=== PATIENT | female | born 2000 | race Caucasian/White ===

== ENCOUNTER 2020-09-04 01:13 | Emergency (ER) | payer OTHER, SELFPAY ==
--- NOTE | ~2020-09-04 | CT_ITS ---
EXAMINATION: CT abdomen pelvis w con DATE: 09/04/2020 02:52 INDICATION: Abdominal pain. TECHNIQUE: Computed tomography (CT) of the abdomen and pelvis was performed with 100 mL Omnipaque 350 intravenous contrast. Automated exposure control and iterative reconstruction technique were employe d. The dose-length product was 316.65 mGy-cm. COMPARISON: CT abdomen and pelvis 12/02/2018 FINDINGS: The visualized portions of the lung bases are clear without pneumonia or pleural effusion. The heart size is normal. No pericardial effusion. The liver, gallbladder, spleen, pancreas, adrenal glands, and kidneys are normal. There are no dilated loops of bowel. There are changes of appendectom y. There are no pathologically enlarged lymph nodes. There is no free intraperitoneal fluid. There is thoracolumbar levoscoliosis. IMPRESSION: 1. No etiology for the patient's symptoms. Reviewed, dictated and finalized at location A.
[2020-09-04 01:22] VITALS: BP 154/103; PULSE 104; RESP 16; TEMP 37; O2SAT 100
[2020-09-04 01:38] VITALS: BP 120/82; PULSE 100; RESP 16; O2SAT 100
[2020-09-04] MEDS: ONDANSETRON INJ 4 MG/2 ML VIAL IV PUSH (01:58)
[2020-09-04 01:59] LABS: Basophils Absolute Auto 0.1 K/mm3 (0.0-0.1); Basophils Percent Auto 0.6 % (0.2-1.2); Eosinophils Absolute Auto 0.1 K/mm3 (0-0.3); Hematocrit 38.8 % (37.0-47.0); Immature Granulocyte Absolute 0.03 K/mm3 (0.00-0.031); Immature Granulocyte Percent A 0.4 % (0-0.5); Lymphocytes Absolute Auto 2.35 K/mm3 (0.9-3.2); Lymphocytes Percent Auto 30.3 % (18.3-44.2); Mean Corpuscular HGB Conc 33.5 g/dl (32-36); Mean Corpuscular Hemoglobin 30.9 pg (26-34); Mean Corpuscular Volume 92.2 fl (80-100); Mean Platelet Volume 11.9 fl (7.4-10.4); Monocytes Absolute Auto 0.5 K/mm3 (0.1-0.6); Monocytes Percent Auto 6.3 % (2.6-8.5); Neutrophils Absolute Auto 4.8 K/mm3 (1.3-6.7); Neutrophils Percent Auto 61.4 % (45.5-73.1); Platelet Count Result 260 k/mm3 (150-375); Red Blood Count 4.21 M/mm3 (4.2-5.4); Red Cell Distribution Width 12.1 % (11.5-14.5); White Blood Count 7.8 K/mm3 (4.5-10.0)
[2020-09-04] MEDS: SODIUM CHLORIDE 0.9% IV 1,000 ML 999 ML IV CONT (01:59)
[2020-09-04 02:00] LABS: Alanine Aminotransferase 8 U/L (4-35); Albumin Level 4.6 g/dL (3.5-5.1); Alkaline Phosphatase 54 U/L (38-126); Anion Gap 7 mmol/L (8-16); Aspartate Amino Transferase 21 U/L (14-36); Bilirubin,Total 0.4 mg/dL (0.2-1.3); Blood Urea Nitrogen 9 mg/dL (7-17); Carbon Dioxide 27 mmol/L (22-30); Chloride 104 mmol/L (98-107); Estimated CRCL calculation 94 ml/min; Estimated Glomerular Filt Rate > 60; Glucose 83 mg/dL (65-105); Lipase 82 U/L (23-300); Potassium 4.2 mmol/L (3.4-5.0); Sodium 138 mmol/L (137-145)
[2020-09-04 02:15] LABS: Add Urine Microscopic? YES; Appearance Urine Cloudy (Clear); Bacteria Urine 2+ /hpf; Bilirubin Urine Negative (Negative); Blood Urine Negative (Negative); Color Urine Yellow (Yellow); Glucose Urine UA Negative (Negative); Ketones Urine 1+ mg/dL (Negative); Leukocyte Esterase Ur 1+ LEU/UL (Negative); Mucus Urine Few /lpf; Nitrate Urine Negative (Negative); Protein Urine 1+ mg/dL (Negative); Specific Grav Ur 1.025 (1.001-1.035); Squamous Epithelial Cell Urine Moderate /hpf (Few); Urobilinogen Urine Negative mg/dL (<2.0)
--- NOTE | 2020-09-04 02:44 | ED.GENADULT ---
HPI - General Adult General Chief complaint: Abdominal Pain Stated complaint: abd pain/vomiting Time Seen by Provider: 09/04/20 01:19 History of Present Illness HPI narrative: Patient a 20-year-old female who presents the emergency department chief complaint of abdominal pain. The patient reports that she recently was on a trip to [place] and drank a lot of alcohol and ate some food which she said was not the most sanitary. Patient states that she has discomfort in her epigastric region and throughout the abdomen. The patient reports she has had some nausea and vomiting. The patient reports that she has had diarrhea with this and reports that her diarrhea has been orange in color. The patient denies blood in the vomitus or diarrhea. Patient denies fever with this as well Related Data Allergies Allergy/AdvReac Type Severity Reaction Status Date / Time clindamycin Allergy Unknown Vomiting Verified 12/02/18 00:35 doxycycline Allergy Unknown Vomiting Verified 12/02/18 00:35 Review of Systems Review of Systems: Narrative: A 10 system review of systems was completed on the patient and is negative except for what is stated in the HPI. Nursing and ancillary documentation was reviewed. Exam Narrative: Exam Narrative: GENERAL: Well-appearing, well-nourished, and in no acute distress. HEAD: Normocephalic, atraumatic. EYES: PERRLA and EOMI. ENT: Nares clear, no rhinorrhea or epistaxis. Mucous membranes moist. NECK: Supple. CHEST: Clear to auscultation. No respiratory distress. HEART: Regular rate and rhythm. No murmur heard. Normal peripheral pulses. ABDOMEN: Soft, tenderness to palpation throughout the abdomen, nondistended, normal active bowel sounds. EXTREMITIES: Normal range of motion. No edema. SKIN: Warm, dry, no rash. NEURO: No focal deficits. Alert and oriented x3. PSYCH: Normal mood and affect. Course Vital Signs Vital signs: Vital Signs Temperature 37.0 C 09/04/20 01:22 Pulse Rate 104 H 09/04/20 01:22 Respiratory Rate 16 09/04/20 01:22 Blood Pressure 154/103 H 09/04/20 01:22 Pulse Oximetry 100 09/04/20 01:22 Temperature 37.0 C 09/04/20 01:22 Pulse Rate 97 09/04/20 03:12 Respiratory Rate 16 09/04/20 03:12 Blood Pressure 126/93 H 09/04/20 03:12 Pulse Oximetry 100 09/04/20 03:12 Medical Decision Making Vital Signs Vital Signs: Vital Signs Temperature 37.0 C 09/04/20 01:22 Pulse Rate 104 H 09/04/20 01:22 Respiratory Rate 16 09/04/20 01:22 Blood Pressure 154/103 H 09/04/20 01:22 Pulse Oximetry 100 09/04/20 01:22 Temperature 37.0 C 09/04/20 01:22 Pulse Rate 97 09/04/20 03:12 Respiratory Rate 16 09/04/20 03:12 Blood Pressure 126/93 H 09/04/20 03:12 Pulse Oximetry 100 09/04/20 03:12 Lab Data Result diagrams: 09/04/20 01:41 09/04/20 01:41 Labs: Lab Results 09/04/20 09/04/20 09/04/20 Range/Units 01:41 01:41 01:41 WBC 7.8 (4.5-10.0) K/mm3 RBC 4.21 (4.2-5.4) M/mm3 Hgb 13.0 (12.0-15.0) g/dL Hct 38.8 (37.0-47.0) % MCV 92.2 (80-100) fl MCH 30.9 (26-34) pg MCHC 33.5 (32-36) g/dl RDW 12.1 (11.5-14.5) % Plt Count 260 (150-375) k/mm3 MPV 11.9 H (7.4-10.4) fl Immature Gran % (Auto) 0.4 (0-0.5) % Neut % (Auto) 61.4 (45.5-73.1) % Lymph % (Auto) 30.3 (18.3-44.2) % Schley % (Auto) 6.3 (2.6-8.5) % Eos % (Auto) 1.0 (0-4.4) % Baso % (Auto) 0.6 (0.2-1.2) % Lymph # (Auto) 2.35 (0.9-3.2) K/mm3 Schley # (Auto) 0.5 (0.1-0.6) K/mm3 Eos # (Auto) 0.1 (0-0.3) K/mm3 Baso # (Auto) 0.1 (0.0-0.1) K/mm3 Abs Immat Gran (auto) 0.03 (0.00-0.031) K/mm3 Absolute Neuts (auto) 4.8 (1.3-6.7) K/mm3 Absolute Nucleated RBC 0.0 (0.0-0.012) K/mm3 Nucleated RBC % 0.0 (0.0-0.2) % Sodium 138 (137-145) mmol/L Potassium 4.2 (3.4-5.0) mmol/L Chloride 104 (98-107) mmol/L Carbon Dioxide 27 (22-30) mmol/L Ani
[2020-09-04 03:12] VITALS: BP 126/93; PULSE 97; RESP 16; O2SAT 100
[2020-09-04 04:23] VITALS: BP 110/65; PULSE 80; RESP 16; O2SAT 99
== END 2020-09-04 04:25 | disposition home or self-care (01) ==
PROVIDERS: Emergency Provider Emergency Medicine; PCP Internal Medicine
DX: K52.9 Noninfective gastroenteritis and colitis, unspecified (principal)
CPT/HCPCS: 36415; 74177; 80053; 81001; 81025; 83605; 83690; 85025; 96361; 96374; 99284; J2405; J7030; Q9967

== ENCOUNTER 2022-12-04 03:45 | Emergency (ER) | payer OTHER, SELFPAY ==
--- NOTE | ~2022-12-04 | CT_ITS ---
Clinical Indication: Abdominal pain, dissection CT Scan of the Chest, Abdomen, and Pelvis with Contrast: Technique: Contiguous sections were acquired throughout the chest, abdomen, and pelvis after intraven ous administration of 100 cc of Omnipaque 350. Dose reduction technique was used on this scan by [employer] emilying automated exposure control and iterative reconstruction technique. The dose-length product (DL P) was 567.82 mGy-cm. COMPARISON: 09/04/2020 Findings: There is no evidence of any significant mediastinal, hilar or axillary lymphadenopathy. The mediastin al soft tissues appear normal. No pulmonary embolus seen. No aortic aneurysm or dissection. There is no evidence of pleural or pericardial effusion. The lungs are clear. No pulmonary nodules or infiltrates are noted. The liver, spleen, pancreas, gallbladder, adrenals and kidneys are within normal limits. No evidence of aortic aneurysm or dissection. No lymphadenopathy. No bowel obstruction or bowel wall thickening. There is no evidence to suggest acute appendicitis. Urinary bladder is unremarkable. No adnexal mass seen. No ascites. Impression: No significant abnormalities seen. No aortic dissection. Reviewed, dictated and finalized at [facility]. Impression: No significant abnormalities seen. No aortic dissection.
[2022-12-04 03:46] VITALS: PULSE 105; RESP 15; TEMP 37.1; O2SAT 100
--- NOTE | 2022-12-04 04:06 | ED.GENADULT ---
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 Per patient, she was in her usual state of health until 6 hours prior to presentation. At this time, she began having sudden sharp abdominal pain, going to her left side. This has also been associated with frequent watery stool, seeing black. Denied fevers/chills, nausea/vomiting, chest pain, shortness of breath, dysuria, sick contacts. Past Medical History: Nanda-Danlos, anemia Past Surgical History: appendectomy Medications: iron Allergies: no known drug allergies Related Data Allergies Allergy/AdvReac Type Severity Reaction Status Date / Time clindamycin Allergy Unknown Vomiting Verified 12/02/18 00:35 doxycycline Allergy Unknown Vomiting Verified 12/02/18 00:35 Review of Systems Review of Systems: See HPI Exam Narrative: General: Alert, calm and cooperative, no acute distress, phonating, sitting comfortably during visit HEENT: Pupils equal round and reactive to light, extra ocular movements intact, no conjunctival injection, head atraumatic, neck supple without meningismus Cardiovascular: Regular rate and rhythm, no visible jugular venous distension Respiratory: Lungs clear to auscultation bilaterally, no wheezing/rales/rhonchi Abdominal: Epigastric tenderness to palpation, soft, non-distended, no guarding, no rebound/peritoneal signs, no costovertebral tenderness to palpation Back: no midline tenderness to palpation, no step offs Extremities: No edema, palpable peripheral pulses, warm, well perfused, no tenderness to bilateral calves Neurological: Alert, moving all extremities symmetrically, ambulating without deficit Course Vital Signs Vital signs: Vital Signs Temperature 98.8 F 12/04/22 03:46 Pulse Rate 105 H 12/04/22 03:46 Respiratory Rate 15 12/04/22 03:46 Pulse Oximetry 100 12/04/22 03:46 Oxygen Delivery Room Air 12/04/22 03:46 Temperature 98.8 F 12/04/22 03:46 Pulse Rate 96 12/04/22 05:33 Respiratory Rate 15 12/04/22 05:33 Blood Pressure 126/74 12/04/22 05:33 Pulse Oximetry 100 12/04/22 05:33 Oxygen Delivery Room Air 12/04/22 03:46 Medical Decision Making [facility] Narrative Medical decision making narrative: 22 year old female history of connective tissue disease presented with one day of diarrhea, also reporting epigastric abdominal pain. Physical exam benign, abdomen with epigastric tenderness to palpation, vitals stable. Differential diagnosis includes but not limited to: aortic dissection vs cholecystitis vs pancreatitis vs viral gastroenteritis. Patient given GI cocktail and IV fluids with improvement. CTA chest abd/pelv without acute findings. EKG non ischemic. Blood work reviewed, noted to be unremarkable. Physical exam benign, repeat abdominal exam soft and non tender, vitals stable. The patient tolerated oral intake, is alert and oriented, speaking with clear speech, ambulated with steady gait, and has remained hemodynamically stable throughout the ED visit. Findings on imaging communicated to patient and counseled to follow up with primary care provider. Has close follow up with primary care provider. Areas of diagnostic uncertainty discussed and strict return precautions shared with patient; encouraged to return to the emergency department if symptoms returned or worsened. The patient is safe to be discharged with follow up, provided she abide by the verbalized and written instructions, to which the patient has expressed understanding. Vital Signs Vital Signs: Vital Signs Temperature 98.8 F 12/04/22 03:46 Pulse Rate 105 H 12/04/22 03:46 Respiratory Rate 15 12/04/22 03:46 Pulse Oximetry 100 12/04/22 03:46 Oxygen Delivery Room Air 12/04/22 03:46 Temperature 98.8 F 07
[2022-12-04 04:12] LABS: Alanine Aminotransferase 16 U/L (6-35); Albumin Level 4.1 g/dL (3.5-5.1); Alkaline Phosphatase 51 U/L (38-126); Anion Gap 8 mmol/L (8-16); Aspartate Amino Transferase 27 U/L (14-36); Bilirubin,Total 0.3 mg/dL (0.2-1.3); Blood Urea Nitrogen 10 mg/dL (7-17); Calcium 8.5 mg/dL (8.4-10.2); Carbon Dioxide 23 mmol/L (22-30); Chloride 105 mmol/L (98-107); Estimated CRCL calculation 106 ml/min; Estimated Glomerular Filt Rate > 60; Glucose 114 mg/dL (65-110); Potassium 3.7 mmol/L (3.4-5.0); Sodium 136 mmol/L (137-145)
[2022-12-04] MEDS: MAG HYDROX/AL HYDROX/SIMETH 30 ML UDC PO (04:27)
[2022-12-04] MEDS: ONDANSETRON INJ 4 MG/2 ML VIAL IV PUSH (04:28)
[2022-12-04] MEDS: ACETAMINOPHEN 500 MG TABLET 1000 MG PO (04:29)
--- NOTE | 2022-12-04 04:30 | PC.NURSE ---
Patient refused famotidine. Patient states it gives her terrible heart burn.
[2022-12-04 04:50] LABS: SPREG INTERNAL CONTROL Positive; Serum Qual hCG Negative
[2022-12-04 05:03] LABS: Appearance Urine Clear (Clear); Bacteria Urine None Seen /hpf; Bilirubin Urine Negative (Negative); Blood Urine Negative (Negative); Color Urine Yellow (Yellow); Glucose Urine UA Negative (Negative); Ketones Urine Negative (Negative); Leukocyte Esterase Ur Trace LEU/UL (Negative); Nitrate Urine Negative (Negative); Non Pathogenic Casts 0-2; Protein Urine Negative (Negative); RBC Urine 0-2 /hpf (0-2); Specific Grav Ur 1.008 (1.001-1.035); Squamous Epithelial Cell Urine None seen /hpf (Few); Urobilinogen Urine 0.2 mg/dL (<2.0); WBC Urine 0-5 /hpf
[2022-12-04 05:09] LABS: Add Urine Microscopic? YES
[2022-12-04 05:11] LABS: Basophils Percent Auto 0.3 % (0.2-1.2); Eosinophils Percent Auto 0.4 % (0-4.4); Hematocrit 31.3 % (37.0-47.0); Hemoglobin 10.3 g/dL (12.0-15.0); Immature Granulocyte Absolute 0.04 K/mm3 (0.00-0.031); Immature Granulocyte Percent A 0.4 % (0-0.5); Lymphocytes Absolute Auto 0.81 K/mm3 (0.9-3.2); Lymphocytes Percent Auto 8.3 % (18.3-44.2); Mean Corpuscular HGB Conc 32.9 g/dl (32-36); Mean Corpuscular Hemoglobin 30.8 pg (26-34); Mean Corpuscular Volume 93.7 fl (80-100); Monocytes Absolute Auto 0.4 K/mm3 (0.1-0.6); Monocytes Percent Auto 4.2 % (2.6-8.5); Neutrophils Absolute Auto 8.4 K/mm3 (1.3-6.7); Neutrophils Percent Auto 86.4 % (45.5-73.1); Platelet Count Result 185 k/mm3 (150-375); Red Blood Count 3.34 M/mm3 (4.2-5.4); Red Cell Distribution Width 12.2 % (11.5-14.5); White Blood Count 9.7 K/mm3 (4.5-10.0)
[2022-12-04 05:13] LABS: Alanine Aminotransferase 16 U/L (6-35); Alkaline Phosphatase 51 U/L (38-126); Anion Gap 9 mmol/L (8-16); Aspartate Amino Transferase 27 U/L (14-36); Bilirubin,Total 0.3 mg/dL (0.2-1.3); Blood Urea Nitrogen 11 mg/dL (7-17); Calcium 8.8 mg/dL (8.4-10.2); Carbon Dioxide 22 mmol/L (22-30); Chloride 105 mmol/L (98-107); Estimated CRCL calculation 106 ml/min; Estimated Glomerular Filt Rate > 60; Glucose 112 mg/dL (65-110); Lipase 75 U/L (23-300); Potassium 3.8 mmol/L (3.4-5.0); Sodium 136 mmol/L (137-145)
[2022-12-04] MEDS: MORPHINE SULFATE (*CRX) 4 MG/ML INJ IV PUSH (05:19)
[2022-12-04 05:33] VITALS: BP 126/74; PULSE 96; RESP 15; O2SAT 100
--- NOTE | 2022-12-04 05:40 | ECG_ITS ---
Measurements Intervals [place] Rate: 98 P: 68 CO: 140 QRS: 64 QRSD: 81 T: 39 QT: 354 QTc: 452 Interpretive Statements SINUS RHYTHM BASELINE ARTIFACT- III, V6 NORMAL ECG NO PREVIOUS ECG AVAILABLE FOR COMPARISON Electronically Signed On 12-04-2022 7:02:49 CDT by Melchor Mendoza D.O.
[2022-12-04 06:25] LABS: Troponin I < 0.012 ng/mL (0.000-0.034)
[2022-12-04 06:54] VITALS: BP 117/80; PULSE 93; RESP 15; TEMP 36.7; O2SAT 100
== END 2022-12-04 06:55 | disposition home or self-care (01) ==
PROVIDERS: Emergency Provider Emergency Medicine; PCP Internal Medicine
DX: R19.7 Diarrhea, unspecified (principal); Q79.60 Ehlers-Danlos syndrome, unspecified; D64.9 Anemia, unspecified
CPT/HCPCS: 36415; 71275; 74174; 80048; 80053; 80076; 81001; 81025; 83690; 84484; 84703; 85025; 93005; 96374; 96375; 99284; A9270; J2270; J2405; Q9967

== ENCOUNTER 2023-05-06 18:28 | Emergency (ER) | payer OTHER, SELFPAY ==
--- NOTE | ~2023-05-06 | CT_ITS ---
EXAMINATION: CT abdomen pelvis w con DATE: 05/07/2023 00:30 INDICATION: Upper abdominal pain. Nausea. TECHNIQUE: Computed tomography (CT) of the abdomen and pelvis was performed with 100 mL Omnipaque 350 intravenous contrast. Automated exposure control and iterative reconstruction technique were employe d. The dose-length product was 461.67 mGy-cm. COMPARISON: CT abdomen and pelvis 12/04/2022 FINDINGS: The visualized portions of the lung bases are clear without pneumonia or pleural effusion. The heart size is normal. No pericardial effusion. The liver, gallbladder, spleen, pancreas, adrenal glands, and kidneys are normal. There are no dilated loops of bowel. There are changes of appendectom y. There are no pathologically enlarged lymph nodes. There is no free intraperitoneal fluid. There is thoracolumbar levoscoliosis. There is mild lumbar spondylosis. IMPRESSION: 1. No etiology for the patient's symptoms. Reviewed, dictated and finalized at location E. [employer]
--- NOTE | ~2023-05-06 | XR_ITS ---
EXAMINATION: XR chest 1V portable DATE: 05/07/2023 01:40 INDICATION: Upper respiratory infection. Cough, congestion, and fever. TECHNIQUE: A single frontal view of the chest was obtained. COMPARISON: Chest 2 views 11/10/2018, CT abdomen and pelvis 05/07/2023 FINDINGS: There is no pneumonia, pleural effusion, or pneumothorax. The heart size is normal. IMPRESSION: 1. No acute cardiopulmonary disease. Reviewed, dictated and finalized at location E. HUSKER
[2023-05-06 18:45] VITALS: BP 142/95; PULSE 98; RESP 16; TEMP 37.1; O2SAT 98
[2023-05-06 21:06] VITALS: TEMP 37.2
--- NOTE | 2023-05-06 22:04 | ED.GENADULT ---
HPI - General Adult General Chief complaint: Fever Stated complaint: fever Time Seen by Provider: 05/06/23 21:43 Source: patient Mode of arrival: ambulatory Limitations: no limitations History of Present Illness HPI narrative: Patient is a 22-year-old female who presents the ED with multiple complaints. Patient reports having intermittent fevers for the past 1 week, Tmax 101.9F on Nabila Christine. She also reports having URI symptoms, including headaches, myalgias, cough, congestion, rhinorrhea, upper abdominal pain, nausea. Denies vomiting, diarrhea, constipation. Denies known sick contacts. She has been taking Tylenol and ibuprofen for her symptoms without significant improvement. States she was concerned that symptoms have been ongoing for so long. Patient is not vaccinated for covid or influenza. Related Data Allergies Allergy/AdvReac Type Severity Reaction Status Date / Time clindamycin Allergy Unknown Vomiting Verified 05/06/23 21:06 doxycycline Allergy Unknown Vomiting Verified 05/06/23 21:06 Review of Systems Review of Systems: CONSTITUTIONAL: See HPI. ENT: See HPI. CARDIOVASCULAR: Denies chest pain. RESPIRATORY: See HPI. GASTROINTESTINAL: See HPI. GENITOURINARY: Denies dysuria or hematuria. MUSCULOSKELETAL: Reports myalgia. NEUROLOGIC: see HPI. All systems reviewed & are unremarkable except as noted in HPI and below Exam Narrative: GENERAL: Well appearing, well-nourished, non-toxic, in no acute distress. HEAD: Normocephalic, atraumatic. RESPIRATORY: Airway patent, respirations nonlabored. Clear to auscultation bilaterally, no rales, rhonchi, wheezing. No focal lung sounds. CARDIOVASCULAR: Regular rate and rhythm without murmurs, rubs, or gallops. ABDOMINAL: Soft, mild tenderness in epigastric region, nondistended. Normoactive BS. MUSCULOSKELETAL: Moves all extremities. No gross deformities. SKIN: Warm, dry, normal color. NEURO: A&O X3. Speech clear. Cranial nerves II-XII grossly intact. Steady gait. No ataxic movements. PSYCHIATRIC: Appropriate mood and affect. Normal interaction. Course Vital Signs Vital signs: Vital Signs Temperature 98.8 F 05/06/23 18:45 Pulse Rate 98 05/06/23 18:45 Respiratory Rate 16 05/06/23 18:45 Blood Pressure 142/95 H 05/06/23 18:45 Pulse Oximetry 98 05/06/23 18:45 Oxygen Delivery Room Air 05/06/23 18:45 Temperature 98.9 F 05/06/23 21:06 Pulse Rate 85 05/06/23 23:25 Respiratory Rate 22 H 05/06/23 23:25 Blood Pressure 134/69 05/06/23 23:25 Pulse Oximetry 99 05/06/23 23:25 Oxygen Delivery Room Air 05/06/23 18:45 Medical Decision Making MDM Narrative Medical decision making narrative: patient presented to ED with multiple complaints, upper abdominal pain, nausea, fevers, URI symptoms. Vital stable upon arrival. Patient afebrile. In no acute distress. Basic laboratory studies unremarkable. No leukocytosis. No significant electrolyte abnormality. Stable kidney function. Normal LFTs and lipase. Urinalysis with possible infection, trace leuk esterase, 6-10 wbc's. Will send for culture. Patient does admit to recent dysuria. Will treat as UTI. Viral swabs negative. CT abdomen pelvis obtained and without acute findings. Did show a left ovarian cyst. CXR interpreted by myself w/o evidence of focal consolidation. Patient updated on lab and imaging results, reassuring workup. Patient without any lower abdominal tenderness on exam to suggest need for further imaging of cyst. Discussed finding of ovarian cyst advised patient to follow with OBGYN for further evaluation. Recommended to continue Tylenol and ibuprofen as needed for pain and fevers, discussed likelihood of viral syndrome/ URI. Feel patient is stable for discharge home with continued outpatient management. Given strict return precautions. Patient in agreement with plan and feels comfortable with discharge home. D/C in stable condition. Medical Re
[2023-05-06] MEDS: SODIUM CHLORIDE 0.9% IV 1,000 ML 999 ML IV CONT (22:33)
[2023-05-06 22:44] LABS: Basophils Absolute Auto 0.1 K/mm3 (0.0-0.1); Basophils Percent Auto 0.7 % (0.2-1.2); Eosinophils Absolute Auto 0.2 K/mm3 (0-0.3); Hematocrit 36.2 % (37.0-47.0); Hemoglobin 11.8 g/dL (12.0-15.0); Immature Granulocyte Absolute 0.02 K/mm3 (0.00-0.031); Immature Granulocyte Percent A 0.3 % (0-0.5); Lymphocytes Absolute Auto 2.78 K/mm3 (0.9-3.2); Lymphocytes Percent Auto 36.3 % (18.3-44.2); Mean Corpuscular HGB Conc 32.6 g/dl (32-36); Mean Corpuscular Hemoglobin 30.3 pg (26-34); Mean Corpuscular Volume 93.1 fl (80-100); Mean Platelet Volume 11.9 fl (7.4-10.4); Monocytes Absolute Auto 0.4 K/mm3 (0.1-0.6); Monocytes Percent Auto 4.6 % (2.6-8.5); Neutrophils Absolute Auto 4.3 K/mm3 (1.3-6.7); Neutrophils Percent Auto 56.1 % (45.5-73.1); Platelet Count Result 216 k/mm3 (150-375); Red Blood Count 3.89 M/mm3 (4.2-5.4); Red Cell Distribution Width 12.1 % (11.5-14.5); White Blood Count 7.7 K/mm3 (4.5-10.0)
[2023-05-06 22:57] LABS: Alanine Aminotransferase 12 U/L (6-35); Albumin Level 4.4 g/dL (3.5-5.1); Alkaline Phosphatase 54 U/L (38-126); Anion Gap 8 mmol/L (8-16); Aspartate Amino Transferase 20 U/L (14-36); Bilirubin,Total 0.3 mg/dL (0.2-1.3); Blood Urea Nitrogen 10 mg/dL (7-17); Calcium 9.3 mg/dL (8.4-10.2); Carbon Dioxide 25 mmol/L (22-30); Chloride 103 mmol/L (98-107); Estimated CRCL calculation 106 ml/min; Estimated Glomerular Filt Rate > 60; Glucose 87 mg/dL (65-110); Hypochromasia 1+ (NORMAL); Large Platelets Present; Lipase 94 U/L (23-300); Ovalocytes 1+ (NORMAL); Platelet Estimate Adequate (Adequate); Schistocytes None Seen (NORMAL); Sodium 136 mmol/L (137-145); Stomatocytes 1+ (NORMAL)
[2023-05-06 23:19] LABS: Influenza A QL RT-PCR Negative (Negative); Influenza B QL RT-PCR Negative (Negative); RSV RNA, RT-PCR Negative (Negative); SARS-CoV-2 RNA PCR Negative (Negative)
[2023-05-06 23:25] VITALS: BP 134/69; PULSE 85; RESP 22; O2SAT 99
[2023-05-07 00:16] LABS: Appearance Urine Clear (Clear); Bacteria Urine None Seen /hpf; Bilirubin Urine Negative (Negative); Blood Urine Negative (Negative); Color Urine Yellow (Yellow); Glucose Urine UA Negative (Negative); Ketones Urine 1+ mg/dL (Negative); Leukocyte Esterase Ur Trace LEU/UL (Negative); Nitrate Urine Negative (Negative); Non Pathogenic Casts 0-2; Protein Urine Negative (Negative); RBC Urine 0-2 /hpf (0-2); Specific Grav Ur 1.015 (1.001-1.035); Squamous Epithelial Cell Urine Occasional /hpf (Few); Urobilinogen Urine 0.2 mg/dL (<2.0)
[2023-05-07 00:20] LABS: Add Urine Microscopic? YES
[2023-05-07 03:40] VITALS: BP 114/74; PULSE 83; RESP 16; O2SAT 99
== END 2023-05-07 03:50 | disposition home or self-care (01) ==
PROVIDERS: Emergency Provider Physician Assistant; PCP Family Medicine
DX: B34.9 Viral infection, unspecified (principal); N39.0 Urinary tract infection, site not specified; J06.9 Acute upper respiratory infection, unspecified; N83.202 Unspecified ovarian cyst, left side; Z20.822 Contact with and (suspected) exposure to COVID-19
CPT/HCPCS: 36415; 71045; 74177; 80053; 81001; 81025; 83690; 85025; 87086; 87088; 87637; 96360; 99284; J7030; Q9967

== ENCOUNTER 2023-10-15 23:46 | Emergency (ER) | payer OTHER, SELFPAY ==
[2023-10-15 23:46] VITALS: BP 136/77; PULSE 114; RESP 20; TEMP 36.6; O2SAT 100
[2023-10-16] VITALS: BP 139/85; PULSE 108; PULSE 113; RESP 23; O2SAT 100
[2023-10-16] MEDS: FAMOTIDINE 20 MG/2 ML VIAL IV PUSH (00:01)
[2023-10-16] MEDS: methylPREDNISolone SOD SUCC 125 MG VIAL IV PUSH (00:01)
[2023-10-16] MEDS: SODIUM CHLORIDE 0.9% IV 1,000 ML 999 ML IV CONT (00:01)
[2023-10-16 00:15] VITALS: BP 128/81; PULSE 98; RESP 14; O2SAT 100
[2023-10-16 00:30] VITALS: BP 128/79; PULSE 105; RESP 16; O2SAT 100
--- NOTE | 2023-10-16 01:04 | ED.ALLEREA ---
HPI - Allergic Reaction General Chief complaint: Allergic Reaction Stated complaint: allergic reaction Time Seen by Provider: 10/15/23 23:58 Source: patient Mode of arrival: ambulatory Limitations: no limitations History of Present Illness HPI narrative: This is a 23-year-old female who presents to the ED for chief complaint of possible allergic reaction tonight. Reports that she tried a new lip gloss and felt that it was causing swelling in her throat. She reports sore throat and feels scratchy when she tries to talk. she also states that she became short of breath And had lip swelling. Also reports hives diffusely.. Per EMS she was given 25 mg of Benadryl IV after taking 25 mg oral at home. She declined epi IM from EMS. Denies chest pain, wheezes cough recent illness. Related Data Allergies Allergy/AdvReac Type Severity Reaction Status Date / Time clindamycin Allergy Unknown Vomiting Verified 05/06/23 21:06 doxycycline Allergy Unknown Vomiting Verified 05/06/23 21:06 Review of Systems Review of Systems: All systems as dictated in HPI Exam Narrative: GENERAL: Well-appearing, well-nourished, and in no acute distress. Typing out history answers on cellphone while also answering out out intermittently. HEAD: Normocephalic, atraumatic. EYES: PERRLA and EOMI. ENT: Airway intact. No tonsillar hypertrophy. Uvula normal. Tongue normal. No lip swelling. No facial swelling. Nares clear, no rhinorrhea or epistaxis. Mucous membranes moist. Oropharynx without tonsillar hypertrophy exudate or other lesions. NECK: Supple. No adenopathy or masses. CHEST: No respiratory distress. Clear to auscultation. No wheezes rales or rhonchi. 100% room air. HEART: Regular rate and rhythm. No murmur heard. Normal peripheral pulses. ABDOMEN: Soft, nontender, nondistended, normal active bowel sounds. MSK: Normal range of motion. No edema. SKIN: Warm, dry, no rash. No hives NEURO: Alert and oriented x3. No focal deficits. PSYCH: Normal mood and affect. Course Vital Signs Vital signs: Vital Signs Temperature 98 F 10/15/23 23:46 Pulse Rate 114 H 10/15/23 23:46 Respiratory Rate 20 10/15/23 23:46 Blood Pressure 136/77 10/15/23 23:46 Pulse Oximetry 100 10/15/23 23:46 Oxygen Delivery Room Air 10/15/23 23:46 Temperature 98 F 10/15/23 23:46 Pulse Rate 93 10/16/23 01:15 Respiratory Rate 20 10/16/23 01:15 Blood Pressure 126/81 10/16/23 01:15 Pulse Oximetry 100 10/16/23 01:15 Oxygen Delivery Room Air 10/15/23 23:51 MDM - Allergic Reaction MDM Narrative Medical decision making narrative: this is a 23-year-old female who presents to the ED via EMS for possible allergic reaction To a new lip gloss. vitals are normal. Exam is benign. No hives. Airway intact. No respiratory distress. Patient was given Benadryl EN route and also to Benadryl home. She was given fluids, Solu-Medrol and famotidine here. On serial re-examination she is stable and symptomatically improved. Suspect more of a component of anxiety today, however she did report diffuse hives and dyspnea. Medrol Dosepak prescription given. Pt will be discharged in stable condition. Return precautions given and supportive measures discussed. Pt is understanding and agreeable with plan for discharge and follow-up with PCP. Discharge Plan Discharge Clinical Impression: Allergic reaction Patient Disposition: Home, Self-Care Condition: Stable Instructions: Antibiotic Form Additional Instructions: Your exam today is reassuring overall. Please take steroids over the next several days for possible allergic reaction. If you have any new or worsening symptoms please return to the ER for further evaluation. Prescriptions: New methylprednisolone [Medrol (George)] 4 mg tablets,dose pack See Rx Instructions .ROUTE .COMPLEX Qty: 21 0RF Rx Instructions: for 6 days No Action ondansetron 4 mg t
[2023-10-16 01:07] VITALS: BP 121/82; PULSE 94; RESP 18; O2SAT 100
[2023-10-16 01:15] VITALS: BP 126/81; PULSE 93; RESP 20; O2SAT 100
[2023-10-16 02:09] VITALS: BP 125/83; PULSE 94; RESP 15; O2SAT 99
== END 2023-10-16 02:13 | disposition home or self-care (01) ==
PROVIDERS: Emergency Provider Physician Assistant; PCP Family Medicine
DX: T78.49XA Other allergy, initial encounter (principal)
CPT/HCPCS: 96361; 96374; 96375; 99284; J2919; J7030

== ENCOUNTER 2024-06-17 19:15 | Emergency (ER) | payer OTHER, SELFPAY ==
--- OUTSIDE RECORDS SUMMARY | 2024-06-17 19:18 | XMS_ITS | Encounter Summary ---
Author Organization [facility] Address [address] [place] [address] Care Team Providers Care Guidance Consultant Name Role Phone Farzaneh Briscoe MD Primary Care Provider [phone] Encounter Details Date Type Department Care Team (Late st Contact Info) Description 11/06/2022 [employer] Message Enc [facility] Medical [facility] [address] [place] [address] [employer], [facility] Provider Air Quality Message Social History Tobacco Use Types Packs/Day Years Used Date Smoking Tobacco: Never Smokeless Tobacco: Never Alcohol Use Standard Drinks/Week Comments Not Currently 0 (1 standard drink = 0.6 oz pur e alcohol) AUDIT-C Answer Date Recorded Q1: How often do you have a drink containing alc ohol? Monthly or less 09/15/2020 Average Number of Drinks Not on file 021 Frequency of Binge Drinking Not on file 11/2020 PHQ-2 Answer Date Recorded Patient Health Questionnaire-2 Score 3 07/01/2022 Comments No Sex and Gender Information Value Date Recorded Sex Assigned at Female 06/14/2024 9:24 PM DIE CASTING SUPERVISOR Legal Sex Female 5:01 PM CDT Gender Identity Female 06/14/2024 9:20 PM DIE CASTING SUPERVISOR Sexual Orientation Straight 06/14/2024 9: 20 PM DIE CASTING SUPERVISOR COVID-19 Exposure Response Date Recorded In the last 10 days, have yo u been in contact with someone who was confirmed or suspected to have Coronavirus/COVID-19? No / Unsure 10/17/2022 11:11 AM CDT documented as of this encounter Functional Status * RETIRED Are you deaf or do you have serious difficulty hearing Answer Date of Assessment Author Status No 02/02/2020 1:57 PM CDT Activ e * RETIRED Are you blind or do you have serious difficulty seeing, even when wearing glasses? Answer Date of Assessment Author Status No 02/02/2020 1:57 PM CDT Activ e * Do you have serious difficulty walking or climbing stairs? Answer Date of Assessment Author Status No 02/02/2020 1:57 PM CDT Joseline Escamilla RN Active * Do you have difficulty dressing or bathing? Answer Date of Assessment Author Status No 02/02/2020 1:57 PM CDT Joseline Escamilla RN Active * Because of a physical, mental, or emotional condition, do you have difficulty doing errands alone such as visiting a doctor's office or shopping? Answer Date of Assessment Author Status No 02/02/2020 1:57 PM CDT Joseline Escamilla RN Active documented as of this encounter Mental Status * Because of a physical, mental, or emotional condition, do you have serious difficulty concentrating, remembering, or making decisions? Answer Entry Date Author Status No 02/02/2020 1:57 PM CDT Joseline Escamilla RN Active documented in this encounter Plan of Treatment Upcoming Encounters Date Type Department Care Team (Late st Contact Info) Description 01/21/2025 10:45 AM CDT Office Visit [facility] [id number] [place] [phone] Doyle Curry MD [address] [address] documented as of this encounter Goals Goal Patient Goal Type Associated Problems Recent Progress Patient-Stated? Author Return home with mother Diet No Mayte Camacho MSW documented as of this encounter Visit Diagnoses Not on filedocumented in this encounter Additional Health Concerns Infection Onset Date Last Indicated Resolved Time COVID-19 Rule Out 12/02/2022 12/02/2022 12/02/2022 1:15 PM CDT COVID-19 Rule Out 02/14/2023 02/14/2023 02/14/2023 2:15 PM CDT COVID-19 Rule Out 03/20/2023 03/20/2023 03/20/2023 10:27 AM DIE CASTING SUPERVISOR COVID-19 Rule Out 03/20/2023 03/20/2023 03/20/2023 2:10 PM DIE CASTING SUPERVISOR COVID-19 Rule Out 03/26/2023 03/26/2023 03/26/2023 12:11 PM DIE CASTING SUPERVISOR COVID-19 Rule Out 03/26/2023 03/26/2023 03/26/2023 1:39 PM DIE CASTING SUPERVISOR COVID-19 Rule Out 04/01/2023 04/01/2023 04/01/2023 10:22 PM DIE CASTING SUPERVISOR COVID-19 Rule Out 07/02/2023 07/02/2023 07/02/2023 1:03 PM DIE CASTING SUPERVISOR COVID-19 Rule Out 07/09/2023 07/09/2023 07/09/2023 7:57 PM DIE CASTING SUPERVISOR COVID-19 Rule Out 07/29/2023 07/29/2023 07/29/2023 7:23 PM CDT COVID-19 Rule Out 09/05/2023 09/05/2023 09/05/2023 1:30 PM CDT COVID-19 Rule Out 11/03/2023 11/03/2023 11/03/2023 3:34 PM CDT COVID-19 Rule Out 04/14/2024 04/14/2024 04/14/2024 1:53 PM DIE CASTING SUPERVISOR Assessment Noted Time PHQ-9 Depression Total Score: 023 3:00 PM DIE CASTING SUPERVISOR documented as of this encounter Care Teams Guidance Consultant Relationship Specialty Start [place] [address] [facility]. [address] [place] [address] PCP - General FAMILY PRACTICE 09/19/22 documented as of this encounter
--- OUTSIDE RECORDS SUMMARY | 2024-06-17 19:18 | XMS_ITS | Encounter Summary ---
Author Organization [facility] Address [address] [place] [address] Care Team Providers Care Automatic Gluing Machine Operator Name Role Phone Annette Kirkland MD Primary Care Provider + Brinda Ascencio [facility] Primary Care Provider [phone] Nuvia Prasad MD Primary Care Provider [phone] None, Provider Primary Care Provider Unavaila Farzaneh Lancaster MD Primary Care Provider [phone] Encounter Details Date Type Department Care Team (Late st Contact Info) Description 06/05/2002 Abstract [facility] Conversion , Generic Conversion, Social History Tobacco Use Types Packs/Day Years Used Date Smoking Tobacco: Never Assessed Comments Unknown Sex and Gender Information Value Date Recorded Sex Assigned at Female 06/14/2024 9:24 PM AEROSOL SUPERVISOR Legal Sex Female 5:01 PM CDT Gender Identity Female 06/14/2024 9:20 PM AEROSOL SUPERVISOR Sexual Orientation Straight 06/14/2024 9: 20 PM AEROSOL SUPERVISOR documented as of this encounter Plan of Treatment Upcoming Encounters Date Type Department Care Team (Late st Contact Info) Description 01/21/2025 10:45 AM CDT [facility] [address] [place] [phone] Doyle Curry MD [facility] [address] [place] [address] documented as of this encounter Visit Diagnoses Not on filedocumented in this encounter Additional Health Concerns Infection Onset Date Last Indicated Resolved Time COVID-19 Rule Out 08/14/2020 08/15/2020 08/15/2020 2:03 PM CDT COVID-19 Rule Out 08/15/2020 08/15/2020 08/16/2020 5:22 PM CDT COVID-19 Rule Out 10/15/2021 10/15/2021 10/15/2021 1:34 PM CDT COVID-19 Rule Out 10/15/2021 10/15/2021 10/16/2021 7:02 PM CDT COVID-19 Rule Out 01/30/2022 01/30/2022 01/30/2022 9:59 AM CDT COVID-19 Rule Out 04/24/2022 04/24/2022 04/24/2022 3:01 PM AEROSOL SUPERVISOR COVID-19 Rule Out 05/09/2022 05/09/2022 05/09/2022 7:47 PM AEROSOL SUPERVISOR COVID-19 Rule Out 05/29/2022 05/29/2022 05/29/2022 1:46 PM AEROSOL SUPERVISOR COVID-19 Rule Out 05/29/2022 05/29/2022 05/30/2022 6:46 PM AEROSOL SUPERVISOR COVID-19 Rule Out 07/05/2022 07/05/2022 07/05/2022 7:45 PM AEROSOL SUPERVISOR COVID-19 Rule Out 08/30/2022 08/30/2022 08/30/2022 2:37 PM CDT COVID-19 Rule Out 09/26/2022 09/26/2022 09/26/2022 11:47 AM CDT COVID-19 Rule Out 12/02/2022 12/02/2022 12/02/2022 1:15 PM CDT COVID-19 Rule Out 02/14/2023 02/14/2023 02/14/2023 2:15 PM CDT COVID-19 Rule Out 03/20/2023 03/20/2023 03/20/2023 10:27 AM AEROSOL SUPERVISOR COVID-19 Rule Out 03/20/2023 03/20/2023 03/20/2023 2:10 PM AEROSOL SUPERVISOR COVID-19 Rule Out 03/26/2023 03/26/2023 03/26/2023 12:11 PM AEROSOL SUPERVISOR COVID-19 Rule Out 03/26/2023 03/26/2023 03/26/2023 1:39 PM AEROSOL SUPERVISOR COVID-19 Rule Out 04/01/2023 04/01/2023 04/01/2023 10:22 PM AEROSOL SUPERVISOR COVID-19 Rule Out 07/02/2023 07/02/2023 07/02/2023 1:03 PM AEROSOL SUPERVISOR COVID-19 Rule Out 07/09/2023 07/09/2023 07/09/2023 7:57 PM AEROSOL SUPERVISOR COVID-19 Rule Out 07/29/2023 07/29/2023 07/29/2023 7:23 PM CDT COVID-19 Rule Out 09/05/2023 09/05/2023 09/05/2023 1:30 PM CDT COVID-19 Rule Out 11/03/2023 11/03/2023 11/03/2023 3:34 PM CDT COVID-19 Rule Out 04/14/2024 04/14/2024 04/14/2024 1:53 PM AEROSOL SUPERVISOR documented as of this encounter Care Teams Automatic Gluing Machine Operator Relationship Specialty Start Date End Date Annette Kirkland MD [address] [place] [address] PCP - General 08/31/14 06/07/19 Brinda Ascencio, DEVELOPMENT ENGINEER-BC [address] [place] [address] PCP - General NURSE PRACTITIONER 07/07/19 07/29/19 Nuvia Prasad MD [address] [place] [address] PCP - General INTERNAL MEDICINE 07/30/19 08/27/22 None, MD Yas PCP - General UNKNOWN PHYSICIAN SPECIALTY 08/28/22 [place] [address] [facility]. [address] [place] [address] PCP - General FAMILY PRACTICE 09/19/22 documented as of this encounter
--- OUTSIDE RECORDS SUMMARY | 2024-06-17 19:18 | XMS_ITS | Encounter Summary ---
Author Organization [facility] Address [address] [place] [address] Care Team Providers Care Scraper Operator Name Role Phone Farzaneh Briscoe MD Primary Care Provider [phone] Encounter Details Date Type Department Care Team (Late st Contact Info) Description 11/06/2022 [employer] Message Enc [facility] Medical Group Family & Internal Medicine [facility] [id number] [place] [phone] [place] [address] [place] [address]. [address] [place] [address] Grass card Social History Tobacco Use Types Packs/Day Years [...] Sex Assigned at Female 06/14/2024 9:24 PM PERL DEVELOPER Legal Sex Female 5:01 PM CDT Gender Identity Female 06/14/2024 9:20 PM PERL DEVELOPER Sexual Orientation Straight 06/14/2024 9: 20 PM PERL DEVELOPER COVID-19 Exposure Response Date Recorded In the last 10 days, have glenn munoz been in contact with someone who was [...] Escamilla RN Active documented in this encounter Progress Notes * Evelin Nicole RN - 11/07/2022 10:12 AM CDT Please advise documented in this encounter Plan of Treatment Upcoming Encounters Date Type Department Care Team (Late st Contact Info) Description 01/21/2025 10:45 AM CDT [facility] [address] [place] [phone] Doyle Curry MD [facility]. [facility] [address] [place] [address] [phone] (work) documented as of this encounter Goals Goal Patient Goal Type Associated Problems Recent Progress Patient-Stated? Author Return home with mother Mayte Brady, SOCIAL WORK THERAPIST documented as of this encounter Visit Diagnoses Not on filedocumented in this encounter Additional Health Concerns Infection Onset Date Last Indicated Resolved Time COVID-19 Rule Out 12/02/2022 12/02/2022 12/02/2022 1:15 PM CDT COVID-19 Rule Out 02/14/2023 02/14/2023 02/14/2023 2:15 PM CDT COVID-19 Rule Out 03/20/2023 03/20/2023 03/20/2023 10:27 AM PERL DEVELOPER COVID-19 Rule Out 03/20/2023 03/20/2023 03/20/2023 2:10 PM PERL DEVELOPER COVID-19 Rule Out 03/26/2023 03/26/2023 03/26/2023 12:11 PM PERL DEVELOPER COVID-19 Rule Out 03/26/2023 03/26/2023 03/26/2023 1:39 PM PERL DEVELOPER COVID-19 Rule Out 04/01/2023 04/01/2023 04/01/2023 10:22 PM PERL DEVELOPER COVID-19 Rule Out 07/02/2023 07/02/2023 07/02/2023 1:03 PM PERL DEVELOPER COVID-19 Rule Out 07/09/2023 07/09/2023 07/09/2023 7:57 PM PERL DEVELOPER COVID-19 Rule Out 07/29/2023 07/29/2023 07/29/2023 7:23 PM CDT COVID-19 Rule Out 09/05/2023 09/05/2023 09/05/2023 1:30 PM CDT COVID-19 Rule Out 11/03/2023 11/03/2023 11/03/2023 3:34 PM CDT COVID-19 Rule Out 04/14/2024 04/14/2024 04/14/2024 1:53 PM PERL DEVELOPER Assessment Noted Time PHQ-9 Depression Total Score: 12 07/01/2 023 3:00 PM PERL DEVELOPER documented as of this encounter Care Teams Scraper Operator Relationship Specialty [place] [address] [address] [place] [address] PCP - General FAMILY PRACTICE 09/19/22 documented as of this encounter
--- OUTSIDE RECORDS SUMMARY | 2024-06-17 19:18 | XMS_ITS | Encounter Summary ---
Author Organization [facility] Address [address] [place] [address] Care Team Providers Care Superintendent Terminal Name Role Phone Annette Kirkland MD Primary Care Provider + Brinda Ascencio [facility] Primary Care Provider [phone] Nuvia Prasad MD Primary Care Provider [phone] None, Provider Primary Care Provider Unavaila Farzaneh Lancaster MD Primary Care Provider [phone] Encounter Details Date Type Department Care Team (Late st Contact Info) Description 09/11/2012 Abstract [facility] Conversion , Generic Conversion, Social History Tobacco Use Types Packs/Day Years Used Date Smoking Tobacco: Never Assessed Comments Unknown Sex and Gender Information Value Date Recorded Sex Assigned at Female 06/14/2024 9:24 PM BOARD MACHINE SET UP OPERATOR Legal Sex Female 5:01 PM CDT Gender Identity Female 06/14/2024 9:20 PM BOARD MACHINE SET UP OPERATOR Sexual Orientation Straight 06/14/2024 9: 20 PM BOARD MACHINE SET UP OPERATOR documented as of this encounter Plan of Treatment Upcoming Encounters Date Type Department Care Team (Late st Contact Info) Description 01/21/2025 10:45 AM CDT [facility] [address] [place] [phone] Doyle Curry MD [facility] [address] [place] [address] documented as of this encounter [...] Rule Out 04/24/2022 04/24/2022 04/24/2022 3:01 PM BOARD MACHINE SET UP OPERATOR COVID-19 Rule Out 05/09/2022 05/09/2022 05/09/2022 7:47 PM BOARD MACHINE SET UP OPERATOR COVID-19 Rule Out 05/29/2022 05/29/2022 05/29/2022 1:46 PM BOARD MACHINE SET UP OPERATOR COVID-19 Rule Out 05/29/2022 05/29/2022 05/30/2022 6:46 PM BOARD MACHINE SET UP OPERATOR COVID-19 Rule Out 07/05/2022 07/05/2022 07/05/2022 7:45 PM BOARD MACHINE SET UP OPERATOR COVID-19 Rule Out 08/30/2022 08/30/2022 08/30/2022 2:37 PM CDT COVID-19 Rule Out 09/26/2022 09/26/2022 09/26/2022 11:47 AM CDT COVID-19 Rule Out 12/02/2022 12/02/2022 12/02/2022 1:15 PM CDT COVID-19 Rule Out 02/14/2023 02/14/2023 02/14/2023 2:15 PM CDT COVID-19 Rule Out 03/20/2023 03/20/2023 03/20/2023 10:27 AM BOARD MACHINE SET UP OPERATOR COVID-19 Rule Out 03/20/2023 03/20/2023 03/20/2023 2:10 PM BOARD MACHINE SET UP OPERATOR COVID-19 Rule Out 03/26/2023 03/26/2023 03/26/2023 12:11 PM BOARD MACHINE SET UP OPERATOR COVID-19 Rule Out 03/26/2023 03/26/2023 03/26/2023 1:39 PM BOARD MACHINE SET UP OPERATOR COVID-19 Rule Out 04/01/2023 04/01/2023 04/01/2023 10:22 PM BOARD MACHINE SET UP OPERATOR COVID-19 Rule Out 07/02/2023 07/02/2023 07/02/2023 1:03 PM BOARD MACHINE SET UP OPERATOR COVID-19 Rule Out 07/09/2023 07/09/2023 07/09/2023 7:57 PM BOARD MACHINE SET UP OPERATOR COVID-19 Rule Out 07/29/2023 07/29/2023 07/29/2023 7:23 PM CDT COVID-19 Rule Out 09/05/2023 09/05/2023 09/05/2023 1:30 PM CDT COVID-19 Rule Out 11/03/2023 11/03/2023 11/03/2023 3:34 PM CDT COVID-19 Rule Out 04/14/2024 04/14/2024 04/14/2024 1:53 PM BOARD MACHINE SET UP OPERATOR documented as of this encounter Care Teams Superintendent Terminal Relationship Specialty Start Date End Date Annette Kirkland MD [address] [place] [address] PCP - General 08/31/14 06/07/19 Brinda Ascencio, MUSIC ADAPTER-BC [address] [place] [address] PCP - General NURSE PRACTITIONER 07/07/19 07/29/19 Nuvia Prasad MD [address] [place] [address] PCP - General INTERNAL MEDICINE 07/30/19 08/27/22 None, MD Yas PCP - General UNKNOWN PHYSICIAN SPECIALTY 08/28/22 [place] [address] [facility]. [address] [place] [address] PCP - General FAMILY PRACTICE 09/19/22 documented as of this encounter
--- OUTSIDE RECORDS SUMMARY | 2024-06-17 19:18 | XMS_ITS | Encounter Summary ---
Author Organization [facility] Address [facility] [place] [address] Care Team Providers Care Flat Lock Machine Operator Name Role Phone Annette Kirkland MD Primary Care Provider + Brinda Ascencio [facility] Primary Care Provider [phone] Nuvia Prasad MD Primary Care Provider [phone] None, Provider Primary Care Provider Unavaila Farzaneh Lancaster MD Primary Care Provider [phone] Encounter Details Date Type Department Care Team (Late st Contact Info) Description 02/07/2014 Abstract [facility] CONVERSION [address] [place] [address] , Generic Conversion, Social History Tobacco Use Types Packs/Day Years Used Date Smoking Tobacco: Never Assessed Comments Unknown Sex and Gender Information Value Date Recorded Sex Assigned at Female 06/14/2024 9:24 PM GOVERNMENT MINISTER Legal Sex Female 5:01 PM CDT Gender Identity Female 06/14/2024 9:20 PM GOVERNMENT MINISTER Sexual Orientation Straight 06/14/2024 9: 20 PM GOVERNMENT MINISTER documented as of this encounter Plan of Treatment Upcoming Encounters Date Type Department Care Team (Late st Contact Info) Description 01/21/2025 10:45 AM CDT [facility] [address] [place] [phone] Doyle Curry MD [facility] [address] [place] [address] documented as of this encounter Visit Diagnoses [...] Rule Out 04/24/2022 04/24/2022 04/24/2022 3:01 PM GOVERNMENT MINISTER COVID-19 Rule Out 05/09/2022 05/09/2022 05/09/2022 7:47 PM GOVERNMENT MINISTER COVID-19 Rule Out 05/29/2022 05/29/2022 05/29/2022 1:46 PM GOVERNMENT MINISTER COVID-19 Rule Out 05/29/2022 05/29/2022 05/30/2022 6:46 PM GOVERNMENT MINISTER COVID-19 Rule Out 07/05/2022 07/05/2022 07/05/2022 7:45 PM GOVERNMENT MINISTER COVID-19 Rule Out 08/30/2022 08/30/2022 08/30/2022 2:37 PM CDT COVID-19 Rule Out 09/26/2022 09/26/2022 09/26/2022 11:47 AM CDT COVID-19 Rule Out 12/02/2022 12/02/2022 12/02/2022 1:15 PM CDT COVID-19 Rule Out 02/14/2023 02/14/2023 02/14/2023 2:15 PM CDT COVID-19 Rule Out 03/20/2023 03/20/2023 03/20/2023 10:27 AM GOVERNMENT MINISTER COVID-19 Rule Out 03/20/2023 03/20/2023 03/20/2023 2:10 PM GOVERNMENT MINISTER COVID-19 Rule Out 03/26/2023 03/26/2023 03/26/2023 12:11 PM GOVERNMENT MINISTER COVID-19 Rule Out 03/26/2023 03/26/2023 03/26/2023 1:39 PM GOVERNMENT MINISTER COVID-19 Rule Out 04/01/2023 04/01/2023 04/01/2023 10:22 PM GOVERNMENT MINISTER COVID-19 Rule Out 07/02/2023 07/02/2023 07/02/2023 1:03 PM GOVERNMENT MINISTER COVID-19 Rule Out 07/09/2023 07/09/2023 07/09/2023 7:57 PM GOVERNMENT MINISTER COVID-19 Rule Out 07/29/2023 07/29/2023 07/29/2023 7:23 PM CDT COVID-19 Rule Out 09/05/2023 09/05/2023 09/05/2023 1:30 PM CDT COVID-19 Rule Out 11/03/2023 11/03/2023 11/03/2023 3:34 PM CDT COVID-19 Rule Out 04/14/2024 04/14/2024 04/14/2024 1:53 PM GOVERNMENT MINISTER documented as of this encounter Care Teams Flat Lock Machine Operator Relationship Specialty Start Date End Date Annette Kirkland MD [address] [place] [address] PCP - General 08/31/14 06/07/19 Brinda Ascencio, BIOLOGICAL LAB TECHNICIAN- [address] [place] [address] PCP - General NURSE PRACTITIONER 07/07/19 07/29/19 Nuvia Prasad MD [address] [place] [address] PCP - General INTERNAL MEDICINE 07/30/19 08/27/22 None, Provider, PCP - General UNKNOWN PHYSICIAN SPECIALTY 08/28/22 [place] [address] [facility]. [address] [place] [address] PCP - General FAMILY PRACTICE 09/19/22 documented as of this encounter
--- OUTSIDE RECORDS SUMMARY | 2024-06-17 19:18 | XMS_ITS | Encounter Summary ---
Author Organization [facility] Address [facility] [place] [address] Care Team Providers Care Entertainment & Media Correspondent Name Role Phone Annette Kirkland MD Primary Care Provider + Brinda Ascencio [facility] Primary Care Provider [phone] Nuvia Prasad MD Primary Care Provider [phone] None, Provider Primary Care Provider Unavaila Farzaneh Lancaster MD Primary Care Provider [phone] Encounter Details Date Type Department Care Team (Late st Contact Info) Description 02/15/2014 Abstract [facility] [address] [place] [address] , Generic Conversion, Social History Tobacco Use Types Packs/Day Years Used Date Smoking Tobacco: Never Assessed Comments Unknown Sex and Gender Information Value Date Recorded Sex Assigned at Female 06/14/2024 9:24 PM DELIVERY AGENT Legal Sex Female 5:01 PM CDT Gender Identity Female 06/14/2024 9:20 PM DELIVERY AGENT Sexual Orientation Straight 06/14/2024 9: 20 PM DELIVERY AGENT documented as of this encounter Plan of Treatment Upcoming Encounters Date Type Department Care Team (Late st Contact Info) Description 01/21/2025 10:45 AM CDT [facility] [address] [place] [phone] Doyle Curry MD [facility] [address] [place] [address] documented as of this encounter Visit Diagnoses [...] Rule Out 04/24/2022 04/24/2022 04/24/2022 3:01 PM DELIVERY AGENT COVID-19 Rule Out 05/09/2022 05/09/2022 05/09/2022 7:47 PM DELIVERY AGENT COVID-19 Rule Out 05/29/2022 05/29/2022 05/29/2022 1:46 PM DELIVERY AGENT COVID-19 Rule Out 05/29/2022 05/29/2022 05/30/2022 6:46 PM DELIVERY AGENT COVID-19 Rule Out 07/05/2022 07/05/2022 07/05/2022 7:45 PM DELIVERY AGENT COVID-19 Rule Out 08/30/2022 08/30/2022 08/30/2022 2:37 PM CDT COVID-19 Rule Out 09/26/2022 09/26/2022 09/26/2022 11:47 AM CDT COVID-19 Rule Out 12/02/2022 12/02/2022 12/02/2022 1:15 PM CDT COVID-19 Rule Out 02/14/2023 02/14/2023 02/14/2023 2:15 PM CDT COVID-19 Rule Out 03/20/2023 03/20/2023 03/20/2023 10:27 AM DELIVERY AGENT COVID-19 Rule Out 03/20/2023 03/20/2023 03/20/2023 2:10 PM DELIVERY AGENT COVID-19 Rule Out 03/26/2023 03/26/2023 03/26/2023 12:11 PM DELIVERY AGENT COVID-19 Rule Out 03/26/2023 03/26/2023 03/26/2023 1:39 PM DELIVERY AGENT COVID-19 Rule Out 04/01/2023 04/01/2023 04/01/2023 10:22 PM DELIVERY AGENT COVID-19 Rule Out 07/02/2023 07/02/2023 07/02/2023 1:03 PM DELIVERY AGENT COVID-19 Rule Out 07/09/2023 07/09/2023 07/09/2023 7:57 PM DELIVERY AGENT COVID-19 Rule Out 07/29/2023 07/29/2023 07/29/2023 7:23 PM CDT COVID-19 Rule Out 09/05/2023 09/05/2023 09/05/2023 1:30 PM CDT COVID-19 Rule Out 11/03/2023 11/03/2023 11/03/2023 3:34 PM CDT COVID-19 Rule Out 04/14/2024 04/14/2024 04/14/2024 1:53 PM DELIVERY AGENT documented as of this encounter Care Teams Entertainment & Media Correspondent Relationship Specialty Start Date End Date Annette Kirkland MD [address] [place] [address] PCP - General 08/31/14 06/07/19 Brinda Ascencio, NURSE REVIEWER- [address] [place] [address] PCP - General NURSE PRACTITIONER 07/07/19 07/29/19 Nuvia Prasad MD [address] [place] [address] PCP - General INTERNAL MEDICINE 07/30/19 08/27/22 None, Provider, PCP - General UNKNOWN PHYSICIAN SPECIALTY 08/28/22 [place] [address] [facility]. [address] [place] [address] PCP - General FAMILY PRACTICE 09/19/22 documented as of this encounter
--- OUTSIDE RECORDS SUMMARY | 2024-06-17 19:18 | XMS_ITS | Encounter Summary ---
Author Organization [facility] Address [address] [place] [address] Care Team Providers Care Brand Development Manager Name Role Phone Farzaneh Briscoe MD Primary Care Provider [phone] Encounter Details Date Type Department Care Team (Late st Contact Info) Description 12/05/2022 MyWish[employer] Message Enc [facility] Medical Group Family & Internal Medicine [facility] [id number] [place] [address] [place]iscoe [place] [address] [place] [address]. [address] [place] [phone] Should i just give up eating n drink water and juice n stuff Social History Tobacco Use Types Packs/Day Years [...] Sex Assigned at Female 06/14/2024 9:24 PM GAS ENGINE OPERATOR Legal Sex Female 5:01 PM CDT Gender Identity Female 06/14/2024 9:20 PM GAS ENGINE OPERATOR Sexual Orientation Straight 06/14/2024 9: 20 PM GAS ENGINE OPERATOR documented as of this encounter Functional Status [...] Date Author Status No 02/02/2020 1:57 PM FRANKIET Joseline Escamilla RN Active documented in this encounter Progress Notes * Jovany Bailey RN - 12/10/2022 10:58 AM CDT See recent my chart message. * Ludmila Buckley RN - 12/09/2022 10:27 AM CDT Patient went to the ER on 12/03/2022 Message left for patient to return call for an update. * Ludmila Buckley RN - 12/05/2022 12:34 PM CDT Please advise. documented in this encounter Plan of Treatment Upcoming Encounters Date Type Department Care Team (Late st Contact Info) Description 01/21/2025 10:45 AM CDT Office Visit [place] [facility] [address] [place] [phone] Doyle Curry MD Three [facility]. [facility] [address] [place] [address] documented as of this encounter Goals Goal Patient Goal Type Associated Problems Recent Progress Patient-Stated? Author Return home with mother Diet No Mayte Camacho SENIOR MAJOR GIFTS OFFICER documented as of this encounter Visit Diagnoses Not on filedocumented in this encounter Additional Health Concerns Infection Onset Date Last Indicated Resolved Time COVID-19 Rule Out 02/14/2023 02/14/2023 02/14/2023 2:15 PM CDT COVID-19 Rule Out 03/20/2023 03/20/2023 03/20/2023 10:27 AM GAS ENGINE OPERATOR COVID-19 Rule Out 03/20/2023 03/20/2023 03/20/2023 2:10 PM GAS ENGINE OPERATOR COVID-19 Rule Out 03/26/2023 03/26/2023 03/26/2023 12:11 PM GAS ENGINE OPERATOR COVID-19 Rule Out 03/26/2023 03/26/2023 03/26/2023 1:39 PM GAS ENGINE OPERATOR COVID-19 Rule Out 04/01/2023 04/01/2023 04/01/2023 10:22 PM GAS ENGINE OPERATOR COVID-19 Rule Out 07/02/2023 07/02/2023 07/02/2023 1:03 PM GAS ENGINE OPERATOR COVID-19 Rule Out 07/09/2023 07/09/2023 07/09/2023 7:57 PM GAS ENGINE OPERATOR COVID-19 Rule Out 07/29/2023 07/29/2023 07/29/2023 7:23 PM CDT COVID-19 Rule Out 09/05/2023 09/05/2023 09/05/2023 1:30 PM CDT COVID-19 Rule Out 11/03/2023 11/03/2023 11/03/2023 3:34 PM CDT COVID-19 Rule Out 04/14/2024 04/14/2024 04/14/2024 1:53 PM GAS ENGINE OPERATOR Assessment Noted Time PHQ-9 Depression Total Score: 12 023 3:00 PM GAS ENGINE OPERATOR documented as of this encounter Care Teams Brand Development Manager Relationship Specialty Start [place] [address] [facility] [place] [address] PCP - General FAMILY PRACTICE 09/19/22 documented as of this encounter
--- OUTSIDE RECORDS SUMMARY | 2024-06-17 19:18 | XMS_ITS | Encounter Summary ---
Author Organization [facility] Address [address] [place] [address] Care Team Providers Care Heavy Equipment Plumbing Supervisor Name Role Phone Farzaneh Briscoe MD Primary Care Provider [phone] Encounter Details Date Type Department Care Team (Late st Contact Info) Description 10/18/2022 [employer] Message Enc [facility] Medical Group Family & Internal Medicine - [place] [id number] [place] [address] [place]zaneh Briscoe [place] [phone] [place] [address]. [address] [place] [phone] Period clot its huge and I'm passing alot of them Social History Tobacco Use Types Packs/Day Years [...] Sex Assigned at Female 06/14/2024 9:24 PM CARDIOLOGY PHYSICIAN Legal Sex Female 5:01 PM CDT Gender Identity Female 06/14/2024 9:20 PM CARDIOLOGY PHYSICIAN Sexual Orientation Straight 06/14/2024 9: 20 PM CARDIOLOGY PHYSICIAN COVID-19 Exposure Response Date Recorded In the [...] Description 01/21/2025 10:45 AM CDT [facility] [place] [facility] [address] [place] [phone] Doyle Curry MD [facility] [address] [place] [address] documented as of this encounter Goals Goal Patient Goal Type Associated Problems Recent Progress Patient-Stated? Author Return home with mother Diet No Mayte Camacho HEALTHCARE INSURANCE SALES AGENT documented as of this encounter Visit Diagnoses Not on filedocumented in this encounter Additional Health Concerns Infection Onset Date Last Indicated Resolved Time COVID-19 Rule Out 12/02/2022 12/02/2022 12/02/2022 1:15 PM CDT COVID-19 Rule Out 02/14/2023 02/14/2023 02/14/2023 2:15 PM CDT COVID-19 Rule Out 03/20/2023 03/20/2023 03/20/2023 10:27 AM CARDIOLOGY PHYSICIAN COVID-19 Rule Out 03/20/2023 03/20/2023 03/20/2023 2:10 PM CARDIOLOGY PHYSICIAN COVID-19 Rule Out 03/26/2023 03/26/2023 03/26/2023 12:11 PM CARDIOLOGY PHYSICIAN COVID-19 Rule Out 03/26/2023 03/26/2023 03/26/2023 1:39 PM CARDIOLOGY PHYSICIAN COVID-19 Rule Out 04/01/2023 04/01/2023 04/01/2023 10:22 PM CARDIOLOGY PHYSICIAN COVID-19 Rule Out 07/02/2023 07/02/2023 07/02/2023 1:03 PM CARDIOLOGY PHYSICIAN COVID-19 Rule Out 07/09/2023 07/09/2023 07/09/2023 7:57 PM CARDIOLOGY PHYSICIAN COVID-19 Rule Out 07/29/2023 07/29/2023 07/29/2023 7:23 PM CDT COVID-19 Rule Out 09/05/2023 09/05/2023 09/05/2023 1:30 PM CDT COVID-19 Rule Out 11/03/2023 11/03/2023 11/03/2023 3:34 PM CDT COVID-19 Rule Out 04/14/2024 04/14/2024 04/14/2024 1:53 PM CARDIOLOGY PHYSICIAN Assessment Noted Time PHQ-9 Depression Total Score: 12 07/01/2 023 3:00 PM CARDIOLOGY PHYSICIAN documented as of this encounter Care Teams Heavy Equipment Plumbing Supervisor Relationship Specialty [place] [address] [address] [place] [address] PCP - General FAMILY PRACTICE 09/19/22 documented as of this encounter
--- OUTSIDE RECORDS SUMMARY | 2024-06-17 19:18 | XMS_ITS | Encounter Summary ---
Author Organization [facility] Address [facility] [place] [address] Care Team Providers Care Leasing Director Name Role Phone None, Provider Primary Care Provider Farzaneh Chavez MD Primary Care Provider [phone] Encounter Details Date Type Department Care Team (Latest Contact Info) Description 08/31/2022 Consult A Doctort Message [facility] [address] [place] [phone] Esmer Joseph NP Chest pain?? I dont really message you but this hurts pretty bad Social History Tobacco Use Types Packs/Day Years Used Date Smoking Tobacco: Never Smokeless Tobacco: Never Alcohol Use Standard Drinks/Week Comments Yes 0 (1 standard drink = 0.6 oz pur e alcohol) rare AUDIT-C Answer Date Recorded Q1: How often do you have a drink containing alc ohol? Monthly or less 09/15/2020 Average Number of Drinks Not on file 021 Frequency of Binge Drinking Not on file 11/2020 PHQ-2 Answer Date Recorded Patient Health Questionnaire-2 Score 3 07/01/2022 Comments No Sex and Gender Information Value Date Recorded Sex Assigned at Female 06/14/2024 9:24 PM AIRWORTHINESS INSPECTOR Legal Sex Female 5:01 PM CDT Gender Identity Female 06/14/2024 9:20 PM AIRWORTHINESS INSPECTOR Sexual Orientation Straight 06/14/2024 9: 20 PM AIRWORTHINESS INSPECTOR COVID-19 Exposure Response Date Recorded In the last 10 days, have yo u been in contact with someone who was confirmed or suspected to have Coronavirus/COVID-19? No / Unsure 09/03/2022 1:50 PM CDT documented as of this encounter Functional [...] Description 01/21/2025 10:45 AM CDT [facility] [place] [facility] [address] [place] [phone] Doyle Curry MD [place] [address] [place] [address] documented as of this encounter Goals Goal Patient Goal Type Associated Problems Recent Progress Patient-Stated? Author Return home with mother Diet No Mayte Camacho DEMAND GENERATION MANAGER documented as of this encounter Visit Diagnoses Not on filedocumented in this encounter Additional Health Concerns Infection Onset Date Last Indicated Resolved Time COVID-19 Rule Out 09/26/2022 09/26/2022 09/26/2022 11:47 AM CDT COVID-19 Rule Out 12/02/2022 12/02/2022 12/02/2022 1:15 PM CDT COVID-19 Rule Out 02/14/2023 02/14/2023 02/14/2023 2:15 PM CDT COVID-19 Rule Out 03/20/2023 03/20/2023 03/20/2023 10:27 AM AIRWORTHINESS INSPECTOR COVID-19 Rule Out 03/20/2023 03/20/2023 03/20/2023 2:10 PM AIRWORTHINESS INSPECTOR COVID-19 Rule Out 03/26/2023 03/26/2023 03/26/2023 12:11 PM AIRWORTHINESS INSPECTOR COVID-19 Rule Out 03/26/2023 03/26/2023 03/26/2023 1:39 PM AIRWORTHINESS INSPECTOR COVID-19 Rule Out 04/01/2023 04/01/2023 04/01/2023 10:22 PM AIRWORTHINESS INSPECTOR COVID-19 Rule Out 07/02/2023 07/02/2023 07/02/2023 1:03 PM AIRWORTHINESS INSPECTOR COVID-19 Rule Out 07/09/2023 07/09/2023 07/09/2023 7:57 PM AIRWORTHINESS INSPECTOR COVID-19 Rule Out 07/29/2023 07/29/2023 07/29/2023 7:23 PM CDT COVID-19 Rule Out 09/05/2023 09/05/2023 09/05/2023 1:30 PM CDT COVID-19 Rule Out 11/03/2023 11/03/2023 11/03/2023 3:34 PM CDT COVID-19 Rule Out 04/14/2024 04/14/2024 04/14/2024 1:53 PM AIRWORTHINESS INSPECTOR Assessment Noted Time PHQ-9 Depression Total Score: 023 3:00 PM AIRWORTHINESS INSPECTOR documented as of this encounter Care Teams Leasing Director Relationship Specialty Start Date End Date None, Provider, PCP - General UNKNOWN PHYSICIAN SPECIALTY 08/28/22 09/18/22 [place] [address] [facility] [place] [address] PCP - General FAMILY PRACTICE 09/19/22 documented as of this encounter
--- OUTSIDE RECORDS SUMMARY | 2024-06-17 19:18 | XMS_ITS | Encounter Summary ---
Author Organization [facility] Address [address] [place] [address] Care Team Providers Care Lab Scientist Name Role Phone Farzaneh Briscoe MD Primary Care Provider [phone] Encounter Details Date Type Department Care Team (Late st Contact Info) Description 09/26/2022 Telinet Message Enc [facility] Medical Group Family & Internal Medicine [facility] [address] [place] [address] Vicki Goodman PA [address] [place] [address] Blood Social History Tobacco Use Types Packs/Day Years [...] Sex Assigned at Female 06/14/2024 9:24 PM TEMPLATE INSPECTOR Legal Sex Female 5:01 PM CDT Gender Identity Female 06/14/2024 9:20 PM TEMPLATE INSPECTOR Sexual Orientation Straight 06/14/2024 9: 20 PM TEMPLATE INSPECTOR COVID-19 Exposure Response Date Recorded In the last 10 days, have glenn munoz been in contact with someone who was confirmed or suspected to have Coronavirus/COVID-19? No / Unsure 09/26/2022 10:02 AM CDT documented as of this encounter [...] Description 01/21/2025 10:45 AM CDT [facility] [place] [facility] [address] [place] [phone] Doyle Curry MD [address] [address] documented as of this encounter Goals Goal [...] Rule Out 03/20/2023 03/20/2023 03/20/2023 10:27 AM TEMPLATE INSPECTOR COVID-19 Rule Out 03/20/2023 03/20/2023 03/20/2023 2:10 PM TEMPLATE INSPECTOR COVID-19 Rule Out 03/26/2023 03/26/2023 03/26/2023 12:11 PM TEMPLATE INSPECTOR COVID-19 Rule Out 03/26/2023 03/26/2023 03/26/2023 1:39 PM TEMPLATE INSPECTOR COVID-19 Rule Out 04/01/2023 04/01/2023 04/01/2023 10:22 PM TEMPLATE INSPECTOR COVID-19 Rule Out 07/02/2023 07/02/2023 07/02/2023 1:03 PM TEMPLATE INSPECTOR COVID-19 Rule Out 07/09/2023 07/09/2023 07/09/2023 7:57 PM TEMPLATE INSPECTOR COVID-19 Rule Out 07/29/2023 07/29/2023 07/29/2023 7:23 PM CDT COVID-19 Rule Out 09/05/2023 09/05/2023 09/05/2023 1:30 PM CDT COVID-19 Rule Out 11/03/2023 11/03/2023 11/03/2023 3:34 PM CDT COVID-19 Rule Out 04/14/2024 04/14/2024 04/14/2024 1:53 PM TEMPLATE INSPECTOR Assessment Noted Time PHQ-9 Depression Total Score: 12 023 3:00 PM TEMPLATE INSPECTOR documented as of this encounter Care Teams Lab Scientist Relationship Specialty [place] [address] [facility]. [address] [place] [address] PCP - General FAMILY PRACTICE 09/19/22 documented as of this encounter
--- OUTSIDE RECORDS SUMMARY | 2024-06-17 19:18 | XMS_ITS | Encounter Summary ---
Author Organization [facility] Address [facility] [place] [address] Care Team Providers Care Rubber Splicer Name Role Phone Annette Kirkland MD Primary Care Provider + Brinda Ascencio [facility] Primary Care Provider [phone] Nuvia Prasad MD Primary Care Provider [phone] None, Provider Primary Care Provider Unavaila Farzaneh Lancaster MD Primary Care Provider [phone] Encounter Details Date Type Department Care Team (Late st Contact Info) Description 11/23/2013 Abstract [facility] CONVERSION [address] [place] [address] , Generic Conversion, Social History Tobacco Use Types Packs/Day Years Used Date Smoking Tobacco: Never Assessed Comments Unknown Sex and Gender Information Value Date Recorded Sex Assigned at Female 06/14/2024 9:24 PM MATE RELIEF Legal Sex Female 5:01 PM CDT Gender Identity Female 06/14/2024 9:20 PM MATE RELIEF Sexual Orientation Straight 06/14/2024 9: 20 PM MATE RELIEF documented as of this encounter Plan of Treatment Upcoming Encounters Date Type Department Care Team (Late st Contact Info) Description 01/21/2025 10:45 AM CDT [facility] [place] [facility] [address] [place] [phone] Doyle Curry MD [facility] [address] [place] [address] documented as of this encounter Visit Diagnoses [...] Rule Out 04/24/2022 04/24/2022 04/24/2022 3:01 PM MATE RELIEF COVID-19 Rule Out 05/09/2022 05/09/2022 05/09/2022 7:47 PM MATE RELIEF COVID-19 Rule Out 05/29/2022 05/29/2022 05/29/2022 1:46 PM MATE RELIEF COVID-19 Rule Out 05/29/2022 05/29/2022 05/30/2022 6:46 PM MATE RELIEF COVID-19 Rule Out 07/05/2022 07/05/2022 07/05/2022 7:45 PM MATE RELIEF COVID-19 Rule Out 08/30/2022 08/30/2022 08/30/2022 2:37 PM CDT COVID-19 Rule Out 09/26/2022 09/26/2022 09/26/2022 11:47 AM CDT COVID-19 Rule Out 12/02/2022 12/02/2022 12/02/2022 1:15 PM CDT COVID-19 Rule Out 02/14/2023 02/14/2023 02/14/2023 2:15 PM CDT COVID-19 Rule Out 03/20/2023 03/20/2023 03/20/2023 10:27 AM MATE RELIEF COVID-19 Rule Out 03/20/2023 03/20/2023 03/20/2023 2:10 PM MATE RELIEF COVID-19 Rule Out 03/26/2023 03/26/2023 03/26/2023 12:11 PM MATE RELIEF COVID-19 Rule Out 03/26/2023 03/26/2023 03/26/2023 1:39 PM MATE RELIEF COVID-19 Rule Out 04/01/2023 04/01/2023 04/01/2023 10:22 PM MATE RELIEF COVID-19 Rule Out 07/02/2023 07/02/2023 07/02/2023 1:03 PM MATE RELIEF COVID-19 Rule Out 07/09/2023 07/09/2023 07/09/2023 7:57 PM MATE RELIEF COVID-19 Rule Out 07/29/2023 07/29/2023 07/29/2023 7:23 PM CDT COVID-19 Rule Out 09/05/2023 09/05/2023 09/05/2023 1:30 PM CDT COVID-19 Rule Out 11/03/2023 11/03/2023 11/03/2023 3:34 PM CDT COVID-19 Rule Out 04/14/2024 04/14/2024 04/14/2024 1:53 PM MATE RELIEF documented as of this encounter Care Teams Rubber Splicer Relationship Specialty Start Date End Date Annette Kirkland MD [address] [place] [address] PCP - General 08/31/14 06/07/19 Brinda Ascencio, DEAN OF FACULTY- [address] [place] [address] PCP - General NURSE PRACTITIONER 07/07/19 07/29/19 Nuvia Prasad MD [address] [place] [address] PCP - General INTERNAL MEDICINE 07/30/19 08/27/22 None, Provider, PCP - General UNKNOWN PHYSICIAN SPECIALTY 08/28/22 [place] [address] [facility] [place]. [address] [place] [address] PCP - General FAMILY PRACTICE 09/19/22 documented as of this encounter
--- OUTSIDE RECORDS SUMMARY | 2024-06-17 19:18 | XMS_ITS | Encounter Summary ---
Author Organization [facility] Address [address] [place] [address] Care Team Providers Care Paper Bag Machine Operator Name Role Phone Farzaneh Briscoe MD Primary Care Provider [phone] Encounter Details Date Type Department Care Team (Late st Contact Info) Description 12/07/2022 [employer] Message Enc [facility] Medical Group Family & Internal Medicine [address] [address] Farzaneh [place]iscoe [place] [id number] [place] [address]. [address] [place] [address] Haematologist/Immuno logist Social History Tobacco Use Types Packs/Day Years [...] Sex Assigned at Female 06/14/2024 9:24 PM CONCRETE GRINDER OPERATOR Legal Sex Female 5:01 PM CDT Gender Identity Female 06/14/2024 9:20 PM CONCRETE GRINDER OPERATOR Sexual Orientation Straight 06/14/2024 9: 20 PM CONCRETE GRINDER OPERATOR documented as of this encounter Functional [...] documented in this encounter Progress Notes * Ludmila Buckley RN - 12/09/2022 3:48 PM CDT Please advise documented in this encounter Plan of Treatment Upcoming Encounters Date Type Department Care Team (Late st Contact Info) Description 01/21/2025 10:45 AM CDT Office [facility] [place] [facility] [address] [place] [phone] Doyle Curry MD [facility] [address] [place] [address] documented as of this encounter Goals Goal Patient Goal Type Associated Problems Recent Progress Patient-Stated? Author Return home with mother Diet No Mayte Camacho ROLL TESTER documented as of this encounter Visit Diagnoses Not on filedocumented in this encounter Additional Health Concerns Infection Onset Date Last Indicated Resolved Time COVID-19 Rule Out 02/14/2023 02/14/2023 02/14/2023 2:15 PM CDT COVID-19 Rule Out 03/20/2023 03/20/2023 03/20/2023 10:27 AM CONCRETE GRINDER OPERATOR COVID-19 Rule Out 03/20/2023 03/20/2023 03/20/2023 2:10 PM CONCRETE GRINDER OPERATOR COVID-19 Rule Out 03/26/2023 03/26/2023 03/26/2023 12:11 PM CONCRETE GRINDER OPERATOR COVID-19 Rule Out 03/26/2023 03/26/2023 03/26/2023 1:39 PM CONCRETE GRINDER OPERATOR COVID-19 Rule Out 04/01/2023 04/01/2023 04/01/2023 10:22 PM CONCRETE GRINDER OPERATOR COVID-19 Rule Out 07/02/2023 07/02/2023 07/02/2023 1:03 PM CONCRETE GRINDER OPERATOR COVID-19 Rule Out 07/09/2023 07/09/2023 07/09/2023 7:57 PM CONCRETE GRINDER OPERATOR COVID-19 Rule Out 07/29/2023 07/29/2023 07/29/2023 7:23 PM CDT COVID-19 Rule Out 09/05/2023 09/05/2023 09/05/2023 1:30 PM CDT COVID-19 Rule Out 11/03/2023 11/03/2023 11/03/2023 3:34 PM CDT COVID-19 Rule Out 04/14/2024 04/14/2024 04/14/2024 1:53 PM CONCRETE GRINDER OPERATOR Assessment Noted Time PHQ-9 Depression Total Score: 023 3:00 PM CONCRETE GRINDER OPERATOR documented as of this encounter Care Teams Paper Bag Machine Operator Relationship Specialty [place] [address] [address] [place] [address] PCP - General FAMILY PRACTICE 09/19/22 documented as of this encounter
--- OUTSIDE RECORDS SUMMARY | 2024-06-17 19:18 | XMS_ITS | Encounter Summary ---
Author Organization [facility] Address [address] [place] [address] Care Team Providers Care Molded Rubber Goods Cutter Name Role Phone Annette Kirkland MD Primary Care Provider + Brinda Ascencio [facility] Primary Care Provider [phone] Nuvia Prasad MD Primary Care Provider [phone] None, Provider Primary Care Provider Unavaila Farzaneh Lancaster MD Primary Care Provider [phone] Encounter Details Date Type Department Care Team (Late st Contact Info) Description 10/14/2012 Abstract [facility] Conversion , Generic Conversion, Social History Tobacco Use Types Packs/Day Years Used Date Smoking Tobacco: Never Assessed Comments Unknown Sex and Gender Information Value Date Recorded Sex Assigned at Female 06/14/2024 9:24 PM APPRENTICE INSTRUMENT TECHNICIAN Legal Sex Female 5:01 PM CDT Gender Identity Female 06/14/2024 9:20 PM APPRENTICE INSTRUMENT TECHNICIAN Sexual Orientation Straight 06/14/2024 9: 20 PM APPRENTICE INSTRUMENT TECHNICIAN documented as of this encounter Plan of Treatment Upcoming Encounters Date Type Department Care Team (Late st Contact Info) Description 01/21/2025 10:45 AM CDT [facility] [place] [facility] [address] [place] [phone] Doyle Curry MD [facility] [address] [place] [address] documented as of this encounter [...] Rule Out 04/24/2022 04/24/2022 04/24/2022 3:01 PM APPRENTICE INSTRUMENT TECHNICIAN COVID-19 Rule Out 05/09/2022 05/09/2022 05/09/2022 7:47 PM APPRENTICE INSTRUMENT TECHNICIAN COVID-19 Rule Out 05/29/2022 05/29/2022 05/29/2022 1:46 PM APPRENTICE INSTRUMENT TECHNICIAN COVID-19 Rule Out 05/29/2022 05/29/2022 05/30/2022 6:46 PM APPRENTICE INSTRUMENT TECHNICIAN COVID-19 Rule Out 07/05/2022 07/05/2022 07/05/2022 7:45 PM APPRENTICE INSTRUMENT TECHNICIAN COVID-19 Rule Out 08/30/2022 08/30/2022 08/30/2022 2:37 PM CDT COVID-19 Rule Out 09/26/2022 09/26/2022 09/26/2022 11:47 AM CDT COVID-19 Rule Out 12/02/2022 12/02/2022 12/02/2022 1:15 PM CDT COVID-19 Rule Out 02/14/2023 02/14/2023 02/14/2023 2:15 PM CDT COVID-19 Rule Out 03/20/2023 03/20/2023 03/20/2023 10:27 AM APPRENTICE INSTRUMENT TECHNICIAN COVID-19 Rule Out 03/20/2023 03/20/2023 03/20/2023 2:10 PM APPRENTICE INSTRUMENT TECHNICIAN COVID-19 Rule Out 03/26/2023 03/26/2023 03/26/2023 12:11 PM APPRENTICE INSTRUMENT TECHNICIAN COVID-19 Rule Out 03/26/2023 03/26/2023 03/26/2023 1:39 PM APPRENTICE INSTRUMENT TECHNICIAN COVID-19 Rule Out 04/01/2023 04/01/2023 04/01/2023 10:22 PM APPRENTICE INSTRUMENT TECHNICIAN COVID-19 Rule Out 07/02/2023 07/02/2023 07/02/2023 1:03 PM APPRENTICE INSTRUMENT TECHNICIAN COVID-19 Rule Out 07/09/2023 07/09/2023 07/09/2023 7:57 PM APPRENTICE INSTRUMENT TECHNICIAN COVID-19 Rule Out 07/29/2023 07/29/2023 07/29/2023 7:23 PM CDT COVID-19 Rule Out 09/05/2023 09/05/2023 09/05/2023 1:30 PM CDT COVID-19 Rule Out 11/03/2023 11/03/2023 11/03/2023 3:34 PM CDT COVID-19 Rule Out 04/14/2024 04/14/2024 04/14/2024 1:53 PM APPRENTICE INSTRUMENT TECHNICIAN documented as of this encounter Care Teams Molded Rubber Goods Cutter Relationship Specialty Start Date End Date Annette Kirkland MD [address] [place] [address] PCP - General 08/31/14 06/07/19 Brinda Ascencio, PUBLIC HEALTH ADMINISTRATOR-BC [address] [place] [address] PCP - General NURSE PRACTITIONER 07/07/19 07/29/19 Nuvia Prasad MD [address] [place] [address] PCP - General INTERNAL MEDICINE 07/30/19 08/27/22 None, MD Yas PCP - General UNKNOWN PHYSICIAN SPECIALTY 08/28/22 [place] [address] [facility]. [address] [place] [address] PCP - General FAMILY PRACTICE 09/19/22 documented as of this encounter
--- OUTSIDE RECORDS SUMMARY | 2024-06-17 19:18 | XMS_ITS | Encounter Summary ---
Author Organization [facility] Address [address] [place] [address] Care Team Providers Care Senior Developer Name Role Phone Farzaneh Briscoe MD Primary Care Provider [phone] Encounter Details Date Type Department Care Team (Late st Contact Info) Description 11/05/2022 Pict Message Enc [facility] Medical Group Family [facility] [phone] [place] [phone] [place] [phone] [place] [address]. [address] [place] [phone] Did I need to fast?? Social History Tobacco Use Types Packs/Day Years [...] Sex Assigned at Female 06/14/2024 9:24 PM ESCALATOR ATTENDANT Legal Sex Female 5:01 PM CDT Gender Identity Female 06/14/2024 9:20 PM ESCALATOR ATTENDANT Sexual Orientation Straight 06/14/2024 9: 20 PM ESCALATOR ATTENDANT COVID-19 Exposure Response Date Recorded In the last 10 days, have glenn u been in contact with someone who [...] Description 01/21/2025 10:45 AM CDT [facility] [address] [place] [phone] Doyle Curry MD [address] [address] documented as of this encounter Goals Goal Patient Goal Type Associated Problems Recent Progress Patient-Stated? Author Return home with mother Diet No Mayte Camacho STATISTICAL FINANCIAL ANALYST documented as of this encounter Visit Diagnoses Not on filedocumented in this encounter Additional Health Concerns Infection Onset Date Last Indicated Resolved Time COVID-19 Rule Out 12/02/2022 12/02/2022 12/02/2022 1:15 PM CDT COVID-19 Rule Out 02/14/2023 02/14/2023 02/14/2023 2:15 PM CDT COVID-19 Rule Out 03/20/2023 03/20/2023 03/20/2023 10:27 AM ESCALATOR ATTENDANT COVID-19 Rule Out 03/20/2023 03/20/2023 03/20/2023 2:10 PM ESCALATOR ATTENDANT COVID-19 Rule Out 03/26/2023 03/26/2023 03/26/2023 12:11 PM ESCALATOR ATTENDANT COVID-19 Rule Out 03/26/2023 03/26/2023 03/26/2023 1:39 PM ESCALATOR ATTENDANT COVID-19 Rule Out 04/01/2023 04/01/2023 04/01/2023 10:22 PM ESCALATOR ATTENDANT COVID-19 Rule Out 07/02/2023 07/02/2023 07/02/2023 1:03 PM ESCALATOR ATTENDANT COVID-19 Rule Out 07/09/2023 07/09/2023 07/09/2023 7:57 PM ESCALATOR ATTENDANT COVID-19 Rule Out 07/29/2023 07/29/2023 07/29/2023 7:23 PM CDT COVID-19 Rule Out 09/05/2023 09/05/2023 09/05/2023 1:30 PM CDT COVID-19 Rule Out 11/03/2023 11/03/2023 11/03/2023 3:34 PM CDT COVID-19 Rule Out 04/14/2024 04/14/2024 04/14/2024 1:53 PM ESCALATOR ATTENDANT Assessment Noted Time PHQ-9 Depression Total Score: 023 3:00 PM ESCALATOR ATTENDANT documented as of this encounter Care Teams Senior Developer Relationship Specialty Start [place] [address] [address] [place] [address] PCP - General FAMILY PRACTICE 09/19/22 documented as of this encounter
--- OUTSIDE RECORDS SUMMARY | 2024-06-17 19:18 | XMS_ITS | Encounter Summary ---
Author Organization [facility] Address [address] [place] [address] Care Team Providers Care Digital Content Specialist Name Role Phone Farzaneh Briscoe MD Primary Care Provider [phone] Encounter Details Date Type Department Care Team (Late st Contact Info) Description 02/21/2023 obiwon Message Enc [facility] Medical Group Family & Internal Medicine [address] [address] Farzaneh [place]iscoe [place] [phone] [place] [address]. [address] [place] [address] I dont have a phone number rn Social History Tobacco Use Types Packs/Day Years Used Date Smoking Tobacco: Never Passive Smoke Exposure: Never Smokeless Tobacco: Never Alcohol Use Standard [...] Answer Date Recorded Patient Health Questionnaire-2 Score 0 02/21/2023 Comments No Sex and Gender Information Value Date Recorded Sex Assigned at Female 06/14/2024 9:24 PM STEAM FITTER SUPERVISOR MAINTENANCE Legal Sex Female 5:01 PM CDT Gender Identity Female 06/14/2024 9:20 PM STEAM FITTER SUPERVISOR MAINTENANCE Sexual Orientation Straight 06/14/2024 9: 20 PM STEAM FITTER SUPERVISOR MAINTENANCE documented as of this encounter Functional Status [...] documented in this encounter Progress Notes * Farzaneh Briscoe MD - 02/22/2023 8:23 PM CDT Noted. * Evelin Nicole RN - 02/21/2023 4:38 PM CDT FYI documented in this encounter Plan of Treatment Upcoming Encounters Date Type Department Care Team (Late st Contact Info) Description 01/21/2025 10:45 AM CDT Office Visit [facility] [address] [place] [phone] Doyle Curry MD [facility] [address] [place] [address] documented as of this encounter Goals Goal Patient Goal Type Associated Problems Recent Progress Patient-Stated? Author Return home with mother Diet No JaniceMayte, WATER SERVICE SUPERVISOR documented as of this encounter Visit Diagnoses Not on filedocumented in this encounter Additional Health Concerns Infection Onset Date Last Indicated Resolved Time COVID-19 Rule Out 03/20/2023 03/20/2023 03/20/2023 10:27 AM STEAM FITTER SUPERVISOR MAINTENANCE COVID-19 Rule Out 03/20/2023 03/20/2023 03/20/2023 2:10 PM STEAM FITTER SUPERVISOR MAINTENANCE COVID-19 Rule Out 03/26/2023 03/26/2023 03/26/2023 12:11 PM STEAM FITTER SUPERVISOR MAINTENANCE COVID-19 Rule Out 03/26/2023 03/26/2023 03/26/2023 1:39 PM STEAM FITTER SUPERVISOR MAINTENANCE COVID-19 Rule Out 04/01/2023 04/01/2023 04/01/2023 10:22 PM STEAM FITTER SUPERVISOR MAINTENANCE COVID-19 Rule Out 07/02/2023 07/02/2023 07/02/2023 1:03 PM STEAM FITTER SUPERVISOR MAINTENANCE COVID-19 Rule Out 07/09/2023 07/09/2023 07/09/2023 7:57 PM STEAM FITTER SUPERVISOR MAINTENANCE COVID-19 Rule Out 07/29/2023 07/29/2023 07/29/2023 7:23 PM CDT COVID-19 Rule Out 09/05/2023 09/05/2023 09/05/2023 1:30 PM CDT COVID-19 Rule Out 11/03/2023 11/03/2023 11/03/2023 3:34 PM CDT COVID-19 Rule Out 04/14/2024 04/14/2024 04/14/2024 1:53 PM STEAM FITTER SUPERVISOR MAINTENANCE Assessment Noted Time PHQ-9 Depression Total Score: 12 023 3:00 PM STEAM FITTER SUPERVISOR MAINTENANCE documented as of this encounter Care Teams Digital Content Specialist Relationship Specialty [place] [address] [address] [place] [address] PCP - General FAMILY PRACTICE 09/19/22 documented as of this encounter
--- OUTSIDE RECORDS SUMMARY | 2024-06-17 19:18 | XMS_ITS | Encounter Summary ---
Author Organization [facility] Address [address] [place] [address] Care Team Providers Care American Studies Professor Name Role Phone Farzaneh Briscoe MD Primary Care Provider Encounter Details Date Type Department Care Team (Late st Contact Info) Description 10/25/2022 [employer]™ Network Message Enc [facility] Medical Group Family & Internal Medicine [address] [address] [facility] Provider lab results Social History Tobacco Use Types Packs/Day Years [...] Sex Assigned at Female 06/14/2024 9:24 PM HOB GRINDER Legal Sex Female 5:01 PM CDT Gender Identity Female 06/14/2024 9:20 PM HOB GRINDER Sexual Orientation Straight 06/14/2024 9: 20 PM HOB GRINDER COVID-19 Exposure Response Date Recorded In the [...] Description 01/21/2025 10:45 AM CDT Office Visit [facility] [address] [place] [phone] Doyle Curry MD [address] [address] documented as of this encounter Goals Goal Patient Goal Type Associated Problems Recent Progress Patient-Stated? Author Return home with mother Diet No Mayte Camacho MOVING PICTURE OPERATOR documented as of this encounter Visit Diagnoses Not on filedocumented in this encounter Additional Health Concerns Infection Onset Date Last Indicated Resolved Time COVID-19 Rule Out 12/02/2022 12/02/2022 12/02/2022 1:15 PM CDT COVID-19 Rule Out 02/14/2023 02/14/2023 02/14/2023 2:15 PM CDT COVID-19 Rule Out 03/20/2023 03/20/2023 03/20/2023 10:27 AM HOB GRINDER COVID-19 Rule Out 03/20/2023 03/20/2023 03/20/2023 2:10 PM HOB GRINDER COVID-19 Rule Out 03/26/2023 03/26/2023 03/26/2023 12:11 PM HOB GRINDER COVID-19 Rule Out 03/26/2023 03/26/2023 03/26/2023 1:39 PM HOB GRINDER COVID-19 Rule Out 04/01/2023 04/01/2023 04/01/2023 10:22 PM HOB GRINDER COVID-19 Rule Out 07/02/2023 07/02/2023 07/02/2023 1:03 PM HOB GRINDER COVID-19 Rule Out 07/09/2023 07/09/2023 07/09/2023 7:57 PM HOB GRINDER COVID-19 Rule Out 07/29/2023 07/29/2023 07/29/2023 7:23 PM CDT COVID-19 Rule Out 09/05/2023 09/05/2023 09/05/2023 1:30 PM CDT COVID-19 Rule Out 11/03/2023 11/03/2023 11/03/2023 3:34 PM CDT COVID-19 Rule Out 04/14/2024 04/14/2024 04/14/2024 1:53 PM HOB GRINDER Assessment Noted Time PHQ-9 Depression Total Score: 023 3:00 PM HOB GRINDER documented as of this encounter Care Teams American Studies Professor Relationship Specialty [place] [address] [facility] [address] [place] [address] PCP - General FAMILY PRACTICE 09/19/22 documented as of this encounter
--- OUTSIDE RECORDS SUMMARY | 2024-06-17 19:18 | XMS_ITS | Encounter Summary ---
Author Organization [facility] Address [address] [place] [address] Care Team Providers Care Food And Nutrition Services Assistant Name Role Phone Farzaneh Briscoe MD Primary Care Provider [phone] Encounter Details Date Type Department Care Team (Late st Contact Info) Description 01/01/2023 [employer] Message Enc [facility] Medical Group Family & Internal Medicine [facility] [address] [place] [phone] [place]zaneh [place]iscoe [place] [address] [place] [address]. [address] [place] [address] For why? Social History Tobacco Use Types Packs/Day Years [...] Sex Assigned at Female 06/14/2024 9:24 PM FINE ARTS TEACHER Legal Sex Female 5:01 PM CDT Gender Identity Female 06/14/2024 9:20 PM FINE ARTS TEACHER Sexual Orientation Straight 06/14/2024 9: 20 PM FINE ARTS TEACHER documented as of this encounter Functional Status [...] Description 01/21/2025 10:45 AM CDT Office Visit [facility] [address] [phone] Doyle Curry MD [address] [address] documented as of this encounter Goals Goal [...] Rule Out 03/20/2023 03/20/2023 03/20/2023 10:27 AM FINE ARTS TEACHER COVID-19 Rule Out 03/20/2023 03/20/2023 03/20/2023 2:10 PM FINE ARTS TEACHER COVID-19 Rule Out 03/26/2023 03/26/2023 03/26/2023 12:11 PM FINE ARTS TEACHER COVID-19 Rule Out 03/26/2023 03/26/2023 03/26/2023 1:39 PM FINE ARTS TEACHER COVID-19 Rule Out 04/01/2023 04/01/2023 04/01/2023 10:22 PM FINE ARTS TEACHER COVID-19 Rule Out 07/02/2023 07/02/2023 07/02/2023 1:03 PM FINE ARTS TEACHER COVID-19 Rule Out 07/09/2023 07/09/2023 07/09/2023 7:57 PM FINE ARTS TEACHER COVID-19 Rule Out 07/29/2023 07/29/2023 07/29/2023 7:23 PM CDT COVID-19 Rule Out 09/05/2023 09/05/2023 09/05/2023 1:30 PM CDT COVID-19 Rule Out 11/03/2023 11/03/2023 11/03/2023 3:34 PM CDT COVID-19 Rule Out 04/14/2024 04/14/2024 04/14/2024 1:53 PM FINE ARTS TEACHER Assessment Noted Time PHQ-9 Depression Total Score: 12 023 3:00 PM FINE ARTS TEACHER documented as of this encounter Care Teams Food And Nutrition Services Assistant Relationship Specialty [place] [address] [address] [place] [address] PCP - General FAMILY PRACTICE 09/19/22 documented as of this encounter
--- OUTSIDE RECORDS SUMMARY | 2024-06-17 19:19 | XMS_ITS | Encounter Summary ---
Author Organization [facility] Address [address] [place] [address] Care Team Providers Care Cutter Plastics Rolls Name Role Phone Nuvia Prasad MD Primary Care Provider None, Provider Primary Care Provider Unavaila Farzaneh Lancaster MD Primary Care Provider [phone] Encounter Details Date Type Department Care Team (Late st Contact Info) Description 08/14/2020 [employer] Message [facility] [address] [place] [address] [place] [address] [place] [address] Question Social History Tobacco Use Types Packs/Day Years Used Date Smoking Tobacco: Never Smokeless Tobacco: Never Alcohol Use Standard Drinks/Week Comments No 0 (1 standard drink = 0.6 oz pur e alcohol) AUDIT-C Answer Date Recorded Frequency of Alcohol Consumption Never 05/26/2019 Average Number of Drinks Not on file 020 Frequency of Binge Drinking Not on file 05/12 PHQ-2 Answer Date Recorded PHQ-2 Score - If the patient scores above 3, please move on to questions 3-9 2 01/18/2020 Comments No Sex and Gender Information Value Date Recorded Sex Assigned at Female 06/14/2024 9:24 PM FLIGHT RADIO OPERATOR Legal Sex Female 5:01 PM CDT Gender Identity Female 06/14/2024 9:20 PM FLIGHT RADIO OPERATOR Sexual Orientation Straight 06/14/2024 9: 20 PM FLIGHT RADIO OPERATOR COVID-19 Exposure Response Date Recorded In the last month, have you been in contact with someone who was confirmed or suspected to have Coronavirus / COVID-19? No / Unsure 08/08/2020 2:21 PM CDT documented as of this encounter [...] documented in this encounter Progress Notes * Lakeshia Medeiros MA - 08/15/2020 1:46 PM CDT Called the patient, No answer. Left a message to inform her that opal will be called into her local pharmacy. #20 to be taken at 8pm every night * Lakeshia Medeiros MA - 08/15/2020 7:43 AM CDT Printed for provider to advise documented in this encounter Plan of Treatment Upcoming Encounters Date Type Department Care Team (Late st Contact Info) Description 01/21/2025 10:45 AM CDT Office Visit [facility] [address] [place] [phone] Doyle Curry MD [facility] [address] [place] [address] documented as of this encounter Goals Goal Patient Goal Type Associated Problems Recent Progress Patient-Stated? Author Return home with mother Diet No Mayte Camacho PROFESSOR OF GEOGRAPHY documented as of this encounter Visit Diagnoses [...] Rule Out 04/24/2022 04/24/2022 04/24/2022 3:01 PM FLIGHT RADIO OPERATOR COVID-19 Rule Out 05/09/2022 05/09/2022 05/09/2022 7:47 PM FLIGHT RADIO OPERATOR COVID-19 Rule Out 05/29/2022 05/29/2022 05/29/2022 1:46 PM FLIGHT RADIO OPERATOR COVID-19 Rule Out 05/29/2022 05/29/2022 05/30/2022 6:46 PM FLIGHT RADIO OPERATOR COVID-19 Rule Out 07/05/2022 07/05/2022 07/05/2022 7:45 PM FLIGHT RADIO OPERATOR COVID-19 Rule Out 08/30/2022 08/30/2022 08/30/2022 2:37 PM CDT COVID-19 Rule Out 09/26/2022 09/26/2022 09/26/2022 11:47 AM CDT COVID-19 Rule Out 12/02/2022 12/02/2022 12/02/2022 1:15 PM CDT COVID-19 Rule Out 02/14/2023 02/14/2023 02/14/2023 2:15 PM CDT COVID-19 Rule Out 03/20/2023 03/20/2023 03/20/2023 10:27 AM FLIGHT RADIO OPERATOR COVID-19 Rule Out 03/20/2023 03/20/2023 03/20/2023 2:10 PM FLIGHT RADIO OPERATOR COVID-19 Rule Out 03/26/2023 03/26/2023 03/26/2023 12:11 PM FLIGHT RADIO OPERATOR COVID-19 Rule Out 03/26/2023 03/26/2023 03/26/2023 1:39 PM FLIGHT RADIO OPERATOR COVID-19 Rule Out 04/01/2023 04/01/2023 04/01/2023 10:22 PM FLIGHT RADIO OPERATOR COVID-19 Rule Out 07/02/2023 07/02/2023 07/02/2023 1:03 PM FLIGHT RADIO OPERATOR COVID-19 Rule Out 07/09/2023 07/09/2023 07/09/2023 7:57 PM FLIGHT RADIO OPERATOR COVID-19 Rule Out 07/29/2023 07/29/2023 07/29/2023 7:23 PM CDT COVID-19 Rule Out 09/05/2023 09/05/2023 09/05/2023 1:30 PM CDT COVID-19 Rule Out 11/03/2023 11/03/2023 11/03/2023 3:34 PM CDT COVID-19 Rule Out 04/14/2024 04/14/2024 04/14/2024 1:53 PM FLIGHT RADIO OPERATOR Assessment Noted Time PHQ-9 Depression Total Score: 14 072 020 4:53 PM CDT documented as of this encounter Care Teams Cutter Plastics Rolls Relationship Specialty Start Date End Date Nuvia Prasad MD PCP - General INTERNAL MEDICINE 07/30/19 08/27/22 None, Provider, PCP - General UNKNOWN PHYSICIAN SPECIALTY 08/28/22 09/18/22 [place] [address] [address] [place] [address] PCP - General FAMILY PRACTICE 09/19/22 documented as of this encounter
--- OUTSIDE RECORDS SUMMARY | 2024-06-17 19:19 | XMS_ITS | Encounter Summary ---
Author Organization [facility] Address [address] [place] [address] Care Team Providers Care Electronics Technician Apprentice Name Role Phone Farzaneh Briscoe MD Primary Care Provider [phone] Encounter Details Date Type Department Care Team (Late st Contact Info) Description 03/21/2024 [employer] Message Enc [facility] Medical Group Family & Internal Medicine [facility] [address] [place] [phone] [place] [phone] [place] [address]. [address] [place] [address] I have been sick for 6 days Social History Tobacco Use Types Packs/Day Years [...] Answer Date Recorded Patient Health Questionnaire-2 Score 4 08/28/2023 Comments No Sex and Gender Information Value Date Recorded Sex Assigned at Female 06/14/2024 9:24 PM SHANK BREAKER Legal Sex Female 5:01 PM CDT Gender Identity Female 06/14/2024 9:20 PM SHANK BREAKER Sexual Orientation Straight 06/14/2024 9: 20 PM SHANK BREAKER documented as of this encounter Functional Status [...] Description 01/21/2025 10:45 AM CDT Office Visit [facility] [address] [place] [phone] Doyle Curry MD [place] [address] [place] [address] documented as of this encounter Goals Goal Patient Goal Type Associated Problems Recent Progress Patient-Stated? Author Return home with mother Diet No Mayte Camacho MSW documented as of this encounter Visit Diagnoses Not on filedocumented in this encounter Additional Health Concerns Infection Onset Date Last Indicated Resolved Time COVID-19 Rule Out 04/14/2024 04/14/2024 04/14/2024 1:53 PM SHANK BREAKER Assessment Noted Time PHQ-9 Depression Total Score: 20 024 12:53 PM CDT documented as of this encounter Care Teams Electronics Technician Apprentice Relationship Specialty [place] [address] [address] [place] [address] PCP - General FAMILY PRACTICE 09/19/22 documented as of this encounter
--- OUTSIDE RECORDS SUMMARY | 2024-06-17 19:19 | XMS_ITS | Encounter Summary ---
Author Organization [facility] Address [address] [place] [address] Care Team Providers Care Gate Watch Name Role Phone Nuvia Prasad MD Primary Care Provider None, Provider Primary Care Provider Unavaila Farzaneh Lancaster MD Primary Care Provider [phone] Encounter Details Date Type Department Care Team (Late st Contact Info) Description 11/01/2021 XD Nutritiont Message Enc [facility] Medical Group Family & Internal Medicine [facility] [address] [place] [address] [place] [address] [place] [address] Leaky gut??? What do I do about my rib?? Social History Tobacco Use Types Packs/Day Years [...] on file 11/2020 PHQ-2 Answer Date Recorded PHQ-2 Score - If the patient scores above 3, please move on to questions 3-9 3 08/22/2021 Comments No Sex and Gender Information Value Date Recorded Sex Assigned at Female 06/14/2024 9:24 PM PLASTICS REPAIRER Legal Sex Female 5:01 PM CDT Gender Identity Female 06/14/2024 9:20 PM PLASTICS REPAIRER Sexual Orientation Straight 06/14/2024 9: 20 PM PLASTICS REPAIRER COVID-19 Exposure Response Date Recorded In the last 10 days, have yo u been in contact with someone who was confirmed or suspected to have Coronavirus/COVID-19? No / Unsure 10/31/2021 1:15 PM CDT documented as of this encounter [...] Description 01/21/2025 10:45 AM CDT Office Visit [facility] [address] [place] [phone] Doyle Curry MD [facility] [address] [place] [address] documented as of this encounter Goals Goal Patient Goal Type Associated Problems Recent Progress Patient-Stated? Author Return home with mother Diet Mayte Pelaez, POULTRY DRESSING WORKER documented as of this encounter Visit Diagnoses Not on filedocumented in this encounter Additional Health Concerns Infection Onset Date Last Indicated Resolved Time COVID-19 Rule Out 01/30/2022 01/30/2022 01/30/2022 9:59 AM CDT COVID-19 Rule Out 04/24/2022 04/24/2022 04/24/2022 3:01 PM PLASTICS REPAIRER COVID-19 Rule Out 05/09/2022 05/09/2022 05/09/2022 7:47 PM PLASTICS REPAIRER COVID-19 Rule Out 05/29/2022 05/29/2022 05/29/2022 1:46 PM PLASTICS REPAIRER COVID-19 Rule Out 05/29/2022 05/29/2022 05/30/2022 6:46 PM PLASTICS REPAIRER COVID-19 Rule Out 07/05/2022 07/05/2022 07/05/2022 7:45 PM PLASTICS REPAIRER COVID-19 Rule Out 08/30/2022 08/30/2022 08/30/2022 2:37 PM CDT COVID-19 Rule Out 09/26/2022 09/26/2022 09/26/2022 11:47 AM CDT COVID-19 Rule Out 12/02/2022 12/02/2022 12/02/2022 1:15 PM CDT COVID-19 Rule Out 02/14/2023 02/14/2023 02/14/2023 2:15 PM CDT COVID-19 Rule Out 03/20/2023 03/20/2023 03/20/2023 10:27 AM PLASTICS REPAIRER COVID-19 Rule Out 03/20/2023 03/20/2023 03/20/2023 2:10 PM PLASTICS REPAIRER COVID-19 Rule Out 03/26/2023 03/26/2023 03/26/2023 12:11 PM PLASTICS REPAIRER COVID-19 Rule Out 03/26/2023 03/26/2023 03/26/2023 1:39 PM PLASTICS REPAIRER COVID-19 Rule Out 04/01/2023 04/01/2023 04/01/2023 10:22 PM PLASTICS REPAIRER COVID-19 Rule Out 07/02/2023 07/02/2023 07/02/2023 1:03 PM PLASTICS REPAIRER COVID-19 Rule Out 07/09/2023 07/09/2023 07/09/2023 7:57 PM PLASTICS REPAIRER COVID-19 Rule Out 07/29/2023 07/29/2023 07/29/2023 7:23 PM CDT COVID-19 Rule Out 09/05/2023 09/05/2023 09/05/2023 1:30 PM CDT COVID-19 Rule Out 11/03/2023 11/03/2023 11/03/2023 3:34 PM CDT COVID-19 Rule Out 04/14/2024 04/14/2024 04/14/2024 1:53 PM PLASTICS REPAIRER Assessment Noted Time PHQ-9 Depression Total Score: 022 2:48 PM CDT documented as of this encounter Care Teams Gate Watch Relationship Specialty Start Date End Date Nuvia Prasad MD PCP - General INTERNAL MEDICINE 07/30/19 08/27/22 None, Provider, PCP - General UNKNOWN PHYSICIAN SPECIALTY 08/28/22 09/18/22 [place] [address] [facility] [address] [place] [address] PCP - General FAMILY PRACTICE 09/19/22 documented as of this encounter
--- OUTSIDE RECORDS SUMMARY | 2024-06-17 19:19 | XMS_ITS | Encounter Summary ---
Author Organization [facility] Address [address] [place] [address] Care Team Providers Care Talent Analyst Name Role Phone Nuvia Prasad MD Primary Care Provider None, Provider Primary Care Provider Unavaila Farzaneh Lancaster MD Primary Care Provider [phone] Encounter Details Date Type Department Care Team (Late st Contact Info) Description 01/28/[address] [facility] Family & Internal Medicine [facility] [address] [place] [address] [place] [id number] [place] [address] Throat Social History Tobacco Use Types Packs/Day Years [...] 3, please move on to questions 3-9 0 01/30/2022 Comments No Sex and Gender Information Value Date Recorded Sex Assigned at Female 06/14/2024 9:24 PM TAX APPRAISER Legal Sex Female 5:01 PM CDT Gender Identity Female 06/14/2024 9:20 PM TAX APPRAISER Sexual Orientation Straight 06/14/2024 9: 20 PM TAX APPRAISER COVID-19 Exposure Response Date Recorded In the last 10 days, have glenn munoz been in contact with someone who was confirmed or suspected to have Coronavirus/COVID-19? No / Unsure 01/30/2022 8:58 AM CDT documented as of this encounter [...] Status No 02/02/2020 1:57 PM CDT Joseline Escamilal RN Active * Do you have difficulty [...] Description 01/21/2025 10:45 AM CDT [facility] [address] [place] [phone] Doyle Curry MD [facility]. [facility] [address] [place] [address] documented as of this encounter Goals Goal Patient Goal Type Associated Problems Recent Progress Patient-Stated? Author Return home with mother Mayte Brady Ross, COPIER AND PRINTER FIELD TECHNICIAN documented as of this encounter Visit Diagnoses Not on filedocumented in this encounter Additional Health Concerns Infection Onset Date Last Indicated Resolved Time COVID-19 Rule Out 01/30/2022 01/30/2022 01/30/2022 9:59 AM CDT COVID-19 Rule Out 04/24/2022 04/24/2022 04/24/2022 3:01 PM TAX APPRAISER COVID-19 Rule Out 05/09/2022 05/09/2022 05/09/2022 7:47 PM TAX APPRAISER COVID-19 Rule Out 05/29/2022 05/29/2022 05/29/2022 1:46 PM TAX APPRAISER COVID-19 Rule Out 05/29/2022 05/29/2022 05/30/2022 6:46 PM TAX APPRAISER COVID-19 Rule Out 07/05/2022 07/05/2022 07/05/2022 7:45 PM TAX APPRAISER COVID-19 Rule Out 08/30/2022 08/30/2022 08/30/2022 2:37 PM CDT COVID-19 Rule Out 09/26/2022 09/26/2022 09/26/2022 11:47 AM CDT COVID-19 Rule Out 12/02/2022 12/02/2022 12/02/2022 1:15 PM CDT COVID-19 Rule Out 02/14/2023 02/14/2023 02/14/2023 2:15 PM CDT COVID-19 Rule Out 03/20/2023 03/20/2023 03/20/2023 10:27 AM TAX APPRAISER COVID-19 Rule Out 03/20/2023 03/20/2023 03/20/2023 2:10 PM TAX APPRAISER COVID-19 Rule Out 03/26/2023 03/26/2023 03/26/2023 12:11 PM TAX APPRAISER COVID-19 Rule Out 03/26/2023 03/26/2023 03/26/2023 1:39 PM TAX APPRAISER COVID-19 Rule Out 04/01/2023 04/01/2023 04/01/2023 10:22 PM TAX APPRAISER COVID-19 Rule Out 07/02/2023 07/02/2023 07/02/2023 1:03 PM TAX APPRAISER COVID-19 Rule Out 07/09/2023 07/09/2023 07/09/2023 7:57 PM TAX APPRAISER COVID-19 Rule Out 07/29/2023 07/29/2023 07/29/2023 7:23 PM CDT COVID-19 Rule Out 09/05/2023 09/05/2023 09/05/2023 1:30 PM CDT COVID-19 Rule Out 11/03/2023 11/03/2023 11/03/2023 3:34 PM CDT COVID-19 Rule Out 04/14/2024 04/14/2024 04/14/2024 1:53 PM TAX APPRAISER Assessment Noted Time PHQ-9 Depression Total Score: 18 022 10:36 AM CDT documented as of this encounter Care Teams Talent Analyst Relationship Specialty Start Date End Date Nuvia Prasad MD PCP - General INTERNAL MEDICINE 07/30/19 08/27/22 None, Provider, PCP - General UNKNOWN PHYSICIAN SPECIALTY 08/28/22 09/18/22 [place] [address] [facility]. [address] [place] [address] PCP - General FAMILY PRACTICE 09/19/22 documented as of this encounter
--- OUTSIDE RECORDS SUMMARY | 2024-06-17 19:19 | XMS_ITS | Encounter Summary ---
Author Organization [facility] Address [address] [place] [address] Care Team Providers Care Teleprinter Name Role Phone Nuvia Prasad MD Primary Care Provider None, Provider Primary Care Provider Unavaila Farzaneh Lancaster MD Primary Care Provider [phone] Encounter Details Date Type Department Care Team (Late st Contact Info) Description 04/24/2022 [employer] Message Enc [facility] Medical Group Family & Internal Medicine [facility] [address] [place] [address] [place]uv[place] Pr[place]ad [place] [id number] [place] [address] Throat n tongue Social History Tobacco Use Types Packs/Day Years [...] please move on to questions 3-9 2 03/05/2022 Comments No Sex and Gender Information Value Date Recorded Sex Assigned at Female 06/14/2024 9:24 PM PUBLIC HEALTH PROGRAM MANAGER Legal Sex Female 5:01 PM CDT Gender Identity Female 06/14/2024 9:20 PM PUBLIC HEALTH PROGRAM MANAGER Sexual Orientation Straight 06/14/2024 9: 20 PM PUBLIC HEALTH PROGRAM MANAGER COVID-19 Exposure Response Date Recorded In the last 10 days, have glenn u been in contact with someone who was confirmed or suspected to have Coronavirus/COVID-19? No / Unsure 04/24/2022 1:36 PM PUBLIC HEALTH PROGRAM MANAGER documented as of this encounter Functional Status [...] Description 01/21/2025 10:45 AM CDT [facility] [address] [place] [phone] Doyle Curry MD [facility]. [facility] [address] [place] [address] documented as of this encounter Goals Goal Patient Goal Type Associated Problems Recent Progress Patient-Stated? Author Return home with mother Diet Javed Pelaezziggy Hawkins, PERSONALIZED LIVING MANAGER NURSE documented as of this encounter Visit Diagnoses Not on filedocumented in this encounter Additional Health Concerns Infection Onset Date Last Indicated Resolved Time COVID-19 Rule Out 04/24/2022 04/24/2022 04/24/2022 3:01 PM PUBLIC HEALTH PROGRAM MANAGER COVID-19 Rule Out 05/09/2022 05/09/2022 05/09/2022 7:47 PM PUBLIC HEALTH PROGRAM MANAGER COVID-19 Rule Out 05/29/2022 05/29/2022 05/29/2022 1:46 PM PUBLIC HEALTH PROGRAM MANAGER COVID-19 Rule Out 05/29/2022 05/29/2022 05/30/2022 6:46 PM PUBLIC HEALTH PROGRAM MANAGER COVID-19 Rule Out 07/05/2022 07/05/2022 07/05/2022 7:45 PM PUBLIC HEALTH PROGRAM MANAGER COVID-19 Rule Out 08/30/2022 08/30/2022 08/30/2022 2:37 PM CDT COVID-19 Rule Out 09/26/2022 09/26/2022 09/26/2022 11:47 AM CDT COVID-19 Rule Out 12/02/2022 12/02/2022 12/02/2022 1:15 PM CDT COVID-19 Rule Out 02/14/2023 02/14/2023 02/14/2023 2:15 PM CDT COVID-19 Rule Out 03/20/2023 03/20/2023 03/20/2023 10:27 AM PUBLIC HEALTH PROGRAM MANAGER COVID-19 Rule Out 03/20/2023 03/20/2023 03/20/2023 2:10 PM PUBLIC HEALTH PROGRAM MANAGER COVID-19 Rule Out 03/26/2023 03/26/2023 03/26/2023 12:11 PM PUBLIC HEALTH PROGRAM MANAGER COVID-19 Rule Out 03/26/2023 03/26/2023 03/26/2023 1:39 PM PUBLIC HEALTH PROGRAM MANAGER COVID-19 Rule Out 04/01/2023 04/01/2023 04/01/2023 10:22 PM PUBLIC HEALTH PROGRAM MANAGER COVID-19 Rule Out 07/02/2023 07/02/2023 07/02/2023 1:03 PM PUBLIC HEALTH PROGRAM MANAGER COVID-19 Rule Out 07/09/2023 07/09/2023 07/09/2023 7:57 PM PUBLIC HEALTH PROGRAM MANAGER COVID-19 Rule Out 07/29/2023 07/29/2023 07/29/2023 7:23 PM CDT COVID-19 Rule Out 09/05/2023 09/05/2023 09/05/2023 1:30 PM CDT COVID-19 Rule Out 11/03/2023 11/03/2023 11/03/2023 3:34 PM CDT COVID-19 Rule Out 04/14/2024 04/14/2024 04/14/2024 1:53 PM PUBLIC HEALTH PROGRAM MANAGER Assessment Noted Time PHQ-9 Depression Total Score: 0 01/31/20 9:08 AM CDT documented as of this encounter Care Teams Teleprinter Relationship Specialty Start Date End Date Nuvia Prasad MD PCP - General INTERNAL MEDICINE 07/30/19 08/27/22 None, Provider, PCP - General UNKNOWN PHYSICIAN SPECIALTY 08/28/22 09/18/22 [place] [address] [facility] [address] [place] [address] PCP - General FAMILY PRACTICE 09/19/22 documented as of this encounter
--- OUTSIDE RECORDS SUMMARY | 2024-06-17 19:19 | XMS_ITS | Encounter Summary ---
Author Organization [facility] Address [address] [place] [address] Care Team Providers Care Production Troubleshooter Name Role Phone Nuvia Prasad MD Primary Care Provider [phone] None, Provider Primary Care Provider Unavaila Farzaneh Lancaster MD Primary Care Provider [phone] Encounter Details Date Type Department Care Team (Late st Contact Info) Description 08/01/2021 [employer] Message Enc [facility], [address] [address] [place], [facility] Provider APPT W/ DR CURRY Social History Tobacco Use Types Packs/Day Years [...] please move on to questions 3-9 0 07/03/2021 Comments No Sex and Gender Information Value Date Recorded Sex Assigned at Female 06/14/2024 9:24 PM CALCINE FURNACE TENDER Legal Sex Female 5:01 PM CDT Gender Identity Female 06/14/2024 9:20 PM CALCINE FURNACE TENDER Sexual Orientation Straight 06/14/2024 9: 20 PM CALCINE FURNACE TENDER COVID-19 Exposure Response Date Recorded In the last 10 days, have yo u been in contact with someone who was confirmed or suspected to have Coronavirus/COVID-19? No / Unsure 07/30/2021 2:15 PM CDT documented as of this encounter [...] Description 01/21/2025 10:45 AM CDT [facility] [address] [place] [phone] Doyle Curry MD [facility] [address] [place] [address] documented as of this encounter Goals Goal Patient Goal Type Associated Problems Recent Progress Patient-Stated? Author Return home with mother Diet No Mayte Camacho CABANA ATTENDANT documented as of this encounter Visit Diagnoses Not on filedocumented in this encounter Additional Health Concerns Infection Onset Date Last Indicated Resolved Time COVID-19 Rule Out 10/15/2021 10/15/2021 10/15/2021 1:34 PM CDT COVID-19 Rule Out 10/15/2021 10/15/2021 10/16/2021 7:02 PM CDT COVID-19 Rule Out 01/30/2022 01/30/2022 01/30/2022 9:59 AM CDT COVID-19 Rule Out 04/24/2022 04/24/2022 04/24/2022 3:01 PM CALCINE FURNACE TENDER COVID-19 Rule Out 05/09/2022 05/09/2022 05/09/2022 7:47 PM CALCINE FURNACE TENDER COVID-19 Rule Out 05/29/2022 05/29/2022 05/29/2022 1:46 PM CALCINE FURNACE TENDER COVID-19 Rule Out 05/29/2022 05/29/2022 05/30/2022 6:46 PM CALCINE FURNACE TENDER COVID-19 Rule Out 07/05/2022 07/05/2022 07/05/2022 7:45 PM CALCINE FURNACE TENDER COVID-19 Rule Out 08/30/2022 08/30/2022 08/30/2022 2:37 PM CDT COVID-19 Rule Out 09/26/2022 09/26/2022 09/26/2022 11:47 AM CDT COVID-19 Rule Out 12/02/2022 12/02/2022 12/02/2022 1:15 PM CDT COVID-19 Rule Out 02/14/2023 02/14/2023 02/14/2023 2:15 PM CDT COVID-19 Rule Out 03/20/2023 03/20/2023 03/20/2023 10:27 AM CALCINE FURNACE TENDER COVID-19 Rule Out 03/20/2023 03/20/2023 03/20/2023 2:10 PM CALCINE FURNACE TENDER COVID-19 Rule Out 03/26/2023 03/26/2023 03/26/2023 12:11 PM CALCINE FURNACE TENDER COVID-19 Rule Out 03/26/2023 03/26/2023 03/26/2023 1:39 PM CALCINE FURNACE TENDER COVID-19 Rule Out 04/01/2023 04/01/2023 04/01/2023 10:22 PM CALCINE FURNACE TENDER COVID-19 Rule Out 07/02/2023 07/02/2023 07/02/2023 1:03 PM CALCINE FURNACE TENDER COVID-19 Rule Out 07/09/2023 07/09/2023 07/09/2023 7:57 PM CALCINE FURNACE TENDER COVID-19 Rule Out 07/29/2023 07/29/2023 07/29/2023 7:23 PM CDT COVID-19 Rule Out 09/05/2023 09/05/2023 09/05/2023 1:30 PM CDT COVID-19 Rule Out 11/03/2023 11/03/2023 11/03/2023 3:34 PM CDT COVID-19 Rule Out 04/14/2024 04/14/2024 04/14/2024 1:53 PM CALCINE FURNACE TENDER Assessment Noted Time PHQ-9 Depression Total Score: 2 07/03/19 11:15 AM CALCINE FURNACE TENDER documented as of this encounter Care Teams Production Troubleshooter Relationship Specialty Start Date End Date Nuvia Prasad MD PCP - General INTERNAL MEDICINE 07/30/19 08/27/22 None, ProviderMD PCP - General UNKNOWN PHYSICIAN SPECIALTY 08/28/22 09/18/22 [place] [address] [facility]. [address] [place] [address] PCP - General FAMILY PRACTICE 09/19/22 documented as of this encounter
--- OUTSIDE RECORDS SUMMARY | 2024-06-17 19:19 | XMS_ITS | Encounter Summary ---
Author Organization [facility] Address [address] [place] [address] Care Team Providers Care Dirt Bike Mechanic Name Role Phone Nuvia Prasad MD Primary Care Provider None, Provider Primary Care Provider Austina Farzaneh Lancaster MD Primary Care Provider [phone] Encounter Details Date Type Department Care Team (Late st Contact Info) Description 09/18/2021 [employer] Message Enc [facility] Medical Group Multispecialty Care - [address], [address] [place] [address] Mychart, [facility] Provider MRI Brain results Social History Tobacco Use Types Packs/Day [...] Sex Assigned at Female 06/14/2024 9:24 PM GENERAL PASSENGER AGENT Legal Sex Female 5:01 PM CDT Gender Identity Female 06/14/2024 9:20 PM GENERAL PASSENGER AGENT Sexual Orientation Straight 06/14/2024 9: 20 PM GENERAL PASSENGER AGENT COVID-19 Exposure Response Date Recorded In the last 10 days, have glenn munoz been in contact with someone who was confirmed or suspected to have Coronavirus/COVID-19? No / Unsure 09/21/2021 10:30 AM CDT documented as of this encounter [...] Description 01/21/2025 10:45 AM CDT Office Visit [facility] [address] [place] [phone] Doyle Curry MD [facility] [address] [place] [address] documented as of this encounter Goals Goal Patient Goal Type Associated Problems Recent Progress Patient-Stated? Author Return home with mother Diet No FlMayte smith MSW documented as of this encounter Visit Diagnoses Not on filedocumented in this encounter Additional Health Concerns Infection Onset Date Last Indicated Resolved Time COVID-19 Rule Out 10/15/2021 10/15/2021 10/15/2021 1:34 PM CDT COVID-19 Rule Out 10/15/2021 10/15/2021 10/16/2021 7:02 PM CDT COVID-19 Rule Out 01/30/2022 01/30/2022 01/30/2022 9:59 AM CDT COVID-19 Rule Out 04/24/2022 04/24/2022 04/24/2022 3:01 PM GENERAL PASSENGER AGENT COVID-19 Rule Out 05/09/2022 05/09/2022 05/09/2022 7:47 PM GENERAL PASSENGER AGENT COVID-19 Rule Out 05/29/2022 05/29/2022 05/29/2022 1:46 PM GENERAL PASSENGER AGENT COVID-19 Rule Out 05/29/2022 05/29/2022 05/30/2022 6:46 PM GENERAL PASSENGER AGENT COVID-19 Rule Out 07/05/2022 07/05/2022 07/05/2022 7:45 PM GENERAL PASSENGER AGENT COVID-19 Rule Out 08/30/2022 08/30/2022 08/30/2022 2:37 PM CDT COVID-19 Rule Out 09/26/2022 09/26/2022 09/26/2022 11:47 AM CDT COVID-19 Rule Out 12/02/2022 12/02/2022 12/02/2022 1:15 PM CDT COVID-19 Rule Out 02/14/2023 02/14/2023 02/14/2023 2:15 PM CDT COVID-19 Rule Out 03/20/2023 03/20/2023 03/20/2023 10:27 AM GENERAL PASSENGER AGENT COVID-19 Rule Out 03/20/2023 03/20/2023 03/20/2023 2:10 PM GENERAL PASSENGER AGENT COVID-19 Rule Out 03/26/2023 03/26/2023 03/26/2023 12:11 PM GENERAL PASSENGER AGENT COVID-19 Rule Out 03/26/2023 03/26/2023 03/26/2023 1:39 PM GENERAL PASSENGER AGENT COVID-19 Rule Out 04/01/2023 04/01/2023 04/01/2023 10:22 PM GENERAL PASSENGER AGENT COVID-19 Rule Out 07/02/2023 07/02/2023 07/02/2023 1:03 PM GENERAL PASSENGER AGENT COVID-19 Rule Out 07/09/2023 07/09/2023 07/09/2023 7:57 PM GENERAL PASSENGER AGENT COVID-19 Rule Out 07/29/2023 07/29/2023 07/29/2023 7:23 PM CDT COVID-19 Rule Out 09/05/2023 09/05/2023 09/05/2023 1:30 PM CDT COVID-19 Rule Out 11/03/2023 11/03/2023 11/03/2023 3:34 PM CDT COVID-19 Rule Out 04/14/2024 04/14/2024 04/14/2024 1:53 PM GENERAL PASSENGER AGENT Assessment Noted Time PHQ-9 Depression Total Score: 022 2:48 PM CDT documented as of this encounter Care Teams Dirt Bike Mechanic Relationship Specialty Start Date End Date Nuvia Prasad MD PCP - General INTERNAL MEDICINE 07/30/19 08/27/22 None, ProviderMD PCP - General UNKNOWN PHYSICIAN SPECIALTY 08/28/22 09/18/22 [place] [address] [facility] [address] [place] [address] PCP - General FAMILY PRACTICE 09/19/22 documented as of this encounter
--- OUTSIDE RECORDS SUMMARY | 2024-06-17 19:19 | XMS_ITS | Encounter Summary ---
Author Organization [facility] Address [address] [place] [address] Care Team Providers Care Potato Peeler Name Role Phone Farzaneh Briscoe MD Primary Care Provider [phone] Encounter Details Date Type Department Care Team (Late st Contact Info) Description 08/27/2023 [employer] Message Enc [facility] Medical Group Family & Internal Medicine [address] [address] [place] [phone] [place] [address]. [address] [place] [address] Sleep problems? Mood swings? Impending manic episode? Social History Tobacco Use Types Packs/Day Years [...] Sex Assigned at Female 06/14/2024 9:24 PM BULL RIVETER Legal Sex Female 5:01 PM CDT Gender Identity Female 06/14/2024 9:20 PM BULL RIVETER Sexual Orientation Straight 06/14/2024 9: 20 PM BULL RIVETER documented as of this encounter Functional Status [...] documented in this encounter Progress Notes * Lurdes Krishna MA - 08/27/2023 2:24 PM CDT FYI. Appointment tomorrow. Thank you! documented in this encounter Plan of Treatment Upcoming Encounters Date Type Department Care Team (Late st Contact Info) Description 01/21/2025 10:45 AM CDT Office Visit [facility] [address] [place] [address] Doyle Curry MD [facility]. [facility] [address] [place] [address] documented as of this encounter Goals Goal Patient Goal Type Associated Problems Recent Progress Patient-Stated? Author Return home with mother Diet No Mayte Camacho, BLEACHER PULP documented as of this encounter Visit Diagnoses Not on filedocumented in this encounter Additional Health Concerns Infection Onset Date Last Indicated Resolved Time COVID-19 Rule Out 09/05/2023 09/05/2023 09/05/2023 1:30 PM CDT COVID-19 Rule Out 11/03/2023 11/03/2023 11/03/2023 3:34 PM CDT COVID-19 Rule Out 04/14/2024 04/14/2024 04/14/2024 1:53 PM BULL RIVETER Assessment Noted Time PHQ-9 Depression Total Score: 12 024 3:58 PM BULL RIVETER documented as of this encounter Care Teams Potato Peeler Relationship Specialty Start [place] [address] [facility] [address]. [address] [place] [address] PCP - General FAMILY PRACTICE 09/19/22 documented as of this encounter
--- OUTSIDE RECORDS SUMMARY | 2024-06-17 19:19 | XMS_ITS | Encounter Summary ---
Author Organization [facility] Address [address] [place] [address] Care Team Providers Care Surveillance Monitor Name Role Phone Farzaneh Briscoe MD Primary Care Provider [phone] Encounter Details Date Type Department Care Team (Late st Contact Info) Description 05/16/2023 [employer] Message [facility] Family [facility] Internal Medicine [address] [address] [place] [phone] [place] [address]. [address] [place] [phone] More annoying stuff that's ruining my life in the way of my health.. Social History Tobacco Use Types Packs/Day Years [...] Answer Date Recorded Patient Health Questionnaire-2 Score 1 05/14/2023 Comments No Sex and Gender Information Value Date Recorded Sex Assigned at Female 06/14/2024 9:24 PM INTERNET SOURCER Legal Sex Female 5:01 PM CDT Gender Identity Female 06/14/2024 9:20 PM INTERNET SOURCER Sexual Orientation Straight 06/14/2024 9: 20 PM INTERNET SOURCER documented as of this encounter Functional Status [...] Description 01/21/2025 10:45 AM CDT Office Visit [facility] [address] [place] [phone] Doyle Curry MD [address] [address] documented as of this encounter Goals Goal Patient Goal Type Associated Problems Recent Progress Patient-Stated? Author Return home with mother Diet No Mayte Camacho MSW documented as of this encounter Visit Diagnoses Not on filedocumented in this encounter Additional Health Concerns Infection Onset Date Last Indicated Resolved Time COVID-19 Rule Out 07/02/2023 07/02/2023 07/02/2023 1:03 PM INTERNET SOURCER COVID-19 Rule Out 07/09/2023 07/09/2023 07/09/2023 7:57 PM INTERNET SOURCER COVID-19 Rule Out 07/29/2023 07/29/2023 07/29/2023 7:23 PM CDT COVID-19 Rule Out 09/05/2023 09/05/2023 09/05/2023 1:30 PM CDT COVID-19 Rule Out 11/03/2023 11/03/2023 11/03/2023 3:34 PM CDT COVID-19 Rule Out 04/14/2024 04/14/2024 04/14/2024 1:53 PM INTERNET SOURCER Assessment Noted Time PHQ-9 Depression Total Score: 12 024 3:58 PM INTERNET SOURCER documented as of this encounter Care Teams Surveillance Monitor Relationship Specialty Start [place] [address] [facility] [address] [place] [address] PCP - General FAMILY PRACTICE 09/19/22 documented as of this encounter
--- OUTSIDE RECORDS SUMMARY | 2024-06-17 19:19 | XMS_ITS | Encounter Summary ---
Author Organization [facility] Address [address] [place] [address] Care Team Providers Care Service Aide Name Role Phone Nuvia Prasad MD Primary Care Provider None, Provider Primary Care Provider Austina Farzaneh Lancaster MD Primary Care Provider [phone] Encounter Details Date Type Department Care Team (Late st Contact Info) Description 12/14/2020 [employer] Message Enc [facility] Family & Internal Medicine [address] [address] [place], [facility] Provider RE:Concern Social History Tobacco Use Types Packs/Day Years [...] please move on to questions 3-9 0 10/17/2020 Comments No Sex and Gender Information Value Date Recorded Sex Assigned at Female 06/14/2024 9:24 PM BUSINESS RISK CONSULTANT Legal Sex Female 5:01 PM CDT Gender Identity Female 06/14/2024 9:20 PM BUSINESS RISK CONSULTANT Sexual Orientation Straight 06/14/2024 9: 20 PM BUSINESS RISK CONSULTANT COVID-19 Exposure Response Date Recorded In the last month, have you been in contact with someone who was confirmed or suspected to have Coronavirus / COVID-19? No / Unsure 12/06/2020 11:20 AM CDT documented as of this encounter [...] Description 01/21/2025 10:45 AM CDT [facility] [address] [place] [phone] Doyle Curry MD [address] [address] documented as of this encounter Goals Goal Patient Goal Type Associated Problems Recent Progress Patient-Stated? Author Return home with mother Diet No Mayte Camacho SECTION HAND documented as of this encounter Visit Diagnoses Not on filedocumented in this encounter Additional Health Concerns Infection Onset Date Last Indicated Resolved Time COVID-19 Rule Out 10/15/2021 10/15/2021 10/15/2021 1:34 PM CDT COVID-19 Rule Out 10/15/2021 10/15/2021 10/16/2021 7:02 PM CDT COVID-19 Rule Out 01/30/2022 01/30/2022 01/30/2022 9:59 AM CDT COVID-19 Rule Out 04/24/2022 04/24/2022 04/24/2022 3:01 PM BUSINESS RISK CONSULTANT COVID-19 Rule Out 05/09/2022 05/09/2022 05/09/2022 7:47 PM BUSINESS RISK CONSULTANT COVID-19 Rule Out 05/29/2022 05/29/2022 05/29/2022 1:46 PM BUSINESS RISK CONSULTANT COVID-19 Rule Out 05/29/2022 05/29/2022 05/30/2022 6:46 PM BUSINESS RISK CONSULTANT COVID-19 Rule Out 07/05/2022 07/05/2022 07/05/2022 7:45 PM BUSINESS RISK CONSULTANT COVID-19 Rule Out 08/30/2022 08/30/2022 08/30/2022 2:37 PM CDT COVID-19 Rule Out 09/26/2022 09/26/2022 09/26/2022 11:47 AM CDT COVID-19 Rule Out 12/02/2022 12/02/2022 12/02/2022 1:15 PM CDT COVID-19 Rule Out 02/14/2023 02/14/2023 02/14/2023 2:15 PM CDT COVID-19 Rule Out 03/20/2023 03/20/2023 03/20/2023 10:27 AM BUSINESS RISK CONSULTANT COVID-19 Rule Out 03/20/2023 03/20/2023 03/20/2023 2:10 PM BUSINESS RISK CONSULTANT COVID-19 Rule Out 03/26/2023 03/26/2023 03/26/2023 12:11 PM BUSINESS RISK CONSULTANT COVID-19 Rule Out 03/26/2023 03/26/2023 03/26/2023 1:39 PM BUSINESS RISK CONSULTANT COVID-19 Rule Out 04/01/2023 04/01/2023 04/01/2023 10:22 PM BUSINESS RISK CONSULTANT COVID-19 Rule Out 07/02/2023 07/02/2023 07/02/2023 1:03 PM BUSINESS RISK CONSULTANT COVID-19 Rule Out 07/09/2023 07/09/2023 07/09/2023 7:57 PM BUSINESS RISK CONSULTANT COVID-19 Rule Out 07/29/2023 07/29/2023 07/29/2023 7:23 PM CDT COVID-19 Rule Out 09/05/2023 09/05/2023 09/05/2023 1:30 PM CDT COVID-19 Rule Out 11/03/2023 11/03/2023 11/03/2023 3:34 PM CDT COVID-19 Rule Out 04/14/2024 04/14/2024 04/14/2024 1:53 PM BUSINESS RISK CONSULTANT Assessment Noted Time PHQ-9 Depression Total Score: 0 10/18/19 3:07 PM CDT documented as of this encounter Care Teams Service Aide Relationship Specialty Start Date End Date Nuvia Prasad MD PCP - General INTERNAL MEDICINE 07/30/19 08/27/22 None, MD Yas PCP - General UNKNOWN PHYSICIAN SPECIALTY 08/28/22 09/18/22 [place] [address] [facility]. [address] [place] [address] PCP - General FAMILY PRACTICE 09/19/22 documented as of this encounter
--- OUTSIDE RECORDS SUMMARY | 2024-06-17 19:19 | XMS_ITS | Encounter Summary ---
Author Organization [facility] Address [address] [place] [address] Care Team Providers Care Sheet Heater Name Role Phone Farzaneh Briscoe MD Primary Care Provider [phone] Encounter Details Date Type Department Care Team (Late st Contact Info) Description 06/30/2023 [place] Message Enc [facility] Medical Group Family & Internal Medicine [facility] [phone] [place] [phone] [place] [id number] [place] [address]. [address] [place] [phone] Smashed my finger in a drawer Social History Tobacco Use Types Packs/Day Years [...] Sex Assigned at Female 06/14/2024 9:24 PM TIMERS INSPECTOR Legal Sex Female 5:01 PM CDT Gender Identity Female 06/14/2024 9:20 PM TIMERS INSPECTOR Sexual Orientation Straight 06/14/2024 9: 20 PM TIMERS INSPECTOR documented as of this encounter Functional Status [...] Description 01/21/2025 10:45 AM CDT Office Visit [facility] [id number] [place] [phone] Doyle Curry MD [place] [place] [address] documented as of this encounter Goals Goal Patient Goal Type Associated Problems Recent Progress Patient-Stated? Author Return home with mother Diet No Mayte Camacho NUTRITIONIST PUBLIC HEALTH documented as of this encounter Visit Diagnoses Not on filedocumented in this encounter Additional Health Concerns Infection Onset Date Last Indicated Resolved Time COVID-19 Rule Out 07/02/2023 07/02/2023 07/02/2023 1:03 PM TIMERS INSPECTOR COVID-19 Rule Out 07/09/2023 07/09/2023 07/09/2023 7:57 PM TIMERS INSPECTOR COVID-19 Rule Out 07/29/2023 07/29/2023 07/29/2023 7:23 PM CDT COVID-19 Rule Out 09/05/2023 09/05/2023 09/05/2023 1:30 PM CDT COVID-19 Rule Out 11/03/2023 11/03/2023 11/03/2023 3:34 PM CDT COVID-19 Rule Out 04/14/2024 04/14/2024 04/14/2024 1:53 PM TIMERS INSPECTOR Assessment Noted Time PHQ-9 Depression Total Score: 12 024 3:58 PM TIMERS INSPECTOR documented as of this encounter Care Teams Sheet Heater Relationship Specialty [place] [address] [address] [place] [address] PCP - General FAMILY PRACTICE 09/19/22 documented as of this encounter
--- OUTSIDE RECORDS SUMMARY | 2024-06-17 19:19 | XMS_ITS | Encounter Summary ---
Author Organization [facility] Address [address] [place] [address] Care Team Providers Care Recreation Engineer Name Role Phone Farzaneh Briscoe MD Primary Care Provider [phone] Encounter Details Date Type Department Care Team (Late st Contact Info) Description 06/24/2023 [employer] Message Enc [facility] Family & Internal Medicine [facility] [address] [place] [phone] [place]isco[place] [phone] [place] [address]. [address] [place] [address] For why? Social History Tobacco Use Types [...] Sex Assigned at Female 06/14/2024 9:24 PM HOUSEKEEPER HOME Legal Sex Female 5:01 PM CDT Gender Identity Female 06/14/2024 9:20 PM HOUSEKEEPER HOME Sexual Orientation Straight 06/14/2024 9: 20 PM HOUSEKEEPER HOME documented as of this encounter Functional Status [...] documented in this encounter Progress Notes * Harriet Hannah MA - 2023 10:51 AM CST Informed patient she would need to be seen. She V/U EKEEPER HOME documented in this encounter Plan of Treatment Upcoming Encounters Date Type Department Care Team (Late st Contact Info) Description 01/21/2025 10:45 AM CDT Office Visit [facility] [address] [place] [phone] Doyle Curry MD [facility]. [facility] [address] [place] [address] documented as of this encounter Goals Goal Patient Goal Type Associated Problems Recent Progress Patient-Stated? Author Return home with mother Diet No Mayte Camacho, MASK LAYOUT DESIGNER documented as of this encounter Visit Diagnoses Not on filedocumented in this encounter Additional Health Concerns Infection Onset Date Last Indicated Resolved Time COVID-19 Rule Out 07/02/2023 07/02/2023 07/02/2023 1:03 PM HOUSEKEEPER HOME COVID-19 Rule Out 07/09/2023 07/09/2023 07/09/2023 7:57 PM HOUSEKEEPER HOME COVID-19 Rule Out 07/29/2023 07/29/2023 07/29/2023 7:23 PM CDT COVID-19 Rule Out 09/05/2023 09/05/2023 09/05/2023 1:30 PM CDT COVID-19 Rule Out 11/03/2023 11/03/2023 11/03/2023 3:34 PM CDT COVID-19 Rule Out 04/14/2024 04/14/2024 04/14/2024 1:53 PM HOUSEKEEPER HOME Assessment Noted Time PHQ-9 Depression Total Score: 024 3:58 PM HOUSEKEEPER HOME documented as of this encounter Care Teams Recreation Engineer Relationship Specialty Start [place] [address] [facility]. [address] [place] [address] PCP - General FAMILY PRACTICE 09/19/22 documented as of this encounter
--- OUTSIDE RECORDS SUMMARY | 2024-06-17 19:19 | XMS_ITS | Continuity of Care Document ---
Author Organization [facility] Address [address] [place] [address] [place] [address] Phone Care Team Providers Care Remarketing Rep Name Role Phone Kg Garza MD Unavailable Unavailable Allergies, Adverse Reactions, Alerts Substance Reaction Status Criticality TANGERINE Active No Information raspberry Active No Information Medications Medication Instructions Dosage Effective Dates (start - stop) Status Comments promethazine 25 mg tablet take 1 tablet by oral route every 6 hours as needed as needed 25 MG - Active PRN for nausea omeprazole 20 mg capsule,delayed release take 1 capsule by oral route every day before a meal 20 MG - Active Zoloft 50 mg tablet take 1 tablet by oral route every day 50 MG - Active naproxen 500 mg tablet take 1 tablet by oral route 2 times every day with food as needed 500 MG - Active PRN for dysmenorrhea buspirone 7.5 mg tablet take 1 tablet by oral route 2 times every day 7.5 MG - Active avoid driving or operate machines Procedures Procedure Date OFFICE/OUTPATIENT VISIT, EST OFFICE/OUTPATIENT VISIT, EST PREV VISIT, NEW, AGE 18-39 OFFICE/OUTPATIENT VISIT, NEW Advance Directives Directive Yes / No Effective Date File Name No Information Encounters Encounter Description Practice Location Reason(s) For Visit Diagnoses Date Provider Providers Copied on Encounter OFFICE/OUTPA TIENT VISIT, EST [facility], [address] [place], [id number], [place] tel:[phone] [facility] Medicine sick1 (chief complaint) anxiety1 (chief complaint) GERD w/o esophagitisVomiting Generalized Anxiety Disorder 8 Greg Saul. [address] [facility] [facility] [place], [id number] , . tel:[phone] Referring Provider: Feng Cam [facility] [place], [id number]. tel:[phone] OFFICE/OUTPA TIENT VISIT, [facility], [address] [place], [id number], [place] tel:[phone] [facility] hematuria1 (chief complaint) D (chief complaint) anemia1 (chief complaint) HLp (chief complaint) HematuriaHyperlipid emiaAnemiaDysmenorr heaVitamin D deficiency, unspecifiedGenerali zed Anxiety Disorder Aug- 8 Greg Tomas [address] [facility] [place], [id number] , [place]. tel:[phone] Referring Provider: Feng Cam [address] [place], [place], [id number]. tel:[phone] PREV VISIT, NEW, AGE 18-39 [facility], [facility] [address] [place], [id number], [place] tel:[phone] [facility] PHysical (chief complaint) Encounter for general adult medical exam w abnormal findingsVomitingGen eralized Anxiety Disorder 8 Greg Tomas [address] [facility] [place], [id number] , [place]. [phone] Referring Provider: Feng Cam [address] [facility] [place], [id number]. tel:[phone] Family History Family Member Type Diagnosis Age At Onset Father Problem (finding) Alive and well Mother Problem (finding) COPd. MS stomach cancer Sister Problem (finding) Seizure disorder Brother Problem (finding) Alive and well Payers Payer name Insurance type Covered republican ID Authoriza tion(s) No Information Social History Type Description Quantity Date Captured Comments Alcohol Use Details No Caffeine Use Details Unknown Tobacco Use Status Current non-smoker 16 Smoking Status Never smoker Sex Female Vital Signs Date / Time: Height Weight BMI Pulse Rate Blood Pressure Temperature Respiratory Rate Body Surface Area Head Circumference BMI percentile Pulse Ox Inhaled Ox 12:48 PM 69.00 in 148.40 lbs 21.9 1 kg/m eter (2) 85 /min 127/85 mm[Hg] 98.5 F 16 /min 53 Chief Complaint And Reason For Visit From encounter dated '09/09/2017 11:30'. sick1 (chief complaint). Description: Pt has cyclic vomiting syndrome. Pt feels sudden onset of severe nausea, vomiting, sick feeling, stomach upset last night Pt vomited several times and she feels that the vomitus got stuck in her throat and she feels unable to breath and she started to have severe anxiety and panic attacks. Pt denies any abdominal pain currently but she still feels nauseated. P t has not done the ultrasound yet. Pt told me she has not heard from GI yet. pt does have frequent GERd symptoms. pt failed zantac in the past anxiety1 (chief complaint). Description: Pt has chronic anxiety and depression. pt takes zoloft andbuspar. Pt states that her mom told her to ask about xanax. Pt denies any suicidal or homicidal thought. Pt denies any crying spells. pt still has a lot of anxiety with above meds Plan Of Treatment Date Type Action Status Referral Ordered: UPPER GI W/ SMALL BOWEL SERIES ordered Referral Ordered: Gastroenterology (related to Vomiting) ordered Referral Ordered: Referrals: Gastroenterology. Evaluate and treat ordered Referral Ordered: US EXAM, ABDOM, COMPLETE ordered History Of Present Illness Encounter Date Complaint History Of Prese nt Illness sick1 Pt has cyclic vo miting syndrome. Pt feels sudden onset of severe nausea, vomiting, sick feeling, stomach upset last night Pt vomited several times and she feels that the vomitus got stuck in her throat and she feels unable to breath and she started to have severe anxiety and panic attacks. Pt denies any abdominal pain currently but she still feels nauseated. Pt has not done the ultrasound yet. Pt told me she has not heard from GI yet. pt does have frequent GERd symptoms. pt failed zantac in the past anxiety1 Pt has chronic a nxiety and depression. pt takes zoloft and buspar. Pt states that her mom told her to ask about xanax. Pt denies any suicidal or homicidal thought. Pt denies any crying spells. pt still has a lot of anxiety with above meds HLp Pt has mild high TG. Pt is not on any diet anemia1 Pt has mild anem ia. MCV ok. Pt has heavy period but is regular. Pt has dysmenorrhea as well. . Pt denies any GI blood loss. D Pt has low D hematuria1 Pt has mild tere turia and proteinuria Pt denies any UTi symptoms. PHysical Pt needs annual physical pt has chronic anxiety. Pt has cyclic vomiting syndrome and she takes zofran PRn for nausea and vomiting. Pt never had EGD done Pt denies an GERD. Pt c/o chronic diffuse abdominal pain all the time. pt denies any diarrhea. Pt also has chronic anxiety and depression. Pt has frequent panic attacks. Pt never was on any medication. Pt states that her mom does not want her to take medication in the past. Pt also has autism as a child. Instructions Date Instruction Additional Infor mation Elevate head of bed prior to sle ep. Related to GERD w/o esophagitis Avoid provocative fo ods: citrus, alcohol, coffee, chocolate, mints. Related to GERD w/o esophagitis Eat smaller meals, n o eating three hours prior to bedtime. Related to GERD w/o esophagitis Increase physical activity Relat ed to Hematuria Increase physical activity Relat ed to Encounter for general adult medical exam w abnormal findings Assessments Type Assessment Date assessment GERD w/o esophagitis assessment Vomiting assessment Generalized Anxiety Disorder September Mental Status Date Cognitive Assessment Orientation - Nathalie ed to time, place, person, situation.
--- OUTSIDE RECORDS SUMMARY | 2024-06-17 19:19 | XMS_ITS | Encounter Summary ---
Author Organization [facility] Address [address] [place] [address] Care Team Providers Care Heat Treater Head Name Role Phone Nuvia Prasad MD Primary Care Provider [phone] None, Provider Primary Care Provider Unavaila Farzaneh Lancaster MD Primary Care Provider [phone] Encounter Details Date Type Department Care Team (Late st Contact Info) Description 07/24/2021 [employer] Message Enc [facility] Medical Group Family & Internal Medicine [facility] [address] [place] [address] [place]uvia Prasad [place] [address] [place] [address] Blood Test Social History Tobacco Use Types Packs/Day Years [...] Sex Assigned at Female 06/14/2024 9:24 PM FINANCIAL ADVISOR Legal Sex Female 5:01 PM CDT Gender Identity Female 06/14/2024 9:20 PM FINANCIAL ADVISOR Sexual Orientation Straight 06/14/2024 9: 20 PM FINANCIAL ADVISOR COVID-19 Exposure Response Date Recorded In the last 10 days, have glenn u been in contact with someone who was confirmed or suspected to have Coronavirus/COVID-19? No / Unsure 07/25/2021 8:31 AM CDT documented as of this encounter [...] Progress Notes * Evelin Nicole RN - 07/25/2021 3:54 PM CDT Patient had CBC done today documented in this encounter Plan of Treatment Upcoming Encounters Date Type Department Care Team (Late st Contact Info) Description 01/21/2025 10:45 AM CDT Office Visit [facility] [address] [place] [address] Doyle Curry MD [facility] [address] [place] [address] documented as of this encounter Goals Goal Patient Goal Type Associated Problems Recent Progress Patient-Stated? Author Return home with mother Diet No JaniceMayte, CEMENT PAVER documented as of this encounter Visit Diagnoses Not on filedocumented in this encounter Additional Health Concerns Infection Onset Date Last Indicated Resolved Time COVID-19 Rule Out 10/15/2021 10/15/2021 10/15/2021 1:34 PM CDT COVID-19 Rule Out 10/15/2021 10/15/2021 10/16/2021 7:02 PM CDT COVID-19 Rule Out 01/30/2022 01/30/2022 01/30/2022 9:59 AM CDT COVID-19 Rule Out 04/24/2022 04/24/2022 04/24/2022 3:01 PM FINANCIAL ADVISOR COVID-19 Rule Out 05/09/2022 05/09/2022 05/09/2022 7:47 PM FINANCIAL ADVISOR COVID-19 Rule Out 05/29/2022 05/29/2022 05/29/2022 1:46 PM FINANCIAL ADVISOR COVID-19 Rule Out 05/29/2022 05/29/2022 05/30/2022 6:46 PM FINANCIAL ADVISOR COVID-19 Rule Out 07/05/2022 07/05/2022 07/05/2022 7:45 PM FINANCIAL ADVISOR COVID-19 Rule Out 08/30/2022 08/30/2022 08/30/2022 2:37 PM CDT COVID-19 Rule Out 09/26/2022 09/26/2022 09/26/2022 11:47 AM CDT COVID-19 Rule Out 12/02/2022 12/02/2022 12/02/2022 1:15 PM CDT COVID-19 Rule Out 02/14/2023 02/14/2023 02/14/2023 2:15 PM CDT COVID-19 Rule Out 03/20/2023 03/20/2023 03/20/2023 10:27 AM FINANCIAL ADVISOR COVID-19 Rule Out 03/20/2023 03/20/2023 03/20/2023 2:10 PM FINANCIAL ADVISOR COVID-19 Rule Out 03/26/2023 03/26/2023 03/26/2023 12:11 PM FINANCIAL ADVISOR COVID-19 Rule Out 03/26/2023 03/26/2023 03/26/2023 1:39 PM FINANCIAL ADVISOR COVID-19 Rule Out 04/01/2023 04/01/2023 04/01/2023 10:22 PM FINANCIAL ADVISOR COVID-19 Rule Out 07/02/2023 07/02/2023 07/02/2023 1:03 PM FINANCIAL ADVISOR COVID-19 Rule Out 07/09/2023 07/09/2023 07/09/2023 7:57 PM FINANCIAL ADVISOR COVID-19 Rule Out 07/29/2023 07/29/2023 07/29/2023 7:23 PM CDT COVID-19 Rule Out 09/05/2023 09/05/2023 09/05/2023 1:30 PM CDT COVID-19 Rule Out 11/03/2023 11/03/2023 11/03/2023 3:34 PM CDT COVID-19 Rule Out 04/14/2024 04/14/2024 04/14/2024 1:53 PM FINANCIAL ADVISOR Assessment Noted Time PHQ-9 Depression Total Score: 2 07/03/19 11:15 AM FINANCIAL ADVISOR documented as of this encounter Care Teams Heat Treater Head Relationship Specialty Start Date End Date Nuvia Prasad MD PCP - General INTERNAL MEDICINE 07/30/19 08/27/22 None, Provider, PCP - General UNKNOWN PHYSICIAN SPECIALTY 08/28/22 09/18/22 [place] [address] [facility] [address] [place] [address] PCP - General FAMILY PRACTICE 09/19/22 documented as of this encounter
--- OUTSIDE RECORDS SUMMARY | 2024-06-17 19:19 | XMS_ITS | Encounter Summary ---
Author Organization [facility] Address [address] [place] [address] Care Team Providers Care Robotic Welding Operator Name Role Phone Nuvia Prasad MD Primary Care Provider None, Provider Primary Care Provider Unavaila Farzaneh Lancaster MD Primary Care Provider [phone] Encounter Details Date Type Department Care Team (Late st Contact Info) Description 11/06/2021 [employer] Message Enc [facility] Medical Group Family & Internal Medicine [facility] [address] [place] [address] [place]uv[place] Pr[place] [id number] [place] [address] I guess I'm sick.. Social History Tobacco Use Types Packs/Day Years [...] Sex Assigned at Female 06/14/2024 9:24 PM RAMPMAN Legal Sex Female 5:01 PM CDT Gender Identity Female 06/14/2024 9:20 PM RAMPMAN Sexual Orientation Straight 06/14/2024 9: 20 PM RAMPMAN COVID-19 Exposure Response Date Recorded In the last 10 days, have yo u been in contact with someone who was confirmed or suspected to have Coronavirus/COVID-19? Unable to assess 11/07/2021 7:10 AM CDT documented as of this encounter [...] Description 01/21/2025 10:45 AM CDT Office Visit [facility] [address] [place] [phone] Doyle Curry MD [facility] [address] [place] [address] documented as of this encounter Goals Goal Patient Goal Type Associated Problems Recent Progress Patient-Stated? Author Return home with mother Javed Bradyziggy Hawkins, MINE TECHNICIAN documented as of this encounter Visit Diagnoses Not on filedocumented in this encounter Additional Health Concerns Infection Onset Date Last Indicated Resolved Time COVID-19 Rule Out 01/30/2022 01/30/2022 01/30/2022 9:59 AM CDT COVID-19 Rule Out 04/24/2022 04/24/2022 04/24/2022 3:01 PM RAMPMAN COVID-19 Rule Out 05/09/2022 05/09/2022 05/09/2022 7:47 PM RAMPMAN COVID-19 Rule Out 05/29/2022 05/29/2022 05/29/2022 1:46 PM RAMPMAN COVID-19 Rule Out 05/29/2022 05/29/2022 05/30/2022 6:46 PM RAMPMAN COVID-19 Rule Out 07/05/2022 07/05/2022 07/05/2022 7:45 PM RAMPMAN COVID-19 Rule Out 08/30/2022 08/30/2022 08/30/2022 2:37 PM CDT COVID-19 Rule Out 09/26/2022 09/26/2022 09/26/2022 11:47 AM CDT COVID-19 Rule Out 12/02/2022 12/02/2022 12/02/2022 1:15 PM CDT COVID-19 Rule Out 02/14/2023 02/14/2023 02/14/2023 2:15 PM CDT COVID-19 Rule Out 03/20/2023 03/20/2023 03/20/2023 10:27 AM RAMPMAN COVID-19 Rule Out 03/20/2023 03/20/2023 03/20/2023 2:10 PM RAMPMAN COVID-19 Rule Out 03/26/2023 03/26/2023 03/26/2023 12:11 PM RAMPMAN COVID-19 Rule Out 03/26/2023 03/26/2023 03/26/2023 1:39 PM RAMPMAN COVID-19 Rule Out 04/01/2023 04/01/2023 04/01/2023 10:22 PM RAMPMAN COVID-19 Rule Out 07/02/2023 07/02/2023 07/02/2023 1:03 PM RAMPMAN COVID-19 Rule Out 07/09/2023 07/09/2023 07/09/2023 7:57 PM RAMPMAN COVID-19 Rule Out 07/29/2023 07/29/2023 07/29/2023 7:23 PM CDT COVID-19 Rule Out 09/05/2023 09/05/2023 09/05/2023 1:30 PM CDT COVID-19 Rule Out 11/03/2023 11/03/2023 11/03/2023 3:34 PM CDT COVID-19 Rule Out 04/14/2024 04/14/2024 04/14/2024 1:53 PM RAMPMAN Assessment Noted Time PHQ-9 Depression Total Score: 022 2:48 PM CDT documented as of this encounter Care Teams Robotic Welding Operator Relationship Specialty Start Date End Date Nuvia Prasad MD PCP - General INTERNAL MEDICINE 07/30/19 08/27/22 None, Provider, PCP - General UNKNOWN PHYSICIAN SPECIALTY 08/28/22 09/18/22 [place] [address] [facility]. [address] [place] [address] PCP - General FAMILY PRACTICE 09/19/22 documented as of this encounter
--- OUTSIDE RECORDS SUMMARY | 2024-06-17 19:19 | XMS_ITS | Encounter Summary ---
Author Organization [facility] Address [address] [place] [address] Care Team Providers Care Tar Kettle Runner Name Role Phone Farzaneh Briscoe MD Primary Care Provider Reason for Visit * Reason Onset Date Comments Other 06/17/2024 Pt temp 101 CP S OB cough vomiting Encounter Details Date Type Department Care Team (Late st Contact Info) Description 06/17/2024 Telephone [facility] Medical Group Family & Internal Medicine [facility] [id number] [place] [address] Farzaneh Briscoe MD [address] [place] [address]. [address] [place] [address] Other (Pt temp 101 CP SOB cough vomiting ) Social History Tobacco Use Types Packs/Day Years [...] Sex Assigned at Female 06/14/2024 9:24 PM OIL WELL SERVICE OPERATOR HELPER Legal Sex Female 5:01 PM CDT Gender Identity Female 06/14/2024 9:20 PM OIL WELL SERVICE OPERATOR HELPER Sexual Orientation Straight 06/14/2024 9: 20 PM OIL WELL SERVICE OPERATOR HELPER documented as of this encounter Functional Status [...] documented in this encounter Progress Notes * Karissa Toscano LPN - 06/17/2024 12:59 PM CST Pt called wanting to know what could cause a persistent cough all night to point of vomiting she has chest pains temp 101.0 SOB Stress pt needs to be seen immediately States she is waiting for her sister who will not be back until after a field trip to [facility] Encouraged to call Ambulance she said she was considering that Again stress to go to ER Pt did not confirm that she would [phone] WELL SERVICE OPERATOR HELPER documented in this encounter Plan of Treatment Upcoming Encounters Date Type Department Care Team (Late st Contact Info) Description 01/21/2025 10:45 AM CDT [facility] [address] [place] [address] Doyle Curry MD [facility] [address] [place] [address] documented as of this encounter Goals Goal Patient Goal Type Associated Problems Recent Progress Patient-Stated? Author Return home with mother Diet No Mayte Camacho, AGRICULTURAL EXTENSION AGENT documented as of this encounter Visit Diagnoses Not on filedocumented in this encounter Additional Health Concerns Assessment Noted Time PHQ-9 Depression Total Score: 20 024 12:53 PM CDT documented as of this encounter Care Teams Tar Kettle Runner Relationship Specialty Start [place] [address] [address] [place] [address] PCP - General FAMILY PRACTICE 09/19/22 documented as of this encounter
--- OUTSIDE RECORDS SUMMARY | 2024-06-17 19:19 | XMS_ITS | Encounter Summary ---
Author Organization [facility] Address [address] [place] [address] Care Team Providers Care Machine Filler Servicer Name Role Phone Nuvia Prasad MD Primary Care Provider None, Provider Primary Care Provider Austina Farzaneh Lancaster MD Primary Care Provider [phone] Encounter Details Date Type Department Care Team (Late st Contact Info) Description 08/18/2020 [employer] Message [facility] [address] [place] [address] [facility] Social History Tobacco Use Types Packs/Day Years [...] Sex Assigned at Female 06/14/2024 9:24 PM PROCESS LEAD Legal Sex Female 5:01 PM CDT Gender Identity Female 06/14/2024 9:20 PM PROCESS LEAD Sexual Orientation Straight 06/14/2024 9: 20 PM PROCESS LEAD COVID-19 Exposure Response Date Recorded In the [...] Status No 02/02/2020 1:57 PM CDT Joseline Esacmilla RN Active * Because of a physical, [...] Description 01/21/2025 10:45 AM CDT [facility] [address] [facility] [place] [phone] Doyle Curry MD [address] [place] [address] documented as of this encounter Goals Goal Patient Goal Type Associated Problems Recent Progress Patient-Stated? Author Return home with mother Diet No Mayte Camacho NEUROLOGICAL SURGEON documented as of this encounter Visit Diagnoses Not on filedocumented in this encounter Additional Health Concerns Infection Onset Date Last Indicated Resolved Time COVID-19 Rule Out 10/15/2021 10/15/2021 10/15/2021 1:34 PM CDT COVID-19 Rule Out 10/15/2021 10/15/2021 10/16/2021 7:02 PM CDT COVID-19 Rule Out 01/30/2022 01/30/2022 01/30/2022 9:59 AM CDT COVID-19 Rule Out 04/24/2022 04/24/2022 04/24/2022 3:01 PM PROCESS LEAD COVID-19 Rule Out 05/09/2022 05/09/2022 05/09/2022 7:47 PM PROCESS LEAD COVID-19 Rule Out 05/29/2022 05/29/2022 05/29/2022 1:46 PM PROCESS LEAD COVID-19 Rule Out 05/29/2022 05/29/2022 05/30/2022 6:46 PM PROCESS LEAD COVID-19 Rule Out 07/05/2022 07/05/2022 07/05/2022 7:45 PM PROCESS LEAD COVID-19 Rule Out 08/30/2022 08/30/2022 08/30/2022 2:37 PM CDT COVID-19 Rule Out 09/26/2022 09/26/2022 09/26/2022 11:47 AM CDT COVID-19 Rule Out 12/02/2022 12/02/2022 12/02/2022 1:15 PM CDT COVID-19 Rule Out 02/14/2023 02/14/2023 02/14/2023 2:15 PM CDT COVID-19 Rule Out 03/20/2023 03/20/2023 03/20/2023 10:27 AM PROCESS LEAD COVID-19 Rule Out 03/20/2023 03/20/2023 03/20/2023 2:10 PM PROCESS LEAD COVID-19 Rule Out 03/26/2023 03/26/2023 03/26/2023 12:11 PM PROCESS LEAD COVID-19 Rule Out 03/26/2023 03/26/2023 03/26/2023 1:39 PM PROCESS LEAD COVID-19 Rule Out 04/01/2023 04/01/2023 04/01/2023 10:22 PM PROCESS LEAD COVID-19 Rule Out 07/02/2023 07/02/2023 07/02/2023 1:03 PM PROCESS LEAD COVID-19 Rule Out 07/09/2023 07/09/2023 07/09/2023 7:57 PM PROCESS LEAD COVID-19 Rule Out 07/29/2023 07/29/2023 07/29/2023 7:23 PM CDT COVID-19 Rule Out 09/05/2023 09/05/2023 09/05/2023 1:30 PM CDT COVID-19 Rule Out 11/03/2023 11/03/2023 11/03/2023 3:34 PM CDT COVID-19 Rule Out 04/14/2024 04/14/2024 04/14/2024 1:53 PM PROCESS LEAD Assessment Noted Time PHQ-9 Depression Total Score: 14 07 020 4:53 PM CDT documented as of this encounter Care Teams Machine Filler Servicer Relationship Specialty Start Date End Date Nuvia Prasad MD PCP - General INTERNAL MEDICINE 07/30/19 08/27/22 None, Provider, PCP - General UNKNOWN PHYSICIAN SPECIALTY 08/28/22 09/18/22 [place] [address] [facility]. [address] [place] [address] PCP - General FAMILY PRACTICE 09/19/22 documented as of this encounter
--- OUTSIDE RECORDS SUMMARY | 2024-06-17 19:19 | XMS_ITS | Encounter Summary ---
Author Organization [facility] Address [address] [place] [address] Care Team Providers Care City Collector Name Role Phone Farzaneh Briscoe MD Primary Care Provider [phone] Encounter Details Date Type Department Care Team (Late st Contact Info) Description 02/20/2024 [employer] Message Enc [facility] Medical Group Family & Internal Medicine [address] [address] [place] [id number] [place] [address]. [address] [place] [address] I need advice jessica I'm confused Social History Tobacco Use Types Packs/Day Years [...] Sex Assigned at Female 06/14/2024 9:24 PM GEL COAT SPRAYER Legal Sex Female 5:01 PM CDT Gender Identity Female 06/14/2024 9:20 PM GEL COAT SPRAYER Sexual Orientation Straight 06/14/2024 9: 20 PM GEL COAT SPRAYER documented as of this encounter Functional Status [...] Description 01/21/2025 10:45 AM CDT Office Visit [facility] [id number] [place] [phone] Doyle Curry MD [address] [place] [address] documented as of this encounter Goals Goal Patient Goal Type Associated Problems Recent Progress Patient-Stated? Author Return home with mother Diet No Mayte Camacho PRESTO LOG OPERATOR documented as of this encounter Visit Diagnoses Not on filedocumented in this encounter Additional Health Concerns Infection Onset Date Last Indicated Resolved Time COVID-19 Rule Out 04/14/2024 04/14/2024 04/14/2024 1:53 PM GEL COAT SPRAYER Assessment Noted Time PHQ-9 Depression Total Score: 20 04/18/2 024 12:53 PM CDT documented as of this encounter Care Teams City Collector Relationship Specialty [place] [address] [address] [place] [address] PCP - General FAMILY PRACTICE 09/19/22 documented as of this encounter
--- OUTSIDE RECORDS SUMMARY | 2024-06-17 19:19 | XMS_ITS | Encounter Summary ---
Author Organization [facility] Address [address] [place] [address] Care Team Providers Care Punch Machine Hand Name Role Phone Nuvia Prasad MD Primary Care Provider None, Provider Primary Care Provider Unavaila Farzaneh Lancaster MD Primary Care Provider [phone] Encounter Details Date Type Department Care Team (Late st Contact Info) Description 11/24/2021 [employer] Message Enc [facility] Medical Group Family & Internal Medicine [facility] [address] [place] [address] [place] [address] [place] [address] Bile leak? Social History Tobacco Use Types Packs/Day Years [...] 3, please move on to questions 3-9 4 11/14/2021 Comments No Sex and Gender Information Value Date Recorded Sex Assigned at Female 06/14/2024 9:24 PM RIDING INSTRUCTOR Legal Sex Female 5:01 PM CDT Gender Identity Female 06/14/2024 9:20 PM RIDING INSTRUCTOR Sexual Orientation Straight 06/14/2024 9: 20 PM RIDING INSTRUCTOR COVID-19 Exposure Response Date Recorded In the last 10 days, have glenn u been in contact with someone who was confirmed or suspected to have Coronavirus/COVID-19? No / Unsure 11/26/2021 9:38 AM CDT documented as of this encounter [...] Progress Notes * Evelin Nicole RN - 12/17/2021 10:28 AM CDT Please advise documented in this encounter Plan of Treatment Upcoming Encounters Date Type Department Care Team (Late st Contact Info) Description 01/21/2025 10:45 AM CDT Office Visit [facility] [address] [place] [address] Doyle Curry MD [address] [address] documented as of this encounter Goals Goal Patient Goal Type Associated Problems Recent Progress Patient-Stated? Author Return home with mother Diet No Javed Camachoziggy Hawkins, ACETYLENE TORCH SOLDERER documented as of this encounter Visit Diagnoses Not on filedocumented in this encounter Additional Health Concerns Infection Onset Date Last Indicated Resolved Time COVID-19 Rule Out 01/30/2022 01/30/2022 01/30/2022 9:59 AM CDT COVID-19 Rule Out 04/24/2022 04/24/2022 04/24/2022 3:01 PM RIDING INSTRUCTOR COVID-19 Rule Out 05/09/2022 05/09/2022 05/09/2022 7:47 PM RIDING INSTRUCTOR COVID-19 Rule Out 05/29/2022 05/29/2022 05/29/2022 1:46 PM RIDING INSTRUCTOR COVID-19 Rule Out 05/29/2022 05/29/2022 05/30/2022 6:46 PM RIDING INSTRUCTOR COVID-19 Rule Out 07/05/2022 07/05/2022 07/05/2022 7:45 PM RIDING INSTRUCTOR COVID-19 Rule Out 08/30/2022 08/30/2022 08/30/2022 2:37 PM CDT COVID-19 Rule Out 09/26/2022 09/26/2022 09/26/2022 11:47 AM CDT COVID-19 Rule Out 12/02/2022 12/02/2022 12/02/2022 1:15 PM CDT COVID-19 Rule Out 02/14/2023 02/14/2023 02/14/2023 2:15 PM CDT COVID-19 Rule Out 03/20/2023 03/20/2023 03/20/2023 10:27 AM RIDING INSTRUCTOR COVID-19 Rule Out 03/20/2023 03/20/2023 03/20/2023 2:10 PM RIDING INSTRUCTOR COVID-19 Rule Out 03/26/2023 03/26/2023 03/26/2023 12:11 PM RIDING INSTRUCTOR COVID-19 Rule Out 03/26/2023 03/26/2023 03/26/2023 1:39 PM RIDING INSTRUCTOR COVID-19 Rule Out 04/01/2023 04/01/2023 04/01/2023 10:22 PM RIDING INSTRUCTOR COVID-19 Rule Out 07/02/2023 07/02/2023 07/02/2023 1:03 PM RIDING INSTRUCTOR COVID-19 Rule Out 07/09/2023 07/09/2023 07/09/2023 7:57 PM RIDING INSTRUCTOR COVID-19 Rule Out 07/29/2023 07/29/2023 07/29/2023 7:23 PM CDT COVID-19 Rule Out 09/05/2023 09/05/2023 09/05/2023 1:30 PM CDT COVID-19 Rule Out 11/03/2023 11/03/2023 11/03/2023 3:34 PM CDT COVID-19 Rule Out 04/14/2024 04/14/2024 04/14/2024 1:53 PM RIDING INSTRUCTOR Assessment Noted Time PHQ-9 Depression Total Score: 18 022 10:36 AM CDT documented as of this encounter Care Teams Punch Machine Hand Relationship Specialty Start Date End Date Nuvia Prasad MD PCP - General INTERNAL MEDICINE 07/30/19 08/27/22 None, Provider, PCP - General UNKNOWN PHYSICIAN SPECIALTY 08/28/22 09/18/22 [place] [address] [facility]. [address] [place] [address] PCP - General FAMILY PRACTICE 09/19/22 documented as of this encounter
--- OUTSIDE RECORDS SUMMARY | 2024-06-17 19:19 | XMS_ITS | Encounter Summary ---
Author Organization [facility] Address [facility] [place] [address] Care Team Providers Care Financial Coach Name Role Phone Nuvia Prasad MD Primary Care Provider None, Provider Primary Care Provider Austina Farzaneh Lancaster MD Primary Care Provider [phone] Encounter Details Date Type Department Care Team (Latest Contact Info) Description 04/24/2022 [employer] Message Enc [facility] [address] [place] [phone] Esmer Joseph, MELITON My heart is being weird Social History Tobacco Use Types Packs/Day Years [...] Sex Assigned at Female 06/14/2024 9:24 PM NEWS ASSISTANT Legal Sex Female 5:01 PM CDT Gender Identity Female 06/14/2024 9:20 PM NEWS ASSISTANT Sexual Orientation Straight 06/14/2024 9: 20 PM NEWS ASSISTANT COVID-19 Exposure Response Date Recorded In the last 10 days, have yo u been in contact with someone who was confirmed or suspected to have Coronavirus/COVID-19? No / Unsure 04/24/2022 1:36 PM NEWS ASSISTANT documented as of this encounter Functional Status [...] documented in this encounter Progress Notes * Quyen Lewis RN - 04/24/2022 9:28 AM CST Patient informed of the response and v/u. Patient had no further questions. ASSISTANT * Esmer Joseph NP - 04/24/2022 9:02 AM CST We previously completed a HM that revealed some PACs and PVCs which would account for what is reported. U also had periods of ST (which symptoms were correlated with this) -- Previous echo reassuring. Chest symptoms most likely not cardiac related For the palpated pulse - I could order another monitor but I can't guarantee this will reveal anything different or abnormal . ASSISTANT documented in this encounter Plan of Treatment Upcoming Encounters Date Type Department Care Team (Late st Contact Info) Description 01/21/2025 10:45 AM CDT Office Visit [facility] [address] [facility] [place] [phone] Doyle Curry MD [facility]. [facility] [address] [place] [address] documented as of this encounter Goals Goal Patient Goal Type Associated Problems Recent Progress Patient-Stated? Author Return home with mother Galilea Mayte Pelaez CASING FINISHER AND STUFFER documented as of this encounter Visit Diagnoses Not on filedocumented in this encounter Additional Health Concerns Infection Onset Date Last Indicated Resolved Time COVID-19 Rule Out 04/24/2022 04/24/2022 04/24/2022 3:01 PM NEWS ASSISTANT COVID-19 Rule Out 05/09/2022 05/09/2022 05/09/2022 7:47 PM NEWS ASSISTANT COVID-19 Rule Out 05/29/2022 05/29/2022 05/29/2022 1:46 PM NEWS ASSISTANT COVID-19 Rule Out 05/29/2022 05/29/2022 05/30/2022 6:46 PM NEWS ASSISTANT COVID-19 Rule Out 07/05/2022 07/05/2022 07/05/2022 7:45 PM NEWS ASSISTANT COVID-19 Rule Out 08/30/2022 08/30/2022 08/30/2022 2:37 PM CDT COVID-19 Rule Out 09/26/2022 09/26/2022 09/26/2022 11:47 AM CDT COVID-19 Rule Out 12/02/2022 12/02/2022 12/02/2022 1:15 PM CDT COVID-19 Rule Out 02/14/2023 02/14/2023 02/14/2023 2:15 PM CDT COVID-19 Rule Out 03/20/2023 03/20/202303/2003/20/2023 10:27 AM NEWS ASSISTANT COVID-19 Rule Out 03/20/2023 03/20/2023 03/20/2023 2:10 PM NEWS ASSISTANT COVID-19 Rule Out 03/26/2023 03/26/2023 03/26/2023 12:11 PM NEWS ASSISTANT COVID-19 Rule Out 03/26/2023 03/26/2023 03/26/2023 1:39 PM NEWS ASSISTANT COVID-19 Rule Out 04/01/2023 04/01/2023 04/01/2023 10:22 PM NEWS ASSISTANT COVID-19 Rule Out 07/02/2023 07/02/2023 07/02/2023 1:03 PM NEWS ASSISTANT COVID-19 Rule Out 07/09/2023 07/09/2023 07/09/2023 7:57 PM NEWS ASSISTANT COVID-19 Rule Out 07/29/2023 07/29/2023 07/29/2023 7:23 PM CDT COVID-19 Rule Out 09/05/2023 09/05/2023 09/05/2023 1:30 PM CDT COVID-19 Rule Out 11/03/2023 11/03/2023 11/03/2023 3:34 PM CDT COVID-19 Rule Out 04/14/2024 04/14/2024 04/14/2024 1:53 PM NEWS ASSISTANT Assessment Noted Time PHQ-9 Depression Total Score: 0 01/31/20 9:08 AM CDT documented as of this encounter Care Teams Financial Coach Relationship Specialty Start Date End Date Nuvia Prasad MD PCP - General INTERNAL MEDICINE 07/30/19 08/27/22 None, MD Yas PCP - General UNKNOWN PHYSICIAN SPECIALTY 08/28/22 09/18/22 [place] [address] [facility]. [address] [place] [address] PCP - General FAMILY PRACTICE 09/19/22 documented as of this encounter
--- OUTSIDE RECORDS SUMMARY | 2024-06-17 19:19 | XMS_ITS | Clinical Summary ---
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 GOLF CLUB HEAD INSPECTOR AND ADJUSTER Impressions 05/26/2024 4:54 PM GOLF CLUB HEAD INSPECTOR AND ADJUSTER IMPRESSION: Normal exam. Referred By: Interpreted By: Josiah Cardenas MD, 05/26/2024 4:49 PM Narrative 05/26/2024 4:54 PM GOLF CLUB HEAD INSPECTOR AND ADJUSTER [facility] [address] [facility] [address] EXAM: XR HAND RT 3V DATE: 05/26/2024 1606 hours No comparison INDICATION: anterior 1st mcp joint abrasion. hit hand on door TECHNIQUE: 3 views of the right hand FINDINGS: No fracture, malalignment, or radiopaque foreign body. Procedure Note Josiah Cardenas MD - 05/26/2024 [facility] [address] [place] [address] EXAM: XR HAND RT 3V DATE: 05/26/2024 1606 hours No comparison INDICATION: anterior 1st mcp joint abrasion. hit hand on door TECHNIQUE: 3 views of the right hand FINDINGS: No fracture, malalignment, or radiopaque foreign body. IMPRESSION: Normal exam. Referred By: Interpreted By: Josiah Cardenas MD, 05/26/2024 4:49 PM Candido Teixeira MD GENERAL IMAGING Final Resul t * CORONAVIRUS (COVID-19) INFLUENZA A & B ANTIGEN IA PANEL (04/14/2024) Pathologist [facility] CORONAVIRUS ANTIGEN IA NEGATIVE NEGATIVE [id number], [place] INFLUENZA A NEGATIVE NEGATIVE [id number], [place] INFLUENZA B NEGATIVE NEGATIVE [id number] [place] Internal Control: VALID VALID [id number] [place] NASAL STRUCTURE / Unknown 04/14/2024 Vicik CRAIG MICROBIOLOGY - GENERAL ORDER LATRELL Final Result Performing Organization Address [facility] Co de Phone Number [phone] [place] [address] [place] [address], [place] [phone] * (ABNORMAL) STREP A RAPID (04/14/2024) RAPID STREP TEST POSITIVE(A ) NEGATIVE [id number] [place] Internal Control: VALID VALID [id number], [place] STRUCTURE OF ANTERIOR PORTION OF NECK / Unknown 04/14/2024 Vicki CRAIG MICROBIOLOGY - GENERAL ORDER LATRELL Final Result Performing Organization Address City/[facility]/ZIP Co de Phone Number [phone] [place] [address] [place] [address], from Last 3 Months Insurance [employer] Advance Directives * Full Code (Latest Code Status on File) Date Activated Date Inactivated Comments 02/01/2020 5:46 PM 02/02/2020 5:25 PM Care Teams Paper Colorer Relationship Specialty [place] [address] [place] [address] PCP - General FAMILY PRACTICE 09/19/22
--- OUTSIDE RECORDS SUMMARY | 2024-06-17 19:19 | XMS_ITS | Encounter Summary ---
Author Organization [facility] Address [address] [place] [address] Care Team Providers Care Cutting Room Supervisor Name Role Phone Farzaneh Briscoe MD Primary Care Provider [phone] Reason for Visit * Reason Onset Date Comments Question 04/15/2024 Encounter Details Date Type Department Care Team (Late st Contact Info) Description 04/15/2024 Citizensidehart Message Enc [facility] Family & Internal Medicine [facility] [address] [place] [phone] [place] [address] [place] [address]. [address] [place] [address] What exactly is going on..is there more to it? Social History Tobacco Use Types Packs/Day Years [...] Sex Assigned at Female 06/14/2024 9:24 PM LIGHT OIL OPERATOR Legal Sex Female 5:01 PM CDT Gender Identity Female 06/14/2024 9:20 PM LIGHT OIL OPERATOR Sexual Orientation Straight 06/14/2024 9: 20 PM LIGHT OIL OPERATOR documented as of this encounter Functional [...] documented in this encounter Progress Notes * Mendy Rogers - 04/16/2024 2:11 PM CST David called and stated she had mold spores puff in her face and she is allergic. She is still sill feeling very ill from the past coulple of days, but she is worried about her allergy. She states shedoes not want to use the emergency room if not necessary, and is wanting to know if there is anything she can do at home for this. Please advise and call her back at [phone] T OIL OPERATOR T OIL OPERATOR * Julieta Poole - 04/15/2024 3:38 PM CST Gini (mother on HIPAA) calling. States david was seen in the walk in clinic, she is worried abouther, with the color of phleghm and breathing. David was not able to continuous pickling line pickler her medication yet as they are waiting for her older sister who lives out of town to come and pick this up to bring to them.David said she is just not sure she is going to be able to take the antibiotic as she has trouble swallowing pills. I asked if she informed the provider this if a liquid medication would be a possibility to be ordered. Gini is not sure what to do as she really needs an IV, Informed her she would need to go to the ER for this as we do not have this in the office. Again, said if Rosa is not feeling well and shortness of breath she should go to there Er. T OIL OPERATOR documented in this encounter Plan of Treatment Upcoming Encounters Date Type Department Care Team (Late st Contact Info) Description 01/21/2025 10:45 AM CDT Office Visit [facility] [facility] [address] [place] [phone] Doyle Curry MD [address] [address] documented as of this encounter Goals Goal Patient Goal Type Associated Problems Recent Progress Patient-Stated? Author Return home with mother Diet No Mayte Camacho, APPRENTICESHIP TRAINING REPRESENTATIVE documented as of this encounter Visit Diagnoses Not on filedocumented in this encounter Additional Health Concerns Assessment Noted Time PHQ-9 Depression Total Score: 20 024 12:53 PM CDT documented as of this encounter Care Teams Cutting Room Supervisor Relationship Specialty Start [place] [address] [place] [address] PCP - General FAMILY PRACTICE 09/19/22 documented as of this encounter
--- OUTSIDE RECORDS SUMMARY | 2024-06-17 19:19 | XMS_ITS | Encounter Summary ---
Author Organization [facility] Address [address] [place] [address] Care Team Providers Care Cruller Maker Machine Name Role Phone Nuvia Prasad MD Primary Care Provider None, Provider Primary Care Provider Unavaila Farzaneh Lancaster MD Primary Care Provider [phone] Encounter Details Date Type Department Care Team (Late st Contact Info) Description 04/24/2022 Orb Networkst Message Enc [facility] Medical Group Family & Internal Medicine [facility] [address] [place] [address] [place] [address] [place] [address] Abdominal issues again..CT maybe? Social History Tobacco Use Types Packs/Day Years [...] Sex Assigned at Female 06/14/2024 9:24 PM DUMP TRUCK OPERATOR Legal Sex Female 5:01 PM CDT Gender Identity Female 06/14/2024 9:20 PM DUMP TRUCK OPERATOR Sexual Orientation Straight 06/14/2024 9: 20 PM DUMP TRUCK OPERATOR COVID-19 Exposure Response Date Recorded In the last 10 days, have yo u been in contact with someone who was confirmed or suspected to have Coronavirus/COVID-19? No / Unsure 04/24/2022 1:36 PM DUMP TRUCK OPERATOR documented as of this encounter Functional [...] Description 01/21/2025 10:45 AM CDT Office Visit [place] [facility] [address] [place] [phone] Doyle Curry MD [facility] [address] [place] [address] documented as of this encounter Goals Goal Patient Goal Type Associated Problems Recent Progress Patient-Stated? Author Return home with mother Javed Bradyziggy Hawkins, WET MACHINE OPERATOR documented as of this encounter Visit Diagnoses Not on filedocumented in this encounter Additional Health Concerns Infection Onset Date Last Indicated Resolved Time COVID-19 Rule Out 04/24/2022 04/24/2022 04/24/2022 3:01 PM DUMP TRUCK OPERATOR COVID-19 Rule Out 05/09/2022 05/09/2022 05/09/2022 7:47 PM DUMP TRUCK OPERATOR COVID-19 Rule Out 05/29/2022 05/29/2022 05/29/2022 1:46 PM DUMP TRUCK OPERATOR COVID-19 Rule Out 05/29/2022 05/29/2022 05/30/2022 6:46 PM DUMP TRUCK OPERATOR COVID-19 Rule Out 07/05/2022 07/05/2022 07/05/2022 7:45 PM DUMP TRUCK OPERATOR COVID-19 Rule Out 08/30/2022 08/30/2022 08/30/2022 2:37 PM CDT COVID-19 Rule Out 09/26/2022 09/26/2022 09/26/2022 11:47 AM CDT COVID-19 Rule Out 12/02/2022 12/02/2022 12/02/2022 1:15 PM CDT COVID-19 Rule Out 02/14/2023 02/14/2023 02/14/2023 2:15 PM CDT COVID-19 Rule Out 03/20/2023 03/20/2023 03/20/2023 10:27 AM DUMP TRUCK OPERATOR COVID-19 Rule Out 03/20/2023 03/20/2023 03/20/2023 2:10 PM DUMP TRUCK OPERATOR COVID-19 Rule Out 03/26/2023 03/26/2023 03/26/2023 12:11 PM DUMP TRUCK OPERATOR COVID-19 Rule Out 03/26/2023 03/26/2023 03/26/2023 1:39 PM DUMP TRUCK OPERATOR COVID-19 Rule Out 04/01/2023 04/01/2023 04/01/2023 10:22 PM DUMP TRUCK OPERATOR COVID-19 Rule Out 07/02/2023 07/02/2023 07/02/2023 1:03 PM DUMP TRUCK OPERATOR COVID-19 Rule Out 07/09/2023 07/09/2023 07/09/2023 7:57 PM DUMP TRUCK OPERATOR COVID-19 Rule Out 07/29/2023 07/29/2023 07/29/2023 7:23 PM CDT COVID-19 Rule Out 09/05/2023 09/05/2023 09/05/2023 1:30 PM CDT COVID-19 Rule Out 11/03/2023 11/03/2023 11/03/2023 3:34 PM CDT COVID-19 Rule Out 04/14/2024 04/14/2024 04/14/2024 1:53 PM DUMP TRUCK OPERATOR Assessment Noted Time PHQ-9 Depression Total Score: 0 01/31/20 9:08 AM CDT documented as of this encounter Care Teams Cruller Maker Machine Relationship Specialty Start Date End Date Nuvia Prasad MD PCP - General INTERNAL MEDICINE 07/30/19 08/27/22 None, Provider, PCP - General UNKNOWN PHYSICIAN SPECIALTY 08/28/22 09/18/22 [place] [address] [facility] [address] [place] [address] PCP - General FAMILY PRACTICE 09/19/22 documented as of this encounter
--- OUTSIDE RECORDS SUMMARY | 2024-06-17 19:19 | XMS_ITS | Encounter Summary ---
Author Organization [facility] Address [address] [place] [address] Care Team Providers Care Enforcement Safety Officer Name Role Phone Nuvia Prasad MD Primary Care Provider None, Provider Primary Care Provider Unavaila Farzaneh Lancaster MD Primary Care Provider [phone] Encounter Details Date Type Department Care Team (Late st Contact Info) Description 11/18/2021 MyChart Message Enc [facility] Medical Group Family & Internal Medicine [facility] [address] [place] [address] [place] [id number] [place] [address] [address] [address] of [address] Social History Tobacco Use Types Packs/Day Years [...] Sex Assigned at Female 06/14/2024 9:24 PM ROLLER BILLET MILL Legal Sex Female 5:01 PM CDT Gender Identity Female 06/14/2024 9:20 PM ROLLER BILLET MILL Sexual Orientation Straight 06/14/2024 9: 20 PM ROLLER BILLET MILL COVID-19 Exposure Response Date Recorded In the last 10 days, have glenn u been in contact with someone who was confirmed or suspected to have Coronavirus/COVID-19? No / Unsure 11/13/2021 1:39 PM CDT documented as of this encounter [...] Description 01/21/2025 10:45 AM CDT Office Visit [place] [facility] [address] [place] [phone] Doyle Curry MD [facility]. [facility] [address] [place] [address] documented as of this encounter Goals Goal Patient Goal Type Associated Problems Recent Progress Patient-Stated? Author Return home with mother Diet No Javed Camachoziggy Hawkins, BOILERS AND PRESSURE VESSELS INSPECTOR documented as of this encounter Visit Diagnoses Not on filedocumented in this encounter Additional Health Concerns Infection Onset Date Last Indicated Resolved Time COVID-19 Rule Out 01/30/2022 01/30/2022 01/30/2022 9:59 AM CDT COVID-19 Rule Out 04/24/2022 04/24/2022 04/24/2022 3:01 PM ROLLER BILLET MILL COVID-19 Rule Out 05/09/2022 05/09/2022 05/09/2022 7:47 PM ROLLER BILLET MILL COVID-19 Rule Out 05/29/2022 05/29/2022 05/29/2022 1:46 PM ROLLER BILLET MILL COVID-19 Rule Out 05/29/2022 05/29/2022 05/30/2022 6:46 PM ROLLER BILLET MILL COVID-19 Rule Out 07/05/2022 07/05/2022 07/05/2022 7:45 PM ROLLER BILLET MILL COVID-19 Rule Out 08/30/2022 08/30/2022 08/30/2022 2:37 PM CDT COVID-19 Rule Out 09/26/2022 09/26/2022 09/26/2022 11:47 AM CDT COVID-19 Rule Out 12/02/2022 12/02/2022 12/02/2022 1:15 PM CDT COVID-19 Rule Out 02/14/2023 02/14/2023 02/14/2023 2:15 PM CDT COVID-19 Rule Out 03/20/2023 03/20/2023 03/20/2023 10:27 AM ROLLER BILLET MILL COVID-19 Rule Out 03/20/2023 03/20/2023 03/20/2023 2:10 PM ROLLER BILLET MILL COVID-19 Rule Out 03/26/2023 03/26/2023 03/26/2023 12:11 PM ROLLER BILLET MILL COVID-19 Rule Out 03/26/2023 03/26/2023 03/26/2023 1:39 PM ROLLER BILLET MILL COVID-19 Rule Out 04/01/2023 04/01/2023 04/01/2023 10:22 PM ROLLER BILLET MILL COVID-19 Rule Out 07/02/2023 07/02/2023 07/02/2023 1:03 PM ROLLER BILLET MILL COVID-19 Rule Out 07/09/2023 07/09/2023 07/09/2023 7:57 PM ROLLER BILLET MILL COVID-19 Rule Out 07/29/2023 07/29/2023 07/29/2023 7:23 PM CDT COVID-19 Rule Out 09/05/2023 09/05/2023 09/05/2023 1:30 PM CDT COVID-19 Rule Out 11/03/2023 11/03/2023 11/03/2023 3:34 PM CDT COVID-19 Rule Out 04/14/2024 04/14/2024 04/14/2024 1:53 PM ROLLER BILLET MILL Assessment Noted Time PHQ-9 Depression Total Score: 18 022 10:36 AM CDT documented as of this encounter Care Teams Enforcement Safety Officer Relationship Specialty Start Date End Date Nuvia Prasad MD PCP - General INTERNAL MEDICINE 07/30/19 08/27/22 None, Provider, PCP - General UNKNOWN PHYSICIAN SPECIALTY 08/28/22 09/18/22 [place] [address] [facility]. [address] [place] [address] PCP - General FAMILY PRACTICE 09/19/22 documented as of this encounter
--- OUTSIDE RECORDS SUMMARY | 2024-06-17 19:19 | XMS_ITS | Encounter Summary ---
Author Organization [facility] Address [address] [place] [address] Care Team Providers Care Basic Combatant Swimmer Name Role Phone Nuvia Prasad MD Primary Care Provider None, Provider Primary Care Provider Unavaila Farzaneh Lancaster MD Primary Care Provider [phone] Encounter Details Date Type Department Care Team (Late st Contact Info) Description 10/25/2021 [employer] Message Enc [facility] Medical Group Family & Internal Medicine [facility] [address] [place] [address] [place] [phone] [place] [address] Hypersensitivity Social History Tobacco Use Types Packs/Day Years [...] Sex Assigned at Female 06/14/2024 9:24 PM SUPERVISOR LACE TEARING Legal Sex Female 5:01 PM CDT Gender Identity Female 06/14/2024 9:20 PM SUPERVISOR LACE TEARING Sexual Orientation Straight 06/14/2024 9: 20 PM SUPERVISOR LACE TEARING COVID-19 Exposure Response Date Recorded In the last 10 days, have glenn u been in contact with someone who was confirmed or suspected to have Coronavirus/COVID-19? No / Unsure 10/18/2021 9:24 AM CDT documented as of this encounter [...] Description 01/21/2025 10:45 AM CDT [facility] [facility] [address] [place] [phone] Doyle Curry MD [facility]. [email or web address] [address] [place] [address] documented as of this encounter Goals Goal Patient Goal Type Associated Problems Recent Progress Patient-Stated? Author Return home with mother Mayte Brady Ross, DIRECTOR OF FINANCIAL REPORTING documented as of this encounter Visit Diagnoses Not on filedocumented in this encounter Additional Health Concerns Infection Onset Date Last Indicated Resolved Time COVID-19 Rule Out 01/30/2022 01/30/2022 01/30/2022 9:59 AM CDT COVID-19 Rule Out 04/24/2022 04/24/2022 04/24/2022 3:01 PM SUPERVISOR LACE TEARING COVID-19 Rule Out 05/09/2022 05/09/2022 05/09/2022 7:47 PM SUPERVISOR LACE TEARING COVID-19 Rule Out 05/29/2022 05/29/2022 05/29/2022 1:46 PM SUPERVISOR LACE TEARING COVID-19 Rule Out 05/29/2022 05/29/2022 05/30/2022 6:46 PM SUPERVISOR LACE TEARING COVID-19 Rule Out 07/05/2022 07/05/2022 07/05/2022 7:45 PM SUPERVISOR LACE TEARING COVID-19 Rule Out 08/30/2022 08/30/2022 08/30/2022 2:37 PM CDT COVID-19 Rule Out 09/26/2022 09/26/2022 09/26/2022 11:47 AM CDT COVID-19 Rule Out 12/02/2022 12/02/2022 12/02/2022 1:15 PM CDT COVID-19 Rule Out 02/14/2023 02/14/2023 02/14/2023 2:15 PM CDT COVID-19 Rule Out 03/20/2023 03/20/2023 03/20/2023 10:27 AM SUPERVISOR LACE TEARING COVID-19 Rule Out 03/20/2023 03/20/2023 03/20/2023 2:10 PM SUPERVISOR LACE TEARING COVID-19 Rule Out 03/26/2023 03/26/2023 03/26/2023 12:11 PM SUPERVISOR LACE TEARING COVID-19 Rule Out 03/26/2023 03/26/2023 03/26/2023 1:39 PM SUPERVISOR LACE TEARING COVID-19 Rule Out 04/01/2023 04/01/2023 04/01/2023 10:22 PM SUPERVISOR LACE TEARING COVID-19 Rule Out 07/02/2023 07/02/2023 07/02/2023 1:03 PM SUPERVISOR LACE TEARING COVID-19 Rule Out 07/09/2023 07/09/2023 07/09/2023 7:57 PM SUPERVISOR LACE TEARING COVID-19 Rule Out 07/29/2023 07/29/2023 07/29/2023 7:23 PM CDT COVID-19 Rule Out 09/05/2023 09/05/2023 09/05/2023 1:30 PM CDT COVID-19 Rule Out 11/03/2023 11/03/2023 11/03/2023 3:34 PM CDT COVID-19 Rule Out 04/14/2024 04/14/2024 04/14/2024 1:53 PM SUPERVISOR LACE TEARING Assessment Noted Time PHQ-9 Depression Total Score: 022 2:48 PM CDT documented as of this encounter Care Teams Basic Combatant Swimmer Relationship Specialty Start Date End Date Nuvia Prasad MD PCP - General INTERNAL MEDICINE 07/30/19 08/27/22 None, Provider, PCP - General UNKNOWN PHYSICIAN SPECIALTY 08/28/22 09/18/22 [place] [address] [facility]. [address] [place] [address] PCP - General FAMILY PRACTICE 09/19/22 documented as of this encounter
--- OUTSIDE RECORDS SUMMARY | 2024-06-17 19:19 | XMS_ITS | Data Portability ---
Author Organization [place] [facility], [employer] Address [address] [place] [address] Assessment Encounter Date Assessment Date Assessment LastModified by Organization Details LastModified Time 06/04/2019 06/04/2019 Medication Changes Unable to provide medication reconciliation as patient did not know what medications she was taking and possibly changing due to sending to ER. Patient was evaluated and sent to ER for further evaluation Signs and symptoms of when to seek further care reviewed with patient. Patient to follow up with primary care provider or return to clinic for any worsening signs and symptoms. Patient verbalized agreement and understanding of treatment plan. F/U 4 weeks, sooner if needed [email or web address] Not available 06/04/2019 13:17:33 06/18/2019 06/18/2019 Medication Changes Labs ordered Referral to Neurology Signs and symptoms of when to seek further care reviewed with patient. Patient to follow up with primary care provider or return to clinic for any worsening signs and symptoms. Patient verbalized agreement and understanding of treatment plan. F/U 4 weeks, sooner if needed [email or web address] Not available 06/18/2019 16:32:30 07/01/2019 07/01/2019 Medication Changes Imaging: Mammogram and U/S Referral: TRANSMITTER TESTER Signs and symptoms of when to seek further care reviewed with patient. Patient to follow up with primary care provider or return to clinic for any worsening signs and symptoms. Patient verbalized agreement and understanding of treatment plan. F/U will call upon results to schedule to come into discuss. Not available 07/02/2019 10:10:18 07/29/2019 07/29/2019 Medication Changes Ondansetron 4 mg Zithromax 250 mg Montelukast 10 mg Debrox 6.5% Will work on neurology referral that takes patient's insurance. Signs and symptoms of when to seek further care reviewed with patient. Patient to follow up with primary care provider or return to clinic for any worsening signs and symptoms. Patient verbalized agreement and understanding of treatment plan. F/U 3 months as directed, sooner if needed [email or web address] Not available 07/29/2019 17:01:07 Plan of Treatment Reminders Order Date Submit Date Provider Last Modified By Organization Details Last Modified Time Details Appointments None recorded. Lab CMP, serum or plasma 2019 JAMA Not available 0 14:23:19 JO (antinucle ar antibodies ) screen, serum 2019 [email or web address] Not available 0 09:42:00 erythrocyt e sedimentat ion rate by westergren method 2019 JAMA Not available 0 14:23:20 rf (rheumatoi d factor), serum 2019 JAMA Not available 0 14:23:21 C-reactive protein, quantitati ve, serum or plasma 2019 JAMA Not available 0 14:23:21 TSH, serum, reflex free T4 2019 [email or web address] Not available 0 09:42:00 Referral neurologis t referral 2019 020 [email or web address] Neurology Dept [facility] (New Referrals), [address] [place], [address], 0 13:22:[address] referral 2019 020 ATHENAFAFilemon Wolf MD, [address], [address], 0 10:15:38 Procedures None recorded. Surgeries None recorded. Imaging MAMMO, diagnostic , bilateral 2019 [facility] (Imaging & Mammogram), [address] [place], [address], 0 15:17:45 US, breast, unilateral 2019 020 [facility] (Imaging & Mammogram), [address] , [place], [address], 0 16:29:31 Medication Orders sumatripta n 50 mg tablet 2019 020 [email or web address] [id number], [address] [place] [address], [address], 0 17:13:09 topiramate 25 mg tablet 2019 020 [facility], [address] [place] [address], [address], 0 17:13:14 Zithromax Z-George 250 mg tablet 2019 020 [facility], [address] [facility] [address] [place] [address], [address], 0 17:13:18 montelukas t 10 mg tablet 2019 020 [email or web address] [facility], [address] [place] [address], [address], 0 17:12:42 ondansetro n 4 mg disintegra ting tablet 2019 020 [email or web address] [facility], [address], [address], 0 17:12:53 Debrox 6.5 % ear drops 2019 020 [email or web address] [facility], [address] [place] [address], [address], 0 17:12:32 Patient TargetsNo targets recorded. Patient InstructionsNo instructions recorded. Reason for Referral Neurologist Referral for Rey basim Referring Physician: Brinda Ascencio, Internal Medicine, Encounter Date: 06/18/2019 Street Car Inspector Referral for Sc reening for malignant neoplasm of cervix Referring Physician: Brinda Ascencio, Internal Medicine, Encounter Date: 07/01/2019 Results Created Date Observation Date Name Description Value Unit Range Abnormal Flag Note LastModifiedBy Organization Detail LastModifiedTime 06/18/19 20 06/19/2019 CMP, serum or plasm a glucose 91 mg/dL 65-139 normal Non-f astin g refer ence inter missy Not Available [facility] [address] [address] [place], [address], 06/19/2019 14:23:19 06/18/19 20 06/19/2019 CMP, serum or plasm a urea nitrogen (BUN) 8 mg/dL 7-25 normal Not Available [employer] [address], [address], 06/19/2019 14:23:19 06/18/19 20 06/19/2019 CMP, serum or plasm a creatinine 0.67 mg/dL 0.50-1 .10 normal Not Available [facility] [address] [address] [place], [address], 06/19/2019 14:23:19 06/18/19 20 06/19/2019 CMP, serum or plasm a eGFR non-afr. canadian 127 mL/mi n/1.7 3m2 > or = 60 normal Not Available [facility] [address] [address] [place], [address], 06/19/2019 14:23:19 06/18/19 20 06/19/2019 CMP, serum or plasm a eGFR 147 mL/mi n/1.7 3m2 > or = 60 normal Not Available [facility] [address] [place], [address], 06/19/2019 14:23:19 06/18/19 20 06/19/2019 CMP, serum or plasm a BUN/creatini ne ratio NOT APPLIC ABLE (calc ) 6-22 Not Available [facility] [address] [address] [place], [address], 06/19/2019 14:23:19 06/18/19 20 06/19/2019 CMP, serum or plasm a sodium 139 mmol/ L 135-14 6 normal Not Available [address], [address], 06/19/2019 14:23:19 06/18/19 20 06/19/2019 CMP, serum or plasm a potassium 3.9 mmol/ L 3.5-5. 3 normal Not Available [address], [address], 06/19/2019 14:23:19 06/18/19 20 06/19/2019 CMP, serum or plasm a chloride 105 mmol/ L 98-110 normal Not Available [address], [address], 06/19/2019 14:23:19 06/18/19 20 06/19/2019 CMP, serum or plasm a carbon dioxide 24 mmol/ L 20-32 normal Not Available [address], [address], 06/19/2019 14:23:19 06/18/19 20 06/19/2019 CMP, serum or plasm a calcium 9.5 mg/dL 8.6-10 .2 normal Not Available [address], [address], 06/19/2019 14:23:19 06/18/1906/19/2019 CMP, serum or plasm a protein, total 7.0 g/dL 6.1-8. 1 normal Not Available [address], [address], 06/19/2019 14:23:19 06/18/1906/19/2019 CMP, serum or plasm a albumin 4.8 g/dL 3.6-5. 1 normal Not Available [address], [address], 06/19/2019 14:23:19 06/18/19 20 06/19/2019 CMP, serum or plasm a globulin 2.2 g/dL_ (calc ) 1.9-3. 7 normal Not Available [address], [address], 06/19/2019 14:23:19 06/18/19 20 06/19/2019 CMP, serum or plasm a albumin/glob ulin ratio 2.2 (calc ) 1.0-2. 5 normal Not Available [address], [address], 06/19/2019 14:23:19 06/18/19 20 06/19/2019 CMP, serum or plasm a bilirubin, total 0.4 mg/dL 0.2-1. 2 normal Not Available [address], [address], 06/19/2019 14:23:19 06/18/19 20 06/19/2019 CMP, serum or plasm a alkaline phosphatase 41 U/L 31-125 normal Not Available [facility] [employer] [address], [address], 06/19/2019 14:23:19 06/18/19 20 06/19/2019 CMP, serum or plasm a AST 12 U/L 10-30 normal Not Available [address], [address], 06/19/2019 14:23:19 06/18/1906/19/2019 CMP, serum or plasm a ALT 7 U/L 6-29 normal Not Available [address], [address], 06/19/2019 14:23:19 06/18/19 20 06/19/2019 eryth rocyt e sedim entat ion rate by abdi carter metho d sed rate by modified page 6 mm/h < or = 20 normal Not Available [address], [address], 06/19/2019 14:23:20 06/18/19 20 06/19/2019 CBC w/ auto diff white blood cell count 7.8 thous and/u L 3.8-10 .8 normal Not Available [address], [address], 06/19/2019 14:23:20 06/18/19 20 06/19/2019 CBC w/ auto diff red blood cell count 3.97 asaf on/uL 3.80-5 .10 normal Not Available [address], [address], 06/19/2019 14:23:20 06/18/19 20 06/19/2019 CBC w/ auto diff hemoglobin 12.1 g/dL 11.7-1 5.5 normal Not Available [address], [address], 06/19/2019 14:23:20 06/18/19 20 06/19/2019 CBC w/ auto diff hematocrit 35.5 % 35.0-4 5.0 normal Not Available [address], [address], 06/19/2019 14:23:20 06/18/19 20 06/19/2019 CBC w/ auto diff MCV 89.4 fL 80.0-1 00.0 normal Not Available [address], [address], 06/19/2019 14:23:20 06/18/19 20 06/19/2019 CBC w/ auto diff MCH 30.5 pg 27.0-3 3.0 normal Not Available [address], [address], 06/19/2019 14:23:20 06/18/19 20 06/19/2019 CBC w/ auto diff MCHC 34.1 g/dL 32.0-3 6.0 normal Not Available [address], [address], 06/19/2019 14:23:20 06/18/19 20 06/19/2019 CBC w/ auto diff RDW 12.2 % 11.0-1 5.0 normal Not Available [address], [address], 06/19/2019 14:23:20 06/18/19 20 06/19/2019 CBC w/ auto diff platelet count 238 thous and/u L 140-40 0 normal Not Available [address], [address], 06/19/2019 14:23:20 06/18/19 20 06/19/2019 CBC w/ auto diff MPV 13.2 fL 7.5-12 .5 high Not Available [address], [address], 06/19/2019 14:23:20 06/18/19 20 06/19/2019 CBC w/ auto diff absolute neutrophils 4493 cells /uL 1500-7 800 normal Not Available [address], [address], 06/19/2019 14:23:20 06/18/19 20 06/19/2019 CBC w/ auto diff absolute lymphocytes 2691 cells /uL 850-39 00 normal Not Available [address], [address], 06/19/2019 14:23:20 06/18/19 20 06/19/2019 CBC w/ auto diff absolute monocytes 452 cells /uL 200-95 0 normal Not Available [address], [address], 06/19/2019 14:23:20 06/18/19 20 06/19/2019 CBC w/ auto diff absolute eosinophils 117 cells /uL 15-500 normal Not Available [address], [address], 06/19/2019 14:23:20 06/18/19 20 06/19/2019 CBC w/ auto diff absolute basophils 47 cells /uL 0-200 normal Not Available [address], [address], 06/19/2019 14:23:20 06/18/19 20 06/19/2019 CBC w/ auto diff neutrophils 57.6 % normal Not Available [address], [address], 06/19/2019 14:23:20 06/18/19 20 06/19/2019 CBC w/ auto diff lymphocytes 34.5 % normal Not Available [address], [address], 06/19/2019 14:23:20 06/18/19 20 06/19/2019 CBC w/ auto diff monocytes 5.8 % normal Not Available [address], [address], 06/19/2019 14:23:20 06/18/19 20 06/19/2019 CBC w/ auto diff eosinophils 1.5 % normal Not Available [address], [address], 06/19/2019 14:23:20 06/18/19 20 06/19/2019 CBC w/ auto diff basophils 0.6 % normal Not Available [address], [address], 06/19/2019 14:23:20 06/18/19 20 06/19/2019 JO (anti nucle ar antib odies ) scree n, ifa, serum JO screen, ifa NEGATI VE negati ve normal JO IFA is a first line scree n for detec ting the prese nce of up to appro ximat dawson 150 autoa ntibo dies in vario us autoi mmune disea ses. A negat armando JO IFA resul t sugge sts an JO-a ssoci ated autoi mmune disea se is not prese nt at this time, but is not defin itive . If there is high clini zoie suspi cion for Sjogr en's syndr ome, testi ng for anti- SS-A/ Ro antib mauricio shoul d be consi dered . Anti- Stephanie-1 antib mauricio shoul d be consi dered for clini neisha suspe cted infla mmato ry myopa angela . AC-0: Negat armando Inter natio nal Conse nsus on JO Patte rns (http s://d oi.or g/10. 3495/ [facility]2017- 0052) For addit ional geovanir pat velasco e refer to http: //[facility] sabrina marks.Que stDia gnost ics.c om/fa q/FAQ 177 (This link is being provi ded for infor dev walters/ educa arianna perry purpo ses only. ) Not Available [address] [address] [place], [address], 06/19/2019 14:23:21 06/18/19 20 06/19/2019 rf (rheu matoi d facto r), serum rheumatoid factor <14 IU/mL <14 normal Not Available [address] [address] [place], [address], 06/19/2019 14:23:21 06/18/1906/19/2019 C-vianey ctive prote in, quant itati ve, serum or plasm a C-reactive protein <0.2 mg/L <8.0 normal Not Available [facility] [address] [address] [place], [address], 06/19/2019 14:23:21 06/18/19 20 06/19/2019 TSH, serum or plasm a TSH w/reflex to FT4 1.66 mIU/L normal Refer ence Range > or = 20 Years 0.40- 4.50 Pregn delgado Range s First trime ster 0.26- 2.66 Secon d trime ster 0.55- 2.73 Third trime ster 0.43- 2.91 Not Available [facility] [address] [address], [place], [address], 06/19/2019 14:23:22 07/23/19 20 07/23/2019 US, rand chan No observ ation record ed. [email or web address] [address], [address], 07/29/2019 15:52:01 07/23/19 20 07/23/2019 MAMMO , diagn ostic , bilat eral No observ ation record ed. [email or web address] [address], [address], 07/29/2019 15:52:00 Result Notes None recorded. Problems Name Problem SNOMED Code Status Onset Date Resolution Date Notes Provider Name and Address Organization Details Recorded Time Headache 18739975 Completed 201907/29/2019 Brinda AmaliaAyala Ascencio, MENTAL HEALTH ASSISTANT-BC, PMHNP-BC [address] [place], [address], [facility] 0 15:46:39 Unsteady gait Completed 201907/29/2019 Brinda Rubalcava Sonu, MENTAL HEALTH ASSISTANT-BC, PMHNP-BC [address] [place], [address], [facility] 0 15:46:42 Visual disturbance 32524542 Completed 201907/29/2019 Brinda Gini Sonu, MENTAL HEALTH ASSISTANT-BC, PMHNP-BC [address] [place], [address], [facility] 0 15:46:48 Migraine 27886933 Active 2019 Brinda Rubalcava Sonu, MENTAL HEALTH ASSISTANT-BC, PMHNP-BC [address] [place], [address], [facility] 0 16:10:12 Problem Notes None recorded. Procedures Surgical History Date Name Laterality Status Provider Name and Address Organization Details Recorded Time Unlisted px dentalvlr strux completed Kamryn BARTON [facility] 06/04/2019 10:45:40 Imaging Results Imaging Date Name Status LastModified by Organiz ation Details LastModified Time 07/23/2019 US, breast, unilateral completed [email or web address] [facility] [address] [place] [address], [address], 07/29/2019 15:52:01 07/23/2019 MAMMO, diagnostic, bilateral completed [email or web address] [facility] [address] [place] [address], [address], 07/29/2019 15:52:00 Procedure Notes None recorded. Medical Equipment None Reported. Allergies Allergen ID Allergen Name Allergen Category Reaction Reaction Severity Criticality Documentation Date Start Date Code Code System Note Provider Name and Address Organization Details Recorded Time 2425 Product containin g penicilli n and antibioti c (product) medicatio n diarrhea severe Not available 06/04/2019 54323 05 SNOMED MICK Moran [facility] 0 10:39:50 2426 doxycycli ne Not available confusion Not available Not available 06/04/2019 3640 RxNorm MICK Moran [facility] 0 10:40:11 2443 amoxicill in medicatio n hives Not available Not available 06/11/2019 723 RxNorm MICK Abbott [facility] 0 16:11:46 2444 clindamyc in Not available Not available Not available Not available 06/11/2019 2582 RxNorm [facility] 0 16:12:35 Medications Name Sig Start Date Stop Date Status Note LastModified by Organization Details LastModified Time cyclobenzap rine 10 mg tablet Take 1 tablet twice a day by oral route as needed. 12/02 completed Not Available Not Available Not Available amoxicillin 500 mg capsule 06/04 completed Not Available Not Available Not Available prednisone 10 mg tablet 06/18 completed Not Available Not Available Not Available clindamycin HCl 300 mg capsule 06/04 completed Not Available Not Available Not Available cetirizine 10 mg tablet Take 1 tablet every day by oral route for 30 days. 12/02 completed Not Available Not Available Not Available ibuprofen 800 mg tablet 06/04 completed Not Available Not Available Not Available fluconazole 150 mg tablet 06/04 completed Not Available Not Available Not Available benzonatate 200 mg capsule 06/18 completed Not Available Not Available Not Available ondansetron HCl 4 mg tablet 06/04 completed Not Available Not Available Not Available prednisone 20 mg tablet 06/04 completed Not Available Not Available Not Available Debrox 6.5 % ear drops INSTILL 5 DROPS INTO AFFECTED EAR(S) BY OTIC ROUTE 2 TIMES PER DAY x 7 days 12/02 completed Not Available Not Available Not Available Zithromax Z-George 250 mg tablet TAKE 2 TABLETS (500 MG) BY ORAL ROUTE ONCE DAILY FOR 1 DAY THEN 1 TABLET (250 MG) BY ORAL ROUTE ONCE DAILY FOR 4 DAYS 12/02 completed Not Available Not Available Not Available sumatriptan 50 mg tablet Take 1 tablet orally x 1. May repeat after 2 hours if needed. Max 2 tabs in 24 hours. 12/02 completed Not Available Not Available Not Available topiramate 25 mg tablet Take 1 tablet every 12 hours by oral route for 30 days. 12/02 completed Not Available Not Available Not Available meclizine 12.5 mg tablet 06/04 completed Not Available Not Available Not Available acetaminoph en 300 mg-codeine 30 mg tablet 06/04 completed Not Available Not Available Not Available omeprazole 40 mg capsule,del ayed release Take 1 capsule every day by oral route. 12/02 completed Not Available Not Available Not Available Multiple Vitamins tablet Take 1 tablet every day by oral route. 12/02 completed Not Available Not Available Not Available doxycycline monohydrate 100 mg capsule 06/04 completed Not Available Not Available Not Available hydrocodone 7.5 mg-acetamin ophen 325 mg tablet 06/04 completed Not Available Not Available Not Available ranitidine 150 mg tablet Take 1 tablet twice a day by oral route. 12/02 completed Not Available Not Available Not Available buspirone 10 mg tablet Take 1 tablet every day by oral route as needed. 12/02 completed Not Available Not Available Not Available docusate sodium 100 mg capsule Take 1 capsule twice a day by oral route for 15 days. 12/02 completed Not Available Not Available Not Available Banophen 25 mg capsule 06/04 completed Not Available Not Available Not Available montelukast 10 mg tablet Take 1 tablet every day by oral route at bedtime for 30 days. 12/02 completed Not Available Not Available Not Available ergocalcife rol (vitamin D2) 1,250 mcg (50,000 unit) capsule 06/04 completed Not Available Not Available Not Available ibuprofen 600 mg tablet 06/04 completed Not Available Not Available Not Available polyethylen e glycol 3350 17 gram/dose oral powder 06/04 completed Not Available Not Available Not Available methylpredn isolone 4 mg tablets in a dose pack 06/04 completed Not Available Not Available Not Available ondansetron 4 mg disintegrat ing tablet Take 1 tablet every 6 hours by oral route for 14 days. 12/02 completed Not Available Not Available Not Available fluticasone propionate 50 mcg/actuati on nasal spray,suspe nsion 06/18 completed Not Available Not Available Not Available sertraline 50 mg tablet Take 1 tablet every day by oral route in the morning. 12/02 completed Not Available Not Available Not Available chlorhexidi ne gluconate 0.12 % mouthwash 06/04 completed Not Available Not Available Not Available butalbital- acetaminoph en-caffeine 50 mg-300 mg-40 mg capsule Take 1 capsule every 6 hours by oral route as needed. 12/02 completed Not Available Not Available Not Available Vitals Date Recorded Body temperature Oxygen saturation Oxygen saturation in Arterial blood by Pulse oximetry Heart rate Body height Body mass index (BMI) Body mass index (BMI) Percentile per age and sex Body weight Respiratory rate Systolic blood pressure Diastolic blood pressure Provider Name and Address Organization Details Last Updated DateTime 0 97.9 [degF] 98 % 98 % 88 /min 165.1 cm 21.6 kg/m2 47 % 5[address].0 1 g 16 /min 122 mm[Hg] 60 mm[Hg] Kamryn BARTON - [facility] 0 10:52:19 Date Recorded Heart rate Respiratory rate Oxygen saturation Oxygen saturation in Arterial blood by Pulse oximetry Body temperature Systolic blood pressure Diastolic blood pressure Provider Name and Address Organization Details Last Updated DateTime 0 84 /min 18 /min 100 % 100 % 98.1 [degF] 120 mm[Hg] 72 mm[Hg] Christina Knapp [facility] 0 13:48:28 Date Recorded Heart rate Oxygen saturation Oxygen saturation in Arterial blood by Pulse oximetry Body temperature Respiratory rate Systolic blood pressure Diastolic blood pressure Provider Name and Address Organization Details Last Updated DateTime 0 96 /min 100 % 100 % 97.2 [degF] 16 /min 120 mm[Hg] 78 mm[Hg] Sarah Arceo [facility] 0 15:09:02 Date Recorded Body height Respiratory rate Body temperature Oxygen saturation Oxygen saturation in Arterial blood by Pulse oximetry Heart rate Body mass index (BMI) Body weight Systolic blood pressure Diastolic blood pressure Provider Name and Address Organization Details Last Updated DateTime 0 165.1 cm 16 /min 98.4 [degF] 100 % 100 % 91 /min 21.5 kg/m2 13981.4 2 g 128 mm[Hg] 60 mm[Hg] Kamryn George [facility] 0 15:35:24 Social History Question Answer Notes LastModified by [employer] ion Details LastModified Time Tobacco Smoking Status Never Smoker Not Available [facility] 03/07/2020 03:13:57 Do You Have An Advance Directive? No [id number] Information not available 03/07/2020 What Is Your Level Of Alcohol Consumption? None [id number] Information not available 03/07/2020 Are You Blind Or Do You Have Difficulty Seeing? Yes [id number] Information not available 03/07/2020 What Is Your Level Of Caffeine Consumption? Occasional [id number] Information not available 03/07/2020 How Much Tobacco Do You Chew? None [id number] Information not available 03/07/2020 Are You Deaf Or Do You Have Serious Difficulty Hearing? No [id number] Information not available 03/07/2020 Which Illicit Or Recreational Drugs Have You Used? Marijuana [id number] Information not available 03/07/2020 Do You Or Have You Ever Used E-cigarettes Or Vape? Never Used Electronic Cigarettes [id number] Information not available 03/07/2020 What Is Your Occupation? None [id number] Information not available 03/07/2020 Single Or Multi-level Home/work? Single Level Home Information not available 06/04/2019 Live Alone Or With Others? With Others Information not available 06/04/2019 Marital Status Single Informatio n not available 06/04/2019 What Was The Date Of Your Most Recent Tobacco Screening? 06/04/2019 [id number] Information not available 03/07/2020 Do You Or Have You Ever Used Smokeless Tobacco? Never Used Smokeless Tobacco [id number] Information not available 03/07/2020 How Much Tobacco Do You Smoke? No [id number] Information not available 03/07/2020 How Many Years Have You Smoked Tobacco? 0 [id number] Information not available 03/07/2020 Sex: Female Functional Status Question Answer Note LastModified by Organizat ion Details LastModified Time Do you have difficulty walking or climbing stairs? No [id number] Information not available 03/07/2020 Are you able to walk? YESWOREST [id number] Information not available 03/07/2020 Do you have difficulty doing errands alone? No [id number] Information not available 03/07/2020 Do you have difficulty dressing or bathing? Yes [id number] Information not available 03/07/2020 What is your exercise level? None [id number] Information not available 03/07/2020 Mental Status Question Answer Note LastModified by Organization D etails LastModified Time Do you have difficulty concentrating, remembering or making decisions? Yes [id number] Information no t available 03/07/2020 Family History Relationship Description Onset Age of this Age Resolved Age Notes LastModified by Organization Details LastModified Time Mother Multiple sclerosis Not available 2019 10:46:25 Mother Chronic obstructive pulmonary disease Not available 2019 10:46:31 Mother Congestive heart failure Not available 2019 10:46:54 Mother Essential hypertension Not available 10:47:41 Mother Disorder of thyroid gland Not available 2019 10:47:52 Mother Cerebrovascu lar accident Not available 10:48:03 Mother Migraine Not available 06/04/2019 10:48:44 Mother Mental disorder Not available 2019 10:50:37 Mother Malignant tumor of breast [email or web address] Not available 2019 09:53:49 Sister Seizure Not available 0 06/04/2019 10:49:04 Father Alcohol abuse Not available 2019 10:49:42 Father Mental disorder Not available 2019 10:50:01 Maternal Grandfather Parkinson's disease Not available 2019 12:05:13 Unspecified Relation Malignant tumor of breast [email or web address] Not available 2019 09:53:49 Medical History Condition Response Depression Y Anxiety Disorder Y Chronic pain Y Allergies/Hayfever Y Gynecological HistoryNo gynecological history recorded. Obstetrics History GPAL:G 0 P 0 0 0 0 Past Encounters Encounter ID Performer Location Encounter Start Date Encounter Closed Date Diagnosis/Indication Diagnosis SNOMED-CT Code Diagnosis ICD10 Code Diagnosis Note [id number] [facility] [address] [place] [address] 06/04/2019 10:28:24 06/04/2019 13:18:52 Headache 85961924 R51 Patient had significan t GONZALEZ that was having difficulti es with ADLs and IADLs. Neuro was abnormal. Patient reported feeling as though something in her brain burst. Due to the clear liquid from nasal passage sent to ER to ensure not CSF leaking. Unsteady gait 861719706 R26.81 Concerned about the requiremen t of 2 people to assist. Patient was having difficulti es staying upright. Visual disturbance 59055 001 H53.9 Patient was having difficulti es with seeing and her pupils were non-reacti ve to light. [id number] KRISTA Segundo[facility] Main Office [address] [place] [address] 06/18/2019 13:44:45 06/18/2019 16:33:16 Raynaud's phenomenon 155773768 I73.00 Ordered labs to r/o Autoimmune disorders vs Raynauds Migraine 26349986 G43.90 9 Neurology referral for evaluation and treatment as most modalities that have been tried have minimally worked. Fatigue 92124858 R53.83 Checking Thyroid to determine if fatigue is r/t fatigue or increasing depression . Acute inju ry of kidney 1438490724 7929360 N17.9 [id number] Brinda Ascencio [facility] Main Office [address] [place] [address] 07/01/2019 13:28:56 07/02/2019 10:10:48 Mass of right breast [id number] 8745780 N63.12 Benign vs malignant Counseled on better to r/o especially considerin g the high prevalence of breast cancer in her family. Migraine 77806036 G43.90 9 Migraines have been a little bit better, but still waiting on neurology referral. Screening for malignant neoplasm of cervix 206584622 Z12.4 Has never had a pap smear [id number] Brinda Acsencio [facility] Main Office [address] [place] [address] 07/29/2019 15:12:01 07/29/2019 17:04:28 Mass of right breast [id number] 9056561 N63.12 Discussed results with patient. Migraine 89849707 G43.90 9 Migraines have been a little bit better, but still waiting on neurology referral. Acute bact erial sinusitis 95580911 J01.90 Nausea and vomiting 1693 1999 R11.2 Impacted c erumen of bilateral ears 6136164159 889159 H61.23 Allergic rhinitis 053492 04 J30.9 Health Concerns Section Related Observation LastModified by Organization Detai ls LastModified Time None Recorded Concern Status LastModified by Organization Details LastModified Time None Recorded Advance Directives Directive N: Payers Encounter Date Sequence Insurance Name Policy Number Policy Stewart Covered Member ID Stewart Member ID Guarantor Name 06/04/2019 1 [facility] (MEDICAID HMO) [id number] Jaye Campbell [id number] Jaye Martin 06/18/2019 1 [facility] (MEDICAID HMO) [id number] Jaye Campbell [id number] Jaye Martin 07/01/2019 1 [facility] (MEDICAID HMO) [id number] Jaye Campbell [id number] Jaye Martin 07/29/2019 1 [facility] - DOS PRIOR TO 2020 (MEDICAID REPLACEMENT - HMO) Jaye Martin [id number] Jaye Martin Notes Date Note Type Note Provider Name and Address Organization Details Recorded Time 06/04/2019 text/html 18 y/o female he re to establish care. Patient reports that for several weeks she has been having severe head pain with severe pressure. She was previously seeing Dr. Sawyer in [place] who has given patient, per her report pain medication which has provided no relief. Patient had difficulties ambulating into office and required 2 person staff assist due to unsteadiness of gait. Patient was holding onto things as well. Patient reports that she feels as though something burst in head and then clear fluid started pouring out of her nose. Patient reports problems ambulating, having visual disturbances which she describes as blurry. Patient reports she went to the ER at some point, but unsure of exactly when to [facility] in [place] and evaluated, but nothing was found. Patient was able to provide limited history and unable to provide current medications and dosages. Will contact pharmacy for clarification. KRISTA Segundo, PMASHA-SALLY [address] [place] [address], [phone], [facility] 06/04/2019 13:18:42 06/18/2019 text/html 18 y/o female he re for follow up visit. Patient was sent to ER last visit due to feelings as though something burst in head and then clear fluid started pouring out of her nose. Patient reports problems ambulating, having visual disturbances which she describes as blurry. Patient was evaluated at [facility] ER and was diagnosed with cluster headaches at the visit. Have received some of previous PCP's [facility] records which she was diagnosed with migraines. Patient's ER summary shows for patient to see Dr. Parish which patient has not contacted his office for an appointment. Patient had four medications auto-populate into EMR which [facility] was contacted regarding who the medications were prescribed from. KRISTA Segundo, PMHNP-SALLY [address] [place], [address], [facility] 06/18/2019 16:33:05 07/01/2019 text/html 19 y/o female he re for acute visit. Patient's mother had called office with concerns about her daughter having found a lump in her R breast and wanted it further evaluated. Mother concerned because breast cancer is very prevalent in the family. Patient's mother had Breast CA among other females in the family. Patient reports that her R breast hurts and tender which has been occurring for several weeks. She denies any discharge and reports the pain is not focused around her menses. Brinda Ascencio, JOHNNY-BC, PMHNP-BC [address] [place], [address], [facility] 07/02/2019 10:10:35 07/29/2019 text/html 19 y/o female he re for follow up visit. Patient reports having N/V x 3 days along with severe sinus pressure and pain. She has been having intermittent episodes of diarrhea. She denies having a significant fever. She denies having SOB. She has tried multiple things, but unable to keep anything down. Patient reports she has been having increases in sneezing as well with a lot of nasal drainage. Brinda Ascencio, JOHNNY-BC, PMHNP-BC [address] [place], [address], [facility] 07/29/2019 17:01:46 OBGyn Episode No OBEpisode recorded.
--- OUTSIDE RECORDS SUMMARY | 2024-06-17 19:19 | XMS_ITS | Encounter Summary ---
Author Organization [facility] Address [address] [place] [address] Care Team Providers Care Drafter Electromechanical Name Role Phone Farzaneh Briscoe MD Primary Care Provider [phone] Encounter Details Date Type Department Care Team (Late st Contact Info) Description 11/12/2023 ZolkC Message Enc [facility] Medical Group Family & Internal Medicine [facility] [address] [place] [address] [place] [address] [place] [address]. [address] [place] [phone] My period has...paused? Social History Tobacco Use Types Packs/Day Years [...] Sex Assigned at Female 06/14/2024 9:24 PM SENIOR INDUSTRIAL ENGINEER Legal Sex Female 5:01 PM CDT Gender Identity Female 06/14/2024 9:20 PM SENIOR INDUSTRIAL ENGINEER Sexual Orientation Straight 06/14/2024 9: 20 PM SENIOR INDUSTRIAL ENGINEER documented as of this encounter Functional Status [...] Description 01/21/2025 10:45 AM CDT Office Visit [facility] [id number] [place] [phone] Doyle Curry MD [place] [address] [place] [address] documented as of this encounter Goals Goal Patient Goal Type Associated Problems Recent Progress Patient-Stated? Author Return home with mother Diet No Mayte Camacho BOOT TURNER documented as of this encounter Visit Diagnoses Not on filedocumented in this encounter Additional Health Concerns Infection Onset Date Last Indicated Resolved Time COVID-19 Rule Out 04/14/2024 04/14/2024 04/14/2024 1:53 PM SENIOR INDUSTRIAL ENGINEER Assessment Noted Time PHQ-9 Depression Total Score: 20 04/18/2 024 12:53 PM CDT documented as of this encounter Care Teams Drafter Electromechanical Relationship Specialty Start [place] [address] [address] [place] [address] PCP - General FAMILY PRACTICE 09/19/22 documented as of this encounter
--- OUTSIDE RECORDS SUMMARY | 2024-06-17 19:19 | XMS_ITS | Encounter Summary ---
Author Organization [facility] Address [address] [place] [address] Care Team Providers Care Tower Control Operator Name Role Phone Farzaneh Briscoe MD Primary Care Provider [phone] Encounter Details Date Type Department Care Team (Late st Contact Info) Description 09/25/2023 [employer] Message Enc [facility] Medical Group Family & Internal Medicine [address] [address] [place] [address] [place] [address]. [address] [place] [address] Update Social History Tobacco Use Types Packs/Day Years [...] Sex Assigned at Female 06/14/2024 9:24 PM RETREAD OPERATOR Legal Sex Female 5:01 PM CDT Gender Identity Female 06/14/2024 9:20 PM RETREAD OPERATOR Sexual Orientation Straight 06/14/2024 9: 20 PM RETREAD OPERATOR documented as of this encounter Functional [...] Description 01/21/2025 10:45 AM CDT Office Visit [facility] [address] [place] [phone] Doyle Curry MD [address] [address] documented as of this encounter Goals Goal Patient Goal Type Associated Problems Recent Progress Patient-Stated? Author Return home with mother Diet No Mayte Camacho MSW documented as of this encounter Visit Diagnoses Not on filedocumented in this encounter Additional Health Concerns Infection Onset Date Last Indicated Resolved Time COVID-19 Rule Out 11/03/2023 11/03/2023 11/03/2023 3:34 PM CDT COVID-19 Rule Out 04/14/2024 04/14/2024 04/14/2024 1:53 PM RETREAD OPERATOR Assessment Noted Time PHQ-9 Depression Total Score: 20 024 12:53 PM CDT documented as of this encounter Care Teams Tower Control Operator Relationship Specialty Start [place] [address] [address] [place] [address] PCP - General FAMILY PRACTICE 09/19/22 documented as of this encounter
--- OUTSIDE RECORDS SUMMARY | 2024-06-17 19:19 | XMS_ITS | Encounter Summary ---
Author Organization [facility] Address [address] [place] [address] Care Team Providers Care Assistant Financial Accountant Name Role Phone Nuvia Prasad MD Primary Care Provider None, Provider Primary Care Provider Austina Farzaneh Lancaster MD Primary Care Provider [phone] Encounter Details Date Type Department Care Team (Late st Contact Info) Description 04/26/2020 Beaming Message Enc [facility] Medical Group Family & Internal Medicine [address] [address] [facility], [facility] Provider Ultrasound Results Social History Tobacco Use Types Packs/Day Years [...] Sex Assigned at Female 06/14/2024 9:24 PM MAGAZINE GRINDER LOADER Legal Sex Female 5:01 PM CDT Gender Identity Female 06/14/2024 9:20 PM MAGAZINE GRINDER LOADER Sexual Orientation Straight 06/14/2024 9: 20 PM MAGAZINE GRINDER LOADER COVID-19 Exposure Response Date Recorded In the last month, have you been in contact with someone who was confirmed or suspected to have Coronavirus / COVID-19? No / Unsure 04/27/2020 10:16 AM MAGAZINE GRINDER LOADER documented as of this encounter Functional Status [...] Description 01/21/2025 10:45 AM CDT [facility] [address] [place] [phone] Doyle Curry MD [facility]. [place] [address] [place] [address] documented as of this encounter Goals Goal Patient Goal Type Associated Problems Recent Progress Patient-Stated? Author Return home with mother Diet No Mayte Camacho CAR DISTRIBUTOR documented as of this encounter Visit Diagnoses [...] Rule Out 04/24/2022 04/24/2022 04/24/2022 3:01 PM MAGAZINE GRINDER LOADER COVID-19 Rule Out 05/09/2022 05/09/2022 05/09/2022 7:47 PM MAGAZINE GRINDER LOADER COVID-19 Rule Out 05/29/2022 05/29/2022 05/29/2022 1:46 PM MAGAZINE GRINDER LOADER COVID-19 Rule Out 05/29/2022 05/29/2022 05/30/2022 6:46 PM MAGAZINE GRINDER LOADER COVID-19 Rule Out 07/05/2022 07/05/2022 07/05/2022 7:45 PM MAGAZINE GRINDER LOADER COVID-19 Rule Out 08/30/2022 08/30/2022 08/30/2022 2:37 PM CDT COVID-19 Rule Out 09/26/2022 09/26/2022 09/26/2022 11:47 AM CDT COVID-19 Rule Out 12/02/2022 12/02/2022 12/02/2022 1:15 PM CDT COVID-19 Rule Out 02/14/2023 02/14/2023 02/14/2023 2:15 PM CDT COVID-19 Rule Out 03/20/2023 03/20/2023 03/20/2023 10:27 AM MAGAZINE GRINDER LOADER COVID-19 Rule Out 03/20/2023 03/20/2023 03/20/2023 2:10 PM MAGAZINE GRINDER LOADER COVID-19 Rule Out 03/26/2023 03/26/2023 03/26/2023 12:11 PM MAGAZINE GRINDER LOADER COVID-19 Rule Out 03/26/2023 03/26/2023 03/26/2023 1:39 PM MAGAZINE GRINDER LOADER COVID-19 Rule Out 04/01/2023 04/01/2023 04/01/2023 10:22 PM MAGAZINE GRINDER LOADER COVID-19 Rule Out 07/02/2023 07/02/2023 07/02/2023 1:03 PM MAGAZINE GRINDER LOADER COVID-19 Rule Out 07/09/2023 07/09/2023 07/09/2023 7:57 PM MAGAZINE GRINDER LOADER COVID-19 Rule Out 07/29/2023 07/29/2023 07/29/2023 7:23 PM CDT COVID-19 Rule Out 09/05/2023 09/05/2023 09/05/2023 1:30 PM CDT COVID-19 Rule Out 11/03/2023 11/03/2023 11/03/2023 3:34 PM CDT COVID-19 Rule Out 04/14/2024 04/14/2024 04/14/2024 1:53 PM MAGAZINE GRINDER LOADER Assessment Noted Time PHQ-9 Depression Total Score: 14 020 4:53 PM CDT documented as of this encounter Care Teams Assistant Financial Accountant Relationship Specialty Start Date End Date Nuvia Prasad MD PCP - General INTERNAL MEDICINE 07/30/19 08/27/22 None, Provider, PCP - General UNKNOWN PHYSICIAN SPECIALTY 08/28/22 09/18/22 [place] [address] [facility] [address] [place] [address] PCP - General FAMILY PRACTICE 09/19/22 documented as of this encounter
--- OUTSIDE RECORDS SUMMARY | 2024-06-17 19:19 | XMS_ITS | Encounter Summary ---
Author Organization [facility] Address [address] [place] [address] Care Team Providers Care Hvac Sheet Metal Installer Helper Name Role Phone Farzaneh Briscoe MD Primary Care Provider [phone] Encounter Details Date Type Department Care Team (Late st Contact Info) Description 12/25/2023 CX Message Enc [facility] Medical Group Family & Internal Medicine [address] [address] [place]zaneh [place] [phone] [place] [address]. [address] [place] [address] Rattle? Social History Tobacco Use Types Packs/Day Years [...] Sex Assigned at Female 06/14/2024 9:24 PM SPINNING FRAME CHANGER Legal Sex Female 5:01 PM CDT Gender Identity Female 06/14/2024 9:20 PM SPINNING FRAME CHANGER Sexual Orientation Straight 06/14/2024 9: 20 PM SPINNING FRAME CHANGER documented as of this encounter Functional Status [...] Description 01/21/2025 10:45 AM CDT Office Visit [facility] [address] [phone] Doyle Curry MD [address] [address] documented as of this encounter Goals Goal Patient Goal Type Associated Problems Recent Progress Patient-Stated? Author Return home with mother Diet No Mayte Camacho MSW documented as of this encounter Visit Diagnoses Not on filedocumented in this encounter Additional Health Concerns Infection Onset Date Last Indicated Resolved Time COVID-19 Rule Out 04/14/2024 04/14/2024 04/14/2024 1:53 PM SPINNING FRAME CHANGER Assessment Noted Time PHQ-9 Depression Total Score: 20 0418/2 024 12:53 PM CDT documented as of this encounter Care Teams Hvac Sheet Metal Installer Helper Relationship Specialty [place] [address] [address] [place], [place] [id number] PCP - General FAMILY PRACTICE 09/19/22 documented as of this encounter
--- OUTSIDE RECORDS SUMMARY | 2024-06-17 19:19 | XMS_ITS | Encounter Summary ---
Author Organization [facility] Address [address] [place] [address] Care Team Providers Care Inset Cutter Name Role Phone Farzaneh Briscoe MD Primary Care Provider [phone] Encounter Details Date Type Department Care Team (Late st Contact Info) Description 07/13/[address] [facility] Medical Group Family & Internal Medicine [facility] [address] [place] [address] [place]zaneh [place]iscoe [place] [address] [place] [address]. [address] [place] [address] This one isnt actually for me sorry in advance Social History Tobacco Use Types Packs/Day Years [...] Sex Assigned at Female 06/14/2024 9:24 PM NOUGAT CUTTER MACHINE Legal Sex Female 5:01 PM CDT Gender Identity Female 06/14/2024 9:20 PM NOUGAT CUTTER MACHINE Sexual Orientation Straight 06/14/2024 9: 20 PM NOUGAT CUTTER MACHINE documented as of this encounter Functional Status [...] Description 01/21/2025 10:45 AM CDT Office Visit [facility] [address] [place] [phone] Doyle Curry MD [address] [address] documented as of this encounter Goals Goal Patient Goal Type Associated Problems Recent Progress Patient-Stated? Author Return home with mother Diet No Mayte Camacho PARKING METER MECHANIC documented as of this encounter Visit Diagnoses Not on filedocumented in this encounter Additional Health Concerns Infection Onset Date Last Indicated Resolved Time COVID-19 Rule Out 07/29/2023 07/29/2023 07/29/2023 7:23 PM CDT COVID-19 Rule Out 09/05/2023 09/05/2023 09/05/2023 1:30 PM CDT COVID-19 Rule Out 11/03/2023 11/03/2023 11/03/2023 3:34 PM CDT COVID-19 Rule Out 04/14/2024 04/14/2024 04/14/2024 1:53 PM NOUGAT CUTTER MACHINE Assessment Noted Time PHQ-9 Depression Total Score: 024 3:58 PM NOUGAT CUTTER MACHINE documented as of this encounter Care Teams Inset Cutter Relationship Specialty [place] [address] [facility] [address] [place] [address] PCP - General FAMILY PRACTICE 09/19/22 documented as of this encounter
--- OUTSIDE RECORDS SUMMARY | 2024-06-17 19:19 | XMS_ITS | Encounter Summary ---
Author Organization [facility] Address [facility] [place] [address] Care Team Providers Care Lifeline Representatives Name Role Phone Nuvia Prasad MD Primary Care Provider [phone] None, Provider Primary Care Provider Austina Farzaneh Lancaster MD Primary Care Provider [phone] Encounter Details Date Type Department Care Team (Latest Contact Info) Description 09/18/2021 AC [employer] Message Enc [facility] Medical Group Multispecialty Care - [address], [address] [place] [address] [facility], [facility] Provider MRI Thoracic spine results Social History Tobacco Use Types Packs/Day [...] Sex Assigned at Female 06/14/2024 9:24 PM WAREHOUSE SHIPPING CLERK Legal Sex Female 5:01 PM CDT Gender Identity Female 06/14/2024 9:20 PM WAREHOUSE SHIPPING CLERK Sexual Orientation Straight 06/14/2024 9: 20 PM WAREHOUSE SHIPPING CLERK COVID-19 Exposure Response Date Recorded In the [...] Description 01/21/2025 10:45 AM CDT Office Visit [facility] [address] [place] [phone] Doyle Curry MD [facility] [address] [place] [address] documented as of this encounter Goals Goal [...] Rule Out 04/24/2022 04/24/2022 04/24/2022 3:01 PM WAREHOUSE SHIPPING CLERK COVID-19 Rule Out 05/09/2022 05/09/2022 05/09/2022 7:47 PM WAREHOUSE SHIPPING CLERK COVID-19 Rule Out 05/29/2022 05/29/2022 05/29/2022 1:46 PM WAREHOUSE SHIPPING CLERK COVID-19 Rule Out 05/29/2022 05/29/2022 05/30/2022 6:46 PM WAREHOUSE SHIPPING CLERK COVID-19 Rule Out 07/05/2022 07/05/2022 07/05/2022 7:45 PM WAREHOUSE SHIPPING CLERK COVID-19 Rule Out 08/30/2022 08/30/2022 08/30/2022 2:37 PM CDT COVID-19 Rule Out 09/26/2022 09/26/2022 09/26/2022 11:47 AM CDT COVID-19 Rule Out 12/02/2022 12/02/2022 12/02/2022 1:15 PM CDT COVID-19 Rule Out 02/14/2023 02/14/2023 02/14/2023 2:15 PM CDT COVID-19 Rule Out 03/20/2023 03/20/2023 03/20/2023 10:27 AM WAREHOUSE SHIPPING CLERK COVID-19 Rule Out 03/20/2023 03/20/2023 03/20/2023 2:10 PM WAREHOUSE SHIPPING CLERK COVID-19 Rule Out 03/26/2023 03/26/2023 03/26/2023 12:11 PM WAREHOUSE SHIPPING CLERK COVID-19 Rule Out 03/26/2023 03/26/2023 03/26/2023 1:39 PM WAREHOUSE SHIPPING CLERK COVID-19 Rule Out 04/01/2023 04/01/2023 04/01/2023 10:22 PM WAREHOUSE SHIPPING CLERK COVID-19 Rule Out 07/02/2023 07/02/2023 07/02/2023 1:03 PM WAREHOUSE SHIPPING CLERK COVID-19 Rule Out 07/09/2023 07/09/2023 07/09/2023 7:57 PM WAREHOUSE SHIPPING CLERK COVID-19 Rule Out 07/29/2023 07/29/2023 07/29/2023 7:23 PM CDT COVID-19 Rule Out 09/05/2023 09/05/2023 09/05/2023 1:30 PM CDT COVID-19 Rule Out 11/03/2023 11/03/2023 11/03/2023 3:34 PM CDT COVID-19 Rule Out 04/14/2024 04/14/2024 04/14/2024 1:53 PM WAREHOUSE SHIPPING CLERK Assessment Noted Time PHQ-9 Depression Total Score: 022 2:48 PM CDT documented as of this encounter Care Teams Lifeline Representatives Relationship Specialty Start Date End Date Nuvia Prasad MD PCP - General INTERNAL MEDICINE 07/30/19 08/27/22 None, ProviderMD PCP - General UNKNOWN PHYSICIAN SPECIALTY 08/28/22 09/18/22 [place] [address] [facility] [address] [place] [address] PCP - General FAMILY PRACTICE 09/19/22 documented as of this encounter
--- OUTSIDE RECORDS SUMMARY | 2024-06-17 19:19 | XMS_ITS | Encounter Summary ---
Author Organization [facility] Address [address] [place] [address] Care Team Providers Care Tensioning Machine Operator Name Role Phone Nuvia Prasad MD Primary Care Provider [phone] None, Provider Primary Care Provider Austina Farzaneh Lancaster MD Primary Care Provider [phone] Encounter Details Date Type Department Care Team (Late st Contact Info) Description 04/17/2021 Control Medical Technology Message Enc [facility] Medical Group Family & Internal Medicine - [address] [address] [place], [facility] Provider Concern Social History Tobacco Use Types Packs/Day Years [...] please move on to questions 3-9 4 03/28/2021 Comments No Sex and Gender Information Value Date Recorded Sex Assigned at Female 06/14/2024 9:24 PM DYNAMOMETER TUNER Legal Sex Female 5:01 PM CDT Gender Identity Female 06/14/2024 9:20 PM DYNAMOMETER TUNER Sexual Orientation Straight 06/14/2024 9: 20 PM DYNAMOMETER TUNER COVID-19 Exposure Response Date Recorded In the last month, have you been in contact with someone who was confirmed or suspected to have Coronavirus / COVID-19? No / Unsure 03/28/2021 9:39 AM DYNAMOMETER TUNER documented as of this encounter Functional Status [...] Description 01/21/2025 10:45 AM CDT [facility] [address] [place] [phone] Doyle Curry MD [facility] [address] [place] [address] documented as of this encounter Goals Goal [...] Rule Out 04/24/2022 04/24/2022 04/24/2022 3:01 PM DYNAMOMETER TUNER COVID-19 Rule Out 05/09/2022 05/09/2022 05/09/2022 7:47 PM DYNAMOMETER TUNER COVID-19 Rule Out 05/29/2022 05/29/2022 05/29/2022 1:46 PM DYNAMOMETER TUNER COVID-19 Rule Out 05/29/2022 05/29/2022 05/30/2022 6:46 PM DYNAMOMETER TUNER COVID-19 Rule Out 07/05/2022 07/05/2022 07/05/2022 7:45 PM DYNAMOMETER TUNER COVID-19 Rule Out 08/30/2022 08/30/2022 08/30/2022 2:37 PM CDT COVID-19 Rule Out 09/26/2022 09/26/2022 09/26/2022 11:47 AM CDT COVID-19 Rule Out 12/02/2022 12/02/2022 12/02/2022 1:15 PM CDT COVID-19 Rule Out 02/14/2023 02/14/2023 02/14/2023 2:15 PM CDT COVID-19 Rule Out 03/20/2023 03/20/2023 03/20/2023 10:27 AM DYNAMOMETER TUNER COVID-19 Rule Out 03/20/2023 03/20/2023 03/20/2023 2:10 PM DYNAMOMETER TUNER COVID-19 Rule Out 03/26/2023 03/26/2023 03/26/2023 12:11 PM DYNAMOMETER TUNER COVID-19 Rule Out 03/26/2023 03/26/2023 03/26/2023 1:39 PM DYNAMOMETER TUNER COVID-19 Rule Out 04/01/2023 04/01/2023 04/01/2023 10:22 PM DYNAMOMETER TUNER COVID-19 Rule Out 07/02/2023 07/02/2023 07/02/2023 1:03 PM DYNAMOMETER TUNER COVID-19 Rule Out 07/09/2023 07/09/2023 07/09/2023 7:57 PM DYNAMOMETER TUNER COVID-19 Rule Out 07/29/2023 07/29/2023 07/29/2023 7:23 PM CDT COVID-19 Rule Out 09/05/2023 09/05/2023 09/05/2023 1:30 PM CDT COVID-19 Rule Out 11/03/2023 11/03/2023 11/03/2023 3:34 PM CDT COVID-19 Rule Out 04/14/2024 04/14/2024 04/14/2024 1:53 PM DYNAMOMETER TUNER Assessment Noted Time PHQ-9 Depression Total Score: 15 021 9:51 AM DYNAMOMETER TUNER documented as of this encounter Care Teams Tensioning Machine Operator Relationship Specialty Start Date End Date Nuvia Prasad MD PCP - General INTERNAL MEDICINE 07/30/19 08/27/22 None, Provider, PCP - General UNKNOWN PHYSICIAN SPECIALTY 08/28/22 09/18/22 [place] [address] [facility] [address] [place] [address] PCP - General FAMILY PRACTICE 09/19/22 documented as of this encounter
--- OUTSIDE RECORDS SUMMARY | 2024-06-17 19:19 | XMS_ITS | Encounter Summary ---
Author Organization [facility] Address [address] [place] [address] Care Team Providers Care Shingle Cutter Name Role Phone Farzaneh Briscoe MD Primary Care Provider [phone] Encounter Details Date Type Department Care Team (Late st Contact Info) Description 09/05/2023 Jubilater Interactive Media Message Enc [facility] Medical Group Family & Internal Medicine [facility] [address] [place] [address] [place] [address] [place] [address]. [address] [place] [phone] My throat bro Social History Tobacco Use Types Packs/Day Years [...] Sex Assigned at Female 06/14/2024 9:24 PM ELECTRICIAN SUBSTATION SUPERVISOR Legal Sex Female 5:01 PM CDT Gender Identity Female 06/14/2024 9:20 PM ELECTRICIAN SUBSTATION SUPERVISOR Sexual Orientation Straight 06/14/2024 9: 20 PM ELECTRICIAN SUBSTATION SUPERVISOR documented as of this encounter Functional Status [...] Description 01/21/2025 10:45 AM CDT Office Visit [facility] [address] [phone] Doyle Curry MD [address] [address] documented as of this encounter Goals Goal [...] Rule Out 04/14/2024 04/14/2024 04/14/2024 1:53 PM ELECTRICIAN SUBSTATION SUPERVISOR Assessment Noted Time PHQ-9 Depression Total Score: 20 024 12:53 PM CDT documented as of this encounter Care Teams Shingle Cutter Relationship Specialty Start [place] [address] [facility] [address]. [address] [place] [address] PCP - General FAMILY PRACTICE 09/19/22 documented as of this encounter
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
--- OUTSIDE RECORDS SUMMARY | 2024-06-17 19:19 | XMS_ITS | Encounter Summary ---
Author Organization [facility] Address [address] [place] [address] Care Team Providers Care Fourchette Sewer Name Role Phone Farzaneh Briscoe MD Primary Care Provider [phone] Encounter Details Date Type Department Care Team (Latest Contact Info) Description 05/26/2023 Electro-Petroleum Message Enc [facility] Medical Group [facility] [address] [address] Patrice Miranda MD [address] [place] [address] I'm not having a colonoscopy only the endoscopy Social History Tobacco Use Types Packs/Day Years [...] Sex Assigned at Female 06/14/2024 9:24 PM LAMP INSPECTOR Legal Sex Female 5:01 PM CDT Gender Identity Female 06/14/2024 9:20 PM LAMP INSPECTOR Sexual Orientation Straight 06/14/2024 9: 20 PM LAMP INSPECTOR documented as of this encounter Functional [...] Description 01/21/2025 10:45 AM CDT Office Visit [facility] [phone] [place] [phone] Doyle Curry MD [address] [address] documented as of this encounter Goals Goal Patient Goal Type Associated Problems Recent Progress Patient-Stated? Author Return home with mother Diet No Mayte Camacho NEWSPAPER PHOTOJOURNALIST documented as of this encounter Visit Diagnoses Not on filedocumented in this encounter Additional Health Concerns Infection Onset Date Last Indicated Resolved Time COVID-19 Rule Out 07/02/2023 07/02/2023 07/02/2023 1:03 PM LAMP INSPECTOR COVID-19 Rule Out 07/09/2023 07/09/2023 07/09/2023 7:57 PM LAMP INSPECTOR COVID-19 Rule Out 07/29/2023 07/29/2023 07/29/2023 7:23 PM CDT COVID-19 Rule Out 09/05/2023 09/05/2023 09/05/2023 1:30 PM CDT COVID-19 Rule Out 11/03/2023 11/03/2023 11/03/2023 3:34 PM CDT COVID-19 Rule Out 04/14/2024 04/14/2024 04/14/2024 1:53 PM LAMP INSPECTOR Assessment Noted Time PHQ-9 Depression Total Score: 024 3:58 PM LAMP INSPECTOR documented as of this encounter Care Teams Fourchette Sewer Relationship Specialty Start [place] [address] [address] [place] [address] PCP - General FAMILY PRACTICE 09/19/22 documented as of this encounter
--- OUTSIDE RECORDS SUMMARY | 2024-06-17 19:19 | XMS_ITS | Encounter Summary ---
Author Organization [facility] Address [address] [place] [address] Care Team Providers Care Deputy Chief Magistrate Name Role Phone Farzaneh Briscoe MD Primary Care Provider [phone] Encounter Details Date Type Department Care Team (Late st Contact Info) Description 06/28/2023 Neuronex Message Enc [facility] Medical Group Family & Internal Medicine [address] [address] [place] [address] [place] [address]. [address] [place] [address] Bad bad pizza.. Social History Tobacco Use Types Packs/Day Years [...] Sex Assigned at Female 06/14/2024 9:24 PM STRAW HAT BRIM RAISER OPERATOR Legal Sex Female 5:01 PM CDT Gender Identity Female 06/14/2024 9:20 PM STRAW HAT BRIM RAISER OPERATOR Sexual Orientation Straight 06/14/2024 9: 20 PM STRAW HAT BRIM RAISER OPERATOR documented as of this encounter Functional [...] Description 01/21/2025 10:45 AM CDT Office Visit [facility] [address] [place] [phone] Doyle Curry MD [place] [address] [place] [address] documented as of this encounter Goals Goal Patient Goal Type Associated Problems Recent Progress Patient-Stated? Author Return home with mother Diet No Mayte Camacho MSW documented as of this encounter Visit Diagnoses Not on filedocumented in this encounter Additional Health Concerns Infection Onset Date Last Indicated Resolved Time COVID-19 Rule Out 07/02/2023 07/02/2023 07/02/2023 1:03 PM STRAW HAT BRIM RAISER OPERATOR COVID-19 Rule Out 07/09/2023 07/09/2023 07/09/2023 7:57 PM STRAW HAT BRIM RAISER OPERATOR COVID-19 Rule Out 07/29/2023 07/29/2023 07/29/2023 7:23 PM CDT COVID-19 Rule Out 09/05/2023 09/05/2023 09/05/2023 1:30 PM CDT COVID-19 Rule Out 11/03/2023 11/03/2023 11/03/2023 3:34 PM CDT COVID-19 Rule Out 04/14/2024 04/14/2024 04/14/2024 1:53 PM STRAW HAT BRIM RAISER OPERATOR Assessment Noted Time PHQ-9 Depression Total Score: 12 024 3:58 PM STRAW HAT BRIM RAISER OPERATOR documented as of this encounter Care Teams Deputy Chief Magistrate Relationship Specialty Start [place] [address] [address] [place] [address] PCP - General FAMILY PRACTICE 09/19/22 documented as of this encounter
--- OUTSIDE RECORDS SUMMARY | 2024-06-17 19:19 | XMS_ITS | Encounter Summary ---
Author Organization [facility] Address [address] [place] [address] Care Team Providers Care Wildlife Veterinarian Name Role Phone Nuvia Prasad MD Primary Care Provider None, Provider Primary Care Provider Unavaila Farzaneh Lancaster MD Primary Care Provider [phone] Encounter Details Date Type Department Care Team (Late st Contact Info) Description 07/25/2021 EcoTimbert Message Enc [facility] Medical Group Family & Internal Medicine [facility] [address] [place] [address] [place]uv[place] Pr[place]ad [place] [address] [place] [address] Advice? Social History Tobacco Use Types Packs/Day Years [...] Sex Assigned at Female 06/14/2024 9:24 PM ATM MECHANIC Legal Sex Female 5:01 PM CDT Gender Identity Female 06/14/2024 9:20 PM ATM MECHANIC Sexual Orientation Straight 06/14/2024 9: 20 PM ATM MECHANIC COVID-19 Exposure Response Date Recorded In the [...] Notes * Evelin Nicole RN - 07/25/2021 3:36 PM CDT Printed for Dr. Pedersen documented in this encounter Plan of Treatment Upcoming Encounters Date Type Department Care Team (Late st Contact Info) Description 01/21/2025 10:45 AM CDT Office Visit [place] [facility] [address] [place] [address] Doyle Curry MD [facility] [address] [place] [address] documented as of this encounter Goals Goal Patient Goal Type Associated Problems Recent Progress Patient-Stated? Author Return home with mother Diet No Mayte Camacho, PROSTHETIC AIDE documented as of this encounter Visit Diagnoses Not on filedocumented in this encounter Additional Health Concerns Infection Onset Date Last Indicated Resolved Time COVID-19 Rule Out 10/15/2021 10/15/2021 10/15/2021 1:34 PM CDT COVID-19 Rule Out 10/15/2021 10/15/2021 10/16/2021 7:02 PM CDT COVID-19 Rule Out 01/30/2022 01/30/2022 01/30/2022 9:59 AM CDT COVID-19 Rule Out 04/24/2022 04/24/2022 04/24/2022 3:01 PM ATM MECHANIC COVID-19 Rule Out 05/09/2022 05/09/2022 05/09/2022 7:47 PM ATM MECHANIC COVID-19 Rule Out 05/29/2022 05/29/2022 05/29/2022 1:46 PM ATM MECHANIC COVID-19 Rule Out 05/29/2022 05/29/2022 05/30/2022 6:46 PM ATM MECHANIC COVID-19 Rule Out 07/05/2022 07/05/2022 07/05/2022 7:45 PM ATM MECHANIC COVID-19 Rule Out 08/30/2022 08/30/2022 08/30/2022 2:37 PM CDT COVID-19 Rule Out 09/26/2022 09/26/2022 09/26/2022 11:47 AM CDT COVID-19 Rule Out 12/02/2022 12/02/2022 12/02/2022 1:15 PM CDT COVID-19 Rule Out 02/14/2023 02/14/2023 02/14/2023 2:15 PM CDT COVID-19 Rule Out 03/20/2023 03/20/2023 03/20/2023 10:27 AM ATM MECHANIC COVID-19 Rule Out 03/20/2023 03/20/2023 03/20/2023 2:10 PM ATM MECHANIC COVID-19 Rule Out 03/26/2023 03/26/2023 03/26/2023 12:11 PM ATM MECHANIC COVID-19 Rule Out 03/26/2023 03/26/2023 03/26/2023 1:39 PM ATM MECHANIC COVID-19 Rule Out 04/01/2023 04/01/2023 04/01/2023 10:22 PM ATM MECHANIC COVID-19 Rule Out 07/02/2023 07/02/2023 07/02/2023 1:03 PM ATM MECHANIC COVID-19 Rule Out 07/09/2023 07/09/2023 07/09/2023 7:57 PM ATM MECHANIC COVID-19 Rule Out 07/29/2023 07/29/2023 07/29/2023 7:23 PM CDT COVID-19 Rule Out 09/05/2023 09/05/2023 09/05/2023 1:30 PM CDT COVID-19 Rule Out 11/03/2023 11/03/2023 11/03/2023 3:34 PM CDT COVID-19 Rule Out 04/14/2024 04/14/2024 04/14/2024 1:53 PM ATM MECHANIC Assessment Noted Time PHQ-9 Depression Total Score: 2 07/03/19 11:15 AM ATM MECHANIC documented as of this encounter Care Teams Wildlife Veterinarian Relationship Specialty Start Date End Date Nuvia Prasad MD PCP - General INTERNAL MEDICINE 07/30/19 08/27/22 None, ProviderMD PCP - General UNKNOWN PHYSICIAN SPECIALTY 08/28/22 09/18/22 [place] [address] [facility] [address] [place] [address] PCP - General FAMILY PRACTICE 09/19/22 documented as of this encounter
--- OUTSIDE RECORDS SUMMARY | 2024-06-17 19:19 | XMS_ITS | Encounter Summary ---
Author Organization [facility] Address [address] [place] [address] Care Team Providers Care Finishing Manager Name Role Phone Farzaneh Briscoe MD Primary Care Provider [phone] Encounter Details Date Type Department Care Team (Late st Contact Info) Description 05/18/2023 Path101 Message Enc [facility] Medical Group Family & Internal Medicine [facility] [address] [place] [address] [place]znaeh Briscoe [place] [address] [place] [address]. [address] [place] [address] Shower problems...but also MCAS test?? Social History Tobacco Use Types Packs/Day Years [...] Sex Assigned at Female 06/14/2024 9:24 PM SOFTWARE ADMINISTRATOR Legal Sex Female 5:01 PM CDT Gender Identity Female 06/14/2024 9:20 PM SOFTWARE ADMINISTRATOR Sexual Orientation Straight 06/14/2024 9: 20 PM SOFTWARE ADMINISTRATOR documented as of this encounter Functional Status [...] Description 01/21/2025 10:45 AM CDT Office Visit [facility] [address] [place] [phone] Doyle Curry MD [address] [address] documented as of this encounter Goals Goal Patient Goal Type Associated Problems Recent Progress Patient-Stated? Author Return home with mother Diet No Mayte Camacho MSW documented as of this encounter Visit Diagnoses Not on filedocumented in this encounter Additional Health Concerns Infection Onset Date Last Indicated Resolved Time COVID-19 Rule Out 07/02/2023 07/02/2023 07/02/2023 1:03 PM SOFTWARE ADMINISTRATOR COVID-19 Rule Out 07/09/2023 07/09/2023 07/09/2023 7:57 PM SOFTWARE ADMINISTRATOR COVID-19 Rule Out 07/29/2023 07/29/2023 07/29/2023 7:23 PM CDT COVID-19 Rule Out 09/05/2023 09/05/2023 09/05/2023 1:30 PM CDT COVID-19 Rule Out 11/03/2023 11/03/2023 11/03/2023 3:34 PM CDT COVID-19 Rule Out 04/14/2024 04/14/2024 04/14/2024 1:53 PM SOFTWARE ADMINISTRATOR Assessment Noted Time PHQ-9 Depression Total Score: 12 024 3:58 PM SOFTWARE ADMINISTRATOR documented as of this encounter Care Teams Finishing Manager Relationship Specialty [place] [address] [facility] [address]. [address] [place] [address] PCP - General FAMILY PRACTICE 09/19/22 documented as of this encounter
--- OUTSIDE RECORDS SUMMARY | 2024-06-17 19:19 | XMS_ITS | Encounter Summary ---
Author Organization [facility] Address [address] [place] [address] Care Team Providers Care Assistant Professor Sculpture Name Role Phone Farzaneh Briscoe MD Primary Care Provider [phone] Encounter Details Date Type Department Care Team (Late st Contact Info) Description 05/01/2023 Cloze Message Enc [facility] Medical Group Family & Internal Medicine [facility] [address] [place] [address] [place]zaneh [place]iscoe [place] [phone] [place] [address]. [address] [place] [phone] Not feeling great Social History Tobacco Use Types Packs/Day Years [...] Sex Assigned at Female 06/14/2024 9:24 PM CEMENT CUTTER Legal Sex Female 5:01 PM CDT Gender Identity Female 06/14/2024 9:20 PM CEMENT CUTTER Sexual Orientation Straight 06/14/2024 9: 20 PM CEMENT CUTTER documented as of this encounter Functional Status [...] documented in this encounter Progress Notes * So Chawla RN - 05/13/2023 10:25 AM CST Noted. NT CUTTER * Harriet Hannah MA - 05/08/2023 10:19 AM CST FYI NT CUTTER documented in this encounter Plan of Treatment Upcoming Encounters Date Type Department Care Team (Late st Contact Info) Description 01/21/2025 10:45 AM CDT Office Visit [place] [facility] [address] [place] [phone] Doyle Curry MD [facility] [address] [place] [address] documented as of this encounter Goals Goal Patient Goal Type Associated Problems Recent Progress Patient-Stated? Author Return home with mother Diet No Mayte Camacho, HOUSING MANAGEMENT OFFICER documented as of this encounter Visit Diagnoses Not on filedocumented in this encounter Additional Health Concerns Infection Onset Date Last Indicated Resolved Time COVID-19 Rule Out 07/02/2023 07/02/2023 07/02/2023 1:03 PM CEMENT CUTTER COVID-19 Rule Out 07/09/2023 07/09/2023 07/09/2023 7:57 PM CEMENT CUTTER COVID-19 Rule Out 07/29/2023 07/29/2023 07/29/2023 7:23 PM CDT COVID-19 Rule Out 09/05/2023 09/05/2023 09/05/2023 1:30 PM CDT COVID-19 Rule Out 11/03/2023 11/03/2023 11/03/2023 3:34 PM CDT COVID-19 Rule Out 04/14/2024 04/14/2024 04/14/2024 1:53 PM CEMENT CUTTER Assessment Noted Time PHQ-9 Depression Total Score: 12 023 3:00 PM CEMENT CUTTER documented as of this encounter Care Teams Assistant Professor Sculpture Relationship Specialty Start [place] [address] [address] [place] [address] PCP - General FAMILY PRACTICE 09/19/22 documented as of this encounter
--- OUTSIDE RECORDS SUMMARY | 2024-06-17 19:19 | XMS_ITS | Encounter Summary ---
Author Organization [facility] Address [address] [place] [address] Care Team Providers Care Senior Production Planner Name Role Phone Nuvia Prasad MD Primary Care Provider None, Provider Primary Care Provider Austina Farzaneh Lancaster MD Primary Care Provider [phone] Encounter Details Date Type Department Care Team (Late st Contact Info) Description 08/16/2020 [employer] Message [facility] [address] [place] [address] [facility] Provider Results Social History Tobacco Use Types Packs/Day [...] Sex Assigned at Female 06/14/2024 9:24 PM PATIENT TRANSITION SPECIALIST Legal Sex Female 5:01 PM CDT Gender Identity Female 06/14/2024 9:20 PM PATIENT TRANSITION SPECIALIST Sexual Orientation Straight 06/14/2024 9: 20 PM PATIENT TRANSITION SPECIALIST COVID-19 Exposure Response Date Recorded In the [...] Description 01/21/2025 10:45 AM CDT [facility] [address] [place] [address] Doyle Curry MD [facility]. [id number] [place] [address] documented as of this encounter Goals Goal Patient Goal Type Associated Problems Recent Progress Patient-Stated? Author Return home with mother Diet No Mayte Camacho WOOL HANKER documented as of this encounter Visit Diagnoses Not on filedocumented in this encounter Additional Health Concerns Infection Onset Date Last Indicated Resolved Time COVID-19 Rule Out 08/15/2020 08/15/2020 08/16/2020 5:22 PM CDT COVID-19 Rule Out 10/15/2021 10/15/2021 10/15/2021 1:34 PM CDT COVID-19 Rule Out 10/15/2021 10/15/2021 10/16/2021 7:02 PM CDT COVID-19 Rule Out 01/30/2022 01/30/2022 01/30/2022 9:59 AM CDT COVID-19 Rule Out 04/24/2022 04/24/2022 04/24/2022 3:01 PM PATIENT TRANSITION SPECIALIST COVID-19 Rule Out 05/09/2022 05/09/2022 05/09/2022 7:47 PM PATIENT TRANSITION SPECIALIST COVID-19 Rule Out 05/29/2022 05/29/2022 05/29/2022 1:46 PM PATIENT TRANSITION SPECIALIST COVID-19 Rule Out 05/29/2022 05/29/2022 05/30/2022 6:46 PM PATIENT TRANSITION SPECIALIST COVID-19 Rule Out 07/05/2022 07/05/2022 07/05/2022 7:45 PM PATIENT TRANSITION SPECIALIST COVID-19 Rule Out 08/30/2022 08/30/2022 08/30/2022 2:37 PM CDT COVID-19 Rule Out 09/26/2022 09/26/2022 09/26/2022 11:47 AM CDT COVID-19 Rule Out 12/02/2022 12/02/2022 12/02/2022 1:15 PM CDT COVID-19 Rule Out 02/14/2023 02/14/2023 02/14/2023 2:15 PM CDT COVID-19 Rule Out 03/20/2023 03/20/2023 03/20/2023 10:27 AM PATIENT TRANSITION SPECIALIST COVID-19 Rule Out 03/20/2023 03/20/2023 03/20/2023 2:10 PM PATIENT TRANSITION SPECIALIST COVID-19 Rule Out 03/26/2023 03/26/2023 03/26/2023 12:11 PM PATIENT TRANSITION SPECIALIST COVID-19 Rule Out 03/26/2023 03/26/2023 03/26/2023 1:39 PM PATIENT TRANSITION SPECIALIST COVID-19 Rule Out 04/01/2023 04/01/2023 04/01/2023 10:22 PM PATIENT TRANSITION SPECIALIST COVID-19 Rule Out 07/02/2023 07/02/2023 07/02/2023 1:03 PM PATIENT TRANSITION SPECIALIST COVID-19 Rule Out 07/09/2023 07/09/2023 07/09/2023 7:57 PM PATIENT TRANSITION SPECIALIST COVID-19 Rule Out 07/29/2023 07/29/2023 07/29/2023 7:23 PM CDT COVID-19 Rule Out 09/05/2023 09/05/2023 09/05/2023 1:30 PM CDT COVID-19 Rule Out 11/03/2023 11/03/2023 11/03/2023 3:34 PM CDT COVID-19 Rule Out 04/14/2024 04/14/2024 04/14/2024 1:53 PM PATIENT TRANSITION SPECIALIST Assessment Noted Time PHQ-9 Depression Total Score: 14 07/15/2 020 4:53 PM CDT documented as of this encounter Care Teams Senior Production Planner Relationship Specialty Start Date End Date Nuvia Prasad MD PCP - General INTERNAL MEDICINE 07/30/19 08/27/22 None, ProviderMD PCP - General UNKNOWN PHYSICIAN SPECIALTY 08/28/22 09/18/22 [place] [address] [facility]. [address] [place] [address] PCP - General FAMILY PRACTICE 09/19/22 documented as of this encounter
--- OUTSIDE RECORDS SUMMARY | 2024-06-17 19:19 | XMS_ITS | Encounter Summary ---
Author Organization [facility] Address [address] [place] [address] Care Team Providers Care Prosthetic Assistant Name Role Phone Nuvia Prasad MD Primary Care Provider None, Provider Primary Care Provider Unavaila Farzaneh Lancaster MD Primary Care Provider [phone] Encounter Details Date Type Department Care Team (Late st Contact Info) Description 09/21/2021 [employer] Message Enc [facility] Family & Internal Medicine [facility] [address] [place] [address] Amanda Allen, EQUIPMENT TESTER [address] [facility] [address] [place] [address] Thyroid test results Social History Tobacco Use Types Packs/Day [...] Sex Assigned at Female 06/14/2024 9:24 PM SKATESMAN Legal Sex Female 5:01 PM CDT Gender Identity Female 06/14/2024 9:20 PM SKATESMAN Sexual Orientation Straight 06/14/2024 9: 20 PM SKATESMAN COVID-19 Exposure Response Date Recorded In the last 10 days, have glenn munoz been in contact with someone who was confirmed or suspected to have Coronavirus/COVID-19? No / Unsure 09/22/2021 2:22 PM CDT documented as of this encounter [...] Description 01/21/2025 10:45 AM CDT Office Visit [facility] [address] [place] [address] Doyle Curry MD [facility]. [facility] [address] [place] [address] documented as of this encounter Goals Goal Patient Goal Type Associated Problems Recent Progress Patient-Stated? Author Return home with mother Diet Javed Pelaezziggy Hawkins, PROCUREMENT INSPECTOR documented as of this encounter Visit Diagnoses Not on filedocumented in this encounter Additional Health Concerns Infection Onset Date Last Indicated Resolved Time COVID-19 Rule Out 10/15/2021 10/15/2021 10/15/2021 1:34 PM CDT COVID-19 Rule Out 10/15/2021 10/15/2021 10/16/2021 7:02 PM CDT COVID-19 Rule Out 01/30/2022 01/30/2022 01/30/2022 9:59 AM CDT COVID-19 Rule Out 04/24/2022 04/24/2022 04/24/2022 3:01 PM SKATESMAN COVID-19 Rule Out 05/09/2022 05/09/2022 05/09/2022 7:47 PM SKATESMAN COVID-19 Rule Out 05/29/2022 05/29/2022 05/29/2022 1:46 PM SKATESMAN COVID-19 Rule Out 05/29/2022 05/29/2022 05/30/2022 6:46 PM SKATESMAN COVID-19 Rule Out 07/05/2022 07/05/2022 07/05/2022 7:45 PM SKATESMAN COVID-19 Rule Out 08/30/2022 08/30/2022 08/30/2022 2:37 PM CDT COVID-19 Rule Out 09/26/2022 09/26/2022 09/26/2022 11:47 AM CDT COVID-19 Rule Out 12/02/2022 12/02/2022 12/02/2022 1:15 PM CDT COVID-19 Rule Out 02/14/2023 02/14/2023 02/14/2023 2:15 PM CDT COVID-19 Rule Out 03/20/2023 03/20/2023 03/20/2023 10:27 AM SKATESMAN COVID-19 Rule Out 03/20/2023 03/20/2023 03/20/2023 2:10 PM SKATESMAN COVID-19 Rule Out 03/26/2023 03/26/2023 03/26/2023 12:11 PM SKATESMAN COVID-19 Rule Out 03/26/2023 03/26/2023 03/26/2023 1:39 PM SKATESMAN COVID-19 Rule Out 04/01/2023 04/01/2023 04/01/2023 10:22 PM SKATESMAN COVID-19 Rule Out 07/02/2023 07/02/2023 07/02/2023 1:03 PM SKATESMAN COVID-19 Rule Out 07/09/2023 07/09/2023 07/09/2023 7:57 PM SKATESMAN COVID-19 Rule Out 07/29/2023 07/29/2023 07/29/2023 7:23 PM CDT COVID-19 Rule Out 09/05/2023 09/05/2023 09/05/2023 1:30 PM CDT COVID-19 Rule Out 11/03/2023 11/03/2023 11/03/2023 3:34 PM CDT COVID-19 Rule Out 04/14/2024 04/14/2024 04/14/2024 1:53 PM SKATESMAN Assessment Noted Time PHQ-9 Depression Total Score: 022 2:48 PM CDT documented as of this encounter Care Teams Prosthetic Assistant Relationship Specialty Start Date End Date Nuvia Prasad MD PCP - General INTERNAL MEDICINE 07/30/19 08/27/22 None, Provider, PCP - General UNKNOWN PHYSICIAN SPECIALTY 08/28/22 09/18/22 [place] [address] [facility]. [address] [place] [address] PCP - General FAMILY PRACTICE 09/19/22 documented as of this encounter
--- OUTSIDE RECORDS SUMMARY | 2024-06-17 19:20 | XMS_ITS | Encounter Summary ---
Author Organization [facility] Address [address] [place] [address] Care Team Providers Care Launchman Name Role Phone Nuvia Prasad MD Primary Care Provider None, Provider Primary Care Provider Unavaila Farzaneh Lancaster MD Primary Care Provider [phone] Encounter Details Date Type Department Care Team (Late st Contact Info) Description 10/20/2021 [employer] Message Enc [facility] Family & Internal Medicine [facility] [address] [place] [address] [place] [address] [place] [address] I've gotten worse. Social History Tobacco Use Types Packs/Day Years [...] Sex Assigned at Female 06/14/2024 9:24 PM BIODIESEL PROCESS CONTROL TECHNICIAN Legal Sex Female 5:01 PM CDT Gender Identity Female 06/14/2024 9:20 PM BIODIESEL PROCESS CONTROL TECHNICIAN Sexual Orientation Straight 06/14/2024 9: 20 PM BIODIESEL PROCESS CONTROL TECHNICIAN COVID-19 Exposure Response Date Recorded In the [...] Progress Notes * Evelin Nicole RN - 10/24/2021 1:24 PM CDT . * Evelin Nicole RN - 10/24/2021 9:24 AM CDT . * Evelin Nicole RN - 10/23/2021 11:42 AM CDT Please advise * Farzaneh Briscoe MD - 10/22/2021 3:43 PM CDT Acknowledged above. Message sent to patient. Will need seen. * Evelin Nicole RN - 10/22/2021 2:53 PM CDT Received call from Maria Del Carmen at [facility] stating that patient was in therapy today and still c/o feeling crappy and very sad . Maria Del Carmen states that she had advised the patient that she should be seen at Urgent Care but patient refused stating she would not have a ride home. Maria Del Carmen also stated that she spoke with patient regarding suicidal ideations and that patient denied having any thoughts ofsuicide but states that she has had those thoughts in the past as a teenager. documented in this encounter Plan of Treatment Upcoming Encounters Date Type Department Care Team (Late st Contact Info) Description 01/21/2025 10:45 AM CDT Office Visit [facility] [address] [place] [address] Doyle Curry MD [facility]. [facility] [address] [place] [address] documented as of this encounter Goals Goal Patient Goal Type Associated Problems Recent Progress Patient-Stated? Author Return home with mother Diet No Mayte Camacho, FINANCIAL REPORTING SPECIALIST documented as of this encounter Visit Diagnoses Not on filedocumented in this encounter Additional Health Concerns Infection Onset Date Last Indicated Resolved Time COVID-19 Rule Out 01/30/2022 01/30/2022 01/30/2022 9:59 AM CDT COVID-19 Rule Out 04/24/2022 04/24/2022 04/24/2022 3:01 PM BIODIESEL PROCESS CONTROL TECHNICIAN COVID-19 Rule Out 05/09/2022 05/09/2022 05/09/2022 7:47 PM BIODIESEL PROCESS CONTROL TECHNICIAN COVID-19 Rule Out 05/29/2022 05/29/2022 05/29/2022 1:46 PM BIODIESEL PROCESS CONTROL TECHNICIAN COVID-19 Rule Out 05/29/2022 05/29/2022 05/30/2022 6:46 PM BIODIESEL PROCESS CONTROL TECHNICIAN COVID-19 Rule Out 07/05/2022 07/05/2022 07/05/2022 7:45 PM BIODIESEL PROCESS CONTROL TECHNICIAN COVID-19 Rule Out 08/30/2022 08/30/2022 08/30/2022 2:37 PM CDT COVID-19 Rule Out 09/26/2022 09/26/2022 09/26/2022 11:47 AM CDT COVID-19 Rule Out 12/02/2022 12/02/2022 12/02/2022 1:15 PM CDT COVID-19 Rule Out 02/14/2023 02/14/2023 02/14/2023 2:15 PM CDT COVID-19 Rule Out 03/20/2023 03/20/2023 03/20/2023 10:27 AM BIODIESEL PROCESS CONTROL TECHNICIAN COVID-19 Rule Out 03/20/2023 03/20/2023 03/20/2023 2:10 PM BIODIESEL PROCESS CONTROL TECHNICIAN COVID-19 Rule Out 03/26/2023 03/26/2023 03/26/2023 12:11 PM BIODIESEL PROCESS CONTROL TECHNICIAN COVID-19 Rule Out 03/26/2023 03/26/2023 03/26/2023 1:39 PM BIODIESEL PROCESS CONTROL TECHNICIAN COVID-19 Rule Out 04/01/2023 04/01/2023 04/01/2023 10:22 PM BIODIESEL PROCESS CONTROL TECHNICIAN COVID-19 Rule Out 07/02/2023 07/02/2023 07/02/2023 1:03 PM BIODIESEL PROCESS CONTROL TECHNICIAN COVID-19 Rule Out 07/09/2023 07/09/2023 07/09/2023 7:57 PM BIODIESEL PROCESS CONTROL TECHNICIAN COVID-19 Rule Out 07/29/2023 07/29/2023 07/29/2023 7:23 PM CDT COVID-19 Rule Out 09/05/2023 09/05/2023 09/05/2023 1:30 PM CDT COVID-19 Rule Out 11/03/2023 11/03/2023 11/03/2023 3:34 PM CDT COVID-19 Rule Out 04/14/2024 04/14/2024 04/14/2024 1:53 PM BIODIESEL PROCESS CONTROL TECHNICIAN Assessment Noted Time PHQ-9 Depression Total Score: 022 2:48 PM CDT documented as of this encounter Care Teams Launchman Relationship Specialty Start Date End Date Nuvia Prasad MD PCP - General INTERNAL MEDICINE 07/30/19 08/27/22 None, Provider, PCP - General UNKNOWN PHYSICIAN SPECIALTY 08/28/22 09/18/22 [place] [address] [facility]. [address] [place] [address] PCP - General FAMILY PRACTICE 09/19/22 documented as of this encounter
--- OUTSIDE RECORDS SUMMARY | 2024-06-17 19:20 | XMS_ITS | Clinical Summary ---
Author Organization [facility] [address] Address [address] [place] [address] Phone Care Team Providers Care Finished Garment Inspector Name Role Phone Nuvia Prasad MD Unavailable [phone] Farzaneh Briscoe MD Primary Care Provider [phone] Allergies Active Allergy Reactions Criticality Noted Date Comments Calcium Carbonate-Simethicone Palpitations,Shortness of breath High 01/18/2020 Bee Pollen Unknown 07/20/2012 Clindamycin Dizziness,Headache,N ausea And Vomiting,Other (See comments),Shortness of breath High 01/18/2020 Dicyclomine Stomach upset Low 09/15/2020 Doxycycline Other (See comments),Diarrhea,Nausea only High 06/04/2019 Egg Vomiting Low 01/18/2020 Nuts Vision changes,Other (See comments),Headache,Unknow n,Itching,Rash,Redness,Sw elling Medium 01/18/2020 Other Unknown 07/20/2012 Penicillins Hives,Rash Medium 06/19/2018 Medications multivitamin capsule Take 3 capsules by mouth daily Active acetaminophen (TYLENOL) 500 mg tablet Take 1 tablet (500 mg total) by mouth every 4 (four) hours as needed 06/05/19 17 Active albuterol HFA (PROVENTIL HFA,VENTOLIN HFA,PROAIR HFA) 90 mcg/actuation inhaler Ventolin HFA 90 mcg/actuation aerosol inhaler 08/15/19 21 Active cyanocobalamin (Vitamin B-12) 1,000 mcg sublingual tablet daily Active cyclobenzaprine (FLEXERIL) 10 mg tablet cyclobenzaprine 10 mg tablet Active docusate sodium (COLACE) 100 mg capsule docusate sodium 100 mg capsule TAKE 1 CAPSULE BY MOUTH 2 TIMES A DAY DIRECTED Active ondansetron (ZOFRAN) 4 mg tablet Take 1 tablet (4 mg total) by mouth every 8 (eight) hours as needed 08/16/19 21 Active topiramate (TOPAMAX) 25 mg tablet Take 1 tablet at night for 1 week then take 1 tablet twice daily 60 tablet 1 11/01/19 21 Active fremanezumab-vfr m (AJOVY) 225 mg/1.5 mL syringe subcutaneous injection Inject 1.5 mL (225 mg total) under the skin every 30 (thirty) days 1.5 mL 5 08/14/19 23 Active Active Problems Problem Noted Date Diagnosed Date Migraine without aura and wi thout status migrainosus, not intractable 10/02/2020 Transient alteration of awareness 10/02/2020 Vomiting 12/12/2010 Asperger's disorder 12/12/2010 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 12/12/2010 Pica 12/12/2010 Obsessive-compulsive disorder 12/12/2010 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 Surgical History Surgery Date Site/Laterality Comments APPENDECTOMY ORAL SURGERY Medical History Medical History Date Comments Asthma Migraines Family History Medical History Relation Name Comments No Known Problems Father Asthma Mother Asthma - (Added by TW Conv) Constipation Mother Constipation - (Added by TW Conv) Heart disease Mother Heart Disease - (Added by TW Conv) Irritable bowel syndrome Mother Irr itable Bowel Syndrome - (Added by TW Conv) Migraines Mother Migraine Headac he - (Added by TW Conv) Multiple sclerosis Mother Multiple Sclerosis - (Added by TW Conv) Ulcers Mother Peptic Ulcer - (Added by TW Conv) Seizures Sister Relation Name Status Comments Brother Alive Father Alive Mother Alive Sister Alive Social History Tobacco Use Types Packs/Day Years Used Date Smoking Tobacco: Never Smokeless Tobacco: Never Tobacco Cessation:Counseling Given: Not Answered Comments No Sex and Gender Information Value Date Recorded Sex Assigned at Not on file Legal Sex Female 11:32 PM DISABILITY COORDINATOR Gender Identity Not on file Sexual Orientation Not on file Obstetrics History Last Filed Vital Signs Vital Sign Reading Time Taken Comments Blood Pressure 140/80 08/13/2022 9:04 AM CDT Pulse 101 08/13/2022 9:04 AM CDT Temperature 35.9 C (96.6 F) 08/13/2022 9:04 AM CDT Respiratory Rate 20 08/13/2022 9:04 AM CDT Oxygen Saturation 99% 08/13/2022 9:04 AM CDT Inhaled Oxygen Concentration - - Weight 63.4 kg (139 lb 12.4 oz) 09/27/2022 1:32 PM CDT Height 165.1 cm (5' 5 ) 09/27/2022 1:32 PM CDT Body Mass Index 23.26 09/27/2022 1:32 PM CDT Plan of Treatment Health Maintenance Due Date Last Done Comments Cervical Cancer Screening 1998 Depression Screening 1998 Hepatitis C Screening 1998 Varicella Vaccines (2 of 2 - 2-dose childhood series) 2002 06/26/1999 Pneumococcal vaccine <65 (1 of 2 - PCV) 2004 HPV Vaccines (1 - 3-dose series) 2013 Regular Well Visit/Exam 18-64 2016 Influenza Vaccine (#1) 2024 DTaP/Tdap/Td Vaccine (6 - Td or Tdap) 09/29/2024 09/29/2014, 10/01/1999, 10/01/1999, Additional history exists Hepatitis B Screening Completed 04/11/1999 , 04/11/1999, 1998, Additional history exists Insurance [facility] Care Teams Finished Garment Inspector Relationship Specialty Start [place] [address] [place], [place] [id number] PCP - General Family Medicine 09/04/22 [place] [address] [place], [place] [id number] Internal Medicine 09/21/20
--- OUTSIDE RECORDS SUMMARY | 2024-06-17 19:20 | XMS_ITS | Referral Summary ---
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 Social History Tobacco Use Types Packs/Day Years Used Date Smoking Tobacco: Never Smokeless Tobacco: Never Tobacco Cessation:Counseling Given: Not Answered Comments No Sex and Gender Information Value Date Recorded Sex Assigned at Not on file Legal Sex Female 11:32 PM LACQUER COATER Gender Identity Not on file Sexual Orientation Not on file Last Filed Vital Signs Vital Sign Reading [...] 09/27/2022 1:32 PM CDT Plan of Treatment Not on file Insurance [facility] Care Teams Supercharger Mechanic Relationship Specialty Start [place] [address] [place] [address] PCP - General Family Medicine 09/04/22 [place] [address] [place] [address] Internal Medicine 09/21/20
--- OUTSIDE RECORDS SUMMARY | 2024-06-17 19:20 | XMS_ITS | Encounter Summary ---
Author Organization [facility] Address [address] [place] [address] Care Team Providers Care Merchant Police Name Role Phone Nuvia Prasad MD Primary Care Provider None, Provider Primary Care Provider Unavaila Farzaneh Lancaster MD Primary Care Provider [phone] Encounter Details Date Type Department Care Team (Late st Contact Info) Description 10/08/2021 Open Lendingt Message Enc [facility] Group Family & Internal Medicine [facility] [address] [place] [address] [place]uv[place] Pr[place] [address] [place] [address] Sleep study results?? Social History Tobacco Use Types Packs/Day Years [...] Sex Assigned at Female 06/14/2024 9:24 PM CHAIN FORMING MACHINE OPERATOR Legal Sex Female 5:01 PM CDT Gender Identity Female 06/14/2024 9:20 PM CHAIN FORMING MACHINE OPERATOR Sexual Orientation Straight 06/14/2024 9: 20 PM CHAIN FORMING MACHINE OPERATOR COVID-19 Exposure Response Date Recorded In the last 10 days, have glenn munzo been in contact with someone who was confirmed or suspected to have Coronavirus/COVID-19? No / Unsure 10/09/2021 10:08 AM CDT documented as of this encounter [...] Description 01/21/2025 10:45 AM CDT [facility] [address] [place] [phone] Doyle Curry MD [facility]. [facility] [address] [place] [address] documented as of this encounter Goals Goal Patient Goal Type Associated Problems Recent Progress Patient-Stated? Author Return home with mother Mayte Brady, MOTORCYCLE ASSEMBLER documented as of this encounter Visit Diagnoses Not on filedocumented in this encounter Additional Health Concerns Infection Onset Date Last Indicated Resolved Time COVID-19 Rule Out 10/15/2021 10/15/2021 10/15/2021 1:34 PM CDT COVID-19 Rule Out 10/15/2021 10/15/2021 10/16/2021 7:02 PM CDT COVID-19 Rule Out 01/30/2022 01/30/2022 01/30/2022 9:59 AM CDT COVID-19 Rule Out 04/24/2022 04/24/2022 04/24/2022 3:01 PM CHAIN FORMING MACHINE OPERATOR COVID-19 Rule Out 05/09/2022 05/09/2022 05/09/2022 7:47 PM CHAIN FORMING MACHINE OPERATOR COVID-19 Rule Out 05/29/2022 05/29/2022 05/29/2022 1:46 PM CHAIN FORMING MACHINE OPERATOR COVID-19 Rule Out 05/29/2022 05/29/2022 05/30/2022 6:46 PM CHAIN FORMING MACHINE OPERATOR COVID-19 Rule Out 07/05/2022 07/05/2022 07/05/2022 7:45 PM CHAIN FORMING MACHINE OPERATOR COVID-19 Rule Out 08/30/2022 08/30/2022 08/30/2022 2:37 PM CDT COVID-19 Rule Out 09/26/2022 09/26/2022 09/26/2022 11:47 AM CDT COVID-19 Rule Out 12/02/2022 12/02/2022 12/02/2022 1:15 PM CDT COVID-19 Rule Out 02/14/2023 02/14/2023 02/14/2023 2:15 PM CDT COVID-19 Rule Out 03/20/2023 03/20/2023 03/20/2023 10:27 AM CHAIN FORMING MACHINE OPERATOR COVID-19 Rule Out 03/20/2023 03/20/2023 03/20/2023 2:10 PM CHAIN FORMING MACHINE OPERATOR COVID-19 Rule Out 03/26/2023 03/26/2023 03/26/2023 12:11 PM CHAIN FORMING MACHINE OPERATOR COVID-19 Rule Out 03/26/2023 03/26/2023 03/26/2023 1:39 PM CHAIN FORMING MACHINE OPERATOR COVID-19 Rule Out 04/01/2023 04/01/2023 04/01/2023 10:22 PM CHAIN FORMING MACHINE OPERATOR COVID-19 Rule Out 07/02/2023 07/02/2023 07/02/2023 1:03 PM CHAIN FORMING MACHINE OPERATOR COVID-19 Rule Out 07/09/2023 07/09/2023 07/09/2023 7:57 PM CHAIN FORMING MACHINE OPERATOR COVID-19 Rule Out 07/29/2023 07/29/2023 07/29/2023 7:23 PM CDT COVID-19 Rule Out 09/05/2023 09/05/2023 09/05/2023 1:30 PM CDT COVID-19 Rule Out 11/03/2023 11/03/2023 11/03/2023 3:34 PM CDT COVID-19 Rule Out 04/14/2024 04/14/2024 04/14/2024 1:53 PM CHAIN FORMING MACHINE OPERATOR Assessment Noted Time PHQ-9 Depression Total Score: 022 2:48 PM CDT documented as of this encounter Care Teams Merchant Police Relationship Specialty Start Date End Date Nuvia Prasad MD PCP - General INTERNAL MEDICINE 07/30/19 08/27/22 None, Provider, PCP - General UNKNOWN PHYSICIAN SPECIALTY 08/28/22 09/18/22 [place] [address] [facility]. [address] [place] [address] PCP - General FAMILY PRACTICE 09/19/22 documented as of this encounter
[2024-06-17 20:10] VITALS: BP 130/81; PULSE 100; RESP 16; TEMP 37; O2SAT 100
[2024-06-17 20:42] LABS: Strep Group A RT-PCR NOT DETECTED (Negative)
[2024-06-17 20:53] LABS: Influenza A QL RT-PCR Positive (Negative); Influenza B QL RT-PCR Negative (Negative); RSV RNA, RT-PCR Negative (Negative); SARS-CoV-2 RNA PCR Negative (Negative)
--- NOTE | 2024-06-17 22:01 | ED.URI ---
HPI - URI/Sore Throat General Chief Complaint: Upper Respiratory Infection Stated Complaint: cough, nausea, sore throat, headache Time Seen by Provider: 06/17/24 21:53 Source: patient Mode of arrival: ambulatory Limitations: no limitations History of Present Illness HPI Narrative: This is a 23-year-old female with PMH of EDS, fibromyalgia who presents to the ED for chief complaint of flu-like symptoms over the past 24 hours. Endorses cough, congestion, posttussive emesis. States that she spiked a fever of 101.5? F yesterday. Endorses headache, nausea and diarrhea as well. Related Data Allergies Allergy/AdvReac Type Severity Reaction Status Date / Time clindamycin Allergy Unknown Vomiting Verified 06/17/24 22:43 doxycycline Allergy Unknown Vomiting Verified 06/17/24 22:43 benzonatate Allergy Hives Verified 06/17/24 22:43 Review of Systems Review of Systems: All systems as dictated in HPI Exam Narrative: GENERAL: Well-appearing, well-nourished, and in no acute distress. HEAD: Normocephalic, atraumatic. EYES: PERRLA and EOMI. ENT: Nares clear, no rhinorrhea or epistaxis. Mucous membranes moist. Oropharynx without tonsillar hypertrophy exudate or other lesions. NECK: Supple. No adenopathy or masses. CHEST: No respiratory distress. Clear to auscultation. No wheezes rales or rhonchi HEART: Regular rate and rhythm. No murmur heard. Normal peripheral pulses. ABDOMEN: Soft, nontender, nondistended, normal active bowel sounds. MSK: Normal range of motion. No edema. SKIN: Warm, dry, no rash. NEURO: Alert and oriented x4. No focal deficits. PSYCH: Normal mood and affect. Course Vital Signs Vital signs: Vital Signs Temperature 98.6 F 06/17/24 20:10 Pulse Rate 100 06/17/24 20:10 Respiratory Rate 16 06/17/24 20:10 Blood Pressure 130/81 06/17/24 20:10 Pulse Oximetry 100 06/17/24 20:10 Temperature 98.6 F 06/17/24 20:10 Pulse Rate 100 06/17/24 20:10 Respiratory Rate 16 06/17/24 20:10 Blood Pressure 130/81 06/17/24 20:10 Pulse Oximetry 100 06/17/24 20:10 MDM - URI/Sore Throat MDM Narrative Medical decision making narrative: This is a 23-year-old female who presents to the ED for chief complaint of flu-like symptoms. Vitals are normal. Viral swabs positive for flu. Exam remarkable for the above. Her Rx for Tamiflu given as she is in the window for possible therapeutic benefit. Patient will be discharged in stable condition. Supportive measures discussed and return precautions given. Patient is understanding and agreeable with plan for discharge with PCP follow-up. Lab Data Labs: Lab Results 06/17/24 Range/Units 20:13 Influenza A (RT-PCR) Positive A (Negative) Influenza B (RT-PCR) Negative (Negative) RSV (RT-PCR) Negative (Negative) SARS-CoV-2 RNA (RT-PCR) Negative (Negative) Group A Strep (PCR) Not detected (Negative) Discharge Plan Discharge Clinical Impression: Influenza Patient Disposition: Home, Self-Care Condition: Stable Instructions: Antibiotic Form, Influenza (ED) Additional Instructions: Your exam today shows evidence of influenza. If you have any new or worsening symptoms please return to the ER for further evaluation. Patient Language: Taiwanese Prescriptions: New oseltamivir [Tamiflu] 75 mg capsule 75 mg PO Q12H 5 Days Qty: 10 0RF No Action ondansetron 4 mg tablet,disintegrating 4 mg PO Q8H PRN (Reason: nausea and vomiting) Qty: 10 0RF dicyclomine 20 mg tablet 20 mg PO QID PRN (Reason: abdominal discomfort) Qty: 20 0RF cephalexin 500 mg capsule 500 mg PO Q6H 7 Days Qty: 28 0RF methylprednisolone [Medrol (George)] 4 mg tablets,dose pack See Rx Instructions .ROUTE .COMPLEX Qty: 21 0RF Rx Instructions: for 6 days Follow-up/Referrals: Luis Felipe,MD Farzaneh [Primary Care Provider] - Stand Alone Forms: Work/School Release IP Time of Disposition: 22:53
--- NOTE | 2024-06-17 22:40 | PC.NURSE ---
Pt. reports allergy to benzonatate. Medication not administered and medication added to allergy list. Pt. refuses tylenol stating tylenol doesn't do lion shit for me.
[2024-06-17] MEDS: IBUPROFEN 400 MG TABLET 800 MG PO (22:42)
--- OUTSIDE RECORDS SUMMARY | 2024-06-17 23:22 | XMS_ITS | Encounter Summary ---
Author Organization [facility] Address [address] [place] [address] Care Team Providers Care Blast Furnace Helper Name Role Phone Farzaneh Briscoe MD Primary Care Provider [phone] Encounter Details Date Type Department Care Team (Late st Contact Info) Description 12/07/2022 [employer] Message Enc [facility] Medical Group Family & Internal Medicine [address] [address] [place]h [place]isco[place] [id number] [place] [address]. [address] [place] [address] Haematologist/Immuno logist Social History Tobacco Use Types [...] Sex Assigned at Female 06/14/2024 9:24 PM ASSEMBLER MOLDED FRAMES Legal Sex Female 5:01 PM CDT Gender Identity Female 06/14/2024 9:20 PM ASSEMBLER MOLDED FRAMES Sexual Orientation Straight 06/14/2024 9: 20 PM ASSEMBLER MOLDED FRAMES documented as of this encounter Functional Status [...] Description 01/21/2025 10:45 AM CDT [facility] [address] [place] [phone] Doyle Curry MD [facility] [address] [place] [address] documented as of this encounter Goals Goal Patient Goal Type Associated Problems Recent Progress Patient-Stated? Author Return home with mother Diet No Mayte Camacho [employer] SALES MANAGER documented as of this encounter Visit Diagnoses Not on filedocumented in this encounter Additional Health Concerns Infection Onset Date Last Indicated Resolved Time COVID-19 Rule Out 02/14/2023 02/14/2023 02/14/2023 2:15 PM CDT COVID-19 Rule Out 03/20/2023 03/20/2023 03/20/2023 10:27 AM ASSEMBLER MOLDED FRAMES COVID-19 Rule Out 03/20/2023 03/20/2023 03/20/2023 2:10 PM ASSEMBLER MOLDED FRAMES COVID-19 Rule Out 03/26/2023 03/26/2023 03/26/2023 12:11 PM ASSEMBLER MOLDED FRAMES COVID-19 Rule Out 03/26/2023 03/26/2023 03/26/2023 1:39 PM ASSEMBLER MOLDED FRAMES COVID-19 Rule Out 04/01/2023 04/01/2023 04/01/2023 10:22 PM ASSEMBLER MOLDED FRAMES COVID-19 Rule Out 07/02/2023 07/02/2023 07/02/2023 1:03 PM ASSEMBLER MOLDED FRAMES COVID-19 Rule Out 07/09/2023 07/09/2023 07/09/2023 7:57 PM ASSEMBLER MOLDED FRAMES COVID-19 Rule Out 07/29/2023 07/29/2023 07/29/2023 7:23 PM CDT COVID-19 Rule Out 09/05/2023 09/05/2023 09/05/2023 1:30 PM CDT COVID-19 Rule Out 11/03/2023 11/03/2023 11/03/2023 3:34 PM CDT COVID-19 Rule Out 04/14/2024 04/14/2024 04/14/2024 1:53 PM ASSEMBLER MOLDED FRAMES Assessment Noted Time PHQ-9 Depression Total Score: 023 3:00 PM ASSEMBLER MOLDED FRAMES documented as of this encounter Care Teams Blast Furnace Helper Relationship Specialty [place] [address] [address] [place] [address] PCP - General FAMILY PRACTICE 09/19/22 documented as of this encounter
--- OUTSIDE RECORDS SUMMARY | 2024-06-17 23:22 | XMS_ITS | Encounter Summary ---
Author Organization [facility] Address [address] [place] [address] Care Team Providers Care Trimmer Operator Three Knife Name Role Phone Farzaneh Briscoe MD Primary Care Provider [phone] Encounter Details Date Type Department Care Team (Late st Contact Info) Description 10/25/2022 [employer] Message Enc [facility] Medical Group Family & Internal Medicine [address] [address] [facility] Provider lab results Social History Tobacco Use [...] Sex Assigned at Female 06/14/2024 9:24 PM TIRE INSPECTOR Legal Sex Female 5:01 PM CDT Gender Identity Female 06/14/2024 9:20 PM TIRE INSPECTOR Sexual Orientation Straight 06/14/2024 9: 20 PM TIRE INSPECTOR COVID-19 Exposure Response Date Recorded In [...] Description 01/21/2025 10:45 AM CDT Office Visit [facility] [phone] [place] [phone] Doyle Curry MD [address] [address] documented as of this encounter Goals Goal Patient Goal Type Associated Problems Recent Progress Patient-Stated? Author Return home with mother Diet No Mayte Camacho SCARFING MACHINE OPERATOR documented as of this encounter Visit Diagnoses Not on filedocumented in this encounter Additional Health Concerns Infection Onset Date Last Indicated Resolved Time COVID-19 Rule Out 12/02/2022 12/02/2022 12/02/2022 1:15 PM CDT COVID-19 Rule Out 02/14/2023 02/14/2023 02/14/2023 2:15 PM CDT COVID-19 Rule Out 03/20/2023 03/20/2023 03/20/2023 10:27 AM TIRE INSPECTOR COVID-19 Rule Out 03/20/2023 03/20/2023 03/20/2023 2:10 PM TIRE INSPECTOR COVID-19 Rule Out 03/26/2023 03/26/2023 03/26/2023 12:11 PM TIRE INSPECTOR COVID-19 Rule Out 03/26/2023 03/26/2023 03/26/2023 1:39 PM TIRE INSPECTOR COVID-19 Rule Out 04/01/2023 04/01/2023 04/01/2023 10:22 PM TIRE INSPECTOR COVID-19 Rule Out 07/02/2023 07/02/2023 07/02/2023 1:03 PM TIRE INSPECTOR COVID-19 Rule Out 07/09/2023 07/09/2023 07/09/2023 7:57 PM TIRE INSPECTOR COVID-19 Rule Out 07/29/2023 07/29/2023 07/29/2023 7:23 PM CDT COVID-19 Rule Out 09/05/2023 09/05/2023 09/05/2023 1:30 PM CDT COVID-19 Rule Out 11/03/2023 11/03/2023 11/03/2023 3:34 PM CDT COVID-19 Rule Out 04/14/2024 04/14/2024 04/14/2024 1:53 PM TIRE INSPECTOR Assessment Noted Time PHQ-9 Depression Total Score: 023 3:00 PM TIRE INSPECTOR documented as of this encounter Care Teams Trimmer Operator Three Knife Relationship Specialty [place] [address] [facility] [address] [place] [address] PCP - General FAMILY PRACTICE 09/19/22 documented as of this encounter
--- OUTSIDE RECORDS SUMMARY | 2024-06-17 23:22 | XMS_ITS | Encounter Summary ---
Author Organization [facility] Address [address] [place] [address] Care Team Providers Care Cloth Neutralizer Name Role Phone Farzaneh Briscoe MD Primary Care Provider [phone] Encounter Details Date Type Department Care Team (Late st Contact Info) Description 01/01/2023 [employer] Message Enc [facility] Medical Group Family & Internal Medicine [facility] [address] [place] [phone] Farzaneh Briscoe [place] [phone] [place] [address]. [address] [place] [address] For why? Social History Tobacco Use Types [...] Sex Assigned at Female 06/14/2024 9:24 PM NUCLEAR SUPERVISING OPERATOR Legal Sex Female 5:01 PM CDT Gender Identity Female 06/14/2024 9:20 PM NUCLEAR SUPERVISING OPERATOR Sexual Orientation Straight 06/14/2024 9: 20 PM NUCLEAR SUPERVISING OPERATOR documented as of this encounter Functional [...] AM CDT Office Visit [facility] [address] [phone] Doyle Curry MD [address] [address] documented as of this encounter Goals Goal [...] Rule Out 03/20/2023 03/20/2023 03/20/2023 10:27 AM NUCLEAR SUPERVISING OPERATOR COVID-19 Rule Out 03/20/2023 03/20/2023 03/20/2023 2:10 PM NUCLEAR SUPERVISING OPERATOR COVID-19 Rule Out 03/26/2023 03/26/2023 03/26/2023 12:11 PM NUCLEAR SUPERVISING OPERATOR COVID-19 Rule Out 03/26/2023 03/26/2023 03/26/2023 1:39 PM NUCLEAR SUPERVISING OPERATOR COVID-19 Rule Out 04/01/2023 04/01/2023 04/01/2023 10:22 PM NUCLEAR SUPERVISING OPERATOR COVID-19 Rule Out 07/02/2023 07/02/2023 07/02/2023 1:03 PM NUCLEAR SUPERVISING OPERATOR COVID-19 Rule Out 07/09/2023 07/09/2023 07/09/2023 7:57 PM NUCLEAR SUPERVISING OPERATOR COVID-19 Rule Out 07/29/2023 07/29/2023 07/29/2023 7:23 PM CDT COVID-19 Rule Out 09/05/2023 09/05/2023 09/05/2023 1:30 PM CDT COVID-19 Rule Out 11/03/2023 11/03/2023 11/03/2023 3:34 PM CDT COVID-19 Rule Out 04/14/2024 04/14/2024 04/14/2024 1:53 PM NUCLEAR SUPERVISING OPERATOR Assessment Noted Time PHQ-9 Depression Total Score: 12 023 3:00 PM NUCLEAR SUPERVISING OPERATOR documented as of this encounter Care Teams Cloth Neutralizer Relationship Specialty [place] [address] [address] [place] [address] PCP - General FAMILY PRACTICE 09/19/22 documented as of this encounter
--- OUTSIDE RECORDS SUMMARY | 2024-06-17 23:22 | XMS_ITS | Encounter Summary ---
Author Organization [facility] Address [address] [place] [address] Care Team Providers Care Cash Applications Analyst Name Role Phone Farzaneh Briscoe MD Primary Care Provider [phone] Encounter Details Date Type Department Care Team (Late st Contact Info) Description 12/05/2022 [employer] Message Enc [facility] Medical Group Family & Internal Medicine [facility] [address] [place] [phone] Farzaneh Briscoe [place] [phone] [place] [address]. [address] [place] [phone] Should i just give up eating n [...] Sex Assigned at Female 06/14/2024 9:24 PM CRTTS Legal Sex Female 5:01 PM CDT Gender Identity Female 06/14/2024 9:20 PM CRTTS Sexual Orientation Straight 06/14/2024 9: 20 PM CRTTS documented as of this encounter Functional Status [...] Description 01/21/2025 10:45 AM CDT Office Visit [facility] [address] [place] [phone] Doyle Curry MD Three [facility]. [facility] [address] [place] [address] documented as of this encounter Goals Goal Patient Goal Type Associated Problems Recent Progress Patient-Stated? Author Return home with mother Diet No Mayte Camacho CHIEF ARCHITECT documented as of this encounter Visit Diagnoses Not on filedocumented in this encounter Additional Health Concerns Infection Onset Date Last Indicated Resolved Time COVID-19 Rule Out 02/14/2023 02/14/2023 02/14/2023 2:15 PM CDT COVID-19 Rule Out 03/20/2023 03/20/2023 03/20/2023 10:27 AM CRTTS COVID-19 Rule Out 03/20/2023 03/20/2023 03/20/2023 2:10 PM CRTTS COVID-19 Rule Out 03/26/2023 03/26/2023 03/26/2023 12:11 PM CRTTS COVID-19 Rule Out 03/26/2023 03/26/2023 03/26/2023 1:39 PM CRTTS COVID-19 Rule Out 04/01/2023 04/01/2023 04/01/2023 10:22 PM CRTTS COVID-19 Rule Out 07/02/2023 07/02/2023 07/02/2023 1:03 PM CRTTS COVID-19 Rule Out 07/09/2023 07/09/2023 07/09/2023 7:57 PM CRTTS COVID-19 Rule Out 07/29/2023 07/29/2023 07/29/2023 7:23 PM CDT COVID-19 Rule Out 09/05/2023 09/05/2023 09/05/2023 1:30 PM CDT COVID-19 Rule Out 11/03/2023 11/03/2023 11/03/2023 3:34 PM CDT COVID-19 Rule Out 04/14/2024 04/14/2024 04/14/2024 1:53 PM CRTTS Assessment Noted Time PHQ-9 Depression Total Score: 12 023 3:00 PM CRTTS documented as of this encounter Care Teams Cash Applications Analyst Relationship Specialty [place] [address] [facility] [address] [place] [address] PCP - General FAMILY PRACTICE 09/19/22 documented as of this encounter
--- OUTSIDE RECORDS SUMMARY | 2024-06-17 23:22 | XMS_ITS | Encounter Summary ---
Author Organization [facility] Address [facility] [place] [address] Care Team Providers Care Vp Of Marketing Name Role Phone None, Provider Primary Care Provider Farzaneh Chavez MD Primary Care Provider [phone] Encounter Details Date Type Department Care Team (Latest Contact Info) Description 08/31/2022 [employer] Message [facility] [address] [place] [phone] Esmer Joseph NP Chest pain?? I dont [...] Sex Assigned at Female 06/14/2024 9:24 PM COP Legal Sex Female 5:01 PM CDT Gender Identity Female 06/14/2024 9:20 PM COP Sexual Orientation Straight 06/14/2024 9: 20 PM COP COVID-19 Exposure Response Date Recorded In the [...] Description 01/21/2025 10:45 AM CDT Office [facility] [address] [place] [phone] Doyle Curry MD [place] [address] [place] [address] documented as of this encounter Goals Goal Patient Goal Type Associated Problems Recent Progress Patient-Stated? Author Return home with mother Diet No Mayte Camacho HORTICULTURAL TECHNICAL OFFICER documented as of this encounter Visit Diagnoses Not on filedocumented in this encounter Additional Health Concerns Infection Onset Date Last Indicated Resolved Time COVID-19 Rule Out 09/26/2022 09/26/2022 09/26/2022 11:47 AM CDT COVID-19 Rule Out 12/02/2022 12/02/2022 12/02/2022 1:15 PM CDT COVID-19 Rule Out 02/14/2023 02/14/2023 02/14/2023 2:15 PM CDT COVID-19 Rule Out 03/20/2023 03/20/2023 03/20/2023 10:27 AM COP COVID-19 Rule Out 03/20/2023 03/20/2023 03/20/2023 2:10 PM COP COVID-19 Rule Out 03/26/2023 03/26/2023 03/26/2023 12:11 PM COP COVID-19 Rule Out 03/26/2023 03/26/2023 03/26/2023 1:39 PM COP COVID-19 Rule Out 04/01/2023 04/01/2023 04/01/2023 10:22 PM COP COVID-19 Rule Out 07/02/2023 07/02/2023 07/02/2023 1:03 PM COP COVID-19 Rule Out 07/09/2023 07/09/2023 07/09/2023 7:57 PM COP COVID-19 Rule Out 07/29/2023 07/29/2023 07/29/2023 7:23 PM CDT COVID-19 Rule Out 09/05/2023 09/05/2023 09/05/2023 1:30 PM CDT COVID-19 Rule Out 11/03/2023 11/03/2023 11/03/2023 3:34 PM CDT COVID-19 Rule Out 04/14/2024 04/14/2024 04/14/2024 1:53 PM COP Assessment Noted Time PHQ-9 Depression Total Score: 023 3:00 PM COP documented as of this encounter Care Teams Vp Of Marketing Relationship Specialty Start Date End Date None, Provider, PCP - General UNKNOWN PHYSICIAN SPECIALTY 08/28/22 09/18/22 [place] [address] [facility] [place] [address] PCP - General FAMILY PRACTICE 09/19/22 documented as of this encounter
--- OUTSIDE RECORDS SUMMARY | 2024-06-17 23:22 | XMS_ITS | Encounter Summary ---
Author Organization [facility] Address [address] [place] [address] Care Team Providers Care Neonatologist Name Role Phone Farzaneh Briscoe MD Primary Care Provider Encounter Details Date Type Department Care Team (Late st Contact Info) Description 10/18/2022 [employer] Message Enc [facility] Medical Group Family & Internal Medicine - [place] [address] [place] [phone] Farzaneh Briscoe [place] [phone] [place] [address]. [address] [place] [phone] Period clot its huge and I'm passing [...] Sex Assigned at Female 06/14/2024 9:24 PM PLOW SHAKER Legal Sex Female 5:01 PM CDT Gender Identity Female 06/14/2024 9:20 PM PLOW SHAKER Sexual Orientation Straight 06/14/2024 9: 20 PM PLOW SHAKER COVID-19 Exposure Response Date Recorded In the [...] Description 01/21/2025 10:45 AM CDT [facility] [address] [place] [phone] Doyle Curry MD [facility] [address] [place] [address] documented as of this encounter Goals Goal Patient Goal Type Associated Problems Recent Progress Patient-Stated? Author Return home with mother Diet No Mayte Camacho NAILING MACHINE OPERATOR AUTOMATIC documented as of this encounter Visit Diagnoses Not on filedocumented in this encounter Additional Health Concerns Infection Onset Date Last Indicated Resolved Time COVID-19 Rule Out 12/02/2022 12/02/2022 12/02/2022 1:15 PM CDT COVID-19 Rule Out 02/14/2023 02/14/2023 02/14/2023 2:15 PM CDT COVID-19 Rule Out 03/20/2023 03/20/2023 03/20/2023 10:27 AM PLOW SHAKER COVID-19 Rule Out 03/20/2023 03/20/2023 03/20/2023 2:10 PM PLOW SHAKER COVID-19 Rule Out 03/26/2023 03/26/2023 03/26/2023 12:11 PM PLOW SHAKER COVID-19 Rule Out 03/26/2023 03/26/2023 03/26/2023 1:39 PM PLOW SHAKER COVID-19 Rule Out 04/01/2023 04/01/2023 04/01/2023 10:22 PM PLOW SHAKER COVID-19 Rule Out 07/02/2023 07/02/2023 07/02/2023 1:03 PM PLOW SHAKER COVID-19 Rule Out 07/09/2023 07/09/2023 07/09/2023 7:57 PM PLOW SHAKER COVID-19 Rule Out 07/29/2023 07/29/2023 07/29/2023 7:23 PM CDT COVID-19 Rule Out 09/05/2023 09/05/2023 09/05/2023 1:30 PM CDT COVID-19 Rule Out 11/03/2023 11/03/2023 11/03/2023 3:34 PM CDT COVID-19 Rule Out 04/14/2024 04/14/2024 04/14/2024 1:53 PM PLOW SHAKER Assessment Noted Time PHQ-9 Depression Total Score: 12 07/01/2 023 3:00 PM PLOW SHAKER documented as of this encounter Care Teams Neonatologist Relationship Specialty [place] [address] [address] [place] [address] PCP - General FAMILY PRACTICE 09/19/22 documented as of this encounter
--- OUTSIDE RECORDS SUMMARY | 2024-06-17 23:22 | XMS_ITS | Encounter Summary ---
Author Organization [facility] Address [address] [place] [address] Care Team Providers Care Sedimentationist Name Role Phone Farzaneh Briscoe MD Primary Care Provider [phone] Encounter Details Date Type Department Care Team (Late st Contact Info) Description 02/21/2023 [employer] Message Enc [facility] Medical Group Family & Internal Medicine [address] [phone] Farzaneh Briscoe [place] [phone] [place] [address]. [address] [place] [address] I dont have a phone number rn [...] Sex Assigned at Female 06/14/2024 9:24 PM ELECTRIC UTILITY LINEWORKER Legal Sex Female 5:01 PM CDT Gender Identity Female 06/14/2024 9:20 PM ELECTRIC UTILITY LINEWORKER Sexual Orientation Straight 06/14/2024 9: 20 PM ELECTRIC UTILITY LINEWORKER documented as of this encounter Functional Status [...] Description 01/21/2025 10:45 AM CDT Office Visit [facility] [address] [place] [phone] Doyle Curry MD [facility] [address] [place] [address] documented as of this encounter Goals Goal Patient Goal Type Associated Problems Recent Progress Patient-Stated? Author Return home with mother Diet No JaniceMayte, CORE CUTTER AND REAMER documented as of this encounter Visit Diagnoses Not on filedocumented in this encounter Additional Health Concerns Infection Onset Date Last Indicated Resolved Time COVID-19 Rule Out 03/20/2023 03/20/2023 03/20/2023 10:27 AM ELECTRIC UTILITY LINEWORKER COVID-19 Rule Out 03/20/2023 03/20/2023 03/20/2023 2:10 PM ELECTRIC UTILITY LINEWORKER COVID-19 Rule Out 03/26/2023 03/26/2023 03/26/2023 12:11 PM ELECTRIC UTILITY LINEWORKER COVID-19 Rule Out 03/26/2023 03/26/2023 03/26/2023 1:39 PM ELECTRIC UTILITY LINEWORKER COVID-19 Rule Out 04/01/2023 04/01/2023 04/01/2023 10:22 PM ELECTRIC UTILITY LINEWORKER COVID-19 Rule Out 07/02/2023 07/02/2023 07/02/2023 1:03 PM ELECTRIC UTILITY LINEWORKER COVID-19 Rule Out 07/09/2023 07/09/2023 07/09/2023 7:57 PM ELECTRIC UTILITY LINEWORKER COVID-19 Rule Out 07/29/2023 07/29/2023 07/29/2023 7:23 PM CDT COVID-19 Rule Out 09/05/2023 09/05/2023 09/05/2023 1:30 PM CDT COVID-19 Rule Out 11/03/2023 11/03/2023 11/03/2023 3:34 PM CDT COVID-19 Rule Out 04/14/2024 04/14/2024 04/14/2024 1:53 PM ELECTRIC UTILITY LINEWORKER Assessment Noted Time PHQ-9 Depression Total Score: 12 023 3:00 PM ELECTRIC UTILITY LINEWORKER documented as of this encounter Care Teams Sedimentationist Relationship Specialty [place] [address] [address] [place] [address] PCP - General FAMILY PRACTICE 09/19/22 documented as of this encounter
--- OUTSIDE RECORDS SUMMARY | 2024-06-17 23:23 | XMS_ITS | Encounter Summary ---
Author Organization [facility] Address [address] [place] [address] Care Team Providers Care Rubber Turner Name Role Phone Nuvia Prasad MD Primary Care Provider [phone] None, Provider Primary Care Provider Austina Farzaneh Lancaster MD Primary Care Provider [phone] Encounter Details Date Type Department Care Team (Late st Contact Info) Description 08/16/2020 WARSTUFF Message [facility] [address] [place] [address] [facility] Provider Results Social History Tobacco Use Types [...] Sex Assigned at Female 06/14/2024 9:24 PM MANAGER IT SECURITY Legal Sex Female 5:01 PM CDT Gender Identity Female 06/14/2024 9:20 PM MANAGER IT SECURITY Sexual Orientation Straight 06/14/2024 9: 20 PM MANAGER IT SECURITY COVID-19 Exposure Response Date Recorded In the [...] Description 01/21/2025 10:45 AM CDT [facility] [address] [place] [phone] Doyle Curry MD [facility]. [address] [place] [address] documented as of this encounter Goals Goal Patient Goal Type Associated Problems Recent Progress Patient-Stated? Author Return home with mother Diet No Mayte Camacho LAND RECLAMATION SPECIALIST documented as of this encounter Visit [...] Rule Out 04/24/2022 04/24/2022 04/24/2022 3:01 PM MANAGER IT SECURITY COVID-19 Rule Out 05/09/2022 05/09/2022 05/09/2022 7:47 PM MANAGER IT SECURITY COVID-19 Rule Out 05/29/2022 05/29/2022 05/29/2022 1:46 PM MANAGER IT SECURITY COVID-19 Rule Out 05/29/2022 05/29/2022 05/30/2022 6:46 PM MANAGER IT SECURITY COVID-19 Rule Out 07/05/2022 07/05/2022 07/05/2022 7:45 PM MANAGER IT SECURITY COVID-19 Rule Out 08/30/2022 08/30/2022 08/30/2022 2:37 PM CDT COVID-19 Rule Out 09/26/2022 09/26/2022 09/26/2022 11:47 AM CDT COVID-19 Rule Out 12/02/2022 12/02/2022 12/02/2022 1:15 PM CDT COVID-19 Rule Out 02/14/2023 02/14/2023 02/14/2023 2:15 PM CDT COVID-19 Rule Out 03/20/2023 03/20/2023 03/20/2023 10:27 AM MANAGER IT SECURITY COVID-19 Rule Out 03/20/2023 03/20/2023 03/20/2023 2:10 PM MANAGER IT SECURITY COVID-19 Rule Out 03/26/2023 03/26/2023 03/26/2023 12:11 PM MANAGER IT SECURITY COVID-19 Rule Out 03/26/2023 03/26/2023 03/26/2023 1:39 PM MANAGER IT SECURITY COVID-19 Rule Out 04/01/2023 04/01/2023 04/01/2023 10:22 PM MANAGER IT SECURITY COVID-19 Rule Out 07/02/2023 07/02/2023 07/02/2023 1:03 PM MANAGER IT SECURITY COVID-19 Rule Out 07/09/2023 07/09/2023 07/09/2023 7:57 PM MANAGER IT SECURITY COVID-19 Rule Out 07/29/2023 07/29/2023 07/29/2023 7:23 PM CDT COVID-19 Rule Out 09/05/2023 09/05/2023 09/05/2023 1:30 PM CDT COVID-19 Rule Out 11/03/2023 11/03/2023 11/03/2023 3:34 PM CDT COVID-19 Rule Out 04/14/2024 04/14/2024 04/14/2024 1:53 PM MANAGER IT SECURITY Assessment Noted Time PHQ-9 Depression Total Score: 14 07/15/2 020 4:53 PM CDT documented as of this encounter Care Teams Rubber Turner Relationship Specialty Start Date End Date Nuvia Prasad MD PCP - General INTERNAL MEDICINE 07/30/19 08/27/22 None, ProviderMD PCP - General UNKNOWN PHYSICIAN SPECIALTY 08/28/22 09/18/22 [place] [address] [facility]. [address] [place] [address] PCP - General FAMILY PRACTICE 09/19/22 documented as of this encounter
--- OUTSIDE RECORDS SUMMARY | 2024-06-17 23:23 | XMS_ITS | Encounter Summary ---
Author Organization [facility] Address [address] [place] [address] Care Team Providers Care Cloud Services Architect Name Role Phone Nuvia Prasad MD Primary Care Provider [phone] None, Provider Primary Care Provider Unavaila Farzaneh Lancaster MD Primary Care Provider [phone] Encounter Details Date Type Department Care Team (Late st Contact Info) Description 07/24/2021 [employer] Inter[employer] Message Enc [facility] Family & Internal Medicine [facility] [address] [place] [address] [place] [id number] [place] [id number] Blood Test Social History Tobacco Use [...] Sex Assigned at Female 06/14/2024 9:24 PM REVENUE DIRECTOR Legal Sex Female 5:01 PM CDT Gender Identity Female 06/14/2024 9:20 PM REVENUE DIRECTOR Sexual Orientation Straight 06/14/2024 9: 20 PM REVENUE DIRECTOR COVID-19 Exposure Response Date Recorded In the [...] Description 01/21/2025 10:45 AM CDT Office Visit [facility] [address] [place] [address] Doyle Curry MD [facility] [address] [place] [address] documented as of this encounter Goals Goal Patient Goal Type Associated Problems Recent Progress Patient-Stated? Author Return home with mother Diet No JaniceMayte, BOARD LINER OPERATOR documented as of this encounter Visit Diagnoses Not on filedocumented in this encounter Additional Health Concerns Infection Onset Date Last Indicated Resolved Time COVID-19 Rule Out 10/15/2021 10/15/2021 10/15/2021 1:34 PM CDT COVID-19 Rule Out 10/15/2021 10/15/2021 10/16/2021 7:02 PM CDT COVID-19 Rule Out 01/30/2022 01/30/2022 01/30/2022 9:59 AM CDT COVID-19 Rule Out 04/24/2022 04/24/2022 04/24/2022 3:01 PM REVENUE DIRECTOR COVID-19 Rule Out 05/09/2022 05/09/2022 05/09/2022 7:47 PM REVENUE DIRECTOR COVID-19 Rule Out 05/29/2022 05/29/2022 05/29/2022 1:46 PM REVENUE DIRECTOR COVID-19 Rule Out 05/29/2022 05/29/2022 05/30/2022 6:46 PM REVENUE DIRECTOR COVID-19 Rule Out 07/05/2022 07/05/2022 07/05/2022 7:45 PM REVENUE DIRECTOR COVID-19 Rule Out 08/30/2022 08/30/2022 08/30/2022 2:37 PM CDT COVID-19 Rule Out 09/26/2022 09/26/2022 09/26/2022 11:47 AM CDT COVID-19 Rule Out 12/02/2022 12/02/2022 12/02/2022 1:15 PM CDT COVID-19 Rule Out 02/14/2023 02/14/2023 02/14/2023 2:15 PM CDT COVID-19 Rule Out 03/20/2023 03/20/2023 03/20/2023 10:27 AM REVENUE DIRECTOR COVID-19 Rule Out 03/20/2023 03/20/2023 03/20/2023 2:10 PM REVENUE DIRECTOR COVID-19 Rule Out 03/26/2023 03/26/2023 03/26/2023 12:11 PM REVENUE DIRECTOR COVID-19 Rule Out 03/26/2023 03/26/2023 03/26/2023 1:39 PM REVENUE DIRECTOR COVID-19 Rule Out 04/01/2023 04/01/2023 04/01/2023 10:22 PM REVENUE DIRECTOR COVID-19 Rule Out 07/02/2023 07/02/2023 07/02/2023 1:03 PM REVENUE DIRECTOR COVID-19 Rule Out 07/09/2023 07/09/2023 07/09/2023 7:57 PM REVENUE DIRECTOR COVID-19 Rule Out 07/29/2023 07/29/2023 07/29/2023 7:23 PM CDT COVID-19 Rule Out 09/05/2023 09/05/2023 09/05/2023 1:30 PM CDT COVID-19 Rule Out 11/03/2023 11/03/2023 11/03/2023 3:34 PM CDT COVID-19 Rule Out 04/14/2024 04/14/2024 04/14/2024 1:53 PM REVENUE DIRECTOR Assessment Noted Time PHQ-9 Depression Total Score: 2 07/03/19 11:15 AM REVENUE DIRECTOR documented as of this encounter Care Teams Cloud Services Architect Relationship Specialty Start Date End Date Nuvia Prasad MD PCP - General INTERNAL MEDICINE 07/30/19 08/27/22 None, Provider, PCP - General UNKNOWN PHYSICIAN SPECIALTY 08/28/22 09/18/22 [place] [address] [facility] [address] [place] [address] PCP - General FAMILY PRACTICE 09/19/22 documented as of this encounter
--- OUTSIDE RECORDS SUMMARY | 2024-06-17 23:23 | XMS_ITS | Encounter Summary ---
Author Organization [facility] Address [address] [place] [address] Care Team Providers Care Slater Apprentice Name Role Phone Farzaneh Briscoe MD Primary Care Provider [phone] Encounter Details Date Type Department Care Team (Late st Contact Info) Description 11/06/2022 Cogito Message Enc [facility] Medical Group Family & Internal Medicine [facility] [id number] [place] [phone] [place] [phone] [place] [address]. [address] [place] [address] Grass card Social History Tobacco Use Types [...] Sex Assigned at Female 06/14/2024 9:24 PM SACK SEWER Legal Sex Female 5:01 PM CDT Gender Identity Female 06/14/2024 9:20 PM SACK SEWER Sexual Orientation Straight 06/14/2024 9: 20 PM SACK SEWER COVID-19 Exposure Response Date Recorded In the [...] Description 01/21/2025 10:45 AM CDT [facility] [address] [place] [phone] Doyle Curry MD [facility]. [facility] [address] [place] [address] [phone] (work) documented as of this encounter Goals Goal Patient Goal Type Associated Problems Recent Progress Patient-Stated? Author Return home with mother Mayte Brady, DINKEY LOCOMOTIVE ENGINEER documented as of this encounter Visit Diagnoses Not on filedocumented in this encounter Additional Health Concerns Infection Onset Date Last Indicated Resolved Time COVID-19 Rule Out 12/02/2022 12/02/2022 12/02/2022 1:15 PM CDT COVID-19 Rule Out 02/14/2023 02/14/2023 02/14/2023 2:15 PM CDT COVID-19 Rule Out 03/20/2023 03/20/2023 03/20/2023 10:27 AM SACK SEWER COVID-19 Rule Out 03/20/2023 03/20/2023 03/20/2023 2:10 PM SACK SEWER COVID-19 Rule Out 03/26/2023 03/26/2023 03/26/2023 12:11 PM SACK SEWER COVID-19 Rule Out 03/26/2023 03/26/2023 03/26/2023 1:39 PM SACK SEWER COVID-19 Rule Out 04/01/2023 04/01/2023 04/01/2023 10:22 PM SACK SEWER COVID-19 Rule Out 07/02/2023 07/02/2023 07/02/2023 1:03 PM SACK SEWER COVID-19 Rule Out 07/09/2023 07/09/2023 07/09/2023 7:57 PM SACK SEWER COVID-19 Rule Out 07/29/2023 07/29/2023 07/29/2023 7:23 PM CDT COVID-19 Rule Out 09/05/2023 09/05/2023 09/05/2023 1:30 PM CDT COVID-19 Rule Out 11/03/2023 11/03/2023 11/03/2023 3:34 PM CDT COVID-19 Rule Out 04/14/2024 04/14/2024 04/14/2024 1:53 PM SACK SEWER Assessment Noted Time PHQ-9 Depression Total Score: 12 07/01/2 023 3:00 PM SACK SEWER documented as of this encounter Care Teams Slater Apprentice Relationship Specialty Start [place] [address] [address] [place] [address] PCP - General FAMILY PRACTICE 09/19/22 documented as of this encounter
--- OUTSIDE RECORDS SUMMARY | 2024-06-17 23:23 | XMS_ITS | Encounter Summary ---
Author Organization [facility] Address [address] [place] [address] Care Team Providers Care Blunger Loader Name Role Phone Farzaneh Briscoe MD Primary Care Provider [phone] Encounter Details Date Type Department Care Team (Late st Contact Info) Description 07/13/2023 [employer] Message Enc [facility] Medical Group Family & Internal Medicine [facility] [phone] [place] [phone] [place] [phone] [place] [address]. [address] [place] [address] This one isnt actually for me sorry [...] Sex Assigned at Female 06/14/2024 9:24 PM CUSTODIAL WORKER Legal Sex Female 5:01 PM CDT Gender Identity Female 06/14/2024 9:20 PM CUSTODIAL WORKER Sexual Orientation Straight 06/14/2024 9: 20 PM CUSTODIAL WORKER documented as of this encounter Functional Status [...] Description 01/21/2025 10:45 AM CDT Office Visit [facility] [id number] [place] [phone] Doyle Curry MD [address] [address] documented as of this encounter Goals Goal Patient Goal Type Associated Problems Recent Progress Patient-Stated? Author Return home with mother Diet No Mayte Camacho COUNTY DIRECTOR documented as of this encounter Visit Diagnoses Not on filedocumented in this encounter Additional Health Concerns Infection Onset Date Last Indicated Resolved Time COVID-19 Rule Out 07/29/2023 07/29/2023 07/29/2023 7:23 PM CDT COVID-19 Rule Out 09/05/2023 09/05/2023 09/05/2023 1:30 PM CDT COVID-19 Rule Out 11/03/2023 11/03/2023 11/03/2023 3:34 PM CDT COVID-19 Rule Out 04/14/2024 04/14/2024 04/14/2024 1:53 PM CUSTODIAL WORKER Assessment Noted Time PHQ-9 Depression Total Score: 024 3:58 PM CUSTODIAL WORKER documented as of this encounter Care Teams Blunger Loader Relationship Specialty Start [place] [address] [facility] [address] [place] [address] PCP - General FAMILY PRACTICE 09/19/22 documented as of this encounter
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
--- OUTSIDE RECORDS SUMMARY | 2024-06-17 23:23 | XMS_ITS | Encounter Summary ---
Author Organization [facility] Address [address] [place] [address] Care Team Providers Care Storekeeper Helper Name Role Phone Farzaneh Briscoe MD Primary Care Provider [phone] Encounter Details Date Type Department Care Team (Latest Contact Info) Description 05/26/2023 Canary Message Enc [facility] G[facility]ology [facility]ty [facility] [address] [address] Patrice Miranda MD [address] [place] [phone] I'm not having a colonoscopy only the [...] Sex Assigned at Female 06/14/2024 9:24 PM SWEATBAND MAKER Legal Sex Female 5:01 PM CDT Gender Identity Female 06/14/2024 9:20 PM SWEATBAND MAKER Sexual Orientation Straight 06/14/2024 9: 20 PM SWEATBAND MAKER documented as of this encounter Functional Status [...] Description 01/21/2025 10:45 AM CDT Office Visit [facility] [id number] [place] [phone] Doyle Curry MD [address] [address] documented as of this encounter Goals Goal Patient Goal Type Associated Problems Recent Progress Patient-Stated? Author Return home with mother Diet No Mayte Camacho FORMAT PROOFREADER documented as of this encounter Visit Diagnoses Not on filedocumented in this encounter Additional Health Concerns Infection Onset Date Last Indicated Resolved Time COVID-19 Rule Out 07/02/2023 07/02/2023 07/02/2023 1:03 PM SWEATBAND MAKER COVID-19 Rule Out 07/09/2023 07/09/2023 07/09/2023 7:57 PM SWEATBAND MAKER COVID-19 Rule Out 07/29/2023 07/29/2023 07/29/2023 7:23 PM CDT COVID-19 Rule Out 09/05/2023 09/05/2023 09/05/2023 1:30 PM CDT COVID-19 Rule Out 11/03/2023 11/03/2023 11/03/2023 3:34 PM CDT COVID-19 Rule Out 04/14/2024 04/14/2024 04/14/2024 1:53 PM SWEATBAND MAKER Assessment Noted Time PHQ-9 Depression Total Score: 024 3:58 PM SWEATBAND MAKER documented as of this encounter Care Teams Storekeeper Helper Relationship Specialty [place] [address] [place] [address] PCP - General FAMILY PRACTICE 09/19/22 documented as of this encounter
--- OUTSIDE RECORDS SUMMARY | 2024-06-17 23:23 | XMS_ITS | Encounter Summary ---
Author Organization [facility] Address [address] [place] [address] Care Team Providers Care Health Unit Coordinator Name Role Phone Farzaneh Briscoe MD Primary Care Provider [phone] Encounter Details Date Type Department Care Team (Late st Contact Info) Description 12/25/2023 BlockSpring Message Enc [facility] Medical Group Family & Internal Medicine [address] [address] [place] [id number] [place] [address]. [address] [place] [address] Rattle? Social History Tobacco Use Types Packs/Day [...] Assigned at Female 06/14/2024 9:24 PM SENIOR ESCROW OFFICER Legal Sex Female 5:01 PM CDT Gender Identity Female 06/14/2024 9:20 PM SENIOR ESCROW OFFICER Sexual Orientation Straight 06/14/2024 9: 20 PM SENIOR ESCROW OFFICER documented as of this encounter Functional Status [...] Description 01/21/2025 10:45 AM CDT Office Visit [facility] [address] [phone] Doyle Curry MD [address] [address] documented as of this encounter Goals Goal Patient Goal Type Associated Problems Recent Progress Patient-Stated? Author Return home with mother Diet No Mayte Camacho MSW documented as of this encounter Visit Diagnoses Not on filedocumented in this encounter Additional Health Concerns Infection Onset Date Last Indicated Resolved Time COVID-19 Rule Out 04/14/2024 04/14/2024 04/14/2024 1:53 PM SENIOR ESCROW OFFICER Assessment Noted Time PHQ-9 Depression Total Score: 20 0418/2 024 12:53 PM CDT documented as of this encounter Care Teams Health Unit Coordinator Relationship Specialty Start [place] [address] [address] [place], [place] [id number] PCP - General FAMILY PRACTICE 09/19/22 documented as of this encounter
--- OUTSIDE RECORDS SUMMARY | 2024-06-17 23:23 | XMS_ITS | Encounter Summary ---
Author Organization [facility] Address [address] [place] [address] Care Team Providers Care Oncologist Name Role Phone Farzaneh Briscoe MD Primary Care Provider [phone] Encounter Details Date Type Department Care Team (Late st Contact Info) Description 06/24/2023 [employer] Message Enc [facility] Medical Group Family & Internal Medicine [facility] [id number] [place] [phone] [place]isco[place] [address] [place] [address]. [address] [place] [address] For why? Social History Tobacco Use Types [...] Sex Assigned at Female 06/14/2024 9:24 PM PORTABLE GRINDING MACHINE OPERATOR Legal Sex Female 5:01 PM CDT Gender Identity Female 06/14/2024 9:20 PM PORTABLE GRINDING MACHINE OPERATOR Sexual Orientation Straight 06/14/2024 9: 20 PM PORTABLE GRINDING MACHINE OPERATOR documented as of this encounter Functional [...] Author Status No 02/02/2020 1:57 PM CDT Joseilne Escamilla RN Active documented as of this [...] would need to be seen. She V/U ABLE GRINDING MACHINE OPERATOR documented in this encounter Plan of Treatment Upcoming Encounters Date Type Department Care Team (Late st Contact Info) Description 01/21/2025 10:45 AM CDT Office Visit [facility] [address] [place] [phone] Doyle Curry MD [facility]. [facility] [address] [place] [address] documented as of this encounter Goals Goal Patient Goal Type Associated Problems Recent Progress Patient-Stated? Author Return home with mother Diet No Mayte Camacho, COMMUNITY THEATER ACTOR documented as of this encounter Visit Diagnoses Not on filedocumented in this encounter Additional Health Concerns Infection Onset Date Last Indicated Resolved Time COVID-19 Rule Out 07/02/2023 07/02/2023 07/02/2023 1:03 PM PORTABLE GRINDING MACHINE OPERATOR COVID-19 Rule Out 07/09/2023 07/09/2023 07/09/2023 7:57 PM PORTABLE GRINDING MACHINE OPERATOR COVID-19 Rule Out 07/29/2023 07/29/2023 07/29/2023 7:23 PM CDT COVID-19 Rule Out 09/05/2023 09/05/2023 09/05/2023 1:30 PM CDT COVID-19 Rule Out 11/03/2023 11/03/2023 11/03/2023 3:34 PM CDT COVID-19 Rule Out 04/14/2024 04/14/2024 04/14/2024 1:53 PM PORTABLE GRINDING MACHINE OPERATOR Assessment Noted Time PHQ-9 Depression Total Score: 024 3:58 PM PORTABLE GRINDING MACHINE OPERATOR documented as of this encounter Care Teams Oncologist Relationship Specialty Start [place] [address] [facility]. [address] [place] [address] PCP - General FAMILY PRACTICE 09/19/22 documented as of this encounter
--- OUTSIDE RECORDS SUMMARY | 2024-06-17 23:23 | XMS_ITS | Encounter Summary ---
Author Organization [facility] Address [address] [place] [address] Care Team Providers Care P 3 Armament/Ordnance Ima Technician Name Role Phone Farzaneh Briscoe MD Primary Care Provider [phone] Encounter Details Date Type Department Care Team (Late st Contact Info) Description 08/27/2023 [employer] Message Enc [facility] Medical Group Family & Internal Medicine [address] [address] [place]isco[place] [phone] [place] [address]. [address] [place] [address] Sleep problems? Mood swings? Impending manic episode? [...] Sex Assigned at Female 06/14/2024 9:24 PM FACILITIES MAINTENANCE MANAGER Legal Sex Female 5:01 PM CDT Gender Identity Female 06/14/2024 9:20 PM FACILITIES MAINTENANCE MANAGER Sexual Orientation Straight 06/14/2024 9: 20 PM FACILITIES MAINTENANCE MANAGER documented as of this encounter Functional [...] Description 01/21/2025 10:45 AM CDT Office Visit [facility] [address] [place] [phone] Doyle Curry MD [facility]. [facility] [address] [place] [address] documented as of this encounter Goals Goal Patient Goal Type Associated Problems Recent Progress Patient-Stated? Author Return home with mother Diet No Mayte Camacho, J2EE APPLICATION DEVELOPER documented as of this encounter Visit Diagnoses Not on filedocumented in this encounter Additional Health Concerns Infection Onset Date Last Indicated Resolved Time COVID-19 Rule Out 09/05/2023 09/05/2023 09/05/2023 1:30 PM CDT COVID-19 Rule Out 11/03/2023 11/03/2023 11/03/2023 3:34 PM CDT COVID-19 Rule Out 04/14/2024 04/14/2024 04/14/2024 1:53 PM FACILITIES MAINTENANCE MANAGER Assessment Noted Time PHQ-9 Depression Total Score: 12 024 3:58 PM FACILITIES MAINTENANCE MANAGER documented as of this encounter Care Teams P 3 Armament/Ordnance Ima Technician Relationship Specialty Start [place] [address] [facility] [place] [address]. [address] [place] [address] PCP - General FAMILY PRACTICE 09/19/22 documented as of this encounter
--- OUTSIDE RECORDS SUMMARY | 2024-06-17 23:23 | XMS_ITS | Encounter Summary ---
Author Organization [facility] Address [address] [place] [address] Care Team Providers Care Clay Dry Press Operator Name Role Phone Farzaneh Briscoe MD Primary Care Provider [phone] Encounter Details Date Type Department Care Team (Late st Contact Info) Description 09/05/2023 [employer] Message Enc [facility] Medical Group Family & Internal Medicine [facility] [phone] [place] [address] [place] [phone] [place] [address]. [address] [place] [phone] My throat bro Social History Tobacco Use [...] Sex Assigned at Female 06/14/2024 9:24 PM CARPET YARN WINDER OPERATOR Legal Sex Female 5:01 PM CDT Gender Identity Female 06/14/2024 9:20 PM CARPET YARN WINDER OPERATOR Sexual Orientation Straight 06/14/2024 9: 20 PM CARPET YARN WINDER OPERATOR documented as of this encounter Functional [...] Author Status No 02/02/2020 1:57 PM CDT Joesline Escamilla RN Active * Because of a [...] Description 01/21/2025 10:45 AM CDT Office Visit [facility] [address] [phone] Doyle Curry MD [address] [address] documented as of this encounter Goals Goal [...] Rule Out 04/14/2024 04/14/2024 04/14/2024 1:53 PM CARPET YARN WINDER OPERATOR Assessment Noted Time PHQ-9 Depression Total Score: 20 024 12:53 PM CDT documented as of this encounter Care Teams Clay Dry Press Operator Relationship Specialty Start [place] [address] [facility] [address]. [address] [place] [address] PCP - General FAMILY PRACTICE 09/19/22 documented as of this encounter
--- OUTSIDE RECORDS SUMMARY | 2024-06-17 23:23 | XMS_ITS | Encounter Summary ---
Author Organization [facility] Address [address] [place] [address] Care Team Providers Care Customer Relations Representative Name Role Phone Farzaneh Briscoe MD Primary Care Provider [phone] Encounter Details Date Type Department Care Team (Late st Contact Info) Description 11/12/2023 Abigail Stewart Message Enc [facility] Medical Group Family & Internal Medicine [facility] [phone] [place] [address] [place]isco[place] [address] [place] [address]. [address] [place] [phone] My period has...paused? Social History Tobacco Use [...] Sex Assigned at Female 06/14/2024 9:24 PM TACK CLEANER Legal Sex Female 5:01 PM CDT Gender Identity Female 06/14/2024 9:20 PM TACK CLEANER Sexual Orientation Straight 06/14/2024 9: 20 PM TACK CLEANER documented as of this encounter Functional Status [...] Description 01/21/2025 10:45 AM CDT Office Visit [facility] [address] [place] [phone] Doyle Curry MD [place] [address] [place] [address] documented as of this encounter Goals Goal Patient Goal Type Associated Problems Recent Progress Patient-Stated? Author Return home with mother Diet No Mayte Camacho ORCHESTRA CONDUCTOR documented as of this encounter Visit Diagnoses Not on filedocumented in this encounter Additional Health Concerns Infection Onset Date Last Indicated Resolved Time COVID-19 Rule Out 04/14/2024 04/14/2024 04/14/2024 1:53 PM TACK CLEANER Assessment Noted Time PHQ-9 Depression Total Score: 20 04/18/2 024 12:53 PM CDT documented as of this encounter Care Teams Customer Relations Representative Relationship Specialty [place] [address] [address] [place] [address] PCP - General FAMILY PRACTICE 09/19/22 documented as of this encounter
--- OUTSIDE RECORDS SUMMARY | 2024-06-17 23:23 | XMS_ITS | Encounter Summary ---
Author Organization [facility] [place] [address] Care Team Providers Care Podiatric Assistant Name Role Phone Nuvia Prasad MD Primary Care Provider [phone] None, Provider Primary Care Provider Austina Farzaneh Lancaster MD Primary Care Provider [phone] Encounter Details Date Type Department Care Team (Latest Contact Info) Description 09/18/2021 [employer] Message Enc [facility] Medical Group Multispecialty Care - [address], [address] [place] [address] [employer] Provider MRI Thoracic spine results Social History [...] Sex Assigned at Female 06/14/2024 9:24 PM HAY CHOPPER Legal Sex Female 5:01 PM CDT Gender Identity Female 06/14/2024 9:20 PM HAY CHOPPER Sexual Orientation Straight 06/14/2024 9: 20 PM HAY CHOPPER COVID-19 Exposure Response Date Recorded In the last 10 days, have glenn muonz been in contact with someone who was [...] Description 01/21/2025 10:45 AM CDT Office Visit [facility] [address] [place] [phone] Doyle Curry MD [facility] [address] [place] [address] documented as of this encounter Goals Goal [...] Rule Out 04/24/2022 04/24/2022 04/24/2022 3:01 PM HAY CHOPPER COVID-19 Rule Out 05/09/2022 05/09/2022 05/09/2022 7:47 PM HAY CHOPPER COVID-19 Rule Out 05/29/2022 05/29/2022 05/29/2022 1:46 PM HAY CHOPPER COVID-19 Rule Out 05/29/2022 05/29/2022 05/30/2022 6:46 PM HAY CHOPPER COVID-19 Rule Out 07/05/2022 07/05/2022 07/05/2022 7:45 PM HAY CHOPPER COVID-19 Rule Out 08/30/2022 08/30/2022 08/30/2022 2:37 PM CDT COVID-19 Rule Out 09/26/2022 09/26/2022 09/26/2022 11:47 AM CDT COVID-19 Rule Out 12/02/2022 12/02/2022 12/02/2022 1:15 PM CDT COVID-19 Rule Out 02/14/2023 02/14/2023 02/14/2023 2:15 PM CDT COVID-19 Rule Out 03/20/2023 03/20/2023 03/20/2023 10:27 AM HAY CHOPPER COVID-19 Rule Out 03/20/2023 03/20/2023 03/20/2023 2:10 PM HAY CHOPPER COVID-19 Rule Out 03/26/2023 03/26/2023 03/26/2023 12:11 PM HAY CHOPPER COVID-19 Rule Out 03/26/2023 03/26/2023 03/26/2023 1:39 PM HAY CHOPPER COVID-19 Rule Out 04/01/2023 04/01/2023 04/01/2023 10:22 PM HAY CHOPPER COVID-19 Rule Out 07/02/2023 07/02/2023 07/02/2023 1:03 PM HAY CHOPPER COVID-19 Rule Out 07/09/2023 07/09/2023 07/09/2023 7:57 PM HAY CHOPPER COVID-19 Rule Out 07/29/2023 07/29/2023 07/29/2023 7:23 PM CDT COVID-19 Rule Out 09/05/2023 09/05/2023 09/05/2023 1:30 PM CDT COVID-19 Rule Out 11/03/2023 11/03/2023 11/03/2023 3:34 PM CDT COVID-19 Rule Out 04/14/2024 04/14/2024 04/14/2024 1:53 PM HAY CHOPPER Assessment Noted Time PHQ-9 Depression Total Score: 022 2:48 PM CDT documented as of this encounter Care Teams Podiatric Assistant Relationship Specialty Start Date End Date Nuvia Prasad MD PCP - General INTERNAL MEDICINE 07/30/19 08/27/22 None, ProviderMD PCP - General UNKNOWN PHYSICIAN SPECIALTY 08/28/22 09/18/22 [place] [address] [facility] [address] [place] [address] PCP - General FAMILY PRACTICE 09/19/22 documented as of this encounter
--- OUTSIDE RECORDS SUMMARY | 2024-06-17 23:23 | XMS_ITS | Encounter Summary ---
Author Organization [facility] Address [address] [place] [address] Care Team Providers Care Spinning Frame Tender Name Role Phone Farzaneh Briscoe MD Primary Care Provider [phone] Encounter Details Date Type Department Care Team (Late st Contact Info) Description 03/21/2024 [employer] Message Enc [facility] Medical Group Family & Internal Medicine [facility] [address] [place] [address] [place] [address] [place] [address]. [address] [place] [address] I have been sick for 6 days [...] Sex Assigned at Female 06/14/2024 9:24 PM INSPECTION SUPERVISOR Legal Sex Female 5:01 PM CDT Gender Identity Female 06/14/2024 9:20 PM INSPECTION SUPERVISOR Sexual Orientation Straight 06/14/2024 9: 20 PM INSPECTION SUPERVISOR documented as of this encounter Functional [...] Description 01/21/2025 10:45 AM CDT Office Visit [facility] [id number] [place] [phone] Doyle Curry MD [place] [address] [place] [address] documented as of this encounter Goals Goal Patient Goal Type Associated Problems Recent Progress Patient-Stated? Author Return home with mother Diet No Mayte Camacho MSW documented as of this encounter Visit Diagnoses Not on filedocumented in this encounter Additional Health Concerns Infection Onset Date Last Indicated Resolved Time COVID-19 Rule Out 04/14/2024 04/14/2024 04/14/2024 1:53 PM INSPECTION SUPERVISOR Assessment Noted Time PHQ-9 Depression Total Score: 20 024 12:53 PM CDT documented as of this encounter Care Teams Spinning Frame Tender Relationship Specialty [place] [address] [address] [place] [address] PCP - General FAMILY PRACTICE 09/19/22 documented as of this encounter
--- OUTSIDE RECORDS SUMMARY | 2024-06-17 23:23 | XMS_ITS | Encounter Summary ---
Author Organization [facility] Address [facility] [place] [address] Care Team Providers Care Church History Professor Name Role Phone Annette Kirkland MD Primary Care Provider + Brinda Ascencio [facility] Primary Care Provider [phone] Nuvia Prasad MD Primary Care Provider [phone] None, Provider Primary Care Provider Unavaila Farzaneh Lancaster MD Primary Care Provider Encounter Details Date Type Department Care Team (Late st Contact Info) Description 02/15/2014 Abstract [facility] CONVERSION [address] [place] [address] , Generic Conversion, Social History Tobacco Use Types Packs/Day Years Used Date Smoking Tobacco: Never Assessed Comments Unknown Sex and Gender Information Value Date Recorded Sex Assigned at Female 06/14/2024 9:24 PM MOLDER HELPER Legal Sex Female 5:01 PM CDT Gender Identity Female 06/14/2024 9:20 PM MOLDER HELPER Sexual Orientation Straight 06/14/2024 9: 20 PM MOLDER HELPER documented as of this encounter Plan of Treatment Upcoming Encounters Date Type Department Care Team (Late st Contact Info) Description 01/21/2025 10:45 AM CDT [facility] [address] [place] [phone] Doyle Curry MD [facility] [address] [place] [address] documented as of this encounter Visit Diagnoses [...] Rule Out 04/24/2022 04/24/2022 04/24/2022 3:01 PM MOLDER HELPER COVID-19 Rule Out 05/09/2022 05/09/2022 05/09/2022 7:47 PM MOLDER HELPER COVID-19 Rule Out 05/29/2022 05/29/2022 05/29/2022 1:46 PM MOLDER HELPER COVID-19 Rule Out 05/29/2022 05/29/2022 05/30/2022 6:46 PM MOLDER HELPER COVID-19 Rule Out 07/05/2022 07/05/2022 07/05/2022 7:45 PM MOLDER HELPER COVID-19 Rule Out 08/30/2022 08/30/2022 08/30/2022 2:37 PM CDT COVID-19 Rule Out 09/26/2022 09/26/2022 09/26/2022 11:47 AM CDT COVID-19 Rule Out 12/02/2022 12/02/2022 12/02/2022 1:15 PM CDT COVID-19 Rule Out 02/14/2023 02/14/2023 02/14/2023 2:15 PM CDT COVID-19 Rule Out 03/20/2023 03/20/2023 03/20/2023 10:27 AM MOLDER HELPER COVID-19 Rule Out 03/20/2023 03/20/2023 03/20/2023 2:10 PM MOLDER HELPER COVID-19 Rule Out 03/26/2023 03/26/2023 03/26/2023 12:11 PM MOLDER HELPER COVID-19 Rule Out 03/26/2023 03/26/2023 03/26/2023 1:39 PM MOLDER HELPER COVID-19 Rule Out 04/01/2023 04/01/2023 04/01/2023 10:22 PM MOLDER HELPER COVID-19 Rule Out 07/02/2023 07/02/2023 07/02/2023 1:03 PM MOLDER HELPER COVID-19 Rule Out 07/09/2023 07/09/2023 07/09/2023 7:57 PM MOLDER HELPER COVID-19 Rule Out 07/29/2023 07/29/2023 07/29/2023 7:23 PM CDT COVID-19 Rule Out 09/05/2023 09/05/2023 09/05/2023 1:30 PM CDT COVID-19 Rule Out 11/03/2023 11/03/2023 11/03/2023 3:34 PM CDT COVID-19 Rule Out 04/14/2024 04/14/2024 04/14/2024 1:53 PM MOLDER HELPER documented as of this encounter Care Teams Church History Professor Relationship Specialty Start Date End Date Annette Kirkland MD [address] [place] [address] PCP - General 08/31/14 06/07/19 Brinda Ascencio, TRAVEL FREIGHT AND PASSENGER AGENT- [address] [place] [address] PCP - General NURSE PRACTITIONER 07/07/19 07/29/19 Nuvia Prasad MD [address] [place] [address] PCP - General INTERNAL MEDICINE 07/30/19 08/27/22 None, Provider, PCP - General UNKNOWN PHYSICIAN SPECIALTY 08/28/22 [place] [address] [facility]. [address] [place] [address] PCP - General FAMILY PRACTICE 09/19/22 documented as of this encounter
--- OUTSIDE RECORDS SUMMARY | 2024-06-17 23:23 | XMS_ITS | Encounter Summary ---
Author Organization [facility] Address [facility] [place] [address] Care Team Providers Care Beading Installer Name Role Phone Annette Kirkland MD Primary Care Provider + Brinda Ascencio [facility] Primary Care Provider [phone] Nuvia Prasad MD Primary Care Provider [phone] None, Provider Primary Care Provider Unavaila Farzaneh Lancaster MD Primary Care Provider [phone] Encounter Details Date Type Department Care Team (Late st Contact Info) Description 11/23/2013 Abstract [facility] [address] [place] [address] , Generic Conversion, Social History Tobacco Use Types Packs/Day Years Used Date Smoking Tobacco: Never Assessed Comments Unknown Sex and Gender Information Value Date Recorded Sex Assigned at Female 06/14/2024 9:24 PM SENIOR SYSTEMS PROGRAMMER Legal Sex Female 5:01 PM CDT Gender Identity Female 06/14/2024 9:20 PM SENIOR SYSTEMS PROGRAMMER Sexual Orientation Straight 06/14/2024 9: 20 PM SENIOR SYSTEMS PROGRAMMER documented as of this encounter Plan of Treatment Upcoming Encounters Date Type Department Care Team (Late st Contact Info) Description 01/21/2025 10:45 AM CDT [facility] [address] [place] [phone] Doyle Curry MD [facility] [address] [place] [address] documented as of this encounter Visit Diagnoses [...] Rule Out 04/24/2022 04/24/2022 04/24/2022 3:01 PM SENIOR SYSTEMS PROGRAMMER COVID-19 Rule Out 05/09/2022 05/09/2022 05/09/2022 7:47 PM SENIOR SYSTEMS PROGRAMMER COVID-19 Rule Out 05/29/2022 05/29/2022 05/29/2022 1:46 PM SENIOR SYSTEMS PROGRAMMER COVID-19 Rule Out 05/29/2022 05/29/2022 05/30/2022 6:46 PM SENIOR SYSTEMS PROGRAMMER COVID-19 Rule Out 07/05/2022 07/05/2022 07/05/2022 7:45 PM SENIOR SYSTEMS PROGRAMMER COVID-19 Rule Out 08/30/2022 08/30/2022 08/30/2022 2:37 PM CDT COVID-19 Rule Out 09/26/2022 09/26/2022 09/26/2022 11:47 AM CDT COVID-19 Rule Out 12/02/2022 12/02/2022 12/02/2022 1:15 PM CDT COVID-19 Rule Out 02/14/2023 02/14/2023 02/14/2023 2:15 PM CDT COVID-19 Rule Out 03/20/2023 03/20/2023 03/20/2023 10:27 AM SENIOR SYSTEMS PROGRAMMER COVID-19 Rule Out 03/20/2023 03/20/2023 03/20/2023 2:10 PM SENIOR SYSTEMS PROGRAMMER COVID-19 Rule Out 03/26/2023 03/26/2023 03/26/2023 12:11 PM SENIOR SYSTEMS PROGRAMMER COVID-19 Rule Out 03/26/2023 03/26/2023 03/26/2023 1:39 PM SENIOR SYSTEMS PROGRAMMER COVID-19 Rule Out 04/01/2023 04/01/2023 04/01/2023 10:22 PM SENIOR SYSTEMS PROGRAMMER COVID-19 Rule Out 07/02/2023 07/02/2023 07/02/2023 1:03 PM SENIOR SYSTEMS PROGRAMMER COVID-19 Rule Out 07/09/2023 07/09/2023 07/09/2023 7:57 PM SENIOR SYSTEMS PROGRAMMER COVID-19 Rule Out 07/29/2023 07/29/2023 07/29/2023 7:23 PM CDT COVID-19 Rule Out 09/05/2023 09/05/2023 09/05/2023 1:30 PM CDT COVID-19 Rule Out 11/03/2023 11/03/2023 11/03/2023 3:34 PM CDT COVID-19 Rule Out 04/14/2024 04/14/2024 04/14/2024 1:53 PM SENIOR SYSTEMS PROGRAMMER documented as of this encounter Care Teams Beading Installer Relationship Specialty Start Date End Date Annette Kirkland MD [address] [place] [address] PCP - General 08/31/14 06/07/19 Brinda Ascencio, CARAMEL CANDY MAKER HELPER- [address] [place] [address] PCP - General NURSE PRACTITIONER 07/07/19 07/29/19 Nuvia Prasad MD [address] [place] [address] PCP - General INTERNAL MEDICINE 07/30/19 08/27/22 None, Provider, PCP - General UNKNOWN PHYSICIAN SPECIALTY 08/28/22 [place] [address] [facility]. [address] [place] [address] PCP - General FAMILY PRACTICE 09/19/22 documented as of this encounter
--- OUTSIDE RECORDS SUMMARY | 2024-06-17 23:23 | XMS_ITS | Encounter Summary ---
Author Organization [facility] Address [address] [place] [address] Care Team Providers Care Cable Layer Name Role Phone Farzaneh Birscoe MD Primary Care Provider Encounter Details Date Type Department Care Team (Late st Contact Info) Description 11/05/2022 [employer] Message Enc [facility] Medical Group Family & Internal Medicine [facility] [address] [place] [phone] [place] [address] [place] [address]. [address] [place] [phone] Did I need to fast?? Social History [...] Sex Assigned at Female 06/14/2024 9:24 PM FREIGHT CHECKER Legal Sex Female 5:01 PM CDT Gender Identity Female 06/14/2024 9:20 PM FREIGHT CHECKER Sexual Orientation Straight 06/14/2024 9: 20 PM FREIGHT CHECKER COVID-19 Exposure Response Date Recorded In the [...] Description 01/21/2025 10:45 AM CDT [facility] [address] [place] [phone] Doyle Curry MD [address] [address] documented as of this encounter Goals Goal Patient Goal Type Associated Problems Recent Progress Patient-Stated? Author Return home with mother Diet No Mayte Camacho WINDOWS SECURITY ANALYST documented as of this encounter Visit Diagnoses Not on filedocumented in this encounter Additional Health Concerns Infection Onset Date Last Indicated Resolved Time COVID-19 Rule Out 12/02/2022 12/02/2022 12/02/2022 1:15 PM CDT COVID-19 Rule Out 02/14/2023 02/14/2023 02/14/2023 2:15 PM CDT COVID-19 Rule Out 03/20/2023 03/20/2023 03/20/2023 10:27 AM FREIGHT CHECKER COVID-19 Rule Out 03/20/2023 03/20/2023 03/20/2023 2:10 PM FREIGHT CHECKER COVID-19 Rule Out 03/26/2023 03/26/2023 03/26/2023 12:11 PM FREIGHT CHECKER COVID-19 Rule Out 03/26/2023 03/26/2023 03/26/2023 1:39 PM FREIGHT CHECKER COVID-19 Rule Out 04/01/2023 04/01/2023 04/01/2023 10:22 PM FREIGHT CHECKER COVID-19 Rule Out 07/02/2023 07/02/2023 07/02/2023 1:03 PM FREIGHT CHECKER COVID-19 Rule Out 07/09/2023 07/09/2023 07/09/2023 7:57 PM FREIGHT CHECKER COVID-19 Rule Out 07/29/2023 07/29/2023 07/29/2023 7:23 PM CDT COVID-19 Rule Out 09/05/2023 09/05/2023 09/05/2023 1:30 PM CDT COVID-19 Rule Out 11/03/2023 11/03/2023 11/03/2023 3:34 PM CDT COVID-19 Rule Out 04/14/2024 04/14/2024 04/14/2024 1:53 PM FREIGHT CHECKER Assessment Noted Time PHQ-9 Depression Total Score: 023 3:00 PM FREIGHT CHECKER documented as of this encounter Care Teams Cable Layer Relationship Specialty Start [place] [address] [address] [place] [address] PCP - General FAMILY PRACTICE 09/19/22 documented as of this encounter
--- OUTSIDE RECORDS SUMMARY | 2024-06-17 23:23 | XMS_ITS | Continuity of Care Document ---
Author Organization [facility] Address [address] [place] [address] [place] [address] Phone Care Team Providers Care Metal Plater Name Role Phone Kg Garza MD Unavailable [...] Copied on Encounter OFFICE/OUTPA TIENT VISIT, EST [facility], [address] [place], [place], [id number], [place] tel:[phone] [facility] sick1 (chief complaint) anxiety1 (chief complaint) GERD w/o esophagitisVomiting Generalized Anxiety Disorder 8 Greg Saul. [address] [facility] [place], [id number] , . tel:[phone] Referring Provider: Feng Cam [facility] [place], [id number]. tel:[phone] OFFICE/OUTPA TIENT VISIT, [facility], [address] [place], [place], [id number], [place] tel:[phone] [facility] hematuria1 (chief complaint) D (chief complaint) anemia1 (chief complaint) HLp (chief complaint) HematuriaHyperlipid emiaAnemiaDysmenorr heaVitamin D deficiency, unspecifiedGenerali zed Anxiety Disorder Aug- 8 Greg Tomas [address] [facility] [place], [id number] , [place]. tel:[phone] Referring Provider: Feng Cam [address] [place], [place], [id number]. tel:[phone] PREV VISIT, NEW, AGE 18-39 [facility], [facility] [address] [place], [id number], [place] tel:[phone] [facility] PHysical (chief complaint) Encounter for general adult medical exam w abnormal findingsVomitingGen eralized Anxiety Disorder 8 Greg Tomas [address] [facility] [place], [id number] , [place]. [phone] Referring Provider: Feng Cam [address] [facility] [place], [id number]. tel:[phone] Family History Family Member Type Diagnosis Age At Onset Father Problem (finding) Alive and well Mother Problem (finding) COPd. MS stomach cancer Sister Problem (finding) Seizure disorder Brother Problem (finding) Alive and well Payers Payer name Insurance type Covered green party ID Authoriza tion(s) No Information Social History [...] Date Complaint History Of Prese nt Illness anxiety1 Pt has chronic a nxiety and depression. pt takes zoloft and buspar. Pt states that her mom told her to ask about xanax. Pt denies any suicidal or homicidal thought. Pt denies any crying spells. pt still has a lot of anxiety with above meds sick1 Pt has cyclic vo miting syndrome. [...] symptoms. pt failed zantac in the past hematuria1 Pt has mild tere turia and proteinuria Pt denies any UTi symptoms. D Pt has low D anemia1 Pt has mild anem ia. MCV ok. Pt has heavy period but is regular. Pt has dysmenorrhea as well. . Pt denies any GI blood loss. HLp Pt has mild high TG. Pt is not on any diet PHysical Pt needs annual physical pt has [...] Mental Status Date Cognitive Assessment Orientation - [place] ed to time, place, person, situation.
--- OUTSIDE RECORDS SUMMARY | 2024-06-17 23:23 | XMS_ITS | Encounter Summary ---
Author Organization [facility] Address [address] [place] [address] Care Team Providers Care Sales Support Assistant Name Role Phone Nuvia Prasad MD Primary Care Provider None, Provider Primary Care Provider Unavaila Farzaneh Lancaster MD Primary Care Provider [phone] Encounter Details Date Type Department Care Team (Late st Contact Info) Description 08/14/2020 [place] Message [facility] [address] [place] [address] [place] [address] [place] [address] Question Social History Tobacco Use [...] Assigned at Female 06/14/2024 9:24 PM MANAGER UI Legal Sex Female 5:01 PM CDT Gender Identity Female 06/14/2024 9:20 PM MANAGER UI Sexual Orientation Straight 06/14/2024 9: 20 PM MANAGER UI COVID-19 Exposure Response Date Recorded In the [...] Description 01/21/2025 10:45 AM CDT Office Visit [facility] [address] [place] [address] Doyle Curry MD [facility]. [facility] [address] [place] [address] documented as of this encounter Goals Goal Patient Goal Type Associated Problems Recent Progress Patient-Stated? Author Return home with mother Diet No Mayte Camacho WINDOWS SOFTWARE DEVELOPER documented as of this encounter Visit [...] Out 04/24/2022 04/24/2022 04/24/2022 3:01 PM MANAGER UI COVID-19 Rule Out 05/09/2022 05/09/2022 05/09/2022 7:47 PM MANAGER UI COVID-19 Rule Out 05/29/2022 05/29/2022 05/29/2022 1:46 PM MANAGER UI COVID-19 Rule Out 05/29/2022 05/29/2022 05/30/2022 6:46 PM MANAGER UI COVID-19 Rule Out 07/05/2022 07/05/2022 07/05/2022 7:45 PM MANAGER UI COVID-19 Rule Out 08/30/2022 08/30/2022 08/30/2022 2:37 PM CDT COVID-19 Rule Out 09/26/2022 09/26/2022 09/26/2022 11:47 AM CDT COVID-19 Rule Out 12/02/2022 12/02/2022 12/02/2022 1:15 PM CDT COVID-19 Rule Out 02/14/2023 02/14/2023 02/14/2023 2:15 PM CDT COVID-19 Rule Out 03/20/2023 03/20/2023 03/20/2023 10:27 AM MANAGER UI COVID-19 Rule Out 03/20/2023 03/20/2023 03/20/2023 2:10 PM MANAGER UI COVID-19 Rule Out 03/26/2023 03/26/2023 03/26/2023 12:11 PM MANAGER UI COVID-19 Rule Out 03/26/2023 03/26/2023 03/26/2023 1:39 PM MANAGER UI COVID-19 Rule Out 04/01/2023 04/01/2023 04/01/2023 10:22 PM MANAGER UI COVID-19 Rule Out 07/02/2023 07/02/2023 07/02/2023 1:03 PM MANAGER UI COVID-19 Rule Out 07/09/2023 07/09/2023 07/09/2023 7:57 PM MANAGER UI COVID-19 Rule Out 07/29/2023 07/29/2023 07/29/2023 7:23 PM CDT COVID-19 Rule Out 09/05/2023 09/05/2023 09/05/2023 1:30 PM CDT COVID-19 Rule Out 11/03/2023 11/03/2023 11/03/2023 3:34 PM CDT COVID-19 Rule Out 04/14/2024 04/14/2024 04/14/2024 1:53 PM MANAGER UI Assessment Noted Time PHQ-9 Depression Total Score: 14 072 020 4:53 PM CDT documented as of this encounter Care Teams Sales Support Assistant Relationship Specialty Start Date End Date Nuvia Prasad MD PCP - General INTERNAL MEDICINE 07/30/19 08/27/22 None, Provider, PCP - General UNKNOWN PHYSICIAN SPECIALTY 08/28/22 09/18/22 [place] [address] [address] [place] [address] PCP - General FAMILY PRACTICE 09/19/22 documented as of this encounter
--- OUTSIDE RECORDS SUMMARY | 2024-06-17 23:23 | XMS_ITS | Encounter Summary ---
Author Organization [facility] Address [address] [place] [address] Care Team Providers Care Bench Assembler Operator Name Role Phone Farzaneh Briscoe MD Primary Care Provider [phone] Encounter Details Date Type Department Care Team (Late st Contact Info) Description 05/01/2023 [employer] Message Enc [facility] Family & Internal Medicine [facility] [id number] [place] [address] Farzaneh Briscoe [place] [address] [place] [address]. [address] [place] [phone] Not feeling great Social History Tobacco Use [...] Sex Assigned at Female 06/14/2024 9:24 PM CLINICAL LIAISON Legal Sex Female 5:01 PM CDT Gender Identity Female 06/14/2024 9:20 PM CLINICAL LIAISON Sexual Orientation Straight 06/14/2024 9: 20 PM CLINICAL LIAISON documented as of this encounter Functional Status [...] RN - 05/13/2023 10:25 AM CST Noted. ICAL LIAISON * Harriet Hannah MA - 05/08/2023 10:19 AM CST FYI ICAL LIAISON documented in this encounter Plan of Treatment Upcoming Encounters Date Type Department Care Team (Late st Contact Info) Description 01/21/2025 10:45 AM CDT Office Visit [facility] [address] [place] [phone] Doyle Curry MD [facility]. [facility] [address] [place] [address] documented as of this encounter Goals Goal Patient Goal Type Associated Problems Recent Progress Patient-Stated? Author Return home with mother Diet No Mayte Camacho, BOX INSPECTOR documented as of this encounter Visit Diagnoses Not on filedocumented in this encounter Additional Health Concerns Infection Onset Date Last Indicated Resolved Time COVID-19 Rule Out 07/02/2023 07/02/2023 07/02/2023 1:03 PM CLINICAL LIAISON COVID-19 Rule Out 07/09/2023 07/09/2023 07/09/2023 7:57 PM CLINICAL LIAISON COVID-19 Rule Out 07/29/2023 07/29/2023 07/29/2023 7:23 PM CDT COVID-19 Rule Out 09/05/2023 09/05/2023 09/05/2023 1:30 PM CDT COVID-19 Rule Out 11/03/2023 11/03/2023 11/03/2023 3:34 PM CDT COVID-19 Rule Out 04/14/2024 04/14/2024 04/14/2024 1:53 PM CLINICAL LIAISON Assessment Noted Time PHQ-9 Depression Total Score: 12 023 3:00 PM CLINICAL LIAISON documented as of this encounter Care Teams Bench Assembler Operator Relationship Specialty [place] [address] [address] [place] [address] PCP - General FAMILY PRACTICE 09/19/22 documented as of this encounter
--- OUTSIDE RECORDS SUMMARY | 2024-06-17 23:23 | XMS_ITS | Encounter Summary ---
Author Organization [facility] Address [address] [place] [address] Care Team Providers Care Sales Support Administrator Name Role Phone Farzaneh Briscoe MD Primary Care Provider [phone] Encounter Details Date Type Department Care Team (Late st Contact Info) Description 09/26/2022 [employer] Message Enc [facility] Medical Group Family & Internal Medicine [facility] [address] [place] [address] Vicki Goodman PA [address] [place] [address] Blood Social History Tobacco Use Types Packs/Day [...] Sex Assigned at Female 06/14/2024 9:24 PM WATCH INSPECTOR Legal Sex Female 5:01 PM CDT Gender Identity Female 06/14/2024 9:20 PM WATCH INSPECTOR Sexual Orientation Straight 06/14/2024 9: 20 PM WATCH INSPECTOR COVID-19 Exposure Response Date Recorded In [...] Description 01/21/2025 10:45 AM CDT [facility] [address] [place] [phone] oDyle Curry MD [address] [address] documented as of this encounter Goals Goal [...] Rule Out 03/20/2023 03/20/2023 03/20/2023 10:27 AM WATCH INSPECTOR COVID-19 Rule Out 03/20/2023 03/20/2023 03/20/2023 2:10 PM WATCH INSPECTOR COVID-19 Rule Out 03/26/2023 03/26/2023 03/26/2023 12:11 PM WATCH INSPECTOR COVID-19 Rule Out 03/26/2023 03/26/2023 03/26/2023 1:39 PM WATCH INSPECTOR COVID-19 Rule Out 04/01/2023 04/01/2023 04/01/2023 10:22 PM WATCH INSPECTOR COVID-19 Rule Out 07/02/2023 07/02/2023 07/02/2023 1:03 PM WATCH INSPECTOR COVID-19 Rule Out 07/09/2023 07/09/2023 07/09/2023 7:57 PM WATCH INSPECTOR COVID-19 Rule Out 07/29/2023 07/29/2023 07/29/2023 7:23 PM CDT COVID-19 Rule Out 09/05/2023 09/05/2023 09/05/2023 1:30 PM CDT COVID-19 Rule Out 11/03/2023 11/03/2023 11/03/2023 3:34 PM CDT COVID-19 Rule Out 04/14/2024 04/14/2024 04/14/2024 1:53 PM WATCH INSPECTOR Assessment Noted Time PHQ-9 Depression Total Score: 12 023 3:00 PM WATCH INSPECTOR documented as of this encounter Care Teams Sales Support Administrator Relationship Specialty [place] [address] [facility]. [address] [place] [address] PCP - General FAMILY PRACTICE 09/19/22 documented as of this encounter
--- OUTSIDE RECORDS SUMMARY | 2024-06-17 23:23 | XMS_ITS | Encounter Summary ---
Author Organization [facility] Address [address] [place] [address] Care Team Providers Care Service Operator Name Role Phone Annette Kirkland MD Primary Care Provider + Brinda Ascencio [facility] Primary Care Provider [phone] Nuvia Prasad MD Primary Care Provider [phone] None, Provider Primary Care Provider Unavaila Farzaneh Lancaster MD Primary Care Provider [phone] Encounter Details Date Type Department Care Team (Late st Contact Info) Description 09/11/2012 Abstract [facility] Conversion , Generic Conversion, Social History Tobacco Use Types Packs/Day Years Used Date Smoking Tobacco: Never Assessed Comments Unknown Sex and Gender Information Value Date Recorded Sex Assigned at Female 06/14/2024 9:24 PM STOCK CONTROLLER Legal Sex Female 5:01 PM CDT Gender Identity Female 06/14/2024 9:20 PM STOCK CONTROLLER Sexual Orientation Straight 06/14/2024 9: 20 PM STOCK CONTROLLER documented as of this encounter Plan of Treatment Upcoming Encounters Date Type Department Care Team (Late st Contact Info) Description 01/21/2025 10:45 AM CDT [facility] [address] [place] [phone] Doyle Curry MD [facility] [address] [place] [address] documented as of this encounter [...] Rule Out 04/24/2022 04/24/2022 04/24/2022 3:01 PM STOCK CONTROLLER COVID-19 Rule Out 05/09/2022 05/09/2022 05/09/2022 7:47 PM STOCK CONTROLLER COVID-19 Rule Out 05/29/2022 05/29/2022 05/29/2022 1:46 PM STOCK CONTROLLER COVID-19 Rule Out 05/29/2022 05/29/2022 05/30/2022 6:46 PM STOCK CONTROLLER COVID-19 Rule Out 07/05/2022 07/05/2022 07/05/2022 7:45 PM STOCK CONTROLLER COVID-19 Rule Out 08/30/2022 08/30/2022 08/30/2022 2:37 PM CDT COVID-19 Rule Out 09/26/2022 09/26/2022 09/26/2022 11:47 AM CDT COVID-19 Rule Out 12/02/2022 12/02/2022 12/02/2022 1:15 PM CDT COVID-19 Rule Out 02/14/2023 02/14/2023 02/14/2023 2:15 PM CDT COVID-19 Rule Out 03/20/2023 03/20/2023 03/20/2023 10:27 AM STOCK CONTROLLER COVID-19 Rule Out 03/20/2023 03/20/2023 03/20/2023 2:10 PM STOCK CONTROLLER COVID-19 Rule Out 03/26/2023 03/26/2023 03/26/2023 12:11 PM STOCK CONTROLLER COVID-19 Rule Out 03/26/2023 03/26/2023 03/26/2023 1:39 PM STOCK CONTROLLER COVID-19 Rule Out 04/01/2023 04/01/2023 04/01/2023 10:22 PM STOCK CONTROLLER COVID-19 Rule Out 07/02/2023 07/02/2023 07/02/2023 1:03 PM STOCK CONTROLLER COVID-19 Rule Out 07/09/2023 07/09/2023 07/09/2023 7:57 PM STOCK CONTROLLER COVID-19 Rule Out 07/29/2023 07/29/2023 07/29/2023 7:23 PM CDT COVID-19 Rule Out 09/05/2023 09/05/2023 09/05/2023 1:30 PM CDT COVID-19 Rule Out 11/03/2023 11/03/2023 11/03/2023 3:34 PM CDT COVID-19 Rule Out 04/14/2024 04/14/2024 04/14/2024 1:53 PM STOCK CONTROLLER documented as of this encounter Care Teams Service Operator Relationship Specialty Start Date End Date Annette Kirkland MD [address] [place] [address] PCP - General 08/31/14 06/07/19 Brinda Ascencio, SKI TOW OPERATOR-BC [address] [place] [address] PCP - General NURSE PRACTITIONER 07/07/19 07/29/19 Nuvia Prasad MD [address] [place] [address] PCP - General INTERNAL MEDICINE 07/30/19 08/27/22 None, MD Yas PCP - General UNKNOWN PHYSICIAN SPECIALTY 08/28/22 [place] [address] [facility]. [address] [place] [address] PCP - General FAMILY PRACTICE 09/19/22 documented as of this encounter
--- OUTSIDE RECORDS SUMMARY | 2024-06-17 23:23 | XMS_ITS | Encounter Summary ---
Author Organization [facility] Address [address] [place] [address] Care Team Providers Care Motor Generator Set Operator Name Role Phone Farzaneh Briscoe MD Primary Care Provider [phone] Encounter Details Date Type Department Care Team (Late st Contact Info) Description 06/28/2023 [employer] Message Enc [facility] Medical Group Family & Internal Medicine [address] [address] [place] [id number] [place] [address]. [address] [place] [address] Bad bad pizza.. Social History Tobacco Use [...] Sex Assigned at Female 06/14/2024 9:24 PM CAVING GUIDE Legal Sex Female 5:01 PM CDT Gender Identity Female 06/14/2024 9:20 PM CAVING GUIDE Sexual Orientation Straight 06/14/2024 9: 20 PM CAVING GUIDE documented as of this encounter Functional Status [...] 01/21/2025 10:45 AM CDT Office Visit [facility] [facility] [address] [place] [address] Doyle Curry MD [place] [address] [place] [address] documented as of this encounter Goals Goal Patient Goal Type Associated Problems Recent Progress Patient-Stated? Author Return home with mother Diet No Mayte Camacho MSW documented as of this encounter Visit Diagnoses Not on filedocumented in this encounter Additional Health Concerns Infection Onset Date Last Indicated Resolved Time COVID-19 Rule Out 07/02/2023 07/02/2023 07/02/2023 1:03 PM CAVING GUIDE COVID-19 Rule Out 07/09/2023 07/09/2023 07/09/2023 7:57 PM CAVING GUIDE COVID-19 Rule Out 07/29/2023 07/29/2023 07/29/2023 7:23 PM CDT COVID-19 Rule Out 09/05/2023 09/05/2023 09/05/2023 1:30 PM CDT COVID-19 Rule Out 11/03/2023 11/03/2023 11/03/2023 3:34 PM CDT COVID-19 Rule Out 04/14/2024 04/14/2024 04/14/2024 1:53 PM CAVING GUIDE Assessment Noted Time PHQ-9 Depression Total Score: 12 024 3:58 PM CAVING GUIDE documented as of this encounter Care Teams Motor Generator Set Operator Relationship Specialty Start [place] [address] [address] [place] [address] PCP - General FAMILY PRACTICE 09/19/22 documented as of this encounter
--- OUTSIDE RECORDS SUMMARY | 2024-06-17 23:23 | XMS_ITS | Encounter Summary ---
Author Organization [facility] Address [address] [place] [address] Care Team Providers Care Taxi Dancer Name Role Phone Farzaneh Briscoe MD Primary Care Provider [phone] Encounter Details Date Type Department Care Team (Late st Contact Info) Description 02/20/2024 [employer] Message Enc [facility] Medical Group Family & Internal Medicine [address] [address] [place]zaneh Briscoe [place] [id number] [place] [address]. [address] [place] [address] I need advice jessica I'm confused Social [...] Sex Assigned at Female 06/14/2024 9:24 PM TOOL DESIGNER APPRENTICE Legal Sex Female 5:01 PM CDT Gender Identity Female 06/14/2024 9:20 PM TOOL DESIGNER APPRENTICE Sexual Orientation Straight 06/14/2024 9: 20 PM TOOL DESIGNER APPRENTICE documented as of this encounter Functional Status [...] Description 01/21/2025 10:45 AM CDT Office Visit [facility] [id number] [place] [phone] Doyle Curry MD [address] [place] [address] documented as of this encounter Goals Goal Patient Goal Type Associated Problems Recent Progress Patient-Stated? Author Return home with mother Diet No Mayte Camacho EQUAL OPPORTUNITY REPRESENTATIVE documented as of this encounter Visit Diagnoses Not on filedocumented in this encounter Additional Health Concerns Infection Onset Date Last Indicated Resolved Time COVID-19 Rule Out 04/14/2024 04/14/2024 04/14/2024 1:53 PM TOOL DESIGNER APPRENTICE Assessment Noted Time PHQ-9 Depression Total Score: 20 04/18/2 024 12:53 PM CDT documented as of this encounter Care Teams Taxi Dancer Relationship Specialty Start [place] [address] [address] [place] [address] PCP - General FAMILY PRACTICE 09/19/22 documented as of this encounter
--- OUTSIDE RECORDS SUMMARY | 2024-06-17 23:23 | XMS_ITS | Encounter Summary ---
Author Organization [facility] Address [address] [place] [address] Care Team Providers Care Cataract Lens Generator Name Role Phone Nuvia Prasad MD Primary Care Provider None, Provider Primary Care Provider Austina Farzaneh Lancaster MD Primary Care Provider [phone] Encounter Details Date Type Department Care Team (Late st Contact Info) Description 04/26/2020 [employer] Message Enc [facility] Medical Group Family & Internal Medicine [address] [address] [facility], [facility] Provider Ultrasound Results Social History [...] Sex Assigned at Female 06/14/2024 9:24 PM BAR MACHINE OPERATOR PRODUCTION Legal Sex Female 5:01 PM CDT Gender Identity Female 06/14/2024 9:20 PM BAR MACHINE OPERATOR PRODUCTION Sexual Orientation Straight 06/14/2024 9: 20 PM BAR MACHINE OPERATOR PRODUCTION COVID-19 Exposure Response Date Recorded In the last month, have you been in contact with someone who was confirmed or suspected to have Coronavirus / COVID-19? No / Unsure 04/27/2020 10:16 AM BAR MACHINE OPERATOR PRODUCTION documented as of this encounter Functional Status [...] Description 01/21/2025 10:45 AM CDT [facility] [address] [place] [phone] Doyle Curry MD [facility]. [place] [address] [place] [address] documented as of this encounter Goals Goal Patient Goal Type Associated Problems Recent Progress Patient-Stated? Author Return home with mother Diet No Mayte Camacho STENOTYPE OPERATOR documented as of this encounter Visit [...] Rule Out 04/24/2022 04/24/2022 04/24/2022 3:01 PM BAR MACHINE OPERATOR PRODUCTION COVID-19 Rule Out 05/09/2022 05/09/2022 05/09/2022 7:47 PM BAR MACHINE OPERATOR PRODUCTION COVID-19 Rule Out 05/29/2022 05/29/2022 05/29/2022 1:46 PM BAR MACHINE OPERATOR PRODUCTION COVID-19 Rule Out 05/29/2022 05/29/2022 05/30/2022 6:46 PM BAR MACHINE OPERATOR PRODUCTION COVID-19 Rule Out 07/05/2022 07/05/2022 07/05/2022 7:45 PM BAR MACHINE OPERATOR PRODUCTION COVID-19 Rule Out 08/30/2022 08/30/2022 08/30/2022 2:37 PM CDT COVID-19 Rule Out 09/26/2022 09/26/2022 09/26/2022 11:47 AM CDT COVID-19 Rule Out 12/02/2022 12/02/2022 12/02/2022 1:15 PM CDT COVID-19 Rule Out 02/14/2023 02/14/2023 02/14/2023 2:15 PM CDT COVID-19 Rule Out 03/20/2023 03/20/2023 03/20/2023 10:27 AM BAR MACHINE OPERATOR PRODUCTION COVID-19 Rule Out 03/20/2023 03/20/2023 03/20/2023 2:10 PM BAR MACHINE OPERATOR PRODUCTION COVID-19 Rule Out 03/26/2023 03/26/2023 03/26/2023 12:11 PM BAR MACHINE OPERATOR PRODUCTION COVID-19 Rule Out 03/26/2023 03/26/2023 03/26/2023 1:39 PM BAR MACHINE OPERATOR PRODUCTION COVID-19 Rule Out 04/01/2023 04/01/2023 04/01/2023 10:22 PM BAR MACHINE OPERATOR PRODUCTION COVID-19 Rule Out 07/02/2023 07/02/2023 07/02/2023 1:03 PM BAR MACHINE OPERATOR PRODUCTION COVID-19 Rule Out 07/09/2023 07/09/2023 07/09/2023 7:57 PM BAR MACHINE OPERATOR PRODUCTION COVID-19 Rule Out 07/29/2023 07/29/2023 07/29/2023 7:23 PM CDT COVID-19 Rule Out 09/05/2023 09/05/2023 09/05/2023 1:30 PM CDT COVID-19 Rule Out 11/03/2023 11/03/2023 11/03/2023 3:34 PM CDT COVID-19 Rule Out 04/14/2024 04/14/2024 04/14/2024 1:53 PM BAR MACHINE OPERATOR PRODUCTION Assessment Noted Time PHQ-9 Depression Total Score: 14 020 4:53 PM CDT documented as of this encounter Care Teams Cataract Lens Generator Relationship Specialty Start Date End Date Nuvia Prasad MD PCP - General INTERNAL MEDICINE 07/30/19 08/27/22 None, Provider, PCP - General UNKNOWN PHYSICIAN SPECIALTY 08/28/22 09/18/22 [place] [address] [address] [place] [address] PCP - General FAMILY PRACTICE 09/19/22 documented as of this encounter
--- OUTSIDE RECORDS SUMMARY | 2024-06-17 23:23 | XMS_ITS | Encounter Summary ---
Author Organization [facility] Address [address] [place] [address] Care Team Providers Care Freight Air Brake Fitter Name Role Phone Farzaneh Briscoe MD Primary Care Provider [phone] Reason for Visit * Reason Onset Date Comments Other 06/17/2024 Pt temp 101 CP S OB cough vomiting Encounter Details Date Type Department Care Team (Late st Contact Info) Description 06/17/2024 Telephone [facility] Medical Group Family & Internal Medicine [facility] [id number] [place] [phone] Farzaneh Briscoe MD [address] [place] [address]. [address] [place] [address] Other (Pt temp 101 CP SOB [...] Sex Assigned at Female 06/14/2024 9:24 PM QUOTATION CHECKER Legal Sex Female 5:01 PM CDT Gender Identity Female 06/14/2024 9:20 PM QUOTATION CHECKER Sexual Orientation Straight 06/14/2024 9: 20 PM QUOTATION CHECKER documented as of this encounter Functional Status [...] back until after a field trip to [facility] Encouraged to call Ambulance she said she was considering that Again stress to go to ER Pt did not confirm that she would [phone] ATION CHECKER documented in this encounter Plan of Treatment Upcoming Encounters Date Type Department Care Team (Late st Contact Info) Description 01/21/2025 10:45 AM CDT [facility] [address] [place] [address] Doyle Curry MD [facility] [address] [place] [address] documented as of this encounter Goals Goal Patient Goal Type Associated Problems Recent Progress Patient-Stated? Author Return home with mother Diet No Mayte Camacho, INTERNAL COMMUNICATIONS MANAGER documented as of this encounter Visit Diagnoses Not on filedocumented in this encounter Additional Health Concerns Assessment Noted Time PHQ-9 Depression Total Score: 20 024 12:53 PM CDT documented as of this encounter Care Teams Freight Air Brake Fitter Relationship Specialty Start [place] [address] [address] [place] [address] PCP - General FAMILY PRACTICE 09/19/22 documented as of this encounter
--- OUTSIDE RECORDS SUMMARY | 2024-06-17 23:23 | XMS_ITS | Encounter Summary ---
Author Organization [facility] Address Formerly [facility] [place] [address] Care Team Providers Care Employee Communications Coordinator Name Role Phone Annette Kirkland MD Primary Care Provider + Brinda Ascencio [facility] Primary Care Provider [phone] Nuvia Prasad MD Primary Care Provider [phone] None, Provider Primary Care Provider Unavaila Farzaneh Lancaster MD Primary Care Provider Encounter Details Date Type Department Care Team (Late st Contact Info) Description 02/07/2014 Abstract [facility] CONVERSION [address] [place] [address] , Generic Conversion, Social History Tobacco Use Types Packs/Day Years Used Date Smoking Tobacco: Never Assessed Comments Unknown Sex and Gender Information Value Date Recorded Sex Assigned at Female 06/14/2024 9:24 PM COMPRESSOR BATTERY PELLETS Legal Sex Female 5:01 PM CDT Gender Identity Female 06/14/2024 9:20 PM COMPRESSOR BATTERY PELLETS Sexual Orientation Straight 06/14/2024 9: 20 PM COMPRESSOR BATTERY PELLETS documented as of this encounter Plan of Treatment Upcoming Encounters Date Type Department Care Team (Late st Contact Info) Description 01/21/2025 10:45 AM CDT [facility] [address] [place] [phone] Doyle Curry MD [facility] [address] [place] [address] documented as of this encounter Visit Diagnoses [...] Rule Out 04/24/2022 04/24/2022 04/24/2022 3:01 PM COMPRESSOR BATTERY PELLETS COVID-19 Rule Out 05/09/2022 05/09/2022 05/09/2022 7:47 PM COMPRESSOR BATTERY PELLETS COVID-19 Rule Out 05/29/2022 05/29/2022 05/29/2022 1:46 PM COMPRESSOR BATTERY PELLETS COVID-19 Rule Out 05/29/2022 05/29/2022 05/30/2022 6:46 PM COMPRESSOR BATTERY PELLETS COVID-19 Rule Out 07/05/2022 07/05/2022 07/05/2022 7:45 PM COMPRESSOR BATTERY PELLETS COVID-19 Rule Out 08/30/2022 08/30/2022 08/30/2022 2:37 PM CDT COVID-19 Rule Out 09/26/2022 09/26/2022 09/26/2022 11:47 AM CDT COVID-19 Rule Out 12/02/2022 12/02/2022 12/02/2022 1:15 PM CDT COVID-19 Rule Out 02/14/2023 02/14/2023 02/14/2023 2:15 PM CDT COVID-19 Rule Out 03/20/2023 03/20/2023 03/20/2023 10:27 AM COMPRESSOR BATTERY PELLETS COVID-19 Rule Out 03/20/2023 03/20/2023 03/20/2023 2:10 PM COMPRESSOR BATTERY PELLETS COVID-19 Rule Out 03/26/2023 03/26/2023 03/26/2023 12:11 PM COMPRESSOR BATTERY PELLETS COVID-19 Rule Out 03/26/2023 03/26/2023 03/26/2023 1:39 PM COMPRESSOR BATTERY PELLETS COVID-19 Rule Out 04/01/2023 04/01/2023 04/01/2023 10:22 PM COMPRESSOR BATTERY PELLETS COVID-19 Rule Out 07/02/2023 07/02/2023 07/02/2023 1:03 PM COMPRESSOR BATTERY PELLETS COVID-19 Rule Out 07/09/2023 07/09/2023 07/09/2023 7:57 PM COMPRESSOR BATTERY PELLETS COVID-19 Rule Out 07/29/2023 07/29/2023 07/29/2023 7:23 PM CDT COVID-19 Rule Out 09/05/2023 09/05/2023 09/05/2023 1:30 PM CDT COVID-19 Rule Out 11/03/2023 11/03/2023 11/03/2023 3:34 PM CDT COVID-19 Rule Out 04/14/2024 04/14/2024 04/14/2024 1:53 PM COMPRESSOR BATTERY PELLETS documented as of this encounter Care Teams Employee Communications Coordinator Relationship Specialty Start Date End Date Annette Kirkland MD [address] [place] [address] PCP - General 08/31/14 06/07/19 Brinda Ascencio, CHILD CARE SITTER- [address] [place] [address] PCP - General NURSE PRACTITIONER 07/07/19 07/29/19 Nuvia Prasad MD [address] [place] [address] PCP - General INTERNAL MEDICINE 07/30/19 08/27/22 None, Provider, PCP - General UNKNOWN PHYSICIAN SPECIALTY 08/28/22 [place] [address] [facility]. [address] [place] [address] PCP - General FAMILY PRACTICE 09/19/22 documented as of this encounter
--- OUTSIDE RECORDS SUMMARY | 2024-06-17 23:23 | XMS_ITS | Encounter Summary ---
Author Organization [facility] Address [address] [place] [address] Care Team Providers Care Video Production Coordinator Name Role Phone Farzaneh Briscoe MD Primary Care Provider [phone] Encounter Details Date Type Department Care Team (Late st Contact Info) Description 11/06/2022 SevenLunchest Message Enc [facility] Medical Group [facility] [address] [place] [address] [facility] Provider Air Quality Message Social History Tobacco [...] Sex Assigned at Female 06/14/2024 9:24 PM FEATHER CURLING MACHINE OPERATOR Legal Sex Female 5:01 PM CDT Gender Identity Female 06/14/2024 9:20 PM FEATHER CURLING MACHINE OPERATOR Sexual Orientation Straight 06/14/2024 9: 20 PM FEATHER CURLING MACHINE OPERATOR COVID-19 Exposure Response Date Recorded [...] Description 01/21/2025 10:45 AM CDT Office Visit [facility] [address] [place] [phone] Doyle Curry MD [address] [address] documented as of this encounter Goals Goal [...] Rule Out 03/20/2023 03/20/2023 03/20/2023 10:27 AM FEATHER CURLING MACHINE OPERATOR COVID-19 Rule Out 03/20/2023 03/20/2023 03/20/2023 2:10 PM FEATHER CURLING MACHINE OPERATOR COVID-19 Rule Out 03/26/2023 03/26/2023 03/26/2023 12:11 PM FEATHER CURLING MACHINE OPERATOR COVID-19 Rule Out 03/26/2023 03/26/2023 03/26/2023 1:39 PM FEATHER CURLING MACHINE OPERATOR COVID-19 Rule Out 04/01/2023 04/01/2023 04/01/2023 10:22 PM FEATHER CURLING MACHINE OPERATOR COVID-19 Rule Out 07/02/2023 07/02/2023 07/02/2023 1:03 PM FEATHER CURLING MACHINE OPERATOR COVID-19 Rule Out 07/09/2023 07/09/2023 07/09/2023 7:57 PM FEATHER CURLING MACHINE OPERATOR COVID-19 Rule Out 07/29/2023 07/29/2023 07/29/2023 7:23 PM CDT COVID-19 Rule Out 09/05/2023 09/05/2023 09/05/2023 1:30 PM CDT COVID-19 Rule Out 11/03/2023 11/03/2023 11/03/2023 3:34 PM CDT COVID-19 Rule Out 04/14/2024 04/14/2024 04/14/2024 1:53 PM FEATHER CURLING MACHINE OPERATOR Assessment Noted Time PHQ-9 Depression Total Score: 023 3:00 PM FEATHER CURLING MACHINE OPERATOR documented as of this encounter Care Teams Video Production Coordinator Relationship Specialty [place] [address] [facility]. [address] [place] [address] PCP - General FAMILY PRACTICE 09/19/22 documented as of this encounter
--- OUTSIDE RECORDS SUMMARY | 2024-06-17 23:23 | XMS_ITS | Encounter Summary ---
Author Organization [facility] Address [address] [place] [address] Care Team Providers Care Cleaner And Presser Name Role Phone Farzaneh Briscoe MD Primary Care Provider [phone] Encounter Details Date Type Department Care Team (Late st Contact Info) Description 06/30/2023 Flareo Message Enc [facility] Medical Group Family & Internal Medicine [facility] [id number] [place] [phone] [place] [address] [place] [address]. [address] [place] [phone] Smashed my finger in a drawer Social [...] Sex Assigned at Female 06/14/2024 9:24 PM FINAL ARMATURE TESTER Legal Sex Female 5:01 PM CDT Gender Identity Female 06/14/2024 9:20 PM FINAL ARMATURE TESTER Sexual Orientation Straight 06/14/2024 9: 20 PM FINAL ARMATURE TESTER documented as of this encounter Functional Status [...] Description 01/21/2025 10:45 AM CDT Office Visit [facility] [address] [place] [phone] Doyle Curry MD [address] [place] [address] documented as of this encounter Goals Goal Patient Goal Type Associated Problems Recent Progress Patient-Stated? Author Return home with mother Diet No Mayte Camacho ORDER ENTRY ADMINISTRATOR documented as of this encounter Visit Diagnoses Not on filedocumented in this encounter Additional Health Concerns Infection Onset Date Last Indicated Resolved Time COVID-19 Rule Out 07/02/2023 07/02/2023 07/02/2023 1:03 PM FINAL ARMATURE TESTER COVID-19 Rule Out 07/09/2023 07/09/2023 07/09/2023 7:57 PM FINAL ARMATURE TESTER COVID-19 Rule Out 07/29/2023 07/29/2023 07/29/2023 7:23 PM CDT COVID-19 Rule Out 09/05/2023 09/05/2023 09/05/2023 1:30 PM CDT COVID-19 Rule Out 11/03/2023 11/03/2023 11/03/2023 3:34 PM CDT COVID-19 Rule Out 04/14/2024 04/14/2024 04/14/2024 1:53 PM FINAL ARMATURE TESTER Assessment Noted Time PHQ-9 Depression Total Score: 12 024 3:58 PM FINAL ARMATURE TESTER documented as of this encounter Care Teams Cleaner And Presser Relationship Specialty [place] [address] [address] [place] [address] PCP - General FAMILY PRACTICE 09/19/22 documented as of this encounter
--- OUTSIDE RECORDS SUMMARY | 2024-06-17 23:23 | XMS_ITS | Encounter Summary ---
Author Organization [facility] Address [address] [place] [address] Care Team Providers Care Supervisor Fabrication Department Name Role Phone Farzaneh Briscoe MD Primary Care Provider [phone] Encounter Details Date Type Department Care Team (Late st Contact Info) Description 09/25/2023 Datto Message Enc [facility] Medical Group Family & Internal Medicine [address] [address] [place] [id number] [place] [address]. [address] [place] [address] Update Social History Tobacco Use Types Packs/Day [...] Assigned at Female 06/14/2024 9:24 PM SUPERVISOR SPECIALTY PLANT Legal Sex Female 5:01 PM CDT Gender Identity Female 06/14/2024 9:20 PM SUPERVISOR SPECIALTY PLANT Sexual Orientation Straight 06/14/2024 9: 20 PM SUPERVISOR SPECIALTY PLANT documented as of this encounter Functional Status [...] Description 01/21/2025 10:45 AM CDT Office Visit [facility] [address] [place] [phone] Doyle Curry MD [address] [address] documented as of this encounter Goals Goal [...] Out 04/14/2024 04/14/2024 04/14/2024 1:53 PM SUPERVISOR SPECIALTY PLANT Assessment Noted Time PHQ-9 Depression Total Score: 20 024 12:53 PM CDT documented as of this encounter Care Teams Supervisor Fabrication Department Relationship Specialty [place] [address] [address] [place] [address] PCP - General FAMILY PRACTICE 09/19/22 documented as of this encounter
--- OUTSIDE RECORDS SUMMARY | 2024-06-17 23:23 | XMS_ITS | Encounter Summary ---
Author Organization [facility] Address [address] [place] [address] Care Team Providers Care Counter Maker Name Role Phone Farzaneh Briscoe MD Primary Care Provider [phone] Encounter Details Date Type Department Care Team (Late st Contact Info) Description 05/18/2023 SmashChart Message Enc [facility] Medical Group Family & Internal Medicine [facility] [address] [place] [phone] [place] [address] [place] [address]. [address] [place] [address] Shower problems...but also MCAS test?? [...] Sex Assigned at Female 06/14/2024 9:24 PM MECHANIC CHIEF Legal Sex Female 5:01 PM CDT Gender Identity Female 06/14/2024 9:20 PM MECHANIC CHIEF Sexual Orientation Straight 06/14/2024 9: 20 PM MECHANIC CHIEF documented as of this encounter Functional Status [...] Description 01/21/2025 10:45 AM CDT Office Visit [facility] [address] [place] [phone] Doyle Curry MD [address] [address] documented as of this encounter Goals Goal Patient Goal Type Associated Problems Recent Progress Patient-Stated? Author Return home with mother Diet No Mayte Camacho MSW documented as of this encounter Visit Diagnoses Not on filedocumented in this encounter Additional Health Concerns Infection Onset Date Last Indicated Resolved Time COVID-19 Rule Out 07/02/2023 07/02/2023 07/02/2023 1:03 PM MECHANIC CHIEF COVID-19 Rule Out 07/09/2023 07/09/2023 07/09/2023 7:57 PM MECHANIC CHIEF COVID-19 Rule Out 07/29/2023 07/29/2023 07/29/2023 7:23 PM CDT COVID-19 Rule Out 09/05/2023 09/05/2023 09/05/2023 1:30 PM CDT COVID-19 Rule Out 11/03/2023 11/03/2023 11/03/2023 3:34 PM CDT COVID-19 Rule Out 04/14/2024 04/14/2024 04/14/2024 1:53 PM MECHANIC CHIEF Assessment Noted Time PHQ-9 Depression Total Score: 12 024 3:58 PM MECHANIC CHIEF documented as of this encounter Care Teams Counter Maker Relationship Specialty [place] [address] [facility] [address]. [address] [place] [address] PCP - General FAMILY PRACTICE 09/19/22 documented as of this encounter
--- OUTSIDE RECORDS SUMMARY | 2024-06-17 23:23 | XMS_ITS | Encounter Summary ---
Author Organization [facility] Address [address] [place] [address] Care Team Providers Care Employment Specialist/Program Manager Name Role Phone Farzaneh Briscoe MD Primary Care Provider [phone] Reason for Visit * Reason Onset Date Comments Question 04/15/2024 Encounter Details Date Type Department Care Team (Late st Contact Info) Description 04/15/2024 Dining Secretaryhart Message Enc [facility] Medical Group Family & Internal Medicine [facility] [address] [place] [phone] [place] [address] [place] [address]. [address] [place] [address] What exactly is going on..is there [...] Sex Assigned at Female 06/14/2024 9:24 PM APPLICATIONS DEVELOPMENT ANALYST Legal Sex Female 5:01 PM CDT Gender Identity Female 06/14/2024 9:20 PM APPLICATIONS DEVELOPMENT ANALYST Sexual Orientation Straight 06/14/2024 9: 20 PM APPLICATIONS DEVELOPMENT ANALYST documented as of this encounter Functional Status [...] Please advise and call her back at [phone] ICATIONS DEVELOPMENT ANALYST ICATIONS DEVELOPMENT ANALYST * Julieta Poole - 04/15/2024 3:38 PM CST Gini (mother on HIPAA) calling. States david was seen in the walk in clinic, she is worried abouther, with the color of phleghm and breathing. David was not able to bean picker her medication yet as they are waiting [...] breath she should go to there Er. ICATIONS DEVELOPMENT ANALYST documented in this encounter Plan of Treatment Upcoming Encounters Date Type Department Care Team (Late st Contact Info) Description 01/21/2025 10:45 AM CDT Office Visit [facility] [address] [place] [phone] Doyle Curry MD [address] [address] documented as of this encounter Goals Goal Patient Goal Type Associated Problems Recent Progress Patient-Stated? Author Return home with mother Diet No Mayte Camacho, MOBILE DEVICE ENGINEER documented as of this encounter Visit Diagnoses Not on filedocumented in this encounter Additional Health Concerns Assessment Noted Time PHQ-9 Depression Total Score: 20 024 12:53 PM CDT documented as of this encounter Care Teams Employment Specialist/Program Manager Relationship Specialty [place] [address] [address] [place] [address] PCP - General FAMILY PRACTICE 09/19/22 documented as of this encounter
--- OUTSIDE RECORDS SUMMARY | 2024-06-17 23:23 | XMS_ITS | Encounter Summary ---
Author Organization [facility] Address [address] [place] [address] Care Team Providers Care Jewelry Finisher Name Role Phone Nuvia Prasad MD Primary Care Provider [phone] None, Provider Primary Care Provider Austina Farzaneh Lancaster MD Primary Care Provider [phone] Encounter Details Date Type Department Care Team (Late st Contact Info) Description 09/18/2021 Busuu Message Enc [facility] Medical Group Multispecialty Care - [address], [address] [place] [address] Mychart, [facility] Provider MRI Brain results Social History Tobacco [...] Sex Assigned at Female 06/14/2024 9:24 PM FERTILIZER MIXER Legal Sex Female 5:01 PM CDT Gender Identity Female 06/14/2024 9:20 PM FERTILIZER MIXER Sexual Orientation Straight 06/14/2024 9: 20 PM FERTILIZER MIXER COVID-19 Exposure Response Date Recorded In the [...] Description 01/21/2025 10:45 AM CDT Office Visit [facility] [address] [place] [phone] Doyle Curry MD [facility] [address] [place] [address] documented as of this encounter Goals Goal [...] Rule Out 04/24/2022 04/24/2022 04/24/2022 3:01 PM FERTILIZER MIXER COVID-19 Rule Out 05/09/2022 05/09/2022 05/09/2022 7:47 PM FERTILIZER MIXER COVID-19 Rule Out 05/29/2022 05/29/2022 05/29/2022 1:46 PM FERTILIZER MIXER COVID-19 Rule Out 05/29/2022 05/29/2022 05/30/2022 6:46 PM FERTILIZER MIXER COVID-19 Rule Out 07/05/2022 07/05/2022 07/05/2022 7:45 PM FERTILIZER MIXER COVID-19 Rule Out 08/30/2022 08/30/2022 08/30/2022 2:37 PM CDT COVID-19 Rule Out 09/26/2022 09/26/2022 09/26/2022 11:47 AM CDT COVID-19 Rule Out 12/02/2022 12/02/2022 12/02/2022 1:15 PM CDT COVID-19 Rule Out 02/14/2023 02/14/2023 02/14/2023 2:15 PM CDT COVID-19 Rule Out 03/20/2023 03/20/2023 03/20/2023 10:27 AM FERTILIZER MIXER COVID-19 Rule Out 03/20/2023 03/20/2023 03/20/2023 2:10 PM FERTILIZER MIXER COVID-19 Rule Out 03/26/2023 03/26/2023 03/26/2023 12:11 PM FERTILIZER MIXER COVID-19 Rule Out 03/26/2023 03/26/2023 03/26/2023 1:39 PM FERTILIZER MIXER COVID-19 Rule Out 04/01/2023 04/01/2023 04/01/2023 10:22 PM FERTILIZER MIXER COVID-19 Rule Out 07/02/2023 07/02/2023 07/02/2023 1:03 PM FERTILIZER MIXER COVID-19 Rule Out 07/09/2023 07/09/2023 07/09/2023 7:57 PM FERTILIZER MIXER COVID-19 Rule Out 07/29/2023 07/29/2023 07/29/2023 7:23 PM CDT COVID-19 Rule Out 09/05/2023 09/05/2023 09/05/2023 1:30 PM CDT COVID-19 Rule Out 11/03/2023 11/03/2023 11/03/2023 3:34 PM CDT COVID-19 Rule Out 04/14/2024 04/14/2024 04/14/2024 1:53 PM FERTILIZER MIXER Assessment Noted Time PHQ-9 Depression Total Score: 022 2:48 PM CDT documented as of this encounter Care Teams Jewelry Finisher Relationship Specialty Start Date End Date Nuvia Prasad MD PCP - General INTERNAL MEDICINE 07/30/19 08/27/22 None, ProviderMD PCP - General UNKNOWN PHYSICIAN SPECIALTY 08/28/22 09/18/22 [place] [address] [facility] [address] [place] [address] PCP - General FAMILY PRACTICE 09/19/22 documented as of this encounter
--- OUTSIDE RECORDS SUMMARY | 2024-06-17 23:23 | XMS_ITS | Encounter Summary ---
Author Organization [facility] Address [address] [place] [address] Care Team Providers Care Material Crew Supervisor Name Role Phone Annette Kirkland MD Primary Care Provider + Brinda Ascencio [facility] Primary Care Provider [phone] Nuvia Prasad MD Primary Care Provider [phone] None, Provider Primary Care Provider Unavaila Farzaneh Lancaster MD Primary Care Provider [phone] Encounter Details Date Type Department Care Team (Late st Contact Info) Description 06/05/2002 Abstract [facility] Conversion , Generic Conversion, Social History Tobacco Use Types Packs/Day Years Used Date Smoking Tobacco: Never Assessed Comments Unknown Sex and Gender Information Value Date Recorded Sex Assigned at Female 06/14/2024 9:24 PM BACK UP WORKER Legal Sex Female 5:01 PM CDT Gender Identity Female 06/14/2024 9:20 PM BACK UP WORKER Sexual Orientation Straight 06/14/2024 9: 20 PM BACK UP WORKER documented as of this encounter Plan of Treatment Upcoming Encounters Date Type Department Care Team (Late st Contact Info) Description 01/21/2025 10:45 AM CDT [facility] [address] [place] [phone] Doyle Curry MD [facility] [address] [place] [address] documented as of this encounter [...] Rule Out 04/24/2022 04/24/2022 04/24/2022 3:01 PM BACK UP WORKER COVID-19 Rule Out 05/09/2022 05/09/2022 05/09/2022 7:47 PM BACK UP WORKER COVID-19 Rule Out 05/29/2022 05/29/2022 05/29/2022 1:46 PM BACK UP WORKER COVID-19 Rule Out 05/29/2022 05/29/2022 05/30/2022 6:46 PM BACK UP WORKER COVID-19 Rule Out 07/05/2022 07/05/2022 07/05/2022 7:45 PM BACK UP WORKER COVID-19 Rule Out 08/30/2022 08/30/2022 08/30/2022 2:37 PM CDT COVID-19 Rule Out 09/26/2022 09/26/2022 09/26/2022 11:47 AM CDT COVID-19 Rule Out 12/02/2022 12/02/2022 12/02/2022 1:15 PM CDT COVID-19 Rule Out 02/14/2023 02/14/2023 02/14/2023 2:15 PM CDT COVID-19 Rule Out 03/20/2023 03/20/2023 03/20/2023 10:27 AM BACK UP WORKER COVID-19 Rule Out 03/20/2023 03/20/2023 03/20/2023 2:10 PM BACK UP WORKER COVID-19 Rule Out 03/26/2023 03/26/2023 03/26/2023 12:11 PM BACK UP WORKER COVID-19 Rule Out 03/26/2023 03/26/2023 03/26/2023 1:39 PM BACK UP WORKER COVID-19 Rule Out 04/01/2023 04/01/2023 04/01/2023 10:22 PM BACK UP WORKER COVID-19 Rule Out 07/02/2023 07/02/2023 07/02/2023 1:03 PM BACK UP WORKER COVID-19 Rule Out 07/09/2023 07/09/2023 07/09/2023 7:57 PM BACK UP WORKER COVID-19 Rule Out 07/29/2023 07/29/2023 07/29/2023 7:23 PM CDT COVID-19 Rule Out 09/05/2023 09/05/2023 09/05/2023 1:30 PM CDT COVID-19 Rule Out 11/03/2023 11/03/2023 11/03/2023 3:34 PM CDT COVID-19 Rule Out 04/14/2024 04/14/2024 04/14/2024 1:53 PM BACK UP WORKER documented as of this encounter Care Teams Material Crew Supervisor Relationship Specialty Start Date End Date Annette Kirkland MD [address] [place] [address] PCP - General 08/31/14 06/07/19 Brinda Ascencio, HOGSHEAD FILLER-BC [address] [place] [address] PCP - General NURSE PRACTITIONER 07/07/19 07/29/19 Nuvia Prasad MD [address] [place] [address] PCP - General INTERNAL MEDICINE 07/30/19 08/27/22 None, MD Yas PCP - General UNKNOWN PHYSICIAN SPECIALTY 08/28/22 [place] [address] [facility]. [address] [place] [address] PCP - General FAMILY PRACTICE 09/19/22 documented as of this encounter
--- OUTSIDE RECORDS SUMMARY | 2024-06-17 23:23 | XMS_ITS | Encounter Summary ---
Author Organization [facility] Address [address] [place] [address] Care Team Providers Care Operating System Programmer Name Role Phone Farzaneh Briscoe MD Primary Care Provider [phone] Encounter Details Date Type Department Care Team (Late st Contact Info) Description 05/16/2023 [email or web address] Message Enc [facility] Family & Internal Medicine [address] [address] [place] [address] [place] [address]. [address] [place] [phone] More annoying stuff that's ruining my life [...] Sex Assigned at Female 06/14/2024 9:24 PM RUFFLING MACHINE OPERATOR Legal Sex Female 5:01 PM CDT Gender Identity Female 06/14/2024 9:20 PM RUFFLING MACHINE OPERATOR Sexual Orientation Straight 06/14/2024 9: 20 PM RUFFLING MACHINE OPERATOR documented as of this encounter [...] Description 01/21/2025 10:45 AM CDT Office Visit [facility] [address] [place] [phone] Doyle Curry MD [address] [address] documented as of this encounter Goals Goal Patient Goal Type Associated Problems Recent Progress Patient-Stated? Author Return home with mother Diet No Mayte Camacho MSW documented as of this encounter Visit Diagnoses Not on filedocumented in this encounter Additional Health Concerns Infection Onset Date Last Indicated Resolved Time COVID-19 Rule Out 07/02/2023 07/02/2023 07/02/2023 1:03 PM RUFFLING MACHINE OPERATOR COVID-19 Rule Out 07/09/2023 07/09/2023 07/09/2023 7:57 PM RUFFLING MACHINE OPERATOR COVID-19 Rule Out 07/29/2023 07/29/2023 07/29/2023 7:23 PM CDT COVID-19 Rule Out 09/05/2023 09/05/2023 09/05/2023 1:30 PM CDT COVID-19 Rule Out 11/03/2023 11/03/2023 11/03/2023 3:34 PM CDT COVID-19 Rule Out 04/14/2024 04/14/2024 04/14/2024 1:53 PM RUFFLING MACHINE OPERATOR Assessment Noted Time PHQ-9 Depression Total Score: 12 024 3:58 PM RUFFLING MACHINE OPERATOR documented as of this encounter Care Teams Operating System Programmer Relationship Specialty Start [place] [address] [facility] [address] [place] [address] PCP - General FAMILY PRACTICE 09/19/22 documented as of this encounter
--- OUTSIDE RECORDS SUMMARY | 2024-06-17 23:23 | XMS_ITS | Encounter Summary ---
Author Organization [facility] Address [address] [place] [address] Care Team Providers Care Gas Station Cashier Name Role Phone Nuvia Prasad MD Primary Care Provider None, Provider Primary Care Provider Austina Farzaneh Lancaster MD Primary Care Provider [phone] Encounter Details Date Type Department Care Team (Late st Contact Info) Description 08/18/2020 GoMore Message [facility] [address] [place] [address] [facility] COVID TEST Social History Tobacco [...] Sex Assigned at Female 06/14/2024 9:24 PM MECHANICAL MAINTENANCE INSTRUCTOR Legal Sex Female 5:01 PM CDT Gender Identity Female 06/14/2024 9:20 PM MECHANICAL MAINTENANCE INSTRUCTOR Sexual Orientation Straight 06/14/2024 9: 20 PM MECHANICAL MAINTENANCE INSTRUCTOR COVID-19 Exposure Response Date Recorded In [...] Description 01/21/2025 10:45 AM CDT [facility] [address] [facility] [place] [phone] Doyle Curry MD [place] [address] [place] [address] documented as of this encounter Goals Goal Patient Goal Type Associated Problems Recent Progress Patient-Stated? Author Return home with mother Diet No Mayte Camacho AVIONICS ELECTRICAL ENGINEER documented as of this encounter Visit Diagnoses Not on filedocumented in this encounter Additional Health Concerns Infection Onset Date Last Indicated Resolved Time COVID-19 Rule Out 10/15/2021 10/15/2021 10/15/2021 1:34 PM CDT COVID-19 Rule Out 10/15/2021 10/15/2021 10/16/2021 7:02 PM CDT COVID-19 Rule Out 01/30/2022 01/30/2022 01/30/2022 9:59 AM CDT COVID-19 Rule Out 04/24/2022 04/24/2022 04/24/2022 3:01 PM MECHANICAL MAINTENANCE INSTRUCTOR COVID-19 Rule Out 05/09/2022 05/09/2022 05/09/2022 7:47 PM MECHANICAL MAINTENANCE INSTRUCTOR COVID-19 Rule Out 05/29/2022 05/29/2022 05/29/2022 1:46 PM MECHANICAL MAINTENANCE INSTRUCTOR COVID-19 Rule Out 05/29/2022 05/29/2022 05/30/2022 6:46 PM MECHANICAL MAINTENANCE INSTRUCTOR COVID-19 Rule Out 07/05/2022 07/05/2022 07/05/2022 7:45 PM MECHANICAL MAINTENANCE INSTRUCTOR COVID-19 Rule Out 08/30/2022 08/30/2022 08/30/2022 2:37 PM CDT COVID-19 Rule Out 09/26/2022 09/26/2022 09/26/2022 11:47 AM CDT COVID-19 Rule Out 12/02/2022 12/02/2022 12/02/2022 1:15 PM CDT COVID-19 Rule Out 02/14/2023 02/14/2023 02/14/2023 2:15 PM CDT COVID-19 Rule Out 03/20/2023 03/20/2023 03/20/2023 10:27 AM MECHANICAL MAINTENANCE INSTRUCTOR COVID-19 Rule Out 03/20/2023 03/20/2023 03/20/2023 2:10 PM MECHANICAL MAINTENANCE INSTRUCTOR COVID-19 Rule Out 03/26/2023 03/26/2023 03/26/2023 12:11 PM MECHANICAL MAINTENANCE INSTRUCTOR COVID-19 Rule Out 03/26/2023 03/26/2023 03/26/2023 1:39 PM MECHANICAL MAINTENANCE INSTRUCTOR COVID-19 Rule Out 04/01/2023 04/01/2023 04/01/2023 10:22 PM MECHANICAL MAINTENANCE INSTRUCTOR COVID-19 Rule Out 07/02/2023 07/02/2023 07/02/2023 1:03 PM MECHANICAL MAINTENANCE INSTRUCTOR COVID-19 Rule Out 07/09/2023 07/09/2023 07/09/2023 7:57 PM MECHANICAL MAINTENANCE INSTRUCTOR COVID-19 Rule Out 07/29/2023 07/29/2023 07/29/2023 7:23 PM CDT COVID-19 Rule Out 09/05/2023 09/05/2023 09/05/2023 1:30 PM CDT COVID-19 Rule Out 11/03/2023 11/03/2023 11/03/2023 3:34 PM CDT COVID-19 Rule Out 04/14/2024 04/14/2024 04/14/2024 1:53 PM MECHANICAL MAINTENANCE INSTRUCTOR Assessment Noted Time PHQ-9 Depression Total Score: 14 07 020 4:53 PM CDT documented as of this encounter Care Teams Gas Station Cashier Relationship Specialty Start Date End Date Nuvia Prasad MD PCP - General INTERNAL MEDICINE 07/30/19 08/27/22 None, Provider, PCP - General UNKNOWN PHYSICIAN SPECIALTY 08/28/22 09/18/22 [place] [address] [facility]. [address] [place] [address] PCP - General FAMILY PRACTICE 09/19/22 documented as of this encounter
--- OUTSIDE RECORDS SUMMARY | 2024-06-17 23:23 | XMS_ITS | Encounter Summary ---
Author Organization [facility] Address [address] [place] [address] Care Team Providers Care Solid Waste Facility Operator Name Role Phone Annette Kirkland MD Primary Care Provider + Brinda Ascencio [facility] Primary Care Provider [phone] Nuvia Prasad MD Primary Care Provider [phone] None, Provider Primary Care Provider Unavaila Farzaneh Lancaster MD Primary Care Provider [phone] Encounter Details Date Type Department Care Team (Late st Contact Info) Description 10/14/2012 Abstract [facility] Conversion , Generic Conversion, Social History Tobacco Use Types Packs/Day Years Used Date Smoking Tobacco: Never Assessed Comments Unknown Sex and Gender Information Value Date Recorded Sex Assigned at Female 06/14/2024 9:24 PM TOP AND SEAT COVER FITTER Legal Sex Female 5:01 PM CDT Gender Identity Female 06/14/2024 9:20 PM TOP AND SEAT COVER FITTER Sexual Orientation Straight 06/14/2024 9: 20 PM TOP AND SEAT COVER FITTER documented as of this encounter Plan of Treatment Upcoming Encounters Date Type Department Care Team (Late st Contact Info) Description 01/21/2025 10:45 AM CDT [facility] [address] [place] [phone] Doyle Curry MD [facility] [address] [place] [address] documented as of this encounter [...] Rule Out 04/24/2022 04/24/2022 04/24/2022 3:01 PM TOP AND SEAT COVER FITTER COVID-19 Rule Out 05/09/2022 05/09/2022 05/09/2022 7:47 PM TOP AND SEAT COVER FITTER COVID-19 Rule Out 05/29/2022 05/29/2022 05/29/2022 1:46 PM TOP AND SEAT COVER FITTER COVID-19 Rule Out 05/29/2022 05/29/2022 05/30/2022 6:46 PM TOP AND SEAT COVER FITTER COVID-19 Rule Out 07/05/2022 07/05/2022 07/05/2022 7:45 PM TOP AND SEAT COVER FITTER COVID-19 Rule Out 08/30/2022 08/30/2022 08/30/2022 2:37 PM CDT COVID-19 Rule Out 09/26/2022 09/26/2022 09/26/2022 11:47 AM CDT COVID-19 Rule Out 12/02/2022 12/02/2022 12/02/2022 1:15 PM CDT COVID-19 Rule Out 02/14/2023 02/14/2023 02/14/2023 2:15 PM CDT COVID-19 Rule Out 03/20/2023 03/20/2023 03/20/2023 10:27 AM TOP AND SEAT COVER FITTER COVID-19 Rule Out 03/20/2023 03/20/2023 03/20/2023 2:10 PM TOP AND SEAT COVER FITTER COVID-19 Rule Out 03/26/2023 03/26/2023 03/26/2023 12:11 PM TOP AND SEAT COVER FITTER COVID-19 Rule Out 03/26/2023 03/26/2023 03/26/2023 1:39 PM TOP AND SEAT COVER FITTER COVID-19 Rule Out 04/01/2023 04/01/2023 04/01/2023 10:22 PM TOP AND SEAT COVER FITTER COVID-19 Rule Out 07/02/2023 07/02/2023 07/02/2023 1:03 PM TOP AND SEAT COVER FITTER COVID-19 Rule Out 07/09/2023 07/09/2023 07/09/2023 7:57 PM TOP AND SEAT COVER FITTER COVID-19 Rule Out 07/29/2023 07/29/2023 07/29/2023 7:23 PM CDT COVID-19 Rule Out 09/05/2023 09/05/2023 09/05/2023 1:30 PM CDT COVID-19 Rule Out 11/03/2023 11/03/2023 11/03/2023 3:34 PM CDT COVID-19 Rule Out 04/14/2024 04/14/2024 04/14/2024 1:53 PM TOP AND SEAT COVER FITTER documented as of this encounter Care Teams Solid Waste Facility Operator Relationship Specialty Start Date End Date Annette Kirkland MD [address] [place] [address] PCP - General 08/31/14 06/07/19 Brinda Ascencio, METAL POURER-BC [address] [place] [address] PCP - General NURSE PRACTITIONER 07/07/19 07/29/19 Nuvia Prasad MD [address] [place] [address] PCP - General INTERNAL MEDICINE 07/30/19 08/27/22 None, MD Yas PCP - General UNKNOWN PHYSICIAN SPECIALTY 08/28/22 [place] [address] [facility]. [address] [place] [address] PCP - General FAMILY PRACTICE 09/19/22 documented as of this encounter
--- OUTSIDE RECORDS SUMMARY | 2024-06-17 23:23 | XMS_ITS | Encounter Summary ---
Author Organization [facility] Address [address] [place] [address] Care Team Providers Care Automatic Blocker Name Role Phone Nuvia Prasad MD Primary Care Provider [phone] None, Provider Primary Care Provider Unavaila Farzaneh Lancaster MD Primary Care Provider [phone] Encounter Details Date Type Department Care Team (Late st Contact Info) Description 09/21/2021 PingSomet Message Enc [facility] Family & Internal Medicine [facility] [address] [place] [address] Amanda Allen, MANUFACTURING AREA MANAGER [address] [facility] [address] [place] [address] Thyroid test results Social History [...] Sex Assigned at Female 06/14/2024 9:24 PM RN INFUSION Legal Sex Female 5:01 PM CDT Gender Identity Female 06/14/2024 9:20 PM RN INFUSION Sexual Orientation Straight 06/14/2024 9: 20 PM RN INFUSION COVID-19 Exposure Response Date Recorded In the [...] Description 01/21/2025 10:45 AM CDT Office Visit [facility] [address] [place] [phone] Doyle Curry MD [facility] [address] [place] [address] documented as of this encounter Goals Goal Patient Goal Type Associated Problems Recent Progress Patient-Stated? Author Return home with mother Diet Javed Pelaezziggy Hawkins, SLAUGHTERER RELIGIOUS RITUAL documented as of this encounter Visit Diagnoses Not on filedocumented in this encounter Additional Health Concerns Infection Onset Date Last Indicated Resolved Time COVID-19 Rule Out 10/15/2021 10/15/2021 10/15/2021 1:34 PM CDT COVID-19 Rule Out 10/15/2021 10/15/2021 10/16/2021 7:02 PM CDT COVID-19 Rule Out 01/30/2022 01/30/2022 01/30/2022 9:59 AM CDT COVID-19 Rule Out 04/24/2022 04/24/2022 04/24/2022 3:01 PM RN INFUSION COVID-19 Rule Out 05/09/2022 05/09/2022 05/09/2022 7:47 PM RN INFUSION COVID-19 Rule Out 05/29/2022 05/29/2022 05/29/2022 1:46 PM RN INFUSION COVID-19 Rule Out 05/29/2022 05/29/2022 05/30/2022 6:46 PM RN INFUSION COVID-19 Rule Out 07/05/2022 07/05/2022 07/05/2022 7:45 PM RN INFUSION COVID-19 Rule Out 08/30/2022 08/30/2022 08/30/2022 2:37 PM CDT COVID-19 Rule Out 09/26/2022 09/26/2022 09/26/2022 11:47 AM CDT COVID-19 Rule Out 12/02/2022 12/02/2022 12/02/2022 1:15 PM CDT COVID-19 Rule Out 02/14/2023 02/14/2023 02/14/2023 2:15 PM CDT COVID-19 Rule Out 03/20/2023 03/20/2023 03/20/2023 10:27 AM RN INFUSION COVID-19 Rule Out 03/20/2023 03/20/2023 03/20/2023 2:10 PM RN INFUSION COVID-19 Rule Out 03/26/2023 03/26/2023 03/26/2023 12:11 PM RN INFUSION COVID-19 Rule Out 03/26/2023 03/26/2023 03/26/2023 1:39 PM RN INFUSION COVID-19 Rule Out 04/01/2023 04/01/2023 04/01/2023 10:22 PM RN INFUSION COVID-19 Rule Out 07/02/2023 07/02/2023 07/02/2023 1:03 PM RN INFUSION COVID-19 Rule Out 07/09/2023 07/09/2023 07/09/2023 7:57 PM RN INFUSION COVID-19 Rule Out 07/29/2023 07/29/2023 07/29/2023 7:23 PM CDT COVID-19 Rule Out 09/05/2023 09/05/2023 09/05/2023 1:30 PM CDT COVID-19 Rule Out 11/03/2023 11/03/2023 11/03/2023 3:34 PM CDT COVID-19 Rule Out 04/14/2024 04/14/2024 04/14/2024 1:53 PM RN INFUSION Assessment Noted Time PHQ-9 Depression Total Score: 022 2:48 PM CDT documented as of this encounter Care Teams Automatic Blocker Relationship Specialty Start Date End Date Nuvia Prasad MD PCP - General INTERNAL MEDICINE 07/30/19 08/27/22 None, Provider, PCP - General UNKNOWN PHYSICIAN SPECIALTY 08/28/22 09/18/22 [place] [address] [facility]. [address] [place] [address] PCP - General FAMILY PRACTICE 09/19/22 documented as of this encounter
--- OUTSIDE RECORDS SUMMARY | 2024-06-17 23:24 | XMS_ITS | Encounter Summary ---
Author Organization [facility] Address [address] [place] [address] Care Team Providers Care Inspector Boiler Name Role Phone Nuvia Prasad MD Primary Care Provider [phone] None, Provider Primary Care Provider Unavaila Farzaneh Lancaster MD Primary Care Provider [phone] Encounter Details Date Type Department Care Team (Late st Contact Info) Description 10/08/2021 CMP.LYt Message Enc [facility] Family & Internal Medicine [facility] [address] [place] [address] [place] [id number] [place] [address] Sleep study results?? Social History Tobacco [...] Sex Assigned at Female 06/14/2024 9:24 PM APPELLATE CONFEREE Legal Sex Female 5:01 PM CDT Gender Identity Female 06/14/2024 9:20 PM APPELLATE CONFEREE Sexual Orientation Straight 06/14/2024 9: 20 PM APPELLATE CONFEREE COVID-19 Exposure Response Date Recorded In the [...] Description 01/21/2025 10:45 AM CDT [facility] [address] [place] [phone] Doyle Curry MD [facility]. [facility] [address] [place] [address] documented as of this encounter Goals Goal Patient Goal Type Associated Problems Recent Progress Patient-Stated? Author Return home with mother Mayte Brady, RIGHT OF WAY CUTTER documented as of this encounter Visit Diagnoses Not on filedocumented in this encounter Additional Health Concerns Infection Onset Date Last Indicated Resolved Time COVID-19 Rule Out 10/15/2021 10/15/2021 10/15/2021 1:34 PM CDT COVID-19 Rule Out 10/15/2021 10/15/2021 10/16/2021 7:02 PM CDT COVID-19 Rule Out 01/30/2022 01/30/2022 01/30/2022 9:59 AM CDT COVID-19 Rule Out 04/24/2022 04/24/2022 04/24/2022 3:01 PM APPELLATE CONFEREE COVID-19 Rule Out 05/09/2022 05/09/2022 05/09/2022 7:47 PM APPELLATE CONFEREE COVID-19 Rule Out 05/29/2022 05/29/2022 05/29/2022 1:46 PM APPELLATE CONFEREE COVID-19 Rule Out 05/29/2022 05/29/2022 05/30/2022 6:46 PM APPELLATE CONFEREE COVID-19 Rule Out 07/05/2022 07/05/2022 07/05/2022 7:45 PM APPELLATE CONFEREE COVID-19 Rule Out 08/30/2022 08/30/2022 08/30/2022 2:37 PM CDT COVID-19 Rule Out 09/26/2022 09/26/2022 09/26/2022 11:47 AM CDT COVID-19 Rule Out 12/02/2022 12/02/2022 12/02/2022 1:15 PM CDT COVID-19 Rule Out 02/14/2023 02/14/2023 02/14/2023 2:15 PM CDT COVID-19 Rule Out 03/20/2023 03/20/2023 03/20/2023 10:27 AM APPELLATE CONFEREE COVID-19 Rule Out 03/20/2023 03/20/2023 03/20/2023 2:10 PM APPELLATE CONFEREE COVID-19 Rule Out 03/26/2023 03/26/2023 03/26/2023 12:11 PM APPELLATE CONFEREE COVID-19 Rule Out 03/26/2023 03/26/2023 03/26/2023 1:39 PM APPELLATE CONFEREE COVID-19 Rule Out 04/01/2023 04/01/2023 04/01/2023 10:22 PM APPELLATE CONFEREE COVID-19 Rule Out 07/02/2023 07/02/2023 07/02/2023 1:03 PM APPELLATE CONFEREE COVID-19 Rule Out 07/09/2023 07/09/2023 07/09/2023 7:57 PM APPELLATE CONFEREE COVID-19 Rule Out 07/29/2023 07/29/2023 07/29/2023 7:23 PM CDT COVID-19 Rule Out 09/05/2023 09/05/2023 09/05/2023 1:30 PM CDT COVID-19 Rule Out 11/03/2023 11/03/2023 11/03/2023 3:34 PM CDT COVID-19 Rule Out 04/14/2024 04/14/2024 04/14/2024 1:53 PM APPELLATE CONFEREE Assessment Noted Time PHQ-9 Depression Total Score: 022 2:48 PM CDT documented as of this encounter Care Teams Inspector Boiler Relationship Specialty Start Date End Date Nuvia Prasad MD PCP - General INTERNAL MEDICINE 07/30/19 08/27/22 None, Provider, PCP - General UNKNOWN PHYSICIAN SPECIALTY 08/28/22 09/18/22 [place] [address] [facility]. [address] [place] [address] PCP - General FAMILY PRACTICE 09/19/22 documented as of this encounter
--- OUTSIDE RECORDS SUMMARY | 2024-06-17 23:24 | XMS_ITS | Encounter Summary ---
Author Organization [facility] Address [address] [place] [address] Care Team Providers Care Case Briefer Name Role Phone Nuvia Prasad MD Primary Care Provider [phone] None, Provider Primary Care Provider Unavaila Farzaneh Lancaster MD Primary Care Provider [phone] Encounter Details Date Type Department Care Team (Late st Contact Info) Description 10/25/2021 [employer] Message Enc [facility] Group Family & Internal Medicine [facility] [address] [place] [address] [place] [address] [place] [address] Hypersensitivity Social History Tobacco Use Types [...] Sex Assigned at Female 06/14/2024 9:24 PM NITROGLYCERIN SUPERVISOR Legal Sex Female 5:01 PM CDT Gender Identity Female 06/14/2024 9:20 PM NITROGLYCERIN SUPERVISOR Sexual Orientation Straight 06/14/2024 9: 20 PM NITROGLYCERIN SUPERVISOR COVID-19 Exposure Response Date Recorded In [...] Description 01/21/2025 10:45 AM CDT [facility] [address] [place] [address] Doyle Curry MD [facility]. [facility] [address] [place] [address] documented as of this encounter Goals Goal Patient Goal Type Associated Problems Recent Progress Patient-Stated? Author Return home with mother Mayte Brady Ross, MOLDER APPRENTICE documented as of this encounter Visit Diagnoses Not on filedocumented in this encounter Additional Health Concerns Infection Onset Date Last Indicated Resolved Time COVID-19 Rule Out 01/30/2022 01/30/2022 01/30/2022 9:59 AM CDT COVID-19 Rule Out 04/24/2022 04/24/2022 04/24/2022 3:01 PM NITROGLYCERIN SUPERVISOR COVID-19 Rule Out 05/09/2022 05/09/2022 05/09/2022 7:47 PM NITROGLYCERIN SUPERVISOR COVID-19 Rule Out 05/29/2022 05/29/2022 05/29/2022 1:46 PM NITROGLYCERIN SUPERVISOR COVID-19 Rule Out 05/29/2022 05/29/2022 05/30/2022 6:46 PM NITROGLYCERIN SUPERVISOR COVID-19 Rule Out 07/05/2022 07/05/2022 07/05/2022 7:45 PM NITROGLYCERIN SUPERVISOR COVID-19 Rule Out 08/30/2022 08/30/2022 08/30/2022 2:37 PM CDT COVID-19 Rule Out 09/26/2022 09/26/2022 09/26/2022 11:47 AM CDT COVID-19 Rule Out 12/02/2022 12/02/2022 12/02/2022 1:15 PM CDT COVID-19 Rule Out 02/14/2023 02/14/2023 02/14/2023 2:15 PM CDT COVID-19 Rule Out 03/20/2023 03/20/2023 03/20/2023 10:27 AM NITROGLYCERIN SUPERVISOR COVID-19 Rule Out 03/20/2023 03/20/2023 03/20/2023 2:10 PM NITROGLYCERIN SUPERVISOR COVID-19 Rule Out 03/26/2023 03/26/2023 03/26/2023 12:11 PM NITROGLYCERIN SUPERVISOR COVID-19 Rule Out 03/26/2023 03/26/2023 03/26/2023 1:39 PM NITROGLYCERIN SUPERVISOR COVID-19 Rule Out 04/01/2023 04/01/2023 04/01/2023 10:22 PM NITROGLYCERIN SUPERVISOR COVID-19 Rule Out 07/02/2023 07/02/2023 07/02/2023 1:03 PM NITROGLYCERIN SUPERVISOR COVID-19 Rule Out 07/09/2023 07/09/2023 07/09/2023 7:57 PM NITROGLYCERIN SUPERVISOR COVID-19 Rule Out 07/29/2023 07/29/2023 07/29/2023 7:23 PM CDT COVID-19 Rule Out 09/05/2023 09/05/2023 09/05/2023 1:30 PM CDT COVID-19 Rule Out 11/03/2023 11/03/2023 11/03/2023 3:34 PM CDT COVID-19 Rule Out 04/14/2024 04/14/2024 04/14/2024 1:53 PM NITROGLYCERIN SUPERVISOR Assessment Noted Time PHQ-9 Depression Total Score: 022 2:48 PM CDT documented as of this encounter Care Teams Case Briefer Relationship Specialty Start Date End Date Nuvia Prasad MD PCP - General INTERNAL MEDICINE 07/30/19 08/27/22 None, Provider, PCP - General UNKNOWN PHYSICIAN SPECIALTY 08/28/22 09/18/22 [place] [address] [facility]. [address] [place] [address] PCP - General FAMILY PRACTICE 09/19/22 documented as of this encounter
--- OUTSIDE RECORDS SUMMARY | 2024-06-17 23:24 | XMS_ITS | Encounter Summary ---
Author Organization [facility] Address [address] [place] [address] Care Team Providers Care Geospatial Specialist Name Role Phone Nuvia Prasad MD Primary Care Provider [phone] None, Provider Primary Care Provider Unavaila Farzaneh Lancaster MD Primary Care Provider [phone] Encounter Details Date Type Department Care Team (Late st Contact Info) Description 01/28/2022 MyChart Message Enc [facility] Medical Group Family & Internal Medicine [facility] [address] [place] [address] [place] Pr[place] [id number] [place] [address] Throat Social History Tobacco Use Types [...] Sex Assigned at Female 06/14/2024 9:24 PM HEALTH INFORMATION ADMINISTRATOR Legal Sex Female 5:01 PM CDT Gender Identity Female 06/14/2024 9:20 PM HEALTH INFORMATION ADMINISTRATOR Sexual Orientation Straight 06/14/2024 9: 20 PM HEALTH INFORMATION ADMINISTRATOR COVID-19 Exposure Response Date Recorded In the [...] Description 01/21/2025 10:45 AM CDT [facility] [address] [place] [address] Doyle Curry MD [facility]. [facility] [address] [place] [address] documented as of this encounter Goals Goal Patient Goal Type Associated Problems Recent Progress Patient-Stated? Author Return home with mother Mayte Brady Ross, MOCK UP ASSEMBLER documented as of this encounter Visit Diagnoses Not on filedocumented in this encounter Additional Health Concerns Infection Onset Date Last Indicated Resolved Time COVID-19 Rule Out 01/30/2022 01/30/2022 01/30/2022 9:59 AM CDT COVID-19 Rule Out 04/24/2022 04/24/2022 04/24/2022 3:01 PM HEALTH INFORMATION ADMINISTRATOR COVID-19 Rule Out 05/09/2022 05/09/2022 05/09/2022 7:47 PM HEALTH INFORMATION ADMINISTRATOR COVID-19 Rule Out 05/29/2022 05/29/2022 05/29/2022 1:46 PM HEALTH INFORMATION ADMINISTRATOR COVID-19 Rule Out 05/29/2022 05/29/2022 05/30/2022 6:46 PM HEALTH INFORMATION ADMINISTRATOR COVID-19 Rule Out 07/05/2022 07/05/2022 07/05/2022 7:45 PM HEALTH INFORMATION ADMINISTRATOR COVID-19 Rule Out 08/30/2022 08/30/2022 08/30/2022 2:37 PM CDT COVID-19 Rule Out 09/26/2022 09/26/2022 09/26/2022 11:47 AM CDT COVID-19 Rule Out 12/02/2022 12/02/2022 12/02/2022 1:15 PM CDT COVID-19 Rule Out 02/14/2023 02/14/2023 02/14/2023 2:15 PM CDT COVID-19 Rule Out 03/20/2023 03/20/2023 03/20/2023 10:27 AM HEALTH INFORMATION ADMINISTRATOR COVID-19 Rule Out 03/20/2023 03/20/2023 03/20/2023 2:10 PM HEALTH INFORMATION ADMINISTRATOR COVID-19 Rule Out 03/26/2023 03/26/2023 03/26/2023 12:11 PM HEALTH INFORMATION ADMINISTRATOR COVID-19 Rule Out 03/26/2023 03/26/2023 03/26/2023 1:39 PM HEALTH INFORMATION ADMINISTRATOR COVID-19 Rule Out 04/01/2023 04/01/2023 04/01/2023 10:22 PM HEALTH INFORMATION ADMINISTRATOR COVID-19 Rule Out 07/02/2023 07/02/2023 07/02/2023 1:03 PM HEALTH INFORMATION ADMINISTRATOR COVID-19 Rule Out 07/09/2023 07/09/2023 07/09/2023 7:57 PM HEALTH INFORMATION ADMINISTRATOR COVID-19 Rule Out 07/29/2023 07/29/2023 07/29/2023 7:23 PM CDT COVID-19 Rule Out 09/05/2023 09/05/2023 09/05/2023 1:30 PM CDT COVID-19 Rule Out 11/03/2023 11/03/2023 11/03/2023 3:34 PM CDT COVID-19 Rule Out 04/14/2024 04/14/2024 04/14/2024 1:53 PM HEALTH INFORMATION ADMINISTRATOR Assessment Noted Time PHQ-9 Depression Total Score: 18 022 10:36 AM CDT documented as of this encounter Care Teams Geospatial Specialist Relationship Specialty Start Date End Date Nuvia Prasad MD PCP - General INTERNAL MEDICINE 07/30/19 08/27/22 None, Provider, PCP - General UNKNOWN PHYSICIAN SPECIALTY 08/28/22 09/18/22 [place] [address] [facility]. [address] [place] [address] PCP - General FAMILY PRACTICE 09/19/22 documented as of this encounter
--- OUTSIDE RECORDS SUMMARY | 2024-06-17 23:24 | XMS_ITS | Encounter Summary ---
Author Organization [facility] Address [address] [place] [address] Care Team Providers Care Steamer Gum Candy Name Role Phone Nuvia Prasad MD Primary Care Provider None, Provider Primary Care Provider Unavaila Farzaneh Lancaster MD Primary Care Provider [phone] Encounter Details Date Type Department Care Team (Late st Contact Info) Description 04/24/2022 [employer] Message Enc [facility] Medical Group Family & Internal Medicine [facility] [address] [place] [address] [place]uv[place] Pr[place]ad [place] [id number] [place] [address] Throat n tongue Social History Tobacco [...] Sex Assigned at Female 06/14/2024 9:24 PM ANIMAL PHYSIOLOGY TEACHER Legal Sex Female 5:01 PM CDT Gender Identity Female 06/14/2024 9:20 PM ANIMAL PHYSIOLOGY TEACHER Sexual Orientation Straight 06/14/2024 9: 20 PM ANIMAL PHYSIOLOGY TEACHER COVID-19 Exposure Response Date Recorded In the last 10 days, have glenn u been in contact with someone who was confirmed or suspected to have Coronavirus/COVID-19? No / Unsure 04/24/2022 1:36 PM ANIMAL PHYSIOLOGY TEACHER documented as of this encounter Functional [...] Description 01/21/2025 10:45 AM CDT [facility] [address] [place] [phone] Doyle Curry MD [facility]. [facility] [address] [place] [address] documented as of this encounter Goals Goal Patient Goal Type Associated Problems Recent Progress Patient-Stated? Author Return home with mother Diet Javed Pelaezziggy Hawkins, ROOF FIXER documented as of this encounter Visit Diagnoses Not on filedocumented in this encounter Additional Health Concerns Infection Onset Date Last Indicated Resolved Time COVID-19 Rule Out 04/24/2022 04/24/2022 04/24/2022 3:01 PM ANIMAL PHYSIOLOGY TEACHER COVID-19 Rule Out 05/09/2022 05/09/2022 05/09/2022 7:47 PM ANIMAL PHYSIOLOGY TEACHER COVID-19 Rule Out 05/29/2022 05/29/2022 05/29/2022 1:46 PM ANIMAL PHYSIOLOGY TEACHER COVID-19 Rule Out 05/29/2022 05/29/2022 05/30/2022 6:46 PM ANIMAL PHYSIOLOGY TEACHER COVID-19 Rule Out 07/05/2022 07/05/2022 07/05/2022 7:45 PM ANIMAL PHYSIOLOGY TEACHER COVID-19 Rule Out 08/30/2022 08/30/2022 08/30/2022 2:37 PM CDT COVID-19 Rule Out 09/26/2022 09/26/2022 09/26/2022 11:47 AM CDT COVID-19 Rule Out 12/02/2022 12/02/2022 12/02/2022 1:15 PM CDT COVID-19 Rule Out 02/14/2023 02/14/2023 02/14/2023 2:15 PM CDT COVID-19 Rule Out 03/20/2023 03/20/2023 03/20/2023 10:27 AM ANIMAL PHYSIOLOGY TEACHER COVID-19 Rule Out 03/20/2023 03/20/2023 03/20/2023 2:10 PM ANIMAL PHYSIOLOGY TEACHER COVID-19 Rule Out 03/26/2023 03/26/2023 03/26/2023 12:11 PM ANIMAL PHYSIOLOGY TEACHER COVID-19 Rule Out 03/26/2023 03/26/2023 03/26/2023 1:39 PM ANIMAL PHYSIOLOGY TEACHER COVID-19 Rule Out 04/01/2023 04/01/2023 04/01/2023 10:22 PM ANIMAL PHYSIOLOGY TEACHER COVID-19 Rule Out 07/02/2023 07/02/2023 07/02/2023 1:03 PM ANIMAL PHYSIOLOGY TEACHER COVID-19 Rule Out 07/09/2023 07/09/2023 07/09/2023 7:57 PM ANIMAL PHYSIOLOGY TEACHER COVID-19 Rule Out 07/29/2023 07/29/2023 07/29/2023 7:23 PM CDT COVID-19 Rule Out 09/05/2023 09/05/2023 09/05/2023 1:30 PM CDT COVID-19 Rule Out 11/03/2023 11/03/2023 11/03/2023 3:34 PM CDT COVID-19 Rule Out 04/14/2024 04/14/2024 04/14/2024 1:53 PM ANIMAL PHYSIOLOGY TEACHER Assessment Noted Time PHQ-9 Depression Total Score: 0 01/31/20 9:08 AM CDT documented as of this encounter Care Teams Steamer Gum Candy Relationship Specialty Start Date End Date Nuvia Prasad MD PCP - General INTERNAL MEDICINE 07/30/19 08/27/22 None, Provider, PCP - General UNKNOWN PHYSICIAN SPECIALTY 08/28/22 09/18/22 [place] [address] [facility] [address] [place] [address] PCP - General FAMILY PRACTICE 09/19/22 documented as of this encounter
--- OUTSIDE RECORDS SUMMARY | 2024-06-17 23:24 | XMS_ITS | Encounter Summary ---
Author Organization [facility] Address [address] [place] [address] Care Team Providers Care Weight And Test Bar Clerk Name Role Phone Nuvia Prasad MD Primary Care Provider [phone] None, Provider Primary Care Provider Austina Farzaneh Lancaster MD Primary Care Provider [phone] Encounter Details Date Type Department Care Team (Late st Contact Info) Description 12/14/[address] [employer] [address] [facility] Medical Group Family & Internal Medicine [address] [address] [place], [facility] Provider RE:Concern Social History Tobacco [...] Sex Assigned at Female 06/14/2024 9:24 PM STRAIGHT TRUCK DRIVER Legal Sex Female 5:01 PM CDT Gender Identity Female 06/14/2024 9:20 PM STRAIGHT TRUCK DRIVER Sexual Orientation Straight 06/14/2024 9: 20 PM STRAIGHT TRUCK DRIVER COVID-19 Exposure Response Date Recorded In the [...] Description 01/21/2025 10:45 AM CDT [facility] [address] [place] [address] Doyle Curry MD [address] [address] documented as of this encounter Goals Goal Patient Goal Type Associated Problems Recent Progress Patient-Stated? Author Return home with mother Diet No Mayte Camacho AGRICULTURAL PILOT documented as of this encounter Visit Diagnoses Not on filedocumented in this encounter Additional Health Concerns Infection Onset Date Last Indicated Resolved Time COVID-19 Rule Out 10/15/2021 10/15/2021 10/15/2021 1:34 PM CDT COVID-19 Rule Out 10/15/2021 10/15/2021 10/16/2021 7:02 PM CDT COVID-19 Rule Out 01/30/2022 01/30/2022 01/30/2022 9:59 AM CDT COVID-19 Rule Out 04/24/2022 04/24/2022 04/24/2022 3:01 PM STRAIGHT TRUCK DRIVER COVID-19 Rule Out 05/09/2022 05/09/2022 05/09/2022 7:47 PM STRAIGHT TRUCK DRIVER COVID-19 Rule Out 05/29/2022 05/29/2022 05/29/2022 1:46 PM STRAIGHT TRUCK DRIVER COVID-19 Rule Out 05/29/2022 05/29/2022 05/30/2022 6:46 PM STRAIGHT TRUCK DRIVER COVID-19 Rule Out 07/05/2022 07/05/2022 07/05/2022 7:45 PM STRAIGHT TRUCK DRIVER COVID-19 Rule Out 08/30/2022 08/30/2022 08/30/2022 2:37 PM CDT COVID-19 Rule Out 09/26/2022 09/26/2022 09/26/2022 11:47 AM CDT COVID-19 Rule Out 12/02/2022 12/02/2022 12/02/2022 1:15 PM CDT COVID-19 Rule Out 02/14/2023 02/14/2023 02/14/2023 2:15 PM CDT COVID-19 Rule Out 03/20/2023 03/20/2023 03/20/2023 10:27 AM STRAIGHT TRUCK DRIVER COVID-19 Rule Out 03/20/2023 03/20/2023 03/20/2023 2:10 PM STRAIGHT TRUCK DRIVER COVID-19 Rule Out 03/26/2023 03/26/2023 03/26/2023 12:11 PM STRAIGHT TRUCK DRIVER COVID-19 Rule Out 03/26/2023 03/26/2023 03/26/2023 1:39 PM STRAIGHT TRUCK DRIVER COVID-19 Rule Out 04/01/2023 04/01/2023 04/01/2023 10:22 PM STRAIGHT TRUCK DRIVER COVID-19 Rule Out 07/02/2023 07/02/2023 07/02/2023 1:03 PM STRAIGHT TRUCK DRIVER COVID-19 Rule Out 07/09/2023 07/09/2023 07/09/2023 7:57 PM STRAIGHT TRUCK DRIVER COVID-19 Rule Out 07/29/2023 07/29/2023 07/29/2023 7:23 PM CDT COVID-19 Rule Out 09/05/2023 09/05/2023 09/05/2023 1:30 PM CDT COVID-19 Rule Out 11/03/2023 11/03/2023 11/03/2023 3:34 PM CDT COVID-19 Rule Out 04/14/2024 04/14/2024 04/14/2024 1:53 PM STRAIGHT TRUCK DRIVER Assessment Noted Time PHQ-9 Depression Total Score: 0 10/18/19 3:07 PM CDT documented as of this encounter Care Teams Weight And Test Bar Clerk Relationship Specialty Start Date End Date Nuvia Prasad MD PCP - General INTERNAL MEDICINE 07/30/19 08/27/22 None, MD Yas PCP - General UNKNOWN PHYSICIAN SPECIALTY 08/28/22 09/18/22 [place] [address] [facility]. [address] [place] [address] PCP - General FAMILY PRACTICE 09/19/22 documented as of this encounter
--- OUTSIDE RECORDS SUMMARY | 2024-06-17 23:24 | XMS_ITS | Encounter Summary ---
Author Organization [facility] Address [address] [place] [address] Care Team Providers Care Grain Operator Name Role Phone Nuvia Prasad MD Primary Care Provider [phone] None, Provider Primary Care Provider Unavaila Farzaneh Lancaster MD Primary Care Provider [phone] Encounter Details Date Type Department Care Team (Late st Contact Info) Description 11/01/2021 [employer] Message Enc [facility] Medical Group Family & Internal Medicine [facility] [address] [place] [address] [place] [address] [place] [address] Leaky gut??? What do I [...] Sex Assigned at Female 06/14/2024 9:24 PM SERVICE RESTORER EMERGENCY Legal Sex Female 5:01 PM CDT Gender Identity Female 06/14/2024 9:20 PM SERVICE RESTORER EMERGENCY Sexual Orientation Straight 06/14/2024 9: 20 PM SERVICE RESTORER EMERGENCY COVID-19 Exposure Response Date Recorded In the [...] Description 01/21/2025 10:45 AM CDT Office Visit [facility] [address] [place] [address] Doyle Curry MD [facility]. [facility] [address] [place] [address] documented as of this encounter Goals Goal Patient Goal Type Associated Problems Recent Progress Patient-Stated? Author Return home with mother Diet Mayte Pelaez, DEVELOPMENT AND HOUSING DIRECTOR documented as of this encounter Visit Diagnoses Not on filedocumented in this encounter Additional Health Concerns Infection Onset Date Last Indicated Resolved Time COVID-19 Rule Out 01/30/2022 01/30/2022 01/30/2022 9:59 AM CDT COVID-19 Rule Out 04/24/2022 04/24/2022 04/24/2022 3:01 PM SERVICE RESTORER EMERGENCY COVID-19 Rule Out 05/09/2022 05/09/2022 05/09/2022 7:47 PM SERVICE RESTORER EMERGENCY COVID-19 Rule Out 05/29/2022 05/29/2022 05/29/2022 1:46 PM SERVICE RESTORER EMERGENCY COVID-19 Rule Out 05/29/2022 05/29/2022 05/30/2022 6:46 PM SERVICE RESTORER EMERGENCY COVID-19 Rule Out 07/05/2022 07/05/2022 07/05/2022 7:45 PM SERVICE RESTORER EMERGENCY COVID-19 Rule Out 08/30/2022 08/30/2022 08/30/2022 2:37 PM CDT COVID-19 Rule Out 09/26/2022 09/26/2022 09/26/2022 11:47 AM CDT COVID-19 Rule Out 12/02/2022 12/02/2022 12/02/2022 1:15 PM CDT COVID-19 Rule Out 02/14/2023 02/14/2023 02/14/2023 2:15 PM CDT COVID-19 Rule Out 03/20/2023 03/20/2023 03/20/2023 10:27 AM SERVICE RESTORER EMERGENCY COVID-19 Rule Out 03/20/2023 03/20/2023 03/20/2023 2:10 PM SERVICE RESTORER EMERGENCY COVID-19 Rule Out 03/26/2023 03/26/2023 03/26/2023 12:11 PM SERVICE RESTORER EMERGENCY COVID-19 Rule Out 03/26/2023 03/26/2023 03/26/2023 1:39 PM SERVICE RESTORER EMERGENCY COVID-19 Rule Out 04/01/2023 04/01/2023 04/01/2023 10:22 PM SERVICE RESTORER EMERGENCY COVID-19 Rule Out 07/02/2023 07/02/2023 07/02/2023 1:03 PM SERVICE RESTORER EMERGENCY COVID-19 Rule Out 07/09/2023 07/09/2023 07/09/2023 7:57 PM SERVICE RESTORER EMERGENCY COVID-19 Rule Out 07/29/2023 07/29/2023 07/29/2023 7:23 PM CDT COVID-19 Rule Out 09/05/2023 09/05/2023 09/05/2023 1:30 PM CDT COVID-19 Rule Out 11/03/2023 11/03/2023 11/03/2023 3:34 PM CDT COVID-19 Rule Out 04/14/2024 04/14/2024 04/14/2024 1:53 PM SERVICE RESTORER EMERGENCY Assessment Noted Time PHQ-9 Depression Total Score: 022 2:48 PM CDT documented as of this encounter Care Teams Grain Operator Relationship Specialty Start Date End Date Nuvia Prasad MD PCP - General INTERNAL MEDICINE 07/30/19 08/27/22 None, Provider, PCP - General UNKNOWN PHYSICIAN SPECIALTY 08/28/22 09/18/22 [place] [address] [facility] [address] [place] [address] PCP - General FAMILY PRACTICE 09/19/22 documented as of this encounter
--- OUTSIDE RECORDS SUMMARY | 2024-06-17 23:24 | XMS_ITS | Encounter Summary ---
Author Organization [facility] Address [facility] [address] [place] [address] Care Team Providers Care Mutuel Machine Operator Name Role Phone Nuvia Prasad MD Primary Care Provider [phone] None, Provider Primary Care Provider Austina Farzaneh Lancaster MD Primary Care Provider [phone] Encounter Details Date Type Department Care Team (Latest Contact Info) Description 04/24/2022 [employer] Message Enc [facility] [address] [place] [phone] Esmer Joseph, MELITON My heart is being [...] Sex Assigned at Female 06/14/2024 9:24 PM PROFESSOR OF INDUSTRIAL TECHNOLOGY Legal Sex Female 5:01 PM CDT Gender Identity Female 06/14/2024 9:20 PM PROFESSOR OF INDUSTRIAL TECHNOLOGY Sexual Orientation Straight 06/14/2024 9: 20 PM PROFESSOR OF INDUSTRIAL TECHNOLOGY COVID-19 Exposure Response Date Recorded In the last 10 days, have yo u been in contact with someone who was confirmed or suspected to have Coronavirus/COVID-19? No / Unsure 04/24/2022 1:36 PM PROFESSOR OF INDUSTRIAL TECHNOLOGY documented as of this encounter Functional Status [...] 1:57 PM CDT Joseilne Escamilla RN Active * Do you have [...] and v/u. Patient had no further questions. ESSOR OF INDUSTRIAL TECHNOLOGY * Esmer Joseph NP - 04/24/2022 9:02 [...] will reveal anything different or abnormal . ESSOR OF INDUSTRIAL TECHNOLOGY documented in this encounter Plan of Treatment Upcoming Encounters Date Type Department Care Team (Late st Contact Info) Description 01/21/2025 10:45 AM CDT Office Visit [facility] [address] [facility] [place] [address] Doyle Curry MD [facility]. [facility] [address] [place] [address] documented as of this encounter Goals Goal Patient Goal Type Associated Problems Recent Progress Patient-Stated? Author Return home with mother Galilea Mayte Pelaez RAG WASHER documented as of this encounter Visit Diagnoses Not on filedocumented in this encounter Additional Health Concerns Infection Onset Date Last Indicated Resolved Time COVID-19 Rule Out 04/24/2022 04/24/2022 04/24/2022 3:01 PM PROFESSOR OF INDUSTRIAL TECHNOLOGY COVID-19 Rule Out 05/09/2022 05/09/2022 05/09/2022 7:47 PM PROFESSOR OF INDUSTRIAL TECHNOLOGY COVID-19 Rule Out 05/29/2022 05/29/2022 05/29/2022 1:46 PM PROFESSOR OF INDUSTRIAL TECHNOLOGY COVID-19 Rule Out 05/29/2022 05/29/2022 05/30/2022 6:46 PM PROFESSOR OF INDUSTRIAL TECHNOLOGY COVID-19 Rule Out 07/05/2022 07/05/2022 07/05/2022 7:45 PM PROFESSOR OF INDUSTRIAL TECHNOLOGY COVID-19 Rule Out 08/30/2022 08/30/2022 08/30/2022 2:37 PM CDT COVID-19 Rule Out 09/26/2022 09/26/2022 09/26/2022 11:47 AM CDT COVID-19 Rule Out 12/02/2022 12/02/2022 12/02/2022 1:15 PM CDT COVID-19 Rule Out 02/14/2023 02/14/2023 02/14/2023 2:15 PM CDT COVID-19 Rule Out 03/20/2023 03/20/202303/2003/20/2023 10:27 AM PROFESSOR OF INDUSTRIAL TECHNOLOGY COVID-19 Rule Out 03/20/2023 03/20/2023 03/20/2023 2:10 PM PROFESSOR OF INDUSTRIAL TECHNOLOGY COVID-19 Rule Out 03/26/2023 03/26/2023 03/26/2023 12:11 PM PROFESSOR OF INDUSTRIAL TECHNOLOGY COVID-19 Rule Out 03/26/2023 03/26/2023 03/26/2023 1:39 PM PROFESSOR OF INDUSTRIAL TECHNOLOGY COVID-19 Rule Out 04/01/2023 04/01/2023 04/01/2023 10:22 PM PROFESSOR OF INDUSTRIAL TECHNOLOGY COVID-19 Rule Out 07/02/2023 07/02/2023 07/02/2023 1:03 PM PROFESSOR OF INDUSTRIAL TECHNOLOGY COVID-19 Rule Out 07/09/2023 07/09/2023 07/09/2023 7:57 PM PROFESSOR OF INDUSTRIAL TECHNOLOGY COVID-19 Rule Out 07/29/2023 07/29/2023 07/29/2023 7:23 PM CDT COVID-19 Rule Out 09/05/2023 09/05/2023 09/05/2023 1:30 PM CDT COVID-19 Rule Out 11/03/2023 11/03/2023 11/03/2023 3:34 PM CDT COVID-19 Rule Out 04/14/2024 04/14/2024 04/14/2024 1:53 PM PROFESSOR OF INDUSTRIAL TECHNOLOGY Assessment Noted Time PHQ-9 Depression Total Score: 0 01/31/20 9:08 AM CDT documented as of this encounter Care Teams Mutuel Machine Operator Relationship Specialty Start Date End Date Nuvia Prasad MD PCP - General INTERNAL MEDICINE 07/30/19 08/27/22 None, MD Yas PCP - General UNKNOWN PHYSICIAN SPECIALTY 08/28/22 09/18/22 [place] [address] [facility]. [address] [place] [address] PCP - General FAMILY PRACTICE 09/19/22 documented as of this encounter
--- OUTSIDE RECORDS SUMMARY | 2024-06-17 23:24 | XMS_ITS | Encounter Summary ---
Author Organization [facility] Address [address] [place] [address] Care Team Providers Care Library Circulation Department Chief Name Role Phone Nuvia Prasad MD Primary Care Provider None, Provider Primary Care Provider Unavaila Farzaneh Lancaster MD Primary Care Provider [phone] Encounter Details Date Type Department Care Team (Late st Contact Info) Description 11/06/2021 [employer] Message Enc [facility] Medical Group Family & Internal [facility] [address] [place] [address] [place] Pr[place] [address] [place] [address] I guess I'm sick.. Social History [...] Sex Assigned at Female 06/14/2024 9:24 PM CHEMISTRY ACCOUNT MANAGER Legal Sex Female 5:01 PM CDT Gender Identity Female 06/14/2024 9:20 PM CHEMISTRY ACCOUNT MANAGER Sexual Orientation Straight 06/14/2024 9: 20 PM CHEMISTRY ACCOUNT MANAGER COVID-19 Exposure Response Date Recorded In [...] Description 01/21/2025 10:45 AM CDT Office Visit [facility] [address] [place] [phone] Doyle Curry MD [facility] [address] [place] [address] documented as of this encounter Goals Goal Patient Goal Type Associated Problems Recent Progress Patient-Stated? Author Return home with mother Javed Bradyziggy Hawkins, KINDERGARTEN INSTRUCTIONAL ASSISTANT documented as of this encounter Visit Diagnoses Not on filedocumented in this encounter Additional Health Concerns Infection Onset Date Last Indicated Resolved Time COVID-19 Rule Out 01/30/2022 01/30/2022 01/30/2022 9:59 AM CDT COVID-19 Rule Out 04/24/2022 04/24/2022 04/24/2022 3:01 PM CHEMISTRY ACCOUNT MANAGER COVID-19 Rule Out 05/09/2022 05/09/2022 05/09/2022 7:47 PM CHEMISTRY ACCOUNT MANAGER COVID-19 Rule Out 05/29/2022 05/29/2022 05/29/2022 1:46 PM CHEMISTRY ACCOUNT MANAGER COVID-19 Rule Out 05/29/2022 05/29/2022 05/30/2022 6:46 PM CHEMISTRY ACCOUNT MANAGER COVID-19 Rule Out 07/05/2022 07/05/2022 07/05/2022 7:45 PM CHEMISTRY ACCOUNT MANAGER COVID-19 Rule Out 08/30/2022 08/30/2022 08/30/2022 2:37 PM CDT COVID-19 Rule Out 09/26/2022 09/26/2022 09/26/2022 11:47 AM CDT COVID-19 Rule Out 12/02/2022 12/02/2022 12/02/2022 1:15 PM CDT COVID-19 Rule Out 02/14/2023 02/14/2023 02/14/2023 2:15 PM CDT COVID-19 Rule Out 03/20/2023 03/20/2023 03/20/2023 10:27 AM CHEMISTRY ACCOUNT MANAGER COVID-19 Rule Out 03/20/2023 03/20/2023 03/20/2023 2:10 PM CHEMISTRY ACCOUNT MANAGER COVID-19 Rule Out 03/26/2023 03/26/2023 03/26/2023 12:11 PM CHEMISTRY ACCOUNT MANAGER COVID-19 Rule Out 03/26/2023 03/26/2023 03/26/2023 1:39 PM CHEMISTRY ACCOUNT MANAGER COVID-19 Rule Out 04/01/2023 04/01/2023 04/01/2023 10:22 PM CHEMISTRY ACCOUNT MANAGER COVID-19 Rule Out 07/02/2023 07/02/2023 07/02/2023 1:03 PM CHEMISTRY ACCOUNT MANAGER COVID-19 Rule Out 07/09/2023 07/09/2023 07/09/2023 7:57 PM CHEMISTRY ACCOUNT MANAGER COVID-19 Rule Out 07/29/2023 07/29/2023 07/29/2023 7:23 PM CDT COVID-19 Rule Out 09/05/2023 09/05/2023 09/05/2023 1:30 PM CDT COVID-19 Rule Out 11/03/2023 11/03/2023 11/03/2023 3:34 PM CDT COVID-19 Rule Out 04/14/2024 04/14/2024 04/14/2024 1:53 PM CHEMISTRY ACCOUNT MANAGER Assessment Noted Time PHQ-9 Depression Total Score: 022 2:48 PM CDT documented as of this encounter Care Teams Library Circulation Department Chief Relationship Specialty Start Date End Date Nuvia Prasad MD PCP - General INTERNAL MEDICINE 07/30/19 08/27/22 None, Provider, PCP - General UNKNOWN PHYSICIAN SPECIALTY 08/28/22 09/18/22 [place] [address] [facility]. [address] [place] [address] PCP - General FAMILY PRACTICE 09/19/22 documented as of this encounter
--- OUTSIDE RECORDS SUMMARY | 2024-06-17 23:24 | XMS_ITS | Encounter Summary ---
Author Organization [facility] Address [address] [place] [address] Care Team Providers Care Bicycle Technician Name Role Phone Nuvia Prasad MD Primary Care Provider None, Provider Primary Care Provider Unavaila Farzaneh Lancaster MD Primary Care Provider [phone] Encounter Details Date Type Department Care Team (Late st Contact Info) Description 11/14/2021 Movetist Message Enc [facility] Medical Group Family & Internal Medicine [address] [address] Kiarra Morris, COMMUNITY PHARMACIST Concerned and fed up w this Social [...] Sex Assigned at Female 06/14/2024 9:24 PM COMEDIAN Legal Sex Female 5:01 PM CDT Gender Identity Female 06/14/2024 9:20 PM COMEDIAN Sexual Orientation Straight 06/14/2024 9: 20 PM COMEDIAN COVID-19 Exposure Response Date Recorded In the [...] Description 01/21/2025 10:45 AM CDT [facility] [address] [place] [address] Doyle Curry MD [facility] [address] [place] [address] documented as of this encounter Goals Goal Patient Goal Type Associated Problems Recent Progress Patient-Stated? Author Return home with mother Diet No Mayte Camacho FLOUR BLENDER documented as of this encounter Visit Diagnoses Not on filedocumented in this encounter Additional Health Concerns Infection Onset Date Last Indicated Resolved Time COVID-19 Rule Out 01/30/2022 01/30/2022 01/30/2022 9:59 AM CDT COVID-19 Rule Out 04/24/2022 04/24/2022 04/24/2022 3:01 PM COMEDIAN COVID-19 Rule Out 05/09/2022 05/09/2022 05/09/2022 7:47 PM COMEDIAN COVID-19 Rule Out 05/29/2022 05/29/2022 05/29/2022 1:46 PM COMEDIAN COVID-19 Rule Out 05/29/2022 05/29/2022 05/30/2022 6:46 PM COMEDIAN COVID-19 Rule Out 07/05/2022 07/05/2022 07/05/2022 7:45 PM COMEDIAN COVID-19 Rule Out 08/30/2022 08/30/2022 08/30/2022 2:37 PM CDT COVID-19 Rule Out 09/26/2022 09/26/2022 09/26/2022 11:47 AM CDT COVID-19 Rule Out 12/02/2022 12/02/2022 12/02/2022 1:15 PM CDT COVID-19 Rule Out 02/14/2023 02/14/2023 02/14/2023 2:15 PM CDT COVID-19 Rule Out 03/20/2023 03/20/2023 03/20/2023 10:27 AM COMEDIAN COVID-19 Rule Out 03/20/2023 03/20/2023 03/20/2023 2:10 PM COMEDIAN COVID-19 Rule Out 03/26/2023 03/26/2023 03/26/2023 12:11 PM COMEDIAN COVID-19 Rule Out 03/26/2023 03/26/2023 03/26/2023 1:39 PM COMEDIAN COVID-19 Rule Out 04/01/2023 04/01/2023 04/01/2023 10:22 PM COMEDIAN COVID-19 Rule Out 07/02/2023 07/02/2023 07/02/2023 1:03 PM COMEDIAN COVID-19 Rule Out 07/09/2023 07/09/202307/0907/09/2023 7:57 PM COMEDIAN COVID-19 Rule Out 07/29/2023 07/29/2023 07/29/2023 7:23 PM CDT COVID-19 Rule Out 09/05/2023 09/05/2023 09/05/2023 1:30 PM CDT COVID-19 Rule Out 11/03/2023 11/03/2023 11/03/2023 3:34 PM CDT COVID-19 Rule Out 04/14/2024 04/14/2024 04/14/2024 1:53 PM COMEDIAN Assessment Noted Time PHQ-9 Depression Total Score: 18 022 10:36 AM CDT documented as of this encounter Care Teams Bicycle Technician Relationship Specialty Start Date End Date Nuvia Prasad MD PCP - General INTERNAL MEDICINE 07/30/19 08/27/22 None, Provider, PCP - General UNKNOWN PHYSICIAN SPECIALTY 08/28/22 09/18/22 [place] [address] [facility]. [address] [place] [id number] PCP - General FAMILY PRACTICE 09/19/22 documented as of this encounter
--- OUTSIDE RECORDS SUMMARY | 2024-06-17 23:24 | XMS_ITS | Referral Summary ---
Author Organization [facility] [address] Address [address] [place] [address] Phone Care Team Providers Care Retail Account Specialist Name Role Phone Nuvia Prasad MD Unavailable [phone] Farzaneh Briscoe MD Primary Care Provider [phone] Allergies Active Allergy Reactions Criticality Noted Date [...] on file Legal Sex Female 11:32 PM DIRECTOR RETAIL BRAND DEVELOPMENT Gender Identity Not on file Sexual Orientation [...] Not on file Insurance [facility] Member Subscriber Plan / Payer (Ef fective 2020-Present) Name:Jaye Martin Relation to Subscriber:Self Name:Jaye Martin Payer ID:[id number] ([facility]) Type:MEDICAID RISK OTHER Address: [place] [address] [facility] Member Subscriber Plan / Payer (Ef fective 2020-Present) Name:Jaye Martin Relation to Subscriber:Self Name:Jaye Martin Payer ID:[id number] ([facility]) Type:MEDICAID RISK OTHER Address: [place] [address] [facility] Member Subscriber Plan / Payer (Ef fective 2020-Present) Name:Jaye Martin Olga Milvia Relation to Subscriber:Self Name:Jaye Martin Payer ID:[id number] ([facility]) Type:MEDICAID RISK OTHER Address: [address] [address] Care Teams Retail Account Specialist Relationship Specialty Start [place] [address] [place] [address] PCP - General Family Medicine 09/04/22 [place] [address] [place] [address] Internal Medicine 09/21/20
--- OUTSIDE RECORDS SUMMARY | 2024-06-17 23:24 | XMS_ITS | Clinical Summary ---
Author Organization [facility] [address] Address [address] [place] [address] Phone Care Team Providers Care Racebook Writer Name Role Phone Nuvia Prasad MD Unavailable [phone] Farzaneh Briscoe MD Primary Care Provider [phone] Allergies Active Allergy Reactions Criticality Noted Date [...] on file Legal Sex Female 11:32 PM MULTIMEDIA ASSISTANT Gender Identity Not on file Sexual Orientation [...] , 04/11/1999, 1998, Additional history exists Insurance [facility] Care Teams Racebook Writer Relationship Specialty Start [place] [address] [place], [place] [phone] PCP - General Family Medicine 09/04/22 [place] [address] [place], [place] [id number] Internal Medicine 09/21/20
--- OUTSIDE RECORDS SUMMARY | 2024-06-17 23:24 | XMS_ITS | Encounter Summary ---
Author Organization [facility] Address [address] [place] [address] Care Team Providers Care Gold Stamper Name Role Phone Nuvia Prasad MD Primary Care Provider None, Provider Primary Care Provider Unavaila Farzaneh Lancaster MD Primary Care Provider Encounter Details Date Type Department Care Team (Late st Contact Info) Description 04/24/2022 LaunchKeyt Message Enc [facility] Medical Group Family & Internal Medicine [facility] [address] [place] [address] [place] [address] [place] [address] Abdominal issues again..CT maybe? Social History [...] Sex Assigned at Female 06/14/2024 9:24 PM INDUSTRIAL RELATIONS WORKER Legal Sex Female 5:01 PM CDT Gender Identity Female 06/14/2024 9:20 PM INDUSTRIAL RELATIONS WORKER Sexual Orientation Straight 06/14/2024 9: 20 PM INDUSTRIAL RELATIONS WORKER COVID-19 Exposure Response Date Recorded In the last 10 days, have yo u been in contact with someone who was confirmed or suspected to have Coronavirus/COVID-19? No / Unsure 04/24/2022 1:36 PM INDUSTRIAL RELATIONS WORKER documented as of this encounter Functional [...] Description 01/21/2025 10:45 AM CDT Office Visit [place] [facility] [address] [place] [address] Doyle Curry MD [facility] [address] [place] [address] documented as of this encounter Goals Goal Patient Goal Type Associated Problems Recent Progress Patient-Stated? Author Return home with mother Javed Bradyziggy Hawkins, BOX ATTACHER documented as of this encounter Visit Diagnoses Not on filedocumented in this encounter Additional Health Concerns Infection Onset Date Last Indicated Resolved Time COVID-19 Rule Out 04/24/2022 04/24/2022 04/24/2022 3:01 PM INDUSTRIAL RELATIONS WORKER COVID-19 Rule Out 05/09/2022 05/09/2022 05/09/2022 7:47 PM INDUSTRIAL RELATIONS WORKER COVID-19 Rule Out 05/29/2022 05/29/2022 05/29/2022 1:46 PM INDUSTRIAL RELATIONS WORKER COVID-19 Rule Out 05/29/2022 05/29/2022 05/30/2022 6:46 PM INDUSTRIAL RELATIONS WORKER COVID-19 Rule Out 07/05/2022 07/05/2022 07/05/2022 7:45 PM INDUSTRIAL RELATIONS WORKER COVID-19 Rule Out 08/30/2022 08/30/2022 08/30/2022 2:37 PM CDT COVID-19 Rule Out 09/26/2022 09/26/2022 09/26/2022 11:47 AM CDT COVID-19 Rule Out 12/02/2022 12/02/2022 12/02/2022 1:15 PM CDT COVID-19 Rule Out 02/14/2023 02/14/2023 02/14/2023 2:15 PM CDT COVID-19 Rule Out 03/20/2023 03/20/2023 03/20/2023 10:27 AM INDUSTRIAL RELATIONS WORKER COVID-19 Rule Out 03/20/2023 03/20/2023 03/20/2023 2:10 PM INDUSTRIAL RELATIONS WORKER COVID-19 Rule Out 03/26/2023 03/26/2023 03/26/2023 12:11 PM INDUSTRIAL RELATIONS WORKER COVID-19 Rule Out 03/26/2023 03/26/2023 03/26/2023 1:39 PM INDUSTRIAL RELATIONS WORKER COVID-19 Rule Out 04/01/2023 04/01/2023 04/01/2023 10:22 PM INDUSTRIAL RELATIONS WORKER COVID-19 Rule Out 07/02/2023 07/02/2023 07/02/2023 1:03 PM INDUSTRIAL RELATIONS WORKER COVID-19 Rule Out 07/09/2023 07/09/2023 07/09/2023 7:57 PM INDUSTRIAL RELATIONS WORKER COVID-19 Rule Out 07/29/2023 07/29/2023 07/29/2023 7:23 PM CDT COVID-19 Rule Out 09/05/2023 09/05/2023 09/05/2023 1:30 PM CDT COVID-19 Rule Out 11/03/2023 11/03/2023 11/03/2023 3:34 PM CDT COVID-19 Rule Out 04/14/2024 04/14/2024 04/14/2024 1:53 PM INDUSTRIAL RELATIONS WORKER Assessment Noted Time PHQ-9 Depression Total Score: 0 01/31/20 9:08 AM CDT documented as of this encounter Care Teams Gold Stamper Relationship Specialty Start Date End Date Nuvia Prasad MD PCP - General INTERNAL MEDICINE 07/30/19 08/27/22 None, Provider, PCP - General UNKNOWN PHYSICIAN SPECIALTY 08/28/22 09/18/22 [place] [address] [facility] [address] [place] [address] PCP - General FAMILY PRACTICE 09/19/22 documented as of this encounter
--- OUTSIDE RECORDS SUMMARY | 2024-06-17 23:24 | XMS_ITS | Encounter Summary ---
Author Organization [facility] Address [address] [place] [address] Care Team Providers Care Prototype Machine Operator Name Role Phone Nuvia Prasad MD Primary Care Provider None, Provider Primary Care Provider Unavaila Farzaneh Lancaster MD Primary Care Provider [phone] Encounter Details Date Type Department Care Team (Late st Contact Info) Description 07/25/2021 Palatin Technologiest Message Enc [facility] Medical Group Family & Internal Medicine [facility] [address] [place] [address] [place] [id number] [place] [address] Advice? Social History Tobacco Use Types [...] Sex Assigned at Female 06/14/2024 9:24 PM VEHICLE MODIFICATION TECHNICIAN Legal Sex Female 5:01 PM CDT Gender Identity Female 06/14/2024 9:20 PM VEHICLE MODIFICATION TECHNICIAN Sexual Orientation Straight 06/14/2024 9: 20 PM VEHICLE MODIFICATION TECHNICIAN COVID-19 Exposure Response Date Recorded In [...] Description 01/21/2025 10:45 AM CDT Office Visit [place] [facility] [address] [place] [address] Doyle Curry MD [facility] [address] [place] [address] documented as of this encounter Goals Goal Patient Goal Type Associated Problems Recent Progress Patient-Stated? Author Return home with mother Diet No Mayte Camacho, DIGITAL ACCOUNT COORDINATOR documented as of this encounter Visit Diagnoses Not on filedocumented in this encounter Additional Health Concerns Infection Onset Date Last Indicated Resolved Time COVID-19 Rule Out 10/15/2021 10/15/2021 10/15/2021 1:34 PM CDT COVID-19 Rule Out 10/15/2021 10/15/2021 10/16/2021 7:02 PM CDT COVID-19 Rule Out 01/30/2022 01/30/2022 01/30/2022 9:59 AM CDT COVID-19 Rule Out 04/24/2022 04/24/2022 04/24/2022 3:01 PM VEHICLE MODIFICATION TECHNICIAN COVID-19 Rule Out 05/09/2022 05/09/2022 05/09/2022 7:47 PM VEHICLE MODIFICATION TECHNICIAN COVID-19 Rule Out 05/29/2022 05/29/2022 05/29/2022 1:46 PM VEHICLE MODIFICATION TECHNICIAN COVID-19 Rule Out 05/29/2022 05/29/2022 05/30/2022 6:46 PM VEHICLE MODIFICATION TECHNICIAN COVID-19 Rule Out 07/05/2022 07/05/2022 07/05/2022 7:45 PM VEHICLE MODIFICATION TECHNICIAN COVID-19 Rule Out 08/30/2022 08/30/2022 08/30/2022 2:37 PM CDT COVID-19 Rule Out 09/26/2022 09/26/2022 09/26/2022 11:47 AM CDT COVID-19 Rule Out 12/02/2022 12/02/2022 12/02/2022 1:15 PM CDT COVID-19 Rule Out 02/14/2023 02/14/2023 02/14/2023 2:15 PM CDT COVID-19 Rule Out 03/20/2023 03/20/2023 03/20/2023 10:27 AM VEHICLE MODIFICATION TECHNICIAN COVID-19 Rule Out 03/20/2023 03/20/2023 03/20/2023 2:10 PM VEHICLE MODIFICATION TECHNICIAN COVID-19 Rule Out 03/26/2023 03/26/2023 03/26/2023 12:11 PM VEHICLE MODIFICATION TECHNICIAN COVID-19 Rule Out 03/26/2023 03/26/2023 03/26/2023 1:39 PM VEHICLE MODIFICATION TECHNICIAN COVID-19 Rule Out 04/01/2023 04/01/2023 04/01/2023 10:22 PM VEHICLE MODIFICATION TECHNICIAN COVID-19 Rule Out 07/02/2023 07/02/2023 07/02/2023 1:03 PM VEHICLE MODIFICATION TECHNICIAN COVID-19 Rule Out 07/09/2023 07/09/2023 07/09/2023 7:57 PM VEHICLE MODIFICATION TECHNICIAN COVID-19 Rule Out 07/29/2023 07/29/2023 07/29/2023 7:23 PM CDT COVID-19 Rule Out 09/05/2023 09/05/2023 09/05/2023 1:30 PM CDT COVID-19 Rule Out 11/03/2023 11/03/2023 11/03/2023 3:34 PM CDT COVID-19 Rule Out 04/14/2024 04/14/2024 04/14/2024 1:53 PM VEHICLE MODIFICATION TECHNICIAN Assessment Noted Time PHQ-9 Depression Total Score: 2 07/03/19 11:15 AM VEHICLE MODIFICATION TECHNICIAN documented as of this encounter Care Teams Prototype Machine Operator Relationship Specialty Start Date End Date Nuvia Prasad MD PCP - General INTERNAL MEDICINE 07/30/19 08/27/22 None, ProviderMD PCP - General UNKNOWN PHYSICIAN SPECIALTY 08/28/22 09/18/22 [place] [address] [facility] [address] [place] [address] PCP - General FAMILY PRACTICE 09/19/22 documented as of this encounter
--- OUTSIDE RECORDS SUMMARY | 2024-06-17 23:24 | XMS_ITS | Encounter Summary ---
Author Organization [facility] Address [address] [place] [address] Care Team Providers Care Rewinder Operator Helper Name Role Phone Nuvia Prasad MD Primary Care Provider [phone] None, Provider Primary Care Provider Unavaila Farzaneh Lancaster MD Primary Care Provider [phone] Encounter Details Date Type Department Care Team (Late st Contact Info) Description 11/24/2021 Audiodraftt Message Enc [facility] Medical Group Family & Internal Medicine [facility] [address] [place] [address] [place] [id number] [place] [address] Bile leak? Social History Tobacco Use [...] Sex Assigned at Female 06/14/2024 9:24 PM MISSILE AND MISSILE CHECKOUT TECHNICIAN Legal Sex Female 5:01 PM CDT Gender Identity Female 06/14/2024 9:20 PM MISSILE AND MISSILE CHECKOUT TECHNICIAN Sexual Orientation Straight 06/14/2024 9: 20 PM MISSILE AND MISSILE CHECKOUT TECHNICIAN COVID-19 Exposure Response Date Recorded In [...] Description 01/21/2025 10:45 AM CDT Office Visit [place] [facility] [address] [place] [address] Doyle Curry MD [address] [address] documented as of this encounter Goals Goal Patient Goal Type Associated Problems Recent Progress Patient-Stated? Author Return home with mother Diet No Javed Camachoziggy Hawkins, AGRICULTURAL AGENT documented as of this encounter Visit Diagnoses Not on filedocumented in this encounter Additional Health Concerns Infection Onset Date Last Indicated Resolved Time COVID-19 Rule Out 01/30/2022 01/30/2022 01/30/2022 9:59 AM CDT COVID-19 Rule Out 04/24/2022 04/24/2022 04/24/2022 3:01 PM MISSILE AND MISSILE CHECKOUT TECHNICIAN COVID-19 Rule Out 05/09/2022 05/09/2022 05/09/2022 7:47 PM MISSILE AND MISSILE CHECKOUT TECHNICIAN COVID-19 Rule Out 05/29/2022 05/29/2022 05/29/2022 1:46 PM MISSILE AND MISSILE CHECKOUT TECHNICIAN COVID-19 Rule Out 05/29/2022 05/29/2022 05/30/2022 6:46 PM MISSILE AND MISSILE CHECKOUT TECHNICIAN COVID-19 Rule Out 07/05/2022 07/05/2022 07/05/2022 7:45 PM MISSILE AND MISSILE CHECKOUT TECHNICIAN COVID-19 Rule Out 08/30/2022 08/30/2022 08/30/2022 2:37 PM CDT COVID-19 Rule Out 09/26/2022 09/26/2022 09/26/2022 11:47 AM CDT COVID-19 Rule Out 12/02/2022 12/02/2022 12/02/2022 1:15 PM CDT COVID-19 Rule Out 02/14/2023 02/14/2023 02/14/2023 2:15 PM CDT COVID-19 Rule Out 03/20/2023 03/20/2023 03/20/2023 10:27 AM MISSILE AND MISSILE CHECKOUT TECHNICIAN COVID-19 Rule Out 03/20/2023 03/20/2023 03/20/2023 2:10 PM MISSILE AND MISSILE CHECKOUT TECHNICIAN COVID-19 Rule Out 03/26/2023 03/26/2023 03/26/2023 12:11 PM MISSILE AND MISSILE CHECKOUT TECHNICIAN COVID-19 Rule Out 03/26/2023 03/26/2023 03/26/2023 1:39 PM MISSILE AND MISSILE CHECKOUT TECHNICIAN COVID-19 Rule Out 04/01/2023 04/01/2023 04/01/2023 10:22 PM MISSILE AND MISSILE CHECKOUT TECHNICIAN COVID-19 Rule Out 07/02/2023 07/02/2023 07/02/2023 1:03 PM MISSILE AND MISSILE CHECKOUT TECHNICIAN COVID-19 Rule Out 07/09/2023 07/09/2023 07/09/2023 7:57 PM MISSILE AND MISSILE CHECKOUT TECHNICIAN COVID-19 Rule Out 07/29/2023 07/29/2023 07/29/2023 7:23 PM CDT COVID-19 Rule Out 09/05/2023 09/05/2023 09/05/2023 1:30 PM CDT COVID-19 Rule Out 11/03/2023 11/03/2023 11/03/2023 3:34 PM CDT COVID-19 Rule Out 04/14/2024 04/14/2024 04/14/2024 1:53 PM MISSILE AND MISSILE CHECKOUT TECHNICIAN Assessment Noted Time PHQ-9 Depression Total Score: 18 022 10:36 AM CDT documented as of this encounter Care Teams Rewinder Operator Helper Relationship Specialty Start Date End Date Nuvia Prasad MD PCP - General INTERNAL MEDICINE 07/30/19 08/27/22 None, Provider, PCP - General UNKNOWN PHYSICIAN SPECIALTY 08/28/22 09/18/22 [place] [address] [facility]. [address] [place] [address] PCP - General FAMILY PRACTICE 09/19/22 documented as of this encounter
--- OUTSIDE RECORDS SUMMARY | 2024-06-17 23:24 | XMS_ITS | Encounter Summary ---
Author Organization [facility] Address [address] [place] [address] Care Team Providers Care Forest Resource Specialist Name Role Phone Nuvia Prasad MD Primary Care Provider [phone] None, Provider Primary Care Provider Unavaila Farzaneh Lancaster MD Primary Care Provider Encounter Details Date Type Department Care Team (Late st Contact Info) Description 08/01/2021 [employer] Message Enc [facility], [address] [address] [place], [facility] Provider APPT W/ DR CURRY Social History [...] Sex Assigned at Female 06/14/2024 9:24 PM OUTSOLE LEVELER Legal Sex Female 5:01 PM CDT Gender Identity Female 06/14/2024 9:20 PM OUTSOLE LEVELER Sexual Orientation Straight 06/14/2024 9: 20 PM OUTSOLE LEVELER COVID-19 Exposure Response Date Recorded In the [...] Description 01/21/2025 10:45 AM CDT [facility] [address] [place] [address] Doyle Curry MD [facility] [address] [place] [address] documented as of this encounter Goals Goal Patient Goal Type Associated Problems Recent Progress Patient-Stated? Author Return home with mother Diet No Mayte Camacho DIGITAL PRINTER documented as of this encounter Visit Diagnoses Not on filedocumented in this encounter Additional Health Concerns Infection Onset Date Last Indicated Resolved Time COVID-19 Rule Out 10/15/2021 10/15/2021 10/15/2021 1:34 PM CDT COVID-19 Rule Out 10/15/2021 10/15/2021 10/16/2021 7:02 PM CDT COVID-19 Rule Out 01/30/2022 01/30/2022 01/30/2022 9:59 AM CDT COVID-19 Rule Out 04/24/2022 04/24/2022 04/24/2022 3:01 PM OUTSOLE LEVELER COVID-19 Rule Out 05/09/2022 05/09/2022 05/09/2022 7:47 PM OUTSOLE LEVELER COVID-19 Rule Out 05/29/2022 05/29/2022 05/29/2022 1:46 PM OUTSOLE LEVELER COVID-19 Rule Out 05/29/2022 05/29/2022 05/30/2022 6:46 PM OUTSOLE LEVELER COVID-19 Rule Out 07/05/2022 07/05/2022 07/05/2022 7:45 PM OUTSOLE LEVELER COVID-19 Rule Out 08/30/2022 08/30/2022 08/30/2022 2:37 PM CDT COVID-19 Rule Out 09/26/2022 09/26/2022 09/26/2022 11:47 AM CDT COVID-19 Rule Out 12/02/2022 12/02/2022 12/02/2022 1:15 PM CDT COVID-19 Rule Out 02/14/2023 02/14/2023 02/14/2023 2:15 PM CDT COVID-19 Rule Out 03/20/2023 03/20/2023 03/20/2023 10:27 AM OUTSOLE LEVELER COVID-19 Rule Out 03/20/2023 03/20/2023 03/20/2023 2:10 PM OUTSOLE LEVELER COVID-19 Rule Out 03/26/2023 03/26/2023 03/26/2023 12:11 PM OUTSOLE LEVELER COVID-19 Rule Out 03/26/2023 03/26/2023 03/26/2023 1:39 PM OUTSOLE LEVELER COVID-19 Rule Out 04/01/2023 04/01/2023 04/01/2023 10:22 PM OUTSOLE LEVELER COVID-19 Rule Out 07/02/2023 07/02/2023 07/02/2023 1:03 PM OUTSOLE LEVELER COVID-19 Rule Out 07/09/2023 07/09/2023 07/09/2023 7:57 PM OUTSOLE LEVELER COVID-19 Rule Out 07/29/2023 07/29/2023 07/29/2023 7:23 PM CDT COVID-19 Rule Out 09/05/2023 09/05/2023 09/05/2023 1:30 PM CDT COVID-19 Rule Out 11/03/2023 11/03/2023 11/03/2023 3:34 PM CDT COVID-19 Rule Out 04/14/2024 04/14/2024 04/14/2024 1:53 PM OUTSOLE LEVELER Assessment Noted Time PHQ-9 Depression Total Score: 2 07/03/19 11:15 AM OUTSOLE LEVELER documented as of this encounter Care Teams Forest Resource Specialist Relationship Specialty Start Date End Date Nuvia Prasad MD PCP - General INTERNAL MEDICINE 07/30/19 08/27/22 None, ProviderMD PCP - General UNKNOWN PHYSICIAN SPECIALTY 08/28/22 09/18/22 [place] [address] [facility]. [address] [place] [address] PCP - General FAMILY PRACTICE 09/19/22 documented as of this encounter
--- OUTSIDE RECORDS SUMMARY | 2024-06-17 23:24 | XMS_ITS | Encounter Summary ---
Author Organization [facility] Address [address] [place] [address] Care Team Providers Care Senior Front End Web Developer Name Role Phone Nuvia Prasad MD Primary Care Provider [phone] None, Provider Primary Care Provider Unavaila Farzaneh Lancaster MD Primary Care Provider [phone] Encounter Details Date Type Department Care Team (Late st Contact Info) Description 10/20/2021 [place]er[place] Message Enc [facility] Medical Group Family & Internal Medicine [facility] [address] [place] [address] [place] [id number] [place] [address] I've gotten worse. Social History Tobacco [...] Sex Assigned at Female 06/14/2024 9:24 PM MATHEMATICS FACULTY MEMBER Legal Sex Female 5:01 PM CDT Gender Identity Female 06/14/2024 9:20 PM MATHEMATICS FACULTY MEMBER Sexual Orientation Straight 06/14/2024 9: 20 PM MATHEMATICS FACULTY MEMBER COVID-19 Exposure Response Date Recorded In the [...] Received call from Maria Del Carmen at [facility] Therapy stating that patient was in therapy [...] Description 01/21/2025 10:45 AM CDT Office Visit [facility] [address] [place] [phone] Doyle Curry MD [facility]. [facility] [address] [place] [address] documented as of this encounter Goals Goal Patient Goal Type Associated Problems Recent Progress Patient-Stated? Author Return home with mother Diet No Mayte Camacho, SALES AGENT [employer] documented as of this encounter Visit Diagnoses Not on filedocumented in this encounter Additional Health Concerns Infection Onset Date Last Indicated Resolved Time COVID-19 Rule Out 01/30/2022 01/30/2022 01/30/2022 9:59 AM CDT COVID-19 Rule Out 04/24/2022 04/24/2022 04/24/2022 3:01 PM MATHEMATICS FACULTY MEMBER COVID-19 Rule Out 05/09/2022 05/09/2022 05/09/2022 7:47 PM MATHEMATICS FACULTY MEMBER COVID-19 Rule Out 05/29/2022 05/29/2022 05/29/2022 1:46 PM MATHEMATICS FACULTY MEMBER COVID-19 Rule Out 05/29/2022 05/29/2022 05/30/2022 6:46 PM MATHEMATICS FACULTY MEMBER COVID-19 Rule Out 07/05/2022 07/05/2022 07/05/2022 7:45 PM MATHEMATICS FACULTY MEMBER COVID-19 Rule Out 08/30/2022 08/30/2022 08/30/2022 2:37 PM CDT COVID-19 Rule Out 09/26/2022 09/26/2022 09/26/2022 11:47 AM CDT COVID-19 Rule Out 12/02/2022 12/02/2022 12/02/2022 1:15 PM CDT COVID-19 Rule Out 02/14/2023 02/14/2023 02/14/2023 2:15 PM CDT COVID-19 Rule Out 03/20/2023 03/20/2023 03/20/2023 10:27 AM MATHEMATICS FACULTY MEMBER COVID-19 Rule Out 03/20/2023 03/20/2023 03/20/2023 2:10 PM MATHEMATICS FACULTY MEMBER COVID-19 Rule Out 03/26/2023 03/26/2023 03/26/2023 12:11 PM MATHEMATICS FACULTY MEMBER COVID-19 Rule Out 03/26/2023 03/26/2023 03/26/2023 1:39 PM MATHEMATICS FACULTY MEMBER COVID-19 Rule Out 04/01/2023 04/01/2023 04/01/2023 10:22 PM MATHEMATICS FACULTY MEMBER COVID-19 Rule Out 07/02/2023 07/02/2023 07/02/2023 1:03 PM MATHEMATICS FACULTY MEMBER COVID-19 Rule Out 07/09/2023 07/09/2023 07/09/2023 7:57 PM MATHEMATICS FACULTY MEMBER COVID-19 Rule Out 07/29/2023 07/29/2023 07/29/2023 7:23 PM CDT COVID-19 Rule Out 09/05/2023 09/05/2023 09/05/2023 1:30 PM CDT COVID-19 Rule Out 11/03/2023 11/03/2023 11/03/2023 3:34 PM CDT COVID-19 Rule Out 04/14/2024 04/14/2024 04/14/2024 1:53 PM MATHEMATICS FACULTY MEMBER Assessment Noted Time PHQ-9 Depression Total Score: 022 2:48 PM CDT documented as of this encounter Care Teams Senior Front End Web Developer Relationship Specialty Start Date End Date Nuvia Prasad MD PCP - General INTERNAL MEDICINE 07/30/19 08/27/22 None, Provider, PCP - General UNKNOWN PHYSICIAN SPECIALTY 08/28/22 09/18/22 [place] [address] [facility]. [address] [place] [address] PCP - General FAMILY PRACTICE 09/19/22 documented as of this encounter
--- OUTSIDE RECORDS SUMMARY | 2024-06-17 23:24 | XMS_ITS | Encounter Summary ---
Author Organization [facility] Address [address] [place] [address] Care Team Providers Care Bag Loader Machine Operator Name Role Phone Nuvia Prasad MD Primary Care Provider None, Provider Primary Care Provider Austina Farzaneh Lancaster MD Primary Care Provider [phone] Encounter Details Date Type Department Care Team (Late st Contact Info) Description 04/17/2021 ScoreGrid Message Enc [facility] Medical Group Family & Internal Medicine - [address] [address] [place], [facility] Provider Concern Social History Tobacco Use Types [...] Assigned at Female 06/14/2024 9:24 PM MANAGER PROPOSAL Legal Sex Female 5:01 PM CDT Gender Identity Female 06/14/2024 9:20 PM MANAGER PROPOSAL Sexual Orientation Straight 06/14/2024 9: 20 PM MANAGER PROPOSAL COVID-19 Exposure Response Date Recorded In the last month, have you been in contact with someone who was confirmed or suspected to have Coronavirus / COVID-19? No / Unsure 03/28/2021 9:39 AM MANAGER PROPOSAL documented as of this encounter Functional Status [...] Description 01/21/2025 10:45 AM CDT [facility] [address] [place] [phone] Doyle Curry MD [facility] [address] [place] [address] documented as of this encounter Goals Goal [...] Out 04/24/2022 04/24/2022 04/24/2022 3:01 PM MANAGER PROPOSAL COVID-19 Rule Out 05/09/2022 05/09/2022 05/09/2022 7:47 PM MANAGER PROPOSAL COVID-19 Rule Out 05/29/2022 05/29/2022 05/29/2022 1:46 PM MANAGER PROPOSAL COVID-19 Rule Out 05/29/2022 05/29/2022 05/30/2022 6:46 PM MANAGER PROPOSAL COVID-19 Rule Out 07/05/2022 07/05/2022 07/05/2022 7:45 PM MANAGER PROPOSAL COVID-19 Rule Out 08/30/2022 08/30/2022 08/30/2022 2:37 PM CDT COVID-19 Rule Out 09/26/2022 09/26/2022 09/26/2022 11:47 AM CDT COVID-19 Rule Out 12/02/2022 12/02/2022 12/02/2022 1:15 PM CDT COVID-19 Rule Out 02/14/2023 02/14/2023 02/14/2023 2:15 PM CDT COVID-19 Rule Out 03/20/2023 03/20/2023 03/20/2023 10:27 AM MANAGER PROPOSAL COVID-19 Rule Out 03/20/2023 03/20/2023 03/20/2023 2:10 PM MANAGER PROPOSAL COVID-19 Rule Out 03/26/2023 03/26/2023 03/26/2023 12:11 PM MANAGER PROPOSAL COVID-19 Rule Out 03/26/2023 03/26/2023 03/26/2023 1:39 PM MANAGER PROPOSAL COVID-19 Rule Out 04/01/2023 04/01/2023 04/01/2023 10:22 PM MANAGER PROPOSAL COVID-19 Rule Out 07/02/2023 07/02/2023 07/02/2023 1:03 PM MANAGER PROPOSAL COVID-19 Rule Out 07/09/2023 07/09/2023 07/09/2023 7:57 PM MANAGER PROPOSAL COVID-19 Rule Out 07/29/2023 07/29/2023 07/29/2023 7:23 PM CDT COVID-19 Rule Out 09/05/2023 09/05/2023 09/05/2023 1:30 PM CDT COVID-19 Rule Out 11/03/2023 11/03/2023 11/03/2023 3:34 PM CDT COVID-19 Rule Out 04/14/2024 04/14/2024 04/14/2024 1:53 PM MANAGER PROPOSAL Assessment Noted Time PHQ-9 Depression Total Score: 15 021 9:51 AM MANAGER PROPOSAL documented as of this encounter Care Teams Bag Loader Machine Operator Relationship Specialty Start Date End Date Nuvia Prasad MD PCP - General INTERNAL MEDICINE 07/30/19 08/27/22 None, Provider, PCP - General UNKNOWN PHYSICIAN SPECIALTY 08/28/22 09/18/22 [place] [address] [facility] [address] [place] [address] PCP - General FAMILY PRACTICE 09/19/22 documented as of this encounter
--- OUTSIDE RECORDS SUMMARY | 2024-06-17 23:24 | XMS_ITS | Encounter Summary ---
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 Nuvia Prasad MD Primary Care Provider [phone] None, Provider Primary Care Provider Unavaila Farzaneh Lancaster MD Primary Care Provider Encounter Details Date Type Department Care Team (Late st Contact Info) Description 11/18/2021 MyChart Message Enc [facility] Medical Group Family & Internal Medicine [facility] [address] [place] [address] [place]uv[place] Prasad [place] [id number] [place] [address] [address] [address] [facility] Social History Tobacco [...] Sex Assigned at Female 06/14/2024 9:24 PM PRINTS AND DRAWINGS CURATOR Legal Sex Female 5:01 PM CDT Gender Identity Female 06/14/2024 9:20 PM PRINTS AND DRAWINGS CURATOR Sexual Orientation Straight 06/14/2024 9: 20 PM PRINTS AND DRAWINGS CURATOR COVID-19 Exposure Response Date Recorded In the [...] Description 01/21/2025 10:45 AM CDT Office Visit [facility] [address] [place] [phone] Doyle Curry MD [facility]. [facility] [address] [place] [address] documented as of this encounter Goals Goal Patient Goal Type Associated Problems Recent Progress Patient-Stated? Author Return home with mother Diet No Javed Camachoziggy Hawkins, NOVELTY TWISTER TENDER documented as of this encounter Visit Diagnoses Not on filedocumented in this encounter Additional Health Concerns Infection Onset Date Last Indicated Resolved Time COVID-19 Rule Out 01/30/2022 01/30/2022 01/30/2022 9:59 AM CDT COVID-19 Rule Out 04/24/2022 04/24/2022 04/24/2022 3:01 PM PRINTS AND DRAWINGS CURATOR COVID-19 Rule Out 05/09/2022 05/09/2022 05/09/2022 7:47 PM PRINTS AND DRAWINGS CURATOR COVID-19 Rule Out 05/29/2022 05/29/2022 05/29/2022 1:46 PM PRINTS AND DRAWINGS CURATOR COVID-19 Rule Out 05/29/2022 05/29/2022 05/30/2022 6:46 PM PRINTS AND DRAWINGS CURATOR COVID-19 Rule Out 07/05/2022 07/05/2022 07/05/2022 7:45 PM PRINTS AND DRAWINGS CURATOR COVID-19 Rule Out 08/30/2022 08/30/2022 08/30/2022 2:37 PM CDT COVID-19 Rule Out 09/26/2022 09/26/2022 09/26/2022 11:47 AM CDT COVID-19 Rule Out 12/02/2022 12/02/2022 12/02/2022 1:15 PM CDT COVID-19 Rule Out 02/14/2023 02/14/2023 02/14/2023 2:15 PM CDT COVID-19 Rule Out 03/20/2023 03/20/2023 03/20/2023 10:27 AM PRINTS AND DRAWINGS CURATOR COVID-19 Rule Out 03/20/2023 03/20/2023 03/20/2023 2:10 PM PRINTS AND DRAWINGS CURATOR COVID-19 Rule Out 03/26/2023 03/26/2023 03/26/2023 12:11 PM PRINTS AND DRAWINGS CURATOR COVID-19 Rule Out 03/26/2023 03/26/2023 03/26/2023 1:39 PM PRINTS AND DRAWINGS CURATOR COVID-19 Rule Out 04/01/2023 04/01/2023 04/01/2023 10:22 PM PRINTS AND DRAWINGS CURATOR COVID-19 Rule Out 07/02/2023 07/02/2023 07/02/2023 1:03 PM PRINTS AND DRAWINGS CURATOR COVID-19 Rule Out 07/09/2023 07/09/2023 07/09/2023 7:57 PM PRINTS AND DRAWINGS CURATOR COVID-19 Rule Out 07/29/2023 07/29/2023 07/29/2023 7:23 PM CDT COVID-19 Rule Out 09/05/2023 09/05/2023 09/05/2023 1:30 PM CDT COVID-19 Rule Out 11/03/2023 11/03/2023 11/03/2023 3:34 PM CDT COVID-19 Rule Out 04/14/2024 04/14/2024 04/14/2024 1:53 PM PRINTS AND DRAWINGS CURATOR Assessment Noted Time PHQ-9 Depression Total Score: 18 022 10:36 AM CDT documented as of this encounter Care Teams Sed High School Teacher Relationship Specialty Start Date End Date Nuvia Prasad MD PCP - General INTERNAL MEDICINE 07/30/19 08/27/22 None, Provider, PCP - General UNKNOWN PHYSICIAN SPECIALTY 08/28/22 09/18/22 [place] [address] [facility]. [address] [place] [address] PCP - General FAMILY PRACTICE 09/19/22 documented as of this encounter
== END 2024-06-17 23:26 | disposition home or self-care (01) ==
LOC: ANHED 23:20
PROVIDERS: Emergency Medicine; Emergency Provider Physician Assistant; PCP Family Medicine
DX: J11.1 Influenza due to unidentified influenza virus with other respiratory manifestations (principal)
CPT/HCPCS: 87637; 87651; 99283; A9270

== ENCOUNTER 2025-01-31 16:36 | Emergency (ER) | payer OTHER, SELFPAY ==
[2025-01-31 16:40] VITALS: BP 126/98; PULSE 100; RESP 16; TEMP 36.4; O2SAT 97
[2025-01-31 17:27] LABS: EDUAAPPEAR Clear; EDUABILI Negative (Negative); EDUABLOOD Trace (Negative); EDUACOLOR1 Yellow; EDUAGLUCOSE Negative (Negative); EDUAKETONE Negative (Negative); EDUALEUKO Negative (Negative); EDUANITRATE Negative (Negative); EDUAPH 5.5; EDUAPROTEIN Negative (Negative); EDUASPGRAVITY 1.030; EDUAUROBILI 0.2
--- NOTE | 2025-01-31 17:27 | ED.GENADULT ---
HPI - General Adult General Chief complaint: Urogenital-Female Stated complaint: Abdominal Pain/Blood In Urine/Dizzy Time Seen by Provider: 01/31/25 17:27 Source: patient, RN notes reviewed and old records reviewed Mode of arrival: ambulatory Limitations: no limitations History of Present Illness HPI narrative: 24-year-old female with a history of PCOS presents to the [facility] with low abdominal pain noticing blood in her urine. Reports nausea without vomiting. States that she has taken Zofran. Sudden onset a couple of hours ago. Had her appendix removed a couple of years ago initial Related Data Home Medications ?Medication ?Instructions ?Recorded ?Confirmed ?Last Taken ?Type gabapentin 100 mg capsule 100 mg PO DAILY 10/27/24 01/31/25 Unknown History metoprolol succinate 25 mg 12.5 mg PO DAILY 10/27/24 01/31/25 Unknown History tablet,extended release 24 hr pantoprazole 40 mg tablet,delayed 40 mg PO QAM 10/27/24 01/31/25 Unknown History release Allergies Allergy/AdvReac Type Severity Reaction Status Date / Time clindamycin Allergy Unknown Vomiting Verified 01/31/25 16:43 doxycycline Allergy Unknown Vomiting Verified 01/31/25 16:43 benzonatate Allergy Hives Verified 01/31/25 16:43 Review of Systems Review of Systems: All systems reviewed & are unremarkable except as noted in HPI and below Constitutional: Constitutional: Reports no additional constitutional complaints ENT: Reports system reviewed and no additional complaints, except as documented Cardiovascular: Cardiovascular: Reports no additional cardiovascular complaints, Denies chest pain and Denies dyspnea Respiratory: Respiratory: Reports no additional respiratory complaints, Denies chest congestion, Denies cough and Denies dyspnea Gastrointestinal: Gastrointestinal: Reports as per HPI, Reports abdominal pain and Denies bloating Genitourinary: Genitourinary: Reports as per HPI Musculoskeletal: Musculoskeletal: Reports no additional musculoskeletal complaints Integumentary/Breasts: Skin/Breast: Reports system reviewed and no additional complaints, except as docu PMFSH Past Medical History Medical History Hypertension Pain Surgical History Surgical History H/O oral surgery Hx of appendectomy Family History Family History Mother Breast cancer Other Acute myocardial infarction Cerebrovascular accident Depression Diabetes mellitus Heart disease Hypertension Social History Social History Smoking status: Never smoker Alcohol intake: current Alcohol use details: rarely Substance use: current Substance use type: marijuana Do You Feel Safe in your Home?: Yes Lack of Transportation: No Current Housing: Decline to Answer Concerned About Future Housing: Decline to Answer Difficulty Paying Gas/Electric Bills: Decline to Answer Difficulty Paying for Meds: Decline to Answer Currently Unemployed: Decline to Answer Education: Decline to Answer Difficulty w/ Childcare or Family Care: Decline to Answer Living arrangements: with family Additional living arrangements comments: single Occupation/Education: unemployed Gender identity (if verbalized by the patient): Female Sexual Orientation (if Verbalized by the Patient): Bisexual Comments At the time of my signature, I reviewed and agree with the nursing past medical, surgical, social, and family history. There is no relevant family history pertinent to the patient complaint. Exam Const: General: cooperative, no acute distress, well developed, alert, uncomfortable and well nourished Nutritional Appearance: well nourished Orientation/consciousness: patient oriented x3 Limitations: no limitations HENMT: Head: normal to inspection Eyes: General: appearance normal, both eyes and all related structures Alignment and Position: alignment normal Neck: Neck: normal visual inspection, full ROM, no lymphadenopathy and no meningeal signs Chest: Chest palpation & inspection: normal inspection of the chest Resp: Effort & Inspection: normal respiratory effort and able to speak in complete sentences Auscultation: clear to auscultation bilaterally, no crackles, no rales, no rhonchi and no wheezes Cardio: Rate: regular rate GI: GI Palp: Yes abdominal tenderness, Yes Tenderness to palpation present (GI) and Yes Guarding due to palpation present (GI) (Right lower quadrant, suprapubic, left lower quadrant) Auscultation: normal bowel sounds : General: Yes no CVA tenderness Skin: General skin exam: normal color and no rashes or lesions noted Neuro: General: patient oriented x3, moves all extremities and no meningeal signs Cognition (Neuro): normal cognition Speech: normal speech Extrem: General: normal to inspection, full ROM and capillary refill normal Psych: Appearance: grossly normal and well kempt Mental Status: mental status grossly normal Speech and movement: Normal speech and movement present and Clear speech present Affect: normal affect Attitude: cooperative Course Course Level of Care: Express Care Visit Vital Signs Vital signs: Vital Signs Temperature 97.6 F 01/31/25 16:40 Pulse Rate 100 01/31/25 16:40 Respiratory Rate 16 01/31/25 16:40 Blood Pressure 126/98 H 01/31/25 16:40 Pulse Oximetry 97 01/31/25 16:40 Oxygen Delivery Room Air 01/31/25 16:40 Temperature 97.6 F 01/31/25 16:40 Pulse Rate 100 01/31/25 16:40 Respiratory Rate 16 01/31/25 16:40 Blood Pressure 126/98 H 01/31/25 16:40 Pulse Oximetry 97 01/31/25 16:40 Oxygen Delivery Room Air 01/31/25 16:40 Reviewed Transfer Transfered to: [place] Transportation: Other (POV, declined EMS) Transfer rationale: Patient with significant lower abdominal pain sudden onset a couple hours ago. Negative urine Patient with a history of PCOS, concern for ovarian torsion or kidney stones Accepting physician: Spoke with Dr. Medina Medical Decision Making MDM Narrative Medical decision making narrative: Patient sitting in exam room. Patient is nontoxic but appears extremely uncomfortable. Rating her pain 9/10 Patient's urine dip does not show signs of infection, patient has a history of an appendectomy a couple of years ago Transfer for higher level of care Transfer instructions reviewed with patient to go directly to the emergency room. Do not eat or drink. EMS was offered, patient declined stating that her sister will drive her All questions have been answered, and the patient deny any further questions Some parts of this dictation were generated by voice recognition software and may contain typographical and/or grammatical inaccuracies. Differential Diagnosis Differential Diagnosis: Appendicitis, gastroenteritis, UTI, kidney stone, ovarian torsion, tubal Medical Records Medical records reviewed: Yes I reviewed the external patient's medical records. Vital Signs Vital Signs: Vital Signs Temperature 97.6 F 01/31/25 16:40 Pulse Rate 100 01/31/25 16:40 Respiratory Rate 16 01/31/25 16:40 Blood Pressure 126/98 H 01/31/25 16:40 Pulse Oximetry 97 01/31/25 16:40 Oxygen Delivery Room Air 01/31/25 16:40 Temperature 97.6 F 01/31/25 16:40 Pulse Rate 100 01/31/25 16:40 Respiratory Rate 16 01/31/25 16:40 Blood Pressure 126/98 H 01/31/25 16:40 Pulse Oximetry 97 01/31/25 16:40 Oxygen Delivery Room Air 01/31/25 16:40 Reviewed Lab Data Lab results reviewed: Yes I reviewed the patient's lab results. Labs: Lab Results 01/31/25 Range/Units 16:47 POC Urine Color Yellow POC Urine Clarity Clear POC Urine pH 5.5 POC Ur Specif [place] 1.030 POC Urine Protein Negative (Negative) POC Ur Glucose (UA) Negative (Negative) POC Urine Ketones Negative (Negative) POC Urine Blood Trace (Negative) POC Urine Nitrite Negative (Negative) POC Urine Bilirubin Negative (Negative) POC Urine Urobilinogen 0.2 POC U Leukocyte Esteras Negative (Negative) Reviewed Critical Care Time Critical Care Time Critical Care Time: No Discharge Plan Discharge Clinical Impression: Bilateral lower abdominal pain Patient Disposition: Acute Care Hospital Condition: Stable Patient Language: Kazakh Prescriptions: No Action pantoprazole 40 mg tablet,delayed release (DR/EC) 40 mg PO QAM gabapentin 100 mg capsule 100 mg PO DAILY metoprolol succinate 25 mg tablet extended release 24 hr 12.5 mg PO DAILY norelgestromin-ethin.estradiol [Xulane] 150-35 mcg/24 hr patch weekly 1 patch transdermal Q7D Qty: 4 3RF Rx Instructions: apply once weekly - pt to take in a continuous manner ondansetron 4 mg tablet,disintegrating 4 mg PO Q8H PRN (Reason: nausea and vomiting) Qty: 10 0RF Follow-up/Referrals: Rico,MD Farzaneh [Primary Care Provider, Unknown]
== END 2025-01-31 17:35 | disposition short-term general hospital (02) ==
LOC: EXPGOSH 16:38
PROVIDERS: Emergency Provider Nurse Practitioner; PCP Family Medicine
DX: R10.31 Right lower quadrant pain (principal); R10.32 Left lower quadrant pain; E28.2 Polycystic ovarian syndrome; I10 Essential (primary) hypertension; F12.90 Cannabis use, unspecified, uncomplicated
CPT/HCPCS: 81003; 99212; 99213; G0463

== ENCOUNTER 2025-01-31 17:52 | Emergency (ER) | payer OTHER, SELFPAY ==
--- NOTE | ~2025-01-31 | US_ITS ---
EXAMINATION: US transvaginal INDICATION: Lower pelvic pain Comparison:No prior studies for comparison. TECHNIQUE: Multiple transabdominal and endovaginal sonographic images of the pelvis performed. FINDINGS: The uterus measures 6.3 x 3 x 3.6 cm. The endometrial complex measures 8 mm. The right ovary measures 3.6 x 2.8 x 2.3 cm. There are follicular changes of the right ovary. Left ovary is not visualized. There is no free fluid in the pelvis. There are no abnormal masses seen on either side. Trace fluid in the cervix. IMPRESSION: 1. Unremarkable pelvic ultrasound. Reviewed, dictated and finalized at location O.
--- NOTE | ~2025-01-31 | CT_ITS ---
EXAMINATION: CT abdomen pelvis w con DATE: 01/31/2025 23:11 INDICATION: Right lower quadrant abdominal pain. TECHNIQUE: Computed tomography (CT) of the abdomen and pelvis was performed with 100 mL Omnipaque 350 intravenous contrast. Automated exposure control and iterative reconstruction technique were employed. The dose-length product was 392.63 mGy-cm. COMPARISON: CT abdomen and pelvis 05/07/2023 FINDINGS: The visualized portions of the lung bases demonstrate mild atelectasis on the left. No pleural effusion. The heart size is normal. No pericardial effusion. The liver, gallbladder, spleen, pancreas, adrenal glands, and kidneys are normal. There are no dilated loops of bowel. There are changes of appendectomy. There are no pathologically enlarged lymph nodes. There is no free intraperitoneal fluid. There is thoracolumbar levoscoliosis. IMPRESSION: 1. No etiology for the patient's symptoms. Reviewed, dictated and finalized at location E.
[2025-01-31 18:15] VITALS: BP 141/86; PULSE 92; RESP 18; TEMP 36.8; O2SAT 98
[2025-01-31 19:05] LABS: Add Urine Microscopic? NO; Appearance Urine Clear (Clear); Glucose Urine UA Negative (Negative); Leukocyte Esterase Ur Negative LEU/UL (Negative); Nitrate Urine Negative (Negative); Specific Grav Ur 1.023 (1.001-1.035)
[2025-01-31 20:08] VITALS: BP 127/91; PULSE 82; RESP 17; O2SAT 100
[2025-01-31 20:58] LABS: Pregnancy On Board Control Positive
[2025-01-31 21:49] LABS: Hematocrit 34.5 % (37.0-47.0); Hemoglobin 11.3 g/dL (12.0-15.0); Immature Granulocyte Percent A 0.3 % (0-0.5); Lymphocytes Absolute Auto 2.80 K/mm3 (0.9-3.2); Mean Corpuscular HGB Conc 32.8 g/dl (32-36); Mean Corpuscular Hemoglobin 30.2 pg (26-34); Mean Corpuscular Volume 92.2 fl (80-100); Nucleated Red Blood Cells Absolute Auto 0.000 K/mm3 (0.0-0.012); Nucleated Red Blood Cells Perc 0.0 % (0.0-0.2); Platelet Count Result 224 k/mm3 (150-375); Red Blood Count 3.74 M/mm3 (4.2-5.4); White Blood Count 7.7 K/mm3 (4.5-10.0)
[2025-01-31] MEDS: KETOROLAC 15 MG/ML VIAL (*BKC) IV PUSH (21:49)
[2025-01-31 22:04] LABS: Alanine Aminotransferase 11 U/L (6-35); Albumin Level 4.1 g/dL (3.5-5.1); Alkaline Phosphatase 66 U/L (38-126); Anion Gap 6 mmol/L (4-12); Aspartate Amino Transferase 21 U/L (14-36); Bilirubin,Total 0.2 mg/dL (0.2-1.3); Blood Urea Nitrogen 9 mg/dL (7-17); Calcium 9.0 mg/dL (8.4-10.2); Carbon Dioxide 26 mmol/L (22-30); Chloride 105 mmol/L (98-107); Estimated CRCL calculation 105 ml/min; Estimated Glomerular Filt Rate > 60; Glucose 91 mg/dL (65-110); Potassium 3.7 mmol/L (3.4-5.0); Sodium 137 mmol/L (137-145); Total Protein 7.0 g/dL (6.3-8.2)
[2025-01-31 22:09] LABS: Anisocytosis 1+; Ovalocytes Occasional; Schistocytes None Seen
[2025-01-31 23:12] VITALS: BP 117/60; PULSE 78; RESP 16; O2SAT 100
--- NOTE | 2025-02-01 04:27 | ED.ABDPAIN ---
HPI - Abdominal Pain General Chief Complaint: Urogenital-Female Stated Complaint: abdominal pain, urinary incontince, Time Seen by Provider: 01/31/25 19:51 History of Present Illness HPI narrative: Patient presents here with lower abdominal pain, worse in the right lower quadrant, she did feel like she urinated on herself earlier today too. No back pain, no focal numbness or weakness, she is ambulating without issues. Related Data Home Medications ?Medication ?Instructions ?Recorded ?Confirmed ?Last Taken ?Type gabapentin 100 mg capsule 100 mg PO DAILY 10/27/24 01/31/25 Unknown History metoprolol succinate 25 mg 12.5 mg PO DAILY 10/27/24 01/31/25 Unknown History tablet,extended release 24 hr pantoprazole 40 mg tablet,delayed 40 mg PO QAM 10/27/24 01/31/25 Unknown History release Allergies Allergy/AdvReac Type Severity Reaction Status Date / Time clindamycin Allergy Unknown Vomiting Verified 01/31/25 16:43 doxycycline Allergy Unknown Vomiting Verified 01/31/25 16:43 benzonatate Allergy Hives Verified 01/31/25 16:43 Review of Systems Review of Systems: All systems reviewed & are unremarkable except as noted in HPI and below PMFSH Past Medical History Medical History Hypertension Pain Surgical History Surgical History H/O oral surgery Hx of appendectomy Family History Family History Mother Breast cancer Other Acute myocardial infarction Cerebrovascular accident Depression Diabetes mellitus Heart disease Hypertension Social History Social History Smoking status: Never smoker Alcohol intake: current Alcohol use details: rarely Substance use: current Substance use type: marijuana Do You Feel Safe in your Home?: Yes Lack of Transportation: No Current Housing: Decline to Answer Concerned About Future Housing: Decline to Answer Difficulty Paying Gas/Electric Bills: Decline to Answer Difficulty Paying for Meds: Decline to Answer Currently Unemployed: Decline to Answer Education: Decline to Answer Difficulty w/ Childcare or Family Care: Decline to Answer Living arrangements: with family Additional living arrangements comments: single Occupation/Education: unemployed Gender identity (if verbalized by the patient): Female Sexual Orientation (if Verbalized by the Patient): Bisexual Exam Narrative: EXAMINATION OF ORGAN SYSTEMS/BODY AREAS: Constitutional: Vital signs per nursing GENERAL: Appears uncomfortable pain HEAD: Normal with no signs of head trauma. EYES: EOMI, conjunctiva normal ENT: Hearing grossly intact LUNGS: Nonlabored breathing. HEART: [Regular rate and rhythm] ABD: [Soft], slightly tender to right lower quadrant EXT: Normal range of motion SKIN: [No rashes or lesions.] NEURO: [Alert and oriented x 3. No gross focal sensory or strength deficits.] PSYCH: Normal affect Course Vital Signs Vital signs: Vital Signs Temperature 98.3 F 01/31/25 18:15 Pulse Rate 92 01/31/25 18:15 Respiratory Rate 18 01/31/25 18:15 Blood Pressure 141/86 H 01/31/25 18:15 Pulse Oximetry 98 01/31/25 18:15 Oxygen Delivery Room Air 01/31/25 18:15 Temperature 98.3 F 01/31/25 18:15 Pulse Rate 78 01/31/25 23:12 Respiratory Rate 16 01/31/25 23:12 Blood Pressure 117/60 01/31/25 23:12 Pulse Oximetry 100 01/31/25 23:12 Oxygen Delivery Room Air 01/31/25 18:15 MDM - Abdominal Pain MDM Narrative Medical decision making narrative: Patient presents here with right lower quadrant/lower abdominal pain, she is concerned about her ovaries, short had her appendix out. She did also have an episode where she did void on herself earlier today, she is not sure why. Normal motor and sensory exam. Patient able to ambulate. No evidence of acute cord compression, osteomyelitis/discitis or cauda equina without saddle anesthesia, numbness/tingling in lower extremities, or back pain. I did consider possible UTI however her urinalysis is completely normal. She is given a dose of Toradol with improvement in her symptoms. She looks more comfortable and able to walk around without issues. Transvaginal ultrasound here does not show any acute abnormality. I did discuss this with the patient, she would like to have a CT scan, this is unremarkable for acute abnormality. Discussed with patient, she feels better and feels comfortable following up with her lace sewer to assess for possible other cause such as interstitial cystitis; return precautions provided. Lab Data 01/31/25 21:43 01/31/25 21:43 Labs: Lab Results 01/31/25 01/31/25 Range/Units 18:57 21:43 WBC 7.7 (4.5-10.0) K/mm3 RBC 3.74 L (4.2-5.4) M/mm3 Hgb 11.3 L (12.0-15.0) g/dL Hct 34.5 L (37.0-47.0) % MCV 92.2 (80-100) fl MCH 30.2 (26-34) pg MCHC 32.8 (32-36) g/dl RDW 12.0 (11.5-14.5) % Plt Count 224 (150-375) k/mm3 MPV 11.7 H (7.4-10.4) fl Immature Gran % (Auto) 0.3 (0-0.5) % Neut % (Auto) 56.1 (45.5-73.1) % Lymph % (Auto) 36.5 (18.3-44.2) % [place] % (Auto) 4.7 (2.6-8.5) % Eos % (Auto) 1.6 (0-4.4) % Baso % (Auto) 0.8 (0.2-1.2) % Lymph # (Auto) 2.80 (0.9-3.2) K/mm3 [place] # (Auto) 0.4 (0.1-0.6) K/mm3 Eos # (Auto) 0.1 (0-0.3) K/mm3 Baso # (Auto) 0.1 (0.0-0.1) K/mm3 Abs Immat Gran (auto) 0.02 (0.00-0.031) K/mm3 Absolute Neuts (auto) 4.3 (1.3-6.7) K/mm3 Absolute Nucleated RBC 0.000 (0.0-0.012) K/mm3 Band Neutrophils % Not Reportable Nucleated RBC % 0.0 (0.0-0.2) % Platelet Estimate Adequate (Adequate) Anisocytosis 1+ Ovalocytes Occasional Schistocytes None seen Sodium 137 (137-145) mmol/L Potassium 3.7 (3.4-5.0) mmol/L Chloride 105 (98-107) mmol/L Carbon Dioxide 26 (22-30) mmol/L Anion Gap 6 (4-12) mmol/L BUN 9 (7-17) mg/dL Creatinine 0.68 L (0.7-1.0) mg/dL Estim Creat Clear Calc 105 ml/min Estimated GFR > 60 (59 - ) Glucose 91 (65-110) mg/dL Calcium 9.0 (8.4-10.2) mg/dL Total Bilirubin 0.2 (0.2-1.3) mg/dL AST 21 (14-36) U/L ALT 11 (6-35) U/L Alkaline Phosphatase 66 (38-126) U/L Total Protein 7.0 (6.3-8.2) g/dL Albumin 4.1 (3.5-5.1) g/dL Urine Color Yellow (Yellow) Urine Appearance Clear (Clear) Urine pH 5.5 (5.0-9.0) Ur Specific [place] 1.023 (1.001-1.035) Urine Protein Negative (Negative) mg/dL Urine Glucose (UA) Negative (Negative) mg/dL Urine Ketones Negative (Negative) mg/dL Ur Blood (Man) Negative (Negative) Urine Nitrate Negative (Negative) Urine Bilirubin Negative (Negative) Urine Urobilinogen 0.2 (<2.0) mg/dL Leukocyte Esterase Rfl Negative (Negative) RAMONA/UL Urine Test Negative Imaging Data Radiologist's impression: ITS Impressions Transvaginal US 01/31/25 21:17 IMPRESSION: 1. Unremarkable pelvic ultrasound. Discharge Plan Discharge Clinical Impression: Pelvic pain Patient Disposition: Home Condition: Stable Instructions: Pelvic Pain (ED) Additional Instructions: Please follow up with your OBGYN; you can always return for any further issues. Patient Language: French Prescriptions: No Action pantoprazole 40 mg tablet,delayed release (DR/EC) 40 mg PO QAM gabapentin 100 mg capsule 100 mg PO DAILY metoprolol succinate 25 mg tablet extended release 24 hr 12.5 mg PO DAILY norelgestromin-ethin.estradiol [Xulane] 150-35 mcg/24 hr patch weekly 1 patch transdermal Q7D Qty: 4 3RF Rx Instructions: apply once weekly - pt to take in a continuous manner ondansetron 4 mg tablet,disintegrating 4 mg PO Q8H PRN (Reason: nausea and vomiting) Qty: 10 0RF Follow-up/Referrals: Luis Felipe,MD Farz[place]h [Primary Care Provider, Unknown]
== END 2025-02-01 01:44 | disposition home or self-care (01) ==
PROVIDERS: Emergency Medicine; Emergency Provider Emergency Medicine; PCP Family Medicine
DX: R10.2 Pelvic and perineal pain (principal); I10 Essential (primary) hypertension
CPT/HCPCS: 36415; 74177; 76830; 80053; 81003; 81025; 85025; 96374; 99284; J1885; Q9967